=== PATIENT | female | born 1935 | race Caucasian/White ===

== ENCOUNTER 2017-07-08 05:38 | Outpatient (CLI) | payer MEDICARE, OTHER | END 2017-07-08 05:39 | disposition critical access hospital (66) | LOC: EMS 05:38 | PROVIDERS: ATTEND Surgery | DX: S09.90XA Unspecified injury of head, initial encounter (principal); W19.XXXA Unspecified fall, initial encounter; Y92.009 Unspecified place in unspecified non-institutional (private) residence as the place of occurrence of the external cause | CPT/HCPCS: A0425; A0429 ==

== ENCOUNTER 2017-07-08 05:52 | Emergency (ER) | payer MEDICARE, OTHER ==
--- NOTE | 2017-07-08 06:03 | ED Physician Documentation ---
PD HPI Fall - Stated complaint Stated Complaint: FALL - Chief complaint Chief Complaint: Trauma Hd/Nk - History obtained from History obtained from: Patient, Family ( says that the patient has had more falls recently. She was going into bathroom and he heard her fall, she had not asked him for help as she is supposed to. He went into bathroom and she was awake and trying to get back up. Apparently had struck back of head on sink and there was blood on the floor. Denies other injury. She has had some cough the past few days with wheezing and some dyspnea. 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 denies: Rhinorrhea / runny nose Throat: denies: Sore throat Cardiac: denies: Chest pain / pressure, Palpitations Respiratory: reports: Dyspnea, Cough, Wheezing (she has baseline wheezing and uses MDIs 4 times daily at least, and needs them regularly or gets very wheezy.) GI: denies: Abdominal Pain, Nausea, Vomiting, Diarrhea Skin: reports: Laceration (s) Neurologic: reports: Head injury. 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 HEENT: Cataracts - Present Medications Home Medications: Ambulatory Orders Medication Instructions Recorded Confirmed Chlorthalidone 25 mg PO DAILY 07/10/14 07/10/14 Fluticasone/Salmeterol 500/50 07/10/14 07/10/14 [Advair 500 Mcg/50 Mcg] Ipratropium/Albuterol Sulfate 07/10/14 07/10/14 [Combivent Respimat Inhal [employer]] Levothyroxine [Synthroid] 125 mcg PO QDAC 07/10/14 07/10/14 Temazepam [Restoril] 15 mg PO HS 07/10/14 07/10/14 Dexamethasone [Decadron] 4 mg PO DAILY #5 tablet 07/08/17 Doxycycline Monohydrate 100 mg PO BID #14 tablet 07/08/17 - Allergies Allergies/Adverse Reactions: Allergies Allergy/AdvReac Type Severity Reaction Status Date / Time moxifloxacin Allergy Rash Verified 07/08/17 05:57 codeine AdvReac Nausea Verified 07/08/17 05:57 losartan potassium * AdvReac Nausea Verified 07/08/17 05:57 [From Cozaar] - Social History Does the pt smoke?: No Smoking Status: Former smoker PD ED PE NORMAL - Vitals Vital signs reviewed: Yes - General General: Alert and oriented X 3, Well developed/nourished, Other (interacts well , conversant. Large focal hematoma left occiput without bleeding currently. ) - HEENT HEENT: Pharynx benign, Dentition benign - Neck Neck: Supple, no meningeal sign, No bony TTP, No adenopathy - Cardiac Cardiac: RRR, No murmur - Respiratory Respiratory: Other (no chestwall tenderness). No: Clear bilaterally (diffuse wheezing, with some coarse sounds centrally. Peripheral sounds are good. ) - Abdomen Abdomen: Soft, Non tender - Back Back: No CVA TTP, No spinal TTP - Derm Derm: Normal color, Warm and dry - Extremities Extremities: No tenderness to palpate, Normal ROM s pain, No edema, No calf tenderness / cord - Neuro Neuro: Alert and oriented X 3, No motor deficit, Normal speech Eye Opening: Spontaneous Motor: Obeys Commands Verbal: Oriented GCS Score: 15 - Psych Psych: Normal mood Results - Vitals Vitals: Vital Signs - 24 hr 07/08/17 07/08/17 07/08/17 05:57 06:22 06:30 Temperature 36.0 C L Heart Rate 90 90 87 Respiratory 15 25 H 20 Rate Blood Pressure 186/87 H 178/75 H O2 Saturation 96 96 07/08/17 07/08/17 07/08/17 06:36 06:49 07:36 Temperature Heart Rate 97 83 89 Respiratory 19 19 18 Rate Blood Pressure 182/87 H 182/87 H 150/75 H O2 Saturation 99 98 98 07/08/17 08:48 Temperature Heart Rate 92 Respiratory 16 Rate Blood Pressure 164/98 H O2 Saturation 98 Oxygen O2 Source [Without Activity] Room air O2 Source Room air - Labs Labs: Laboratory Tests 07/08/17 07/08/17 06:48 06:48 WBC 4.9 RBC 4.43 Hgb 12.7 Hct 37.0 MCV 83.5 MCH 28.7 MCHC 34.4 RDW 14.0 Plt Count 174 MPV 8.8 Neut # 3.0 Lymph # 0.9 L [place] # 0.6 Eos # 0.4 Baso # 0.0 Absolute Nucleated RBC 0.00 Nucleated RBC % 0.0 Sodium 128 L Potassium 3.9 Chloride 89 L Carbon Dioxide 25 Anion Gap 14.0 H BUN 15 Creatinine 0.7 Estimated GFR (MDRD) 80 L Glucose 85 Calcium 9.0 Magnesium 1.7 Total Bilirubin 0.5 AST 24 ALT 16 Alkaline Phosphatase 61 Total Protein 7.3 Albumin 3.7 Globulin 3.6 Albumin/Globulin Ratio 1.0 Lipase 21 L - Rads (name of study) head and neck CT Radiology: Prelim report reviewed (no ICH, no fractures) chest xray Radiology: Prelim report reviewed (bronchial cuffing c/w bronchitis. ) Procedures - Laceration (location) left occiput Length in cm: 1.5 Wound type: Stellate, Into subcut fat, Clean Neurovascular status: Other (active brisk bleeding without direct pressure. As such, with the bleeding and actually small size of the laceration, I was unable to evacuate the hematoma as much as I would have liked. Still focal hematoma after suturing.) Anesthesia: Lidocaine 1% with epi Skin layer closure: Nylon, Running, Size #-0 - enter number (4), Sutures - enter # (4 sutures in somewhat of a purse string fashion to close the wound and stop the bleeding.) PD MEDICAL DECISION MAKING - ED course Complexity details: reviewed results (given some bronchial findings on CXR with history of COPD, will give steroids and antibiotics c/w studies suggesting abx use in this setting leads to better improvement and longer resolution in those with COPD due to colonization. ), re-evaluated patient (improved wheeze with neb treatment (she says she would have needed one at home regardless of the fall ). fabrication manager started to wash the scalp wound and it started bleeding briskly. Direct pressure controlled it while I set up for suturing. ), considered differential, d/w patient Departure - Departure Disposition: 01 Home, Self Care Clinical Impression: Fall from slip, trip, or stumble Qualifiers: Encounter type: initial encounter Qualified Code(s): W01.0XXA - Fall on same level from slipping, tripping and stumbling without subsequent striking against object, initial encounter Occipital scalp laceration Qualifiers: Encounter type: initial encounter Qualified Code(s): S01.01XA - Laceration without foreign body of scalp, initial encounter COPD (chronic obstructive pulmonary disease) Qualifiers: COPD type: COPD with acute lower respiratory infection Qualified Code(s): J44.0 - Chronic obstructive pulmonary disease with acute lower respiratory infection Bronchitis, acute Qualifiers: Bronchitis organism: unspecified organism Qualified Code(s): J20.9 - Acute bronchitis, unspecified Condition: Stable Record reviewed to determine appropriate education?: Yes Instructions: ED Upper Resp Infec Abx Tx, ED Laceration Scalp Stitch Or Stap Prescriptions: Dexamethasone [Decadron] 4 mg PO DAILY #5 tablet Doxycycline Monohydrate 100 mg PO BID #14 tablet Comments: It is okay to wash and shower. Antibiotic ointment to laceration twice daily. Suture removal in about 10 days. You can put warm towels to the hematoma periodically to try to soften it and promote absorption. Continue your usual medications. Given your current cough and the chest xray showing some bronchitis , along with history of lung disease, I would treat you with Doxycycline antibiotic and Decadron steroid as directed. Recheck if worsening symptoms with cough/breathing. You will be sore from the fall, and can use Tylenol every 4-6 hours as needed. Discharge Date/Time: 07/08/17 09:06
[2017-07-08] MEDS ORDERED: IPRATROPIUM/ALBUTEROL 3 ML NEB INH STA (06:26)
[2017-07-08] MEDS ORDERED: SODIUM CHLORIDE 0.9% 1,000 ML IV ONE (06:46)
--- NOTE | 2017-07-08 07:20 | XRAY Preliminary Report ---
Exam: XR CHEST 2 VIEW X-RAY IMPRESSION: 1. Large lung volumes and mild cardiomegaly. 2. Mild bronchial wall thickening. This can be seen with bronchitis or reactive airways disease. [facility] SITE ID: [id number]
--- NOTE | 2017-07-08 07:20 | XRAY Report ---
EXAM: CHEST RADIOGRAPHY EXAM DATE: 07/08/2017 07:14 AM. CLINICAL HISTORY: Cough and sputum . COMPARISON: 07/12/2014. TECHNIQUE: 2 views. FINDINGS: Lungs/Pleura: Large lung volumes. No alveolar consolidation or pleural effusion seen. No pneumothorax . Mild bronchial wall thickening. Mediastinum: Mild cardiomegaly. Other: Osteopenia. Degenerative changes in the shoulders. Scoliosis. IMPRESSION: 1. Large lung volumes and mild cardiomegaly. 2. Mild bronchial wall thickening. This can be seen with bronchitis or reactive airways disease. [facility] Referring Provider Line: [phone] SITE ID: [id number]
[2017-07-08 07:29] LABS: BASOPHILS % (AUTO) 0.9 %; EOSINOPHILS # (AUTO) 0.4 10^3/uL (0.0-0.7); EOSINOPHILS % (AUTO) 8.5 %; HGB - HEMOGLOBIN 12.7 g/dL (12.0-16.0); LYMPHOCYTES # (AUTO) 0.9 10^3/uL (1.5-3.5); MEAN CORPUSCULAR HEMOGLOBIN 28.7 pg (27.0-31.0); MEAN CORPUSCULAR HGB CONC 34.4 g/dL (32.0-36.0); MEAN CORPUSCULAR VOLUME 83.5 fL (81.0-99.0); MEAN PLATELET VOLUME 8.8 fL (7.9-10.8); MONOCYTES # (AUTO) 0.6 10^3/uL (0.0-1.0); MONOCYTES % (AUTO) 12.1 %; NEUTROPHILS % (AUTO) 60.5 %; PLT - PLATELET COUNT 174 10^3/uL (130-450); RED BLOOD COUNT 4.43 10^6/uL (4.20-5.40); WHITE BLOOD COUNT 4.9 x10^3/uL (4.8-10.8)
--- NOTE | 2017-07-08 07:34 | CT Report ---
EXAM: CT HEAD EXAM DATE: 07/08/2017 07:23 AM. CLINICAL HISTORY: 81-year-old with fall and head strike with headache and left occipital hematoma COMPARISON: CT head 08/03/2014. TECHNIQUE: Multiaxial CT images were obtained from the foramen magnum to the vertex. Reformats: Coron al. IV contrast: None. In accordance with CT protocol optimization, one or more of the following dose reduction techniques w ere utilized for this exam: automated exposure control, adjustment of mA and/or KV based on patient s ize, or use of iterative reconstructive technique. FINDINGS: Parenchyma: No acute parenchymal hemorrhage, mass, or midline shift. There is xyza-cm-mvhtqbox bilate ral areas of white matter hypoattenuation seen similar to 07/14/2014. No definite new areas of hyperatt enuation seen to suggest acute infarct. Qgzu-ix-xugurgsw cortical and cerebellar volume loss. Extraaxial Spaces: Normal for age. No subdural or epidural collections identified. Cisterns are paten t. Ventricles: Normal in size and position. Sinuses and Orbits: Changes of bilateral lens replacement. Visualized paranasal sinuses, mastoid air cells, middle ear cavities are clear. Bones: No evidence of fracture or calvarial defect. 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 Other: Large left parietal scalp hematoma. Vascular calcifications of the cavernous ICA segments and intradural vertebral arteries. IMPRESSION: 1. No acute infarct, intracranial hemorrhage, mass, hydrocephalus, or midline shift. 2. Mild to moderate white matter changes that appear similar CT 07/14/2014 and may represent sequela of chronic small vessel ischemic disease. 3. Large left parietal scalp hematoma. 4. No calvarial fracture. [facility] Referring Provider Line: [phone] SITE ID: [id number]
[2017-07-08 07:43] LABS: ALBUMIN 3.7 g/dL (3.2-5.5); BILIRUBIN,TOTAL 0.5 mg/dL (0.2-1.0); CREATININE 0.7 mg/dL (0.4-1.0); MAGNESIUM 1.7 mg/dL (1.7-2.8); TOTAL PROTEIN 7.3 g/dL (6.7-8.2)
--- NOTE | 2017-07-08 07:47 | CT Report ---
EXAM: CT CERVICAL SPINE WITHOUT CONTRAST DATE: 07/08/2017 07:23 AM. HISTORY: 81-year-old with fall and head strike presenting with neck pain COMPARISONS: CT head 07/10/2014. TECHNIQUE: Thin-section axial images were acquired of the cervical spine without contrast. Post-proce ssing: Coronal and sagittal reformats. Other: None. In accordance with CT protocol optimization, one or more of the following dose reduction techniques w ere utilized for this exam: automated exposure control, adjustment of mA and/or KV based on patient s ize, or use of iterative reconstructive technique. FINDINGS: Alignment: There is 2 mm of anterior subluxation of C3 on C4. There is reversal of normal cervical lo rdosis. There is rightward curvature of the cervical spine similar to prior study. There is widening of the anterior aspect of the C2-C3 disk space measuring up to 3 mm (series 8, image 36) that appears similar to prior study. Overall alignment appears similar to 07/10/2014 Bones: There is fusion of the occipital condyles and lateral masses of C1. There is fusion of the halina ateral C3-C5 facets. There is fusion of the C3-C4 vertebral body. No acute fracture. No suspicious os seous lesion. Interspace Levels/Facets: C1-C2: Severe endplate degenerative changes. Severe loss of disk height. There is a small ossific fra gment seen posterior to the right C1-C2 articulation that is unchanged from 07/10/2014. Small posterio r pannus as well as ligament thickening resulting in moderate spinal canal stenosis. Probable moderat e bilateral neural foraminal narrowing, greater on the right. Findings appear progressed. C2-C3: Moderate endplate degenerative change with mild to moderate loss of disk height and disk calci fication. Small posterior disk osteophyte complex. Bilateral uncovertebral osteophyte and arthritic f acet disease. Mild spinal canal stenosis. Mild bilateral foraminal narrowing. Findings appear progres sed. C3-C4: Moderate endplate degenerative change with mild to moderate loss of disk height and disk calci fication. Small posterior disk osteophyte complex. Bilateral uncovertebral osteophyte and arthritic f acet disease. Mild spinal canal stenosis. Minimal to mild bilateral neural foraminal narrowing. Findi ngs appear progressed. C4-C5: Fusion of the endplates. Small posterior disk osteophyte complex. Bilateral uncovertebral oste ophyte and arthritic facet disease. Mild to moderate spinal canal stenosis. Moderate to severe left a nd mild right neuroforaminal narrowing. Findings progressed. C5-C6: Severe endplate degenerative change with severe loss of disk height. Small to moderate central disk osteophyte complex. Bilateral uncovertebral osteophyte and arthritic facet disease. Moderate sp inal canal stenosis. Moderate to severe bilateral neuroforaminal narrowing. Findings appear progresse d. C6-C7: Severe endplate degenerative change with severe loss of disk height. Small moderate posterior disk osteophyte complex. Bilateral uncovertebral osteophyte and arthritic facet disease. Moderate spi nal canal stenosis. Dpqzpcla-yp-olyjph right and moderate left neural foraminal narrowing. Findings p rogressed. C7-T1: Severe endplate degenerative change with severe loss of disk height. Small left paracentral ca lcified disk protrusion. Bilateral arthritic facet disease. Mild to moderate spinal canal stenosis wi th effacement of the left lateral recess. Moderate to severe right and minimal to mild left neural fo raminal narrowing. Findings appear progressed. Musculature: Normal. No fatty atrophy. Other: The paravertebral and prevertebral soft tissues are unremarkable. The lung apices are clear. IMPRESSION: 1. Diffuse osteopenia which technically limits evaluation. 2. No acute fracture or traumatic subluxation. 3. Severe multilevel degenerative changes appear progressed from 07/10/2014. C1-C2: Probable moderate thecal sac narrowing. Probable moderate bilateral neural foraminal narrowing , greater on the right. C2-C3: Mild spinal canal stenosis. Mild bilateral foraminal narrowing. C3-C4: Mild spinal canal stenosis. Minimal to mild bilateral neural foraminal narrowing. C4-C5: Mild to moderate spinal canal stenosis. Moderate to severe left and mild right neuroforaminal narrowing. C5-C6: Moderate spinal canal stenosis. Moderate to severe bilateral neuroforaminal narrowing. . C6-C7: Moderate spinal canal stenosis. Voijxhld-ye-dbgkuq right and moderate left neural foraminal na rrowing. C7-T1: Mild to moderate spinal canal stenosis with effacement of the left lateral recess. Moderate to severe right and minimal to mild left neural foraminal narrowing. [facility] Referring Provider Line: [phone] SITE ID: [id number]
[2017-07-08] MEDS ORDERED: ACETAMINOPHEN 325 MG TABLET PO STA (07:54)
[2017-07-08] MEDS ORDERED: DOXYCYCLINE 100 MG TABLET PO STA (07:54)
[2017-07-08] MEDS ORDERED: DEXAMETHASONE 10 MG/ML VIAL IVP STA (07:54)
[2017-07-08 08:49] VITALS: BP 164/98
== END 2017-07-08 09:06 | disposition home or self-care (01) ==
LOC: EDUNIT# → ED 05:52
DX: S01.01XA Laceration without foreign body of scalp, initial encounter (principal); W01.198A Fall on same level from slipping, tripping and stumbling with subsequent striking against other object, initial encounter; Y92.012 Bathroom of single-family (private) house as the place of occurrence of the external cause; J44.0 Chronic obstructive pulmonary disease with (acute) lower respiratory infection; J20.9 Acute bronchitis, unspecified; I10 Essential (primary) hypertension; I48.91 Unspecified atrial fibrillation; E03.9 Hypothyroidism, unspecified; M06.9 Rheumatoid arthritis, unspecified; M19.90 Unspecified osteoarthritis, unspecified site; Z87.891 Personal history of nicotine dependence
CPT/HCPCS: 12001; 36415; 70450; 71046; 72125; 80053; 83690; 83735; 85025; 94640; 96361; 96374; 99283; 99285; A9270; J7620

== ENCOUNTER 2017-12-25 14:32 | Outpatient (CLI) | payer MEDICARE, OTHER | END 2017-12-25 14:33 | disposition critical access hospital (66) | LOC: EMS 14:32 | PROVIDERS: ATTEND Surgery | DX: R06.02 Shortness of breath (principal); R05 Cough | CPT/HCPCS: A0425; A0427 ==

== ENCOUNTER 2017-12-25 14:47 | Inpatient (IN) | payer MEDICARE, OTHER ==
[2017-12-25] MEDS ORDERED: ALBUTEROL NEB 2.5 MG/3 ML INH STA (16:23)
[2017-12-25] MEDS ORDERED: DEXAMETHASONE 10 MG/ML VIAL PO STA (16:23)
--- NOTE | 2017-12-25 16:24 | ED Physician Documentation ---
History of Present Illness - Stated complaint Stated Complaint: SOA - Chief complaint Chief Complaint: Resp - Additonal information Additional information: hx from pt and SO 82 f hx asthma uses nebs q6 hr recently came off prednsione was on vacation in [place] had sore throat and sinus congestion now cough and SOA no leg swelling hypoxic in ED and does not normally use home O2 Review of Systems Constitutional: denies: Fever Nose: reports: Congestion Throat: reports: Sore throat Respiratory: reports: Dyspnea, Cough, Wheezing GI: denies: Abdominal Pain, Nausea, Vomiting, Diarrhea Endocrine: denies: Easy bruising / bleeding Immunocompromised: denies: Immunocompromised PD PAST MEDICAL HISTORY - Past Medical History Past Medical History: Yes Cardiovascular: Hypertension, Atrial flutter Respiratory: Asthma, COPD Endocrine/Autoimmune: HyPOthyroidism GI: Diverticulitis HEENT: Other Musculoskeletal: Osteoarthritis, Rheumatoid arthritis Derm: None - Past Surgical History Past Surgical History: Yes General: Appendectomy Ortho: Spine surgery, 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 HEENT: Cataracts - Present Medications Home Medications: Ambulatory Orders Medication Instructions Recorded Confirmed Chlorthalidone 25 mg PO DAILY 07/10/14 07/10/14 Fluticasone/Salmeterol 500/50 07/10/14 07/10/14 [Advair 500 Mcg/50 Mcg] Ipratropium/Albuterol Sulfate 07/10/14 07/10/14 [Combivent Respimat Inhal [place]] Levothyroxine [Synthroid] 125 mcg PO QDAC 07/10/14 07/10/14 Temazepam [Restoril] 15 mg PO HS 07/10/14 07/10/14 Dexamethasone [Decadron] 4 mg PO DAILY #5 tablet 07/08/17 Doxycycline Monohydrate 100 mg PO BID #14 tablet 07/08/17 - Allergies Allergies/Adverse Reactions: Allergies Allergy/AdvReac Type Severity Reaction Status Date / Time moxifloxacin Allergy Rash Verified 07/08/17 05:57 codeine AdvReac Nausea Verified 07/08/17 05:57 losartan potassium * AdvReac Nausea Verified 07/08/17 05:57 [From [place]] - Social History Does the pt smoke?: No Smoking Status: Never smoker Does the pt drink ETOH?: Yes Does the pt have substance abuse?: No - Immunizations Immunizations are current?: Yes - POLST Patient has POLST: No PD ED PE NORMAL - Vitals Vital signs reviewed: Yes - General General: Alert and oriented X 3 - HEENT HEENT: PERRL - Neck Neck: Supple, no meningeal sign - Cardiac Cardiac: RRR - Respiratory Respiratory: Other (SERAFIN WHEEZE AND RONCHI, HYPOXIC) - Derm Derm: Normal color - Extremities Extremities: No edema, No calf tenderness / cord - Neuro Neuro: Alert and oriented X 3 Results - Vitals Vitals: Vital Signs - 24 hr 12/25/17 12/25/17 12/25/17 14:53 15:48 16:45 Temperature 37.2 C Heart Rate 100 103 H 106 H Respiratory 16 18 20 Rate Blood Pressure 148/79 H 115/75 O2 Saturation 100 100 100 Oxygen O2 Source [Without Activity] Room air O2 Source Room air - Labs Labs: Laboratory Tests 12/25/17 12/25/17 16:33 16:33 WBC 10.6 RBC 4.26 Hgb 11.9 L Hct 36.2 L MCV 84.9 MCH 28.0 MCHC 33.0 RDW 15.8 H Plt Count 247 MPV 8.9 Neut # (Auto) 8.1 H Lymph # (Auto) 1.0 L [place] # (Auto) 1.3 H Eos # (Auto) 0.2 Baso # (Auto) 0.1 Absolute Nucleated RBC 0.01 Nucleated RBC % 0.1 Sodium 135 Potassium 3.5 Chloride 101 Carbon Dioxide 26 Anion Gap 8.0 BUN 18 Creatinine 0.7 Estimated GFR (MDRD) 80 L Glucose 100 Calcium 8.9 - Rads (name of study) CXR Radiology: See rad report (early infiltrate right heart border, hyperinf c/w COPD) PD MEDICAL DECISION MAKING - ED course ED course: despite nebs by EMS and also in ED as well as steroids pt still very labored and wheezy - does not feel better - but no longer hypoxic CXR shows pna given severe asthma sx despite steroids and nebs will admit d/w hospitalist at 1800 - rec inpt - Sepsis Event Vital Signs: Vital Signs - 24 hr 12/25/17 12/25/17 12/25/17 14:53 15:48 16:45 Temperature 37.2 C Heart Rate 100 103 H 106 H Respiratory 16 18 20 Rate Blood Pressure 148/79 H 115/75 O2 Saturation 100 100 100 Oxygen O2 Source [Without Activity] Room air O2 Source Room air Departure - Departure Disposition: 66 [facility] DC/Xfer Clinical Impression: Pneumonia Qualifiers: Pneumonia type: due to unspecified organism Laterality: right Lung location: unspecified part of lung Qualified Code(s): J18.9 - Pneumonia, unspecified organism Asthma Qualifiers: Asthma severity: unspecified severity Asthma persistence: unspecified Asthma complication type: with acute exacerbation Qualified Code(s): J45.901 - Unspecified asthma with (acute) exacerbation Condition: Fair
--- NOTE | 2017-12-25 16:36 | XRAY Report ---
Procedure Date: 12/25/2017 Accession Number: [id number] / [id number] Procedure: XR - Chest 2 View X-Ray CPT Code: 33728 FULL RESULT: EXAM: CHEST RADIOGRAPHY EXAM DATE: 12/25/2017 04:16 PM. CLINICAL HISTORY: Cough. COMPARISON: 07/12/2014. TECHNIQUE: 2 views. FINDINGS: Lungs/Pleura: Questionable ill-defined opacity along the right heart border. No pleural effusion. No pneumothorax. Increased volumes. Mediastinum: Heart and mediastinal contours are unremarkable. Other: None. IMPRESSION: Hyperinflation compatible with underlying COPD. Possible early infiltrate along the right heart border in the right middle lobe. [facility]
[2017-12-25 16:39] LABS: BASOPHILS # (AUTO) 0.1 10^3/uL (0.0-0.1); BASOPHILS % (AUTO) 0.5 %; EOSINOPHILS # (AUTO) 0.2 10^3/uL (0.0-0.7); EOSINOPHILS % (AUTO) 1.7 %; HGB - HEMOGLOBIN 11.9 g/dL (12.0-16.0); LYMPHOCYTES % (AUTO) 9.6 %; MEAN CORPUSCULAR VOLUME 84.9 fL (81.0-99.0); MEAN PLATELET VOLUME 8.9 fL (7.9-10.8); MONOCYTES # (AUTO) 1.3 10^3/uL (0.0-1.0); MONOCYTES % (AUTO) 12.4 %; NEUTROPHILS # (AUTO) 8.1 10^3/uL (1.5-6.6); NEUTROPHILS % (AUTO) 75.8 %; PLT - PLATELET COUNT 247 10^3/uL (130-450); RED BLOOD COUNT 4.26 10^6/uL (4.20-5.40); RED CELL DISTRIBUTION WIDTH 15.8 % (12.0-15.0); WHITE BLOOD COUNT 10.6 x10^3/uL (4.8-10.8)
[2017-12-25 16:48] LABS: CALCIUM 8.9 mg/dL (8.5-10.3); CREATININE 0.7 mg/dL (0.4-1.0)
[2017-12-25] MEDS ORDERED: cefTRIAXone 1 GM in SODIUM CHLORIDE 0.9% MINIBAG 100 ML IV STA (18:05)
[2017-12-25] MEDS ORDERED: LEVALBUTEROL 1.25 MG/3 ML NEB INH STA (18:05)
[2017-12-25] MEDS ORDERED: AZITHROMYCIN INJ 500 MG in SODIUM CHLORIDE 0.9% 250 ML IV STA (18:05)
--- NOTE | 2017-12-25 18:20 | HISTORY & PHYSICAL EXAMINATION ---
Chief Complaint - Chief Complaint Chief Complaint: SOB History of Present Illness - Admitted From Admitted From:: ED - History Obtained From Records Reviewed: yes History obtained from: chart review, patient Exam Limitations: none - History of Present Illness HPI Comment/Other: Emma Nelson is an 82-year old female with a past medical history of atrial fib/flutter, hypertension, asthma, COPD, hypothyroidism, diverticulitis, osteoarthritis, RA and falls. She and her sold a home in [place] in 2012 , and were visiting the buyers of their home this past week. The patient developed a "head cold" while traveling and soon began having increased congestion with a productive cough. She also had inconsistent BLE swelling, anorexia, and increased lethargy. She came to the ED with her today with a primary complaint of shortness of breath that was not resolved with her usual home nebulizers and describes a heavy tightness in her chest that did not radiate to her arms, shoulders, neck or face. Chest imaging shows possible early infiltrate along the right heart border in the right middle lobe. WBCs are normal at 10.6 with mildly low H/H, and no other abnormalities. She reports a week long productive cough, hypoxia upon presentation to ED, and very congested chest upon auscultation. She denies chest pain with activity, nausea, vomiting and dizziness. She will be admitted to inpatient for further treatment of this PNA. History - Past Medical History Cardiovascular: reports: Hypertension, Atrial flutter Respiratory: reports: Asthma, COPD Endocrine/Autoimmune: reports: HyPOthyroidism GI: reports: GERD, Diverticulitis CEMETERY WORKER: reports: None : reports: Nocturia HEENT: reports: Chronic vision loss, Chronic hearing loss, Other Psych: reports: Anxiety Musculoskeletal: reports: Osteoarthritis, Rheumatoid arthritis Derm: reports: None MRSA Hx?: No - Past Surgical History General: reports: Appendectomy Ortho: reports: Spine surgery, Other /CEMETERY WORKER: reports: Hysterectomy HEENT: reports: Cataracts - Family & Social History Family History: Mother: , Father: Family History Comment/Other: The patient's father from CVA, father from suspected heart disease, both parents were advanced age ~85. Living arrangement: At home Living Situation: With spouse/s.o. Social History Notes: The patient lives independently with her . She spent 40+ years in [place] and moved to the [place] in 2012. 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 She denies alcohol, tobacco, or illicit drug use. She admits to a history of tobacco dependence from age [age]. She has a POLST form that states DNR with limited interventions. - Substance History Use: Uses substance without health or social issues: NONE Abuse: Recurrent use of substance despite neg consequences: NONE Dependence: Experiences withdrawal or developed tolerances: NONE - POLST Patient has POLST: Yes POLST Status: DNR (limited interventions) Meds/Allgy - Home Medications Home Medications: Ambulatory Orders Medication Instructions Recorded Confirmed Levothyroxine [Synthroid] 125 mcg PO QDAC 07/10/14 12/25/17 Temazepam [Restoril] 15 mg PO HS PRN 07/10/14 12/25/17 Albuterol Sulfate [Proair 2 puffs INH Q6H PRN 12/25/17 12/25/17 Respiclick] Celecoxib [Celebrex] 200 mg PO DAILY 12/25/17 12/25/17 Cholecalciferol (Vitamin D3) 4,000 unit PO DAILY 12/25/17 12/25/17 [Vitamin D3] Ipratropium/Albuterol Sulfate 3 ml INH QID 12/25/17 12/25/17 [Iprat-Albut 0.5-3(2.5) mg/3 ml] Losartan Potassium [Cozaar] 100 mg PO DAILY 12/25/17 12/25/17 Montelukast [Singulair] 10 mg PO QPM 12/25/17 12/25/17 raNITIdine [Zantac] 150 mg PO DAILY 12/25/17 12/25/17 - Allergies Allergies/Adverse Reactions: Allergies Allergy/AdvReac Type Severity Reaction Status Date / Time moxifloxacin Allergy Severe Rash Verified 12/25/17 18:32 hydrocodone AdvReac Severe Vomiting Verified 12/25/17 18:32 tramadol AdvReac Severe Vomiting Verified 12/25/17 18:32 losartan potassium * AdvReac Mild Nausea Verified 12/25/17 18:32 [From Cozaar] codeine AdvReac Nausea Verified 07/08/17 05:57 Review of Systems - Constitutional Constitutional: reports: Fatigue, Weakness, Poor appetite, Weight loss - Eyes Eyes: reports: Vision loss - Ears, Nose & Throat Ears, Nose & Throat: reports: Hearing loss, Hearing aids, Nasal congestion, Sore throat, Hoarseness - Cardiovascular Cariovascular: reports: Chest pain (chest heaviness) - Respiratory Respiratory: reports: Cough, Sputum production, Wheezing, SOB with exertion - Gastrointestinal Gastrointestinal: reports: Reflux/heartburn, Poor appetite - Genitourinary Genitourinary: reports: Dysuria, Nocturia - Musculoskeletal Musculoskeletal: reports: Muscle weakness, Joint swelling - Integumentary Integumentary: reports: Dryness - Neurological Neurological: reports: General weakness, Abnormal gait (recent falls) - Psychiatric Psychiatric: reports: Anxiety - Hematologic/Lymphatic Hematologic/Lymphatic: reports: Anemia - All Other Systems All Other Systems: reports: Reviewed and negative Exam - Vital Signs Vital Signs: Vital Signs x48h Temp Pulse Resp BP Pulse Ox 12/25/17 16:45 106 H 20 100 12/25/17 15:48 103 H 18 115/75 100 12/25/17 14:53 37.2 C 100 16 148/79 H 100 - Physical Exam General Appearance: positive: Alert, Moderate distress, Lethargic Eyes Bilateral: positive: Normal inspection, PERRL ENT: positive: Pharyngeal erythema, Dry mucous membranes Neck: positive: No JVD, Lymphadenopathy (R), Lymphadenopathy (L), Stiff neck Respiratory: positive: Chest non-tender, Wheezes, Rhonchi, Other (profound congestion) Cardiovascular: positive: No gallop, Irregularly irregular, Systolic murmur, Decreased pulse(s) Peripheral Pulses: positive: 1+ Abdomen: positive: Non-tender, Nml bowel sounds, Other (rounded, soft) Back: positive: Nml inspection Skin: positive: No rash, Warm, Dry Extremities: positive: Non-tender, Full ROM, No pedal edema, Joint swelling Neurologic/Psychiatric: positive: Oriented x3, CN's nml (2-12), Motor nml, Weakness, Depressed mood/affect, Other (NIKOLSKI) Reflexes: Bicep (R): 2+, Bicep (L): 2+ Conclusion/Plan - Problem List (1) Pneumonia Conclusion/Plan: Chest imaging shows possible early infiltrate along the right heart border in the right middle lobe. WBCs are normal at 10.6 with mildly low H/H, and no other abnormalities. She reports a week long productive cough, hypoxia upon presentation to ED, and very congested chest upon auscultation. She attempted her home nebulizers without relief. She was started on Azithromycin and Rocephin in the ED, but for those patients with advanced COPD, they are at a higher risk for pseudomonas infections making it necessary to choose a macrolide or a fluoroquinolone. Plan: Start Zosyn IV antibiotics, await respiratory cultures, IV steroids, Xopenex due to heart arrhythmia history, and respiratory care. Qualifiers: Pneumonia type: due to unspecified organism Laterality: right Lung location: unspecified part of lung Qualified Code(s): J18.9 - Pneumonia, unspecified organism (2) COPD (chronic obstructive pulmonary disease) Conclusion/Plan: Imaging upon presentation to ED show hyperinflation (barrel chest) showing COPD. She is prescribed nebulizers at home. Plan: Respiratory care for this PNA, IV steroids, antibiotics, pulmonary toileting. (3) Anemia Conclusion/Plan: H/H upon admission was decreased, which could be dehydration related, but anemia is in her history. Plan: Continue to monitor daily labs. Qualifiers: Anemia type: unspecified type Qualified Code(s): D64.9 - Anemia, unspecified - Lab Results Lab results reviewed: Yes Fish Bones: 12/26/17 05:45 12/26/17 05:45 - Diagnostic Imaging Results Diagnostic Imaging Results: positive: Prelim report reviewed, Final report reviewed - EKG Results EKG Interpreted Independently: Yes Core Measures - Anticipated LOS I expect patient to be DC'd or transferred within 96 hours.: Yes - DVT/VTE - Prophylaxis VTE/DVT Device ordered at admit?: Yes VTE/DVT Prophylaxis med ordered at admit?: Yes - Stroke - Rehab Assessment Rehab services assessment to be ordered?: Yes - AMI - Statin at Admit Aspirin Prescribed on Admit: Yes
[2017-12-25] MEDS ORDERED: TEMAZEPAM 15 MG CAPSULE PO PRN (18:33)
[2017-12-25] MEDS ORDERED: cefTRIAXone 1 GM VIAL ONE (18:48)
[2017-12-25] MEDS ORDERED: LEVALBUTEROL 1.25 MG/3 ML NEB INH ONE (19:19)
[2017-12-25] MEDS ORDERED: SODIUM CHLORIDE FLUSH 0.9% 10 ML SYRINGE ONE (19:25)
[2017-12-25] MEDS: guaiFENesin 600 MG TABLET PO SCH (21:14)
[2017-12-25] MEDS: MONTELUKAST 10 MG TABLET PO SCH (21:14)
[2017-12-25] MEDS: LEVALBUTEROL 1.25 MG/3 ML NEB INH SCH (21:20)
[2017-12-26] MEDS: SODIUM CHLORIDE FLUSH 0.9% 10 ML SYRINGE IVP SCH ×3 (00:10→16:05)
[2017-12-26] MEDS: PIPERACILLIN/TAZOBACTAM 3.375 GM in SODIUM CHLORIDE 0.9% MINIBAG 100 ML IV SCH ×4 (00:11→19:17)
[2017-12-26] MEDS: methylPREDNISolone SUCCINATE 40 MG/ML VIAL IVP SCH ×4 (00:11→21:54)
[2017-12-26] MEDS: LEVALBUTEROL 1.25 MG/3 ML NEB INH PRN ×3 (00:24→13:18)
[2017-12-26 06:11] LABS: BASOPHILS % (AUTO) 0.1 %; HGB - HEMOGLOBIN 12.2 g/dL (12.0-16.0); LYMPHOCYTES # (AUTO) 0.5 10^3/uL (1.5-3.5); LYMPHOCYTES % (AUTO) 5.8 %; MEAN CORPUSCULAR HEMOGLOBIN 28.6 pg (27.0-31.0); MEAN CORPUSCULAR HGB CONC 33.1 g/dL (32.0-36.0); MEAN CORPUSCULAR VOLUME 86.5 fL (81.0-99.0); MEAN PLATELET VOLUME 9.4 fL (7.9-10.8); MONOCYTES # (AUTO) 0.1 10^3/uL (0.0-1.0); NEUTROPHILS # (AUTO) 7.7 10^3/uL (1.5-6.6); NEUTROPHILS % (AUTO) 93.1 %; PLT - PLATELET COUNT 244 10^3/uL (130-450); RED BLOOD COUNT 4.25 10^6/uL (4.20-5.40); RED CELL DISTRIBUTION WIDTH 15.8 % (12.0-15.0); WHITE BLOOD COUNT 8.3 x10^3/uL (4.8-10.8)
[2017-12-26 06:21] LABS: ALBUMIN/GLOBULIN RATIO 0.8 (1.0-2.2); BILIRUBIN,TOTAL 0.6 mg/dL (0.2-1.0); CALCIUM 8.9 mg/dL (8.5-10.3); CREATININE 0.6 mg/dL (0.4-1.0)
[2017-12-26] MEDS: SODIUM CHLORIDE FLUSH 0.9% 10 ML SYRINGE IVP PRN ×3 (06:27→21:55)
[2017-12-26] MEDS: LEVOTHYROXINE 125 MCG TABLET PO SCH (06:27)
[2017-12-26] MEDS: SACCHAROMYCES BOULARDII 250 MG CAPSULE PO SCH ×2 (08:13→16:06)
[2017-12-26] MEDS: POLYETHYLENE GLYCOL 3350 17 GM PACKET PO SCH (08:13)
[2017-12-26] MEDS: guaiFENesin 600 MG TABLET PO SCH ×2 (08:13→20:18)
[2017-12-26] MEDS: LEVALBUTEROL 1.25 MG/3 ML NEB INH SCH ×3 (09:07→22:01)
[2017-12-26] MEDS: ACETAMINOPHEN 325 MG TABLET PO PRN ×2 (10:04→18:39)
--- NOTE | 2017-12-26 18:12 | PROVIDER PROGRESS NOTE ---
Subjective - Prog Note Date Prog Note Date: 12/26/17 Prog Note Time: 12:00 - Subjective Pt reports feeling: Improved Subjective: Emma and her agree that she is mildly improved, but she is still requiring supplemental oxygen. She denies any new symptoms such as chest pain, increased shortness of breath, nausea, vomiting, or a new cough. Current Medications - Current Medications Current Medications: Active Medications Acetaminophen (Tylenol) 650 mg PO Q4HR PRN PRN Reason: Pain or Fever > 38C (100.4F) Last Admin: 12/26/17 10:04 Dose: 650 mg Guaifenesin (Mucinex) 600 mg PO BID [facility] Last Admin: 12/26/17 08:13 Dose: 600 mg Piperacillin Sod/Tazobactam (Sod 3.375 gm/ Sodium Chloride) 100 mls @ 200 mls/ hr IV Q6H [facility] Last Infusion: 12/26/17 14:20 Dose: Infused Levalbuterol HCl (Xopenex) 1.25 mg INH Q4H PRN PRN Reason: Shortness of Air/Wheezing Last Admin: 12/26/17 13:18 Dose: 1.25 mg Levalbuterol HCl (Xopenex) 1.25 mg INH RTQID [facility] Last Admin: 12/26/17 17:48 Dose: 1.25 mg Levothyroxine Sodium (Synthroid) 125 mcg PO QDAC [facility] Last Admin: 12/26/17 06:27 Dose: 125 mcg Methylprednisolone (Solu-Medrol (40mg Vial)) 40 mg IVP TID [facility] Last Admin: 12/26/17 13:50 Dose: 40 mg Montelukast Sodium (Singulair) 10 mg PO QPM [facility] Last Admin: 12/25/17 21:14 Dose: 10 mg Polyethylene Glycol (Miralax) 17 gm PO DAILY [facility] Last Admin: 12/26/17 08:13 Dose: Not Given Ranitidine HCl (Zantac) 150 mg PO DAILY [facility] Last Admin: 12/26/17 08:13 Dose: 150 mg Saccharomyces Boulardii (Florastor) 500 mg PO BIDWM [facility] Last Admin: 12/26/17 16:06 Dose: 500 mg Sodium Chloride (Normal Saline Flush 0.9%) 10 ml IVP PRN PRN PRN Reason: NEEDED PER PROVIDER ORDERS Last Admin: 12/26/17 06:27 Dose: 10 ml Sodium Chloride (Normal Saline Flush 0.9%) 10 ml IVP 0100,0900,1700 [facility] Last Admin: 12/26/17 16:05 Dose: 10 ml Temazepam (Restoril) 15 mg PO HS PRN PRN Reason: Insomnia Levothyroxine [Synthroid] 125 mcg PO QDAC 07/10/14 Temazepam [Restoril] 15 mg PO HS PRN 07/10/14 Albuterol Sulfate [Proair Respiclick] 2 puffs INH Q6H PRN 12/25/17 Celecoxib [Celebrex] 200 mg PO DAILY 12/25/17 Cholecalciferol (Vitamin D3) [Vitamin D3] 4,000 unit PO DAILY 12/25/17 Ipratropium/Albuterol Sulfate [Iprat-Albut 0.5-3(2.5) mg/3 ml] 3 ml INH QID Losartan Potassium [Cozaar] 100 mg PO DAILY 12/25/17 Montelukast [Singulair] 10 mg PO QPM 12/25/17 raNITIdine [Zantac] 150 mg PO DAILY 12/25/17 Objective - Vital Signs/Intake & Output Reviewed Vital Signs: Yes Vital Signs: Vital Signs x48h Temp Pulse Pulse Resp BP Pulse Ox 12/26/17 17:48 99 20 12/26/17 15:58 36.5 C 89 16 130/61 99 12/26/17 13:18 105 H 20 12/26/17 12:36 36.4 C L 106 H 20 140/60 H 99 Intake & Output: Intake & Output 12/23/17 12/24/17 12/25/17 12/26/17 23:59 23:59 23:59 23:59 Intake Total 350 1200 Balance 350 1200 - Objective General Appearance: positive: No acute distress, Alert, Lethargic Eyes Bilateral: positive: Normal inspection Eyes: OU Conjunctivae pale ENT: positive: ENT inspection nml, Pharynx nml, Pharyngeal erythema, Dry mucous membranes Neck: positive: Nml inspection, Thyroid nml, No JVD, Lymphadenopathy (R), Lymphadenopathy (L), Stiff neck Respiratory: positive: Chest non-tender, Wheezes, Rhonchi Cardiovascular: positive: Regular rate & rhythm, No gallop, Systolic murmur, Decreased pulse(s) Peripheral Pulses: 1+ Radial (R), 1+ Radial (L) Abdomen: positive: Non-tender, Nml bowel sounds Back: positive: Nml inspection Skin: positive: No rash, Warm, Dry, Other (pale) Extremities: positive: Non-tender, Full ROM, No pedal edema, Joint swelling Neurologic/Psychiatric: positive: Oriented x3, CN's nml (2-12), Motor nml, Weakness, Sensory loss, Depressed mood/affect, Other (poor STM) Reflexes: Bicep (R): 3+, Bicep (L): 3+ - Lab Results Fish Bones: 12/28/17 06:00 12/28/17 06:00 Other Labs: Lab Results x24hrs 12/26/17 12/26/17 12/26/17 Range/Units 05:45 05:45 05:45 WBC 8.3 (4.8-10.8) x10^3/uL RBC 4.25 (4.20-5.40) 10^6/uL Hgb 12.2 (12.0-16.0) g/dL Hct 36.8 L (37.0-47.0) % MCV 86.5 (81.0-99.0) fL MCH 28.6 (27.0-31.0) pg MCHC 33.1 (32.0-36.0) g/dL RDW 15.8 H (12.0-15.0) % Plt Count 244 (130-450) 10^3/uL MPV 9.4 (7.9-10.8) fL Neut # (Auto) 7.7 H (1.5-6.6) 10^3/uL Lymph # (Auto) 0.5 L (1.5-3.5) 10^3/uL [place]ell # (Auto) 0.1 (0.0-1.0) 10^3/uL Eos # (Auto) 0.0 (0.0-0.7) 10^3/uL Baso # (Auto) 0.0 (0.0-0.1) 10^3/uL Absolute Nucleated RBC 0.00 x10^3/uL Nucleated RBC % 0.1 /100WBC Sodium 133 L (135-145) mmol/L Potassium 3.4 L (3.5-5.0) mmol/L Chloride 99 L (101-111) mmol/L Carbon Dioxide 24 (21-32) mmol/L Anion Gap 10.0 (6-13) BUN 16 (6-20) mg/dL Creatinine 0.6 (0.4-1.0) mg/dL Estimated GFR (MDRD) 96 (>89) Glucose 153 H (70-100) mg/dL Calcium 8.9 (8.5-10.3) mg/dL Total Bilirubin 0.6 (0.2-1.0) mg/dL AST 16 (10-42) IU/L ALT 14 (10-60) IU/L Alkaline Phosphatase 61 (42-121) IU/L Total Protein 7.0 (6.7-8.2) g/dL Albumin 3.0 L (3.2-5.5) g/dL Globulin 4.0 (2.1-4.2) g/dL Albumin/Globulin Ratio 0.8 L (1.0-2.2) TSH 0.55 (0.34-5.60) uIU/mL - Diagnostic Imaging Diagnostic Imaging Results: positive: Prelim report reviewed, Final report reviewed ABX Reporting Has patient been on IV antibiotics over the past 48 hours?: Yes Assessment/Plan - Problem List (1) Pneumonia Impression: Chest imaging shows possible early infiltrate along the right heart border in the right middle lobe. WBCs are normal at 10.6 with mildly low H/H, and no other abnormalities. She reports a week long productive cough, hypoxia upon presentation to ED, and very congested chest upon auscultation. She attempted her home nebulizers without relief. She was started on Azithromycin and Rocephin in the ED, but for those patients with advanced COPD, they are at a higher risk for pseudomonas infections making it necessary to choose a macrolide or a fluoroquinolone. Due to poor response, the patient was started on vancomycin to cover for anaerobe. Plan: Continue Zosyn and vanco IV antibiotics, await respiratory cultures, IV steroids, Xopenex due to heart arrhythmia history, and respiratory care. Qualifiers: Pneumonia type: due to unspecified organism Laterality: right Lung location: unspecified part of lung Qualified Code(s): J18.9 - Pneumonia, unspecified organism (2) COPD (chronic obstructive pulmonary disease) Impression: Imaging upon presentation to ED show hyperinflation (barrel chest) showing COPD. She is prescribed nebulizers at home and no home oxygen. I suspect that she may require home oxygen after this pneumonia. She states that she has had asthma for her whole life. She should go home on a LABA. Plan: Respiratory care for this PNA, IV steroids, antibiotics, pulmonary toileting. (3) Anemia Impression: H/H upon admission was decreased, which could be dehydration related, but anemia is in her history. Today the patient is 11.9/36.2. Plan: Continue to monitor daily labs and watch for signs of bleeding. Qualifiers: Anemia type: unspecified type Qualified Code(s): D64.9 - Anemia, unspecified
[2017-12-26] MEDS: MONTELUKAST 10 MG TABLET PO SCH (20:18)
[2017-12-26 20:36] LABS: BILIRUBIN,URINE NEGATIVE (NEGATIVE); GLUCOSE, URINE (UA) NEGATIVE (NEGATIVE); KETONES,URINE (UA) NEGATIVE (NEGATIVE); LEUKOCYTE ESTERASE, URINE NEGATIVE (NEGATIVE); NITRITE,URINE NEGATIVE (NEGATIVE); OCCULT BLOOD,URINE NEGATIVE (NEGATIVE); PROTEIN,URINE NEGATIVE (NEGATIVE); UROBILINOGEN,URINE 0.2 (NORMAL) E.U./dL (NORMAL)
[2017-12-26 20:38] LABS: CLARITY,URINE CLEAR (CLEAR)
[2017-12-27] MEDS: PIPERACILLIN/TAZOBACTAM 3.375 GM in SODIUM CHLORIDE 0.9% MINIBAG 100 ML IV SCH ×2 (00:44→06:44)
[2017-12-27] MEDS: ACETAMINOPHEN 325 MG TABLET PO PRN ×3 (00:45→18:10)
[2017-12-27] MEDS: SODIUM CHLORIDE FLUSH 0.9% 10 ML SYRINGE IVP SCH ×5 (00:45→23:49)
[2017-12-27] MEDS ORDERED: SODIUM CHLORIDE 0.9% MINIBAG 0 ML IV ONE (00:50)
[2017-12-27] MEDS: LEVALBUTEROL 1.25 MG/3 ML NEB INH PRN (01:09)
[2017-12-27 06:38] LABS: BASOPHILS # (AUTO) 0.1 10^3/uL (0.0-0.1); BASOPHILS % (AUTO) 0.4 %; HGB - HEMOGLOBIN 11.3 g/dL (12.0-16.0); LYMPHOCYTES # (AUTO) 0.7 10^3/uL (1.5-3.5); MEAN CORPUSCULAR HEMOGLOBIN 28.4 pg (27.0-31.0); MEAN CORPUSCULAR HGB CONC 32.9 g/dL (32.0-36.0); MEAN CORPUSCULAR VOLUME 86.3 fL (81.0-99.0); MEAN PLATELET VOLUME 9.2 fL (7.9-10.8); MONOCYTES # (AUTO) 0.6 10^3/uL (0.0-1.0); MONOCYTES % (AUTO) 3.4 %; NEUTROPHILS # (AUTO) 15.4 10^3/uL (1.5-6.6); NEUTROPHILS % (AUTO) 92.2 %; PLT - PLATELET COUNT 271 10^3/uL (130-450); RED BLOOD COUNT 3.99 10^6/uL (4.20-5.40); RED CELL DISTRIBUTION WIDTH 16.1 % (12.0-15.0); WHITE BLOOD COUNT 16.7 x10^3/uL (4.8-10.8)
[2017-12-27 06:39] LABS: ALBUMIN/GLOBULIN RATIO 0.9 (1.0-2.2); BILIRUBIN,TOTAL 0.5 mg/dL (0.2-1.0); CREATININE 0.7 mg/dL (0.4-1.0); TOTAL PROTEIN 6.4 g/dL (6.7-8.2)
[2017-12-27] MEDS: methylPREDNISolone SUCCINATE 40 MG/ML VIAL IVP SCH ×3 (06:44→21:16)
[2017-12-27] MEDS: LEVOTHYROXINE 125 MCG TABLET PO SCH (06:46)
[2017-12-27] MEDS: SODIUM CHLORIDE FLUSH 0.9% 10 ML SYRINGE IVP PRN ×2 (06:46→21:16)
[2017-12-27] MEDS: LEVALBUTEROL 1.25 MG/3 ML NEB INH SCH ×4 (07:36→18:14)
[2017-12-27] MEDS: SPIRONOLACTONE 25 MG TABLET PO SCH (08:46)
[2017-12-27] MEDS: SACCHAROMYCES BOULARDII 250 MG CAPSULE PO SCH ×2 (08:48→16:13)
[2017-12-27] MEDS: guaiFENesin 600 MG TABLET PO SCH ×2 (08:50→20:07)
[2017-12-27] MEDS: POLYETHYLENE GLYCOL 3350 17 GM PACKET PO SCH (08:53)
[2017-12-27] MEDS: FLUTICASONE NASAL SPRAY NAS SCH (11:57)
[2017-12-27] MEDS: OXYMETAZOLINE NASAL SPRAY NAS SCH ×2 (11:58→20:09)
[2017-12-27] MEDS ORDERED: VANCOMYCIN INJ 0.75 GM in SODIUM CHLORIDE 0.9% 250 ML IV SCH ×4 (12:00)
[2017-12-27] MEDS ORDERED: METOPROLOL SUCCINATE 25 MG TABLET PO SCH (12:00)
[2017-12-27] MEDS ORDERED: VANCOMYCIN PER PHARMACY 100 GM in SODIUM CHLORIDE 0.9% 250 ML IV SCH (12:00)
[2017-12-27] MEDS ORDERED: PIPERACILLIN/TAZOBACTAM 3.375 GM in SODIUM CHLORIDE 0.9% MINIBAG 100 ML IV SCH (14:00)
--- NOTE | 2017-12-27 15:44 | XRAY Report ---
Procedure Date: 12/27/2017 Accession Number: [id number] / [id number] Procedure: XR - Chest 1 View X-Ray CPT Code: 69760 FULL RESULT: EXAM: Chest 1 View X-Ray DATE: 12/27/2017 1:25 PM CLINICAL HISTORY: congestion, incresased WBC COMPARISON: 12/25/2016. TECHNIQUE: Single view of the chest. FINDINGS: Lungs/Pleura: The lungs are hyperinflated. There is no focal consolidation. There is no pleural effusion or pneumothorax. Mediastinum: Within exam limitations, cardiomediastinal contour is normal. Other: None. IMPRESSION: Emphysema. No consolidation. RADIA
[2017-12-27] MEDS: CEFEPIME 2 GM in SODIUM CHLORIDE 0.9% MINIBAG 100 ML IV SCH (16:13)
[2017-12-27] MEDS: BUDESONIDE 0.5 MG/2 ML NEB INH SCH (18:14)
[2017-12-27] MEDS: MONTELUKAST 10 MG TABLET PO SCH (20:07)
[2017-12-27] MEDS: METOPROLOL SUCCINATE 25 MG TABLET PO SCH (20:08)
[2017-12-28] MEDS: CEFEPIME 2 GM in SODIUM CHLORIDE 0.9% MINIBAG 100 ML IV SCH ×2 (03:20→15:51)
[2017-12-28] MEDS: SODIUM CHLORIDE FLUSH 0.9% 10 ML SYRINGE IVP PRN ×3 (03:21→05:59)
[2017-12-28] MEDS: BUDESONIDE 0.5 MG/2 ML NEB INH SCH ×2 (05:38→08:17)
[2017-12-28] MEDS: LEVALBUTEROL 1.25 MG/3 ML NEB INH SCH ×3 (05:38→15:14)
[2017-12-28] MEDS: LEVOTHYROXINE 125 MCG TABLET PO SCH (05:59)
[2017-12-28] MEDS: methylPREDNISolone SUCCINATE 40 MG/ML VIAL IVP SCH ×2 (05:59→14:28)
[2017-12-28 06:34] LABS: BASOPHILS # (AUTO) 0.1 10^3/uL (0.0-0.1); BASOPHILS % (AUTO) 0.4 %; LYMPHOCYTES # (AUTO) 0.6 10^3/uL (1.5-3.5); LYMPHOCYTES % (AUTO) 3.8 %; MEAN CORPUSCULAR HEMOGLOBIN 28.4 pg (27.0-31.0); MEAN CORPUSCULAR HGB CONC 32.5 g/dL (32.0-36.0); MEAN CORPUSCULAR VOLUME 87.4 fL (81.0-99.0); MEAN PLATELET VOLUME 9.3 fL (7.9-10.8); MONOCYTES # (AUTO) 0.6 10^3/uL (0.0-1.0); MONOCYTES % (AUTO) 4.1 %; NEUTROPHILS # (AUTO) 14.1 10^3/uL (1.5-6.6); NEUTROPHILS % (AUTO) 91.7 %; PLT - PLATELET COUNT 286 10^3/uL (130-450); RED BLOOD COUNT 3.86 10^6/uL (4.20-5.40); WHITE BLOOD COUNT 15.4 x10^3/uL (4.8-10.8)
[2017-12-28 06:37] LABS: ALBUMIN/GLOBULIN RATIO 0.9 (1.0-2.2); BILIRUBIN,TOTAL 0.7 mg/dL (0.2-1.0); CALCIUM 8.9 mg/dL (8.5-10.3); CREATININE 0.6 mg/dL (0.4-1.0); TOTAL PROTEIN 6.2 g/dL (6.7-8.2)
[2017-12-28] MEDS: SACCHAROMYCES BOULARDII 250 MG CAPSULE PO SCH ×3 (08:18→15:54)
[2017-12-28] MEDS: METOPROLOL SUCCINATE 25 MG TABLET PO SCH (08:18)
[2017-12-28] MEDS: guaiFENesin 600 MG TABLET PO SCH (08:18)
[2017-12-28] MEDS: SODIUM CHLORIDE FLUSH 0.9% 10 ML SYRINGE IVP SCH (08:20)
[2017-12-28] MEDS: FLUTICASONE NASAL SPRAY NAS SCH (08:21)
[2017-12-28] MEDS: OXYMETAZOLINE NASAL SPRAY NAS SCH (08:21)
[2017-12-28] MEDS: POLYETHYLENE GLYCOL 3350 17 GM PACKET PO SCH (08:21)
[2017-12-28] MEDS: SPIRONOLACTONE 25 MG TABLET PO SCH (08:24)
[2017-12-28] MEDS: ACETAMINOPHEN 325 MG TABLET PO PRN (09:02)
--- NOTE | 2017-12-28 11:53 | PROVIDER PROGRESS NOTE ---
Subjective - Prog Note Date Prog Note Date: 12/27/17 Prog Note Time: 08:00 - Subjective Pt reports feeling: No change Subjective: Emma has no complaints and denies chest pain, increased cough or sputum production, nausea, vomiting or dizziness. Current Medications - Current Medications Current Medications: Active Medications Acetaminophen (Tylenol) 650 mg PO Q4HR PRN PRN Reason: Pain or Fever > 38C (100.4F) Last Admin: 12/28/17 09:02 Dose: 650 mg Budesonide (Pulmicort) 0.5 mg INH RTBID [facility] Last Admin: 12/28/17 08:17 Dose: Not Given Fluticasone Propionate (Flonase) 2 sprays ALESHA DAILY [facility] Last Admin: 12/28/17 08:21 Dose: Not Given Guaifenesin (Mucinex) 600 mg PO BID [facility] Last Admin: 12/28/17 08:18 Dose: 600 mg Cefepime HCl 2 gm/ Sodium (Chloride) 100 mls @ 200 mls/hr IV Q12H [facility] Last Infusion: 12/28/17 04:04 Dose: Infused Vancomycin HCl 1 gm/ Sodium (Chloride) 250 mls @ 167 mls/hr IV Q24H [facility] Levalbuterol HCl (Xopenex) 1.25 mg INH Q4H PRN PRN Reason: Shortness of Air/Wheezing Last Admin: 12/27/17 01:09 Dose: 1.25 mg Levalbuterol HCl (Xopenex) 1.25 mg INH RTQID [facility] Last Admin: 12/28/17 10:32 Dose: 1.25 mg Levothyroxine Sodium (Synthroid) 125 mcg PO QDAC [facility] Last Admin: 12/28/17 05:59 Dose: 125 mcg Methylprednisolone (Solu-Medrol (40mg Vial)) 40 mg IVP TID [facility] Last Admin: 12/28/17 05:59 Dose: 40 mg Metoprolol Succinate (Toprol Xl) 12.5 mg PO BID [facility] Last Admin: 12/28/17 08:18 Dose: 12.5 mg Montelukast Sodium (Singulair) 10 mg PO QPM [facility] Last Admin: 12/27/17 20:07 Dose: 10 mg Oxymetazoline HCl (Afrin) 2 sprays ALESHA BID [facility] Stop: 12/30/17 11:59 Last Admin: 12/28/17 08:21 Dose: Not Given Polyethylene Glycol (Miralax) 17 gm PO DAILY [facility] Last Admin: 12/28/17 08:21 Dose: Not Given Ranitidine HCl (Zantac) 150 mg PO DAILY [facility] Last Admin: 12/28/17 08:18 Dose: 150 mg Saccharomyces Boulardii (Florastor) 250 mg PO BIDWM [facility] Sodium Chloride (Normal Saline Flush 0.9%) 10 ml IVP PRN PRN PRN Reason: NEEDED PER PROVIDER ORDERS Last Admin: 12/28/17 05:59 Dose: 10 ml Sodium Chloride (Normal Saline Flush 0.9%) 10 ml IVP 0100,0900,1700 [facility] Last Admin: 12/28/17 08:20 Dose: 10 ml Spironolactone (Aldactone) 12.5 mg PO DAILY [facility] Last Admin: 12/28/17 08:24 Dose: 12.5 mg Temazepam (Restoril) 15 mg PO HS PRN PRN Reason: Insomnia Levothyroxine [Synthroid] 125 mcg PO QDAC 07/10/14 Temazepam [Restoril] 15 mg PO HS PRN 07/10/14 Albuterol Sulfate [Proair Respiclick] 2 puffs INH Q6H PRN 12/25/17 Celecoxib [Celebrex] 200 mg PO DAILY 12/25/17 Cholecalciferol (Vitamin D3) [Vitamin D3] 4,000 unit PO DAILY 12/25/17 Ipratropium/Albuterol Sulfate [Iprat-Albut 0.5-3(2.5) mg/3 ml] 3 ml INH QID Losartan Potassium [Cozaar] 100 mg PO DAILY 12/25/17 Montelukast [Singulair] 10 mg PO QPM 12/25/17 raNITIdine [Zantac] 150 mg PO DAILY 12/25/17 Objective - Vital Signs/Intake & Output Reviewed Vital Signs: Yes Vital Signs: Vital Signs x48h Temp Pulse Pulse Resp BP Pulse Ox 12/28/17 10:34 90 20 12/28/17 08:00 36.6 C 90 20 157/56 H 99 12/28/17 05:40 82 20 Intake & Output: Intake & Output 12/25/17 12/26/17 12/27/17 12/28/17 23:59 23:59 23:59 23:59 Intake Total 350 1700 2350 100 Balance 350 1700 2350 100 - Objective General Appearance: positive: No acute distress, Alert Eyes Bilateral: positive: Normal inspection, PERRL Eyes: OU Conjunctivae pale ENT: positive: ENT inspection nml, Pharynx nml, Dry mucous membranes Neck: positive: Nml inspection, Thyroid nml, No JVD Respiratory: positive: Chest non-tender, No respiratory distress, Rhonchi Cardiovascular: positive: Regular rate & rhythm, Systolic murmur, Decreased pulse(s) Peripheral Pulses: 2+ Radial (R), 2+ Radial (L) Abdomen: positive: Non-tender, Nml bowel sounds, Other (rounded, soft) Back: positive: Nml inspection Skin: positive: No rash, Warm, Dry Extremities: positive: Non-tender, Full ROM, No pedal edema, Joint swelling Neurologic/Psychiatric: positive: Oriented x3, CN's nml (2-12), Motor nml, Sensation nml, Weakness, Depressed mood/affect Reflexes: Bicep (R): 3+, Bicep (L): 3+ - Lab Results Fish Bones: 12/28/17 06:00 12/28/17 06:00 Other Labs: Lab Results x24hrs 12/28/17 12/28/17 Range/Units 06:00 06:00 WBC 15.4 H (4.8-10.8) x10^3/uL RBC 3.86 L (4.20-5.40) 10^6/uL Hgb 11.0 L (12.0-16.0) g/dL Hct 33.8 L (37.0-47.0) % MCV 87.4 (81.0-99.0) fL MCH 28.4 (27.0-31.0) pg MCHC 32.5 (32.0-36.0) g/dL RDW 16.0 H (12.0-15.0) % Plt Count 286 (130-450) 10^3/uL MPV 9.3 (7.9-10.8) fL Neut # (Auto) 14.1 H (1.5-6.6) 10^3/uL Lymph # (Auto) 0.6 L (1.5-3.5) 10^3/uL Rogers # (Auto) 0.6 (0.0-1.0) 10^3/uL Eos # (Auto) 0.0 (0.0-0.7) 10^3/uL Baso # (Auto) 0.1 (0.0-0.1) 10^3/uL Absolute Nucleated RBC 0.01 x10^3/uL Nucleated RBC % 0.0 /100WBC Sodium 135 (135-145) mmol/L Potassium 3.3 L (3.5-5.0) mmol/L Chloride 102 (101-111) mmol/L Carbon Dioxide 27 (21-32) mmol/L Anion Gap 6.0 (6-13) BUN 18 (6-20) mg/dL Creatinine 0.6 (0.4-1.0) mg/dL Estimated GFR (MDRD) 96 (>89) Glucose 124 H (70-100) mg/dL Calcium 8.9 (8.5-10.3) mg/dL Total Bilirubin 0.7 (0.2-1.0) mg/dL AST 15 (10-42) IU/L ALT 13 (10-60) IU/L Alkaline Phosphatase 43 (42-121) IU/L Total Protein 6.2 L (6.7-8.2) g/dL Albumin 3.0 L (3.2-5.5) g/dL Globulin 3.2 (2.1-4.2) g/dL Albumin/Globulin Ratio 0.9 L (1.0-2.2) - Diagnostic Imaging Diagnostic Imaging Results: positive: Final report reviewed ABX Reporting Has patient been on IV antibiotics over the past 48 hours?: Yes Assessment/Plan - Problem List (1) Pneumonia Impression: Chest imaging shows possible early infiltrate along the right heart border in the right middle lobe. WBCs are normal at 10.6 with mildly low H/H, and no other abnormalities. She reports a week long productive cough, hypoxia upon presentation to ED, and very congested chest upon auscultation. She attempted her home nebulizers without relief. She was started on Azithromycin and Rocephin in the ED, but for those patients with advanced COPD, they are at a higher risk for pseudomonas infections making it necessary to choose a macrolide or a fluoroquinolone. Due to poor response, the patient was started on vancomycin to cover for anaerobe. Plan: Continue Zosyn and vanco IV antibiotics, await respiratory cultures, IV steroids, Xopenex due to heart arrhythmia history, and respiratory care. Qualifiers: Pneumonia type: due to unspecified organism Laterality: right Lung location: unspecified part of lung Qualified Code(s): J18.9 - Pneumonia, unspecified organism (2) COPD (chronic obstructive pulmonary disease) Impression: Imaging upon presentation to ED show hyperinflation (barrel chest) showing COPD. She is prescribed nebulizers at home and no home oxygen. I suspect that she may require home oxygen after this pneumonia. She states that she has had asthma for her whole life. She should go home on a LABA, which has been started here using Budesinide nebulizer solution. Plan: Respiratory care for this PNA, IV steroids, antibiotics, pulmonary toileting. (3) Anemia Impression: H/H upon admission was decreased, which could be dehydration related, but anemia is in her history. Today H/H continue to trend just slightly downward at 11.3/34.4. Plan: Continue to monitor daily labs and watch for signs of bleeding Qualifiers: Anemia type: unspecified type Qualified Code(s): D64.9 - Anemia, unspecified
[2017-12-28] MEDS ORDERED: VANCOMYCIN INJ 1 GM in SODIUM CHLORIDE 0.9% 250 ML IV SCH (12:00)
--- NOTE | 2017-12-28 13:04 | Discharge Plan ---
Discharge Plan Disposition: Home, Self Care Condition: Good Prescriptions: Amox/Clav 875/125 [Augmentin] 1 each PO Q12H #14 tablet Fluticasone [Flonase] 2 sprays ALESHA DAILY #5 bottle Fluticasone/Salmeterol [Advair Hfa 115-21 Mcg Inhaler] 8 gm IH BID #5 hfa.aer.ad guaiFENesin [Mucinex] 600 mg PO BID #20 tablet Metoprolol Succinate [Toprol Xl] 25 mg PO DAILY #30 tablet Prednisone 10 mg PO DAILY #12 tab.ds.pk predniSONE [Prednisone] 20 mg PO DAILY #10 tablet Diet: Regular Activity Restrictions: Activity as Tolerated Shower Restrictions: No Driving Restrictions: No Weight Bearing: Full Weight Additional Instructions or Follow Up instructions: You were admitted for an upper respiratory infection that became worse and turned into pneumonia. You were treated with IV antibiotics that were changed to oral antibiotics. Continue your oral antibiotics for another 7 days, and take the steroid taper. I have also sent Advair to the pharmacy to be taken twice daily, and rinse your mouth after use. This is for oysterman use. I suggest that you stay on the nasal spray Flonase daily. This will keep your nasal passages clear. You did not qualify for home oxygen. An echocardiogram was completed because the last one was back in 2016, and it shows a stable ascending aortic aneurysm, mild pulmonary hypertension and a normal left sided heart, although with thick hernández. Your heart rate should never be greater than 90, so a beta alisha was started. Also Spironolactone was started, which should continue. Please STOP taking your losartan since being on these other 2 medications. Please see your PCP within one week. No Smoking: If you smoke, Please STOP! Call for help. Follow-up with: Loy Hines MD [Primary Care Provider] -
[2017-12-28 17:04] VITALS: BP 161/72
--- NOTE | 2017-12-28 18:59 | DISCHARGE SUMMARY ---
Discharge Summary Admit Date: 12/25/17 Discharge Date: 12/28/17 Discharging Provider: MARY Courtney Primary Care Provider: Kevan Hines Code Status: Attempt Resuscitation Condition at Discharge: Good Discharge Disposition: 01 Home, Self Care - DIAGNOSES Admission Diagnoses: Pneumonia (J18.9) COPD (chronic obstructive pulmonary disease) (J44.9) Anemia (D64.9) Discharge Diagnoses with Status of Each Condition: Pneumonia (J18.9) New on this admit, stable with care to continue. COPD (chronic obstructive pulmonary disease) (J44.9) chronic, LABA and steroid daily nasal spray at home. Anemia (D64.9) chronic, stable. Mild pulmonary hypertension (I27.20) new on this admit, low dose Spironolactone started. Mild ascending aorta dilatation (I77.810) stable. Dementia (F03.90) chronic, mild and stable. GERD (gastroesophageal reflux disease) (K21.9) chronic, stable. Hypothyroidism (E03.9) chronic, stable. Essential hypertension (I10) chronic, medication changes. - HPI History of Present Illness: Emma Nelson is an 82-year old female with a past medical history of atrial fib/flutter, hypertension, asthma, COPD, hypothyroidism, diverticulitis, osteoarthritis, RA and falls. She and her sold a home in [place] in 2012 , and were visiting the buyers of their home this past week. The patient developed a "head cold" while traveling and soon began having increased congestion with a productive cough. She also had inconsistent BLE swelling, anorexia, and increased lethargy. She came to the ED with her today with a primary complaint of shortness of breath that was not resolved with her usual home nebulizers and describes a heavy tightness in her chest that did not radiate to her arms, shoulders, neck or face. Chest imaging shows possible early infiltrate along the right heart border in the right middle lobe. WBCs are normal at 10.6 with mildly low H/H, and no other abnormalities. She reports a week long productive cough, hypoxia upon presentation to ED, and very congested chest upon auscultation. She denies chest pain with activity, nausea, vomiting and dizziness. She will be admitted to inpatient for further treatment of this PNA. - HOSPITAL COURSE Hospital Course: (1) Pneumonia Chest imaging shows possible early infiltrate along the right heart border in the right middle lobe. WBCs are normal at 10.6 with mildly low H/H, and no other abnormalities. She reports a week long productive cough, hypoxia upon presentation to ED, and very congested chest upon auscultation. She attempted her home nebulizers without relief. She was started on Azithromycin and Rocephin in the ED, but for those patients with advanced COPD, they are at a higher risk for pseudomonas infections making it necessary to choose a macrolide or a fluoroquinolone. Due to poor response, the patient was started on vancomycin to cover for anaerobe. The patient was continued on Zosyn and vanco IV antibiotics that were changed to Levofloxacin to be continued for a few more days at home. The respiratory culture did not show any pathogens. The patient was given IV steroids, then a steroid taper to be continued at em. The patient was given Xopenex due to heart arrhythmia history, and respiratory care while in the hospital. New LABA inhaler (Advair) was sent to the pharmacy to be taken daily. (2) COPD (chronic obstructive pulmonary disease) Imaging upon presentation to ED show hyperinflation (barrel chest) showing COPD. She is prescribed nebulizers at home and no home oxygen. I suspect that she may require home oxygen after this pneumonia. She states that she has had asthma for her whole life. A LABA (Advair, and flonase nasal spray) was sent to her pharmacy to be used at home. The patient was started on Budesinide nebulizer solution while in the hospital and underwent respiratory care for this PNA, IV steroids, IV antibiotics, & pulmonary toileting. (3) Anemia H/H upon admission was decreased, which could be dehydration related, but anemia is in her history. Upon admission, H/H continue to trend just slightly downward at 11.0/33.8. The patient was continuously monitored with daily labs and watched for signs of bleeding. This is considered to be stable upon discharge. (4) Mild pulmonary hypertension An echocardiogram was done on this admission and shows an mildly elevated RVSP of 30 mmHg, although the right ventricle was dilated. With the patient's history of long standing lung disease and her physical exam findings of an increased abdominal girth, Spironolcactone was started. (5) Mild ascending aorta dilatation The patient had a known history of this, although she nor her can remember ever being told in the past. Final results of her echo show a stable finding and this is considered to be mildly dilated ascending aorta, 3.7 cm. This is considered stable upon discharge, and can explain the large amount of Losartan that was previously prescribed. (6) Dementia The patient demonstrates early dementia that was very pronounced upon admission. She did not undergo any formal studies or any head imaging. Her agreed with "early" dementia as he told us about some increased forgetfulness that he has noticed on a daily basis. This was not considered to be severe enough to influence her safety at home. (7) GERD (gastroesophageal reflux disease) The patient has a history of reflux and finds relief with Zantac 150 mg daily. This is considered stable upon discharge. (8) Hypothyroidism The patient is prescribed Synthroid at home. A TSH was normal at 0.55. This is considered stable. (9) Essential hypertension The patient was on Losartan 100mg daily upon admission, but this was changed to Spironolactone 12.5 mg daily and Metoprolol Succinate 25 mg daily. She was instructed to avoid any potassium supplements, and STOP the Losartan. She had been tachycardic throughout her hospital stay, and this initiated these changes. She was thought to be stable on discharge. The last recorded blood pressure was charted as 146/65. Disposition: The patient was in stable condition at the time of discharge. New prescriptions were sent to the pharmacy. They were switching providers, but state that they would see a PCP within one week. - ALLERGIES Allergies/Adverse Reactions: Allergies Allergy/AdvReac Type Severity Reaction Status Date / Time moxifloxacin Allergy Severe Rash Verified 12/25/17 18:32 hydrocodone AdvReac Severe Vomiting Verified 12/25/17 18:32 tramadol AdvReac Severe Vomiting Verified 12/25/17 18:32 losartan potassium * AdvReac Mild Nausea Verified 12/25/17 18:32 [From Cozaar] codeine AdvReac Nausea Verified 07/08/17 05:57 - MEDICATIONS Home Medications: Ambulatory Orders Medication Instructions Recorded Confirmed Levothyroxine [Synthroid] 125 mcg PO QDAC 07/10/14 12/25/17 Temazepam [Restoril] 15 mg PO HS PRN 07/10/14 12/25/17 Albuterol Sulfate [Proair 2 puffs INH Q6H PRN 12/25/17 12/25/17 Respiclick] Celecoxib [Celebrex] 200 mg PO DAILY 12/25/17 12/25/17 Cholecalciferol (Vitamin D3) 4,000 unit PO DAILY 12/25/17 12/25/17 [Vitamin D3] Ipratropium/Albuterol Sulfate 3 ml INH QID 12/25/17 12/25/17 [Iprat-Albut 0.5-3(2.5) mg/3 ml] Montelukast [Singulair] 10 mg PO QPM 12/25/17 12/25/17 raNITIdine [Zantac] 150 mg PO DAILY 12/25/17 12/25/17 Acetaminophen [Tylenol] 650 mg PO Q4HR PRN tablet 12/28/17 Amox/Clav 875/125 [Augmentin] 1 each PO Q12H #14 tablet 12/28/17 Fluticasone [Flonase] 2 sprays ALESHA DAILY #5 bottle 12/28/17 Fluticasone/Salmeterol [Advair Hfa 8 gm IH BID #5 hfa.aer.ad 12/28/17 115-21 Mcg Inhaler] Metoprolol Succinate [Toprol Xl] 25 mg PO DAILY #30 tablet 12/28/17 Prednisone 10 mg PO DAILY #12 tab.ds.pk 12/28/17 Spironolactone [Aldactone] 12.5 mg PO DAILY #15 tablet 12/28/17 guaiFENesin [Mucinex] 600 mg PO BID #20 tablet 12/28/17 predniSONE [Prednisone] 20 mg PO DAILY #10 tablet 12/28/17 - PHYSICAL EXAM AT DISCHARGE General Appearance: positive: No acute distress, Alert Eyes Bilateral: positive: Normal inspection, PERRL ENT: positive: ENT inspection nml, Pharynx nml, No signs of dehydration Neck: positive: Nml inspection, Thyroid nml, No JVD Respiratory: positive: Chest non-tender, No respiratory distress, Wheezes, Other (bilateral low lobe crackles, less than previous.) Cardiovascular: positive: Regular rate & rhythm, No gallop, Systolic murmur, Decreased pulse(s) Peripheral Pulses: positive: 2+ Abdomen: positive: Non-tender, Nml bowel sounds, Other (rounded, soft) Back: positive: Nml inspection Skin: positive: No rash, Warm, Dry Extremities: positive: Non-tender, Full ROM, No pedal edema Neurologic/Psychiatric: positive: Oriented x3, CN's nml (2-12), Motor nml, Sensation nml, Mood/affect nml Reflexes: Bicep (R): 3+, Bicep (L): 3+ - LABS Result Diagrams: 12/28/17 06:00 12/28/17 06:00 - FOLLOW UP Follow Up: Disposition: 01 Home, Self Care Condition: Good Prescriptions: Amox/Clav 875/125 [Augmentin] 1 each PO Q12H #14 tablet Fluticasone [Flonase] 2 sprays ALESHA DAILY #5 bottle Fluticasone/Salmeterol [Advair Hfa 115-21 Mcg Inhaler] 8 gm IH BID #5 hfa.aer.ad guaiFENesin [Mucinex] 600 mg PO BID #20 tablet Metoprolol Succinate [Toprol Xl] 25 mg PO DAILY #30 tablet Prednisone 10 mg PO DAILY #12 tab.ds.pk predniSONE [Prednisone] 20 mg PO DAILY #10 tablet Diet: Regular Activity Restrictions: Activity as Tolerated Shower Restrictions: No Driving Restrictions: No Weight Bearing: Full Weight Additional Instructions or Follow Up instructions: You were admitted for an upper respiratory infection that became worse and turned into pneumonia. You were treated with IV antibiotics that were changed to oral antibiotics. Continue your oral antibiotics for another 7 days, and take the steroid taper. I have also sent Advair to the pharmacy to be taken twice daily, and rinse your mouth after use. This is for nursing home use. I suggest that you stay on the nasal spray Flonase daily. This will keep your nasal passages clear. You did not qualify for home oxygen. An echocardiogram was completed because the last one was back in 2016, and it shows a stable ascending aortic aneurysm, mild pulmonary hypertension and a normal left sided heart, although with thick hernández. Your heart rate should never be greater than 90, so a beta alisha was started. Also Spironolactone was started, which should continue. Please STOP taking your losartan since being on these other 2 medications. Please see your PCP within one week. - TIME SPENT Time Spent in Discharge (Minutes): 60
== END 2017-12-28 17:22 | disposition home or self-care (01) | DRG 194 ==
LOC: EDUNIT# → ED 14:47 → MS2 18:16
PROVIDERS: ADMIT Nurse Practitioner; ATTEND Nurse Practitioner
DX: J18.9 Pneumonia, unspecified organism (principal); J45.901 Unspecified asthma with (acute) exacerbation; J44.0 Chronic obstructive pulmonary disease with (acute) lower respiratory infection; I48.92 Unspecified atrial flutter; D64.9 Anemia, unspecified; E86.0 Dehydration; I77.810 Thoracic aortic ectasia; F03.90 Unspecified dementia, unspecified severity, without behavioral disturbance, psychotic disturbance, mood disturbance, and anxiety; K21.9 Gastro-esophageal reflux disease without esophagitis; E03.9 Hypothyroidism, unspecified; I10 Essential (primary) hypertension; I48.91 Unspecified atrial fibrillation; R09.02 Hypoxemia; I27.23 Pulmonary hypertension due to lung diseases and hypoxia; F41.9 Anxiety disorder, unspecified; H91.90 Unspecified hearing loss, unspecified ear; Z66 Do not resuscitate; Z79.899 Other long term (current) drug therapy; Z87.891 Personal history of nicotine dependence; Z91.81 History of falling
CPT/HCPCS: 36415; 71045; 71046; 80048; 80053; 81001; 81003; 84443; 85025; 87070; 87086; 87205; 93306; 94640; 99283; 99284

== ENCOUNTER 2018-06-07 10:02 | Emergency (ER) | payer MEDICARE, OTHER ==
--- NOTE | 2018-06-07 10:58 | XRAY Report ---
Reason: pain Procedure Date: 06/07/2018 Accession Number: [id number] / [id number] Procedure: XR - Shoulder 3 View LT CPT Code: FULL RESULT: EXAM: LEFT SHOULDER RADIOGRAPHY EXAM DATE: 06/07/2018 10:38 AM. CLINICAL HISTORY: Pain, no known trauma. COMPARISON: None. TECHNIQUE: 4 views. FINDINGS: Bones: No acute fracture is demonstrated. Joints: There is severe joint space narrowing at the glenohumeral joint with moderate spurring, mild subchondral sclerosis, and mild subchondral cyst formation. There is moderate-severe joint space narrowing of the acromioclavicular joint. No dislocation or subluxation. Soft tissues: There appears to be faint calcification superior to the humeral head, which may represent sequela of calcific tendinitis. The visualized portions of the left lung are clear. IMPRESSION: 1. No acute fracture or malalignment. 2. 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 3. Periarticular calcifications, which may represent calcific tendinitis of the rotator cuff. RADIA
[2018-06-07 11:37] LABS: BASOPHILS % (AUTO) 0.7 %; EOSINOPHILS % (AUTO) 0.3 %; HGB - HEMOGLOBIN 12.5 g/dL (12.0-16.0); LYMPHOCYTES # (AUTO) 0.4 10^3/uL (1.5-3.5); LYMPHOCYTES % (AUTO) 5.7 %; MEAN CORPUSCULAR HEMOGLOBIN 28.2 pg (27.0-31.0); MEAN CORPUSCULAR HGB CONC 34.1 g/dL (32.0-36.0); MEAN CORPUSCULAR VOLUME 82.8 fL (81.0-99.0); MEAN PLATELET VOLUME 8.4 fL (7.9-10.8); MONOCYTES # (AUTO) 0.7 10^3/uL (0.0-1.0); MONOCYTES % (AUTO) 9.7 %; NEUTROPHILS # (AUTO) 5.6 10^3/uL (1.5-6.6); NEUTROPHILS % (AUTO) 83.6 %; PLT - PLATELET COUNT 247 10^3/uL (130-450); RED BLOOD COUNT 4.45 10^6/uL (4.20-5.40); RED CELL DISTRIBUTION WIDTH 16.4 % (12.0-15.0); WHITE BLOOD COUNT 6.7 x10^3/uL (4.8-10.8)
[2018-06-07 11:51] LABS: ALBUMIN 3.9 g/dL (3.2-5.5); ALBUMIN/GLOBULIN RATIO 1.1 (1.0-2.2); BILIRUBIN,TOTAL 0.9 mg/dL (0.2-1.0); CALCIUM 8.9 mg/dL (8.5-10.3); CREATININE 0.6 mg/dL (0.4-1.0); TOTAL PROTEIN 7.4 g/dL (6.7-8.2)
[2018-06-07] MEDS ORDERED: KETOROLAC 60 MG/2 ML VIAL IM STA (12:13)
[2018-06-07 12:27] VITALS: BP 159/79
--- NOTE | 2018-06-07 13:17 | ED Physician Documentation ---
PD HPI UPPER EXT INJURY - Stated complaint Stated Complaint: LEFT SHOULDER PX - Chief complaint Chief Complaint: Ext Problem - History obtained from History obtained from: Patient, Family - History of Present Illness Location: Left, Shoulder Where injury occurred: Home Timing - onset: Today Timing - details: Abrupt onset Pain level max: 8 Pain level now: 8 Improved by: Rest Worsened by: Moving Associated symptoms: Swelling. No: Weakness, Numbness, Tingling, Discolored Similar symptoms before: Has not had sx before Recently seen: Not recently seen - Additonal information Additional information: 82-year-old female with history of COPD here with waking up with left shoulder pain today. Patient denies any associated chest pain, shortness of breath or numbness. Patient states denies any trauma or twisting injuries. She is unsure if she slept on it wrong last night. Patient denies any recent illness. Review of Systems Ten Systems: 10 systems reviewed and negative Constitutional: denies: Fever, Chills, Myalgias Cardiac: denies: Chest pain / pressure Respiratory: denies: Dyspnea GI: denies: Nausea, Vomiting Skin: reports: Rash (Chronic rash on shoulders) Musculoskeletal: reports: Extremity pain, Extremity swelling. denies: Neck pain, Back pain, Joint pain, Joint swelling Neurologic: denies: Generalized weakness, Focal weakness, Numbness PD PAST MEDICAL HISTORY - Past Medical History Cardiovascular: Hypertension, Atrial flutter Respiratory: Asthma, COPD Neuro: Headaches, Fainting Endocrine/Autoimmune: HyPOthyroidism GI: GERD, Diverticulitis TELEPHONE [employer]OX [employer]OR: None : Nocturia HEENT: Chronic vision loss, Chronic hearing loss, Other Psych: Anxiety Musculoskeletal: Osteoarthritis, Rheumatoid arthritis Derm: None - Past Surgical History Past Surgical History: Yes General: Appendectomy Ortho: Spine surgery, Other /TELEPH[employer]OX [employer]OR: Hysterectomy HEENT: Cataracts - Present Medications Home Medications: Ambulatory Orders Medication Instructions Recorded Confirmed RX: Levothyroxine [Synthroid] 125 mcg PO QDAC 07/10/14 12/25/17 RX: Temazepam [Restoril] 15 mg PO HS PRN 07/10/14 12/25/17 RX: Albuterol Sulfate [Proair 2 puffs INH Q6H PRN 12/25/17 12/25/17 Respiclick] RX: Celecoxib [Celebrex] 200 mg PO DAILY 12/25/17 12/25/17 RX: Cholecalciferol (Vitamin D3) 4,000 unit PO DAILY 12/25/17 12/25/17 [Vitamin D3] RX: Ipratropium/Albuterol Sulfate 3 ml INH QID 12/25/17 12/25/17 [Iprat-Albut 0.5-3(2.5) mg/3 ml] RX: Montelukast [Singulair] 10 mg PO QPM 12/25/17 12/25/17 RX: raNITIdine [Zantac] 150 mg PO DAILY 12/25/17 12/25/17 Amox/Clav 875/125 [Augmentin] 1 each PO Q12H #14 tablet 12/28/17 Fluticasone/Salmeterol [Advair Hfa 8 gm IH BID #5 hfa.aer.ad 12/28/17 115-21 Mcg Inhaler] RX: Acetaminophen [Tylenol] 650 mg PO Q4HR PRN tablet 12/28/17 RX: Fluticasone [Flonase] 2 sprays ALESHA DAILY #5 bottle 12/28/17 RX: Metoprolol Succinate [Toprol 25 mg PO DAILY #30 tablet 12/28/17 Xl] RX: Prednisone 10 mg PO DAILY #12 tab.ds.pk 12/28/17 RX: Spironolactone [Aldactone] 12.5 mg PO DAILY #15 tablet 12/28/17 RX: guaiFENesin [Mucinex] 600 mg PO BID #20 tablet 12/28/17 predniSONE [Prednisone] 20 mg PO DAILY #10 tablet 12/28/17 - Allergies Allergies/Adverse Reactions: Allergies Allergy/AdvReac Type Severity Reaction Status Date / Time moxifloxacin Allergy Severe Rash Verified 06/07/18 10:11 hydrocodone AdvReac Severe Vomiting Verified 06/07/18 10:11 tramadol AdvReac Severe Vomiting Verified 06/07/18 10:11 losartan potassium * AdvReac Mild Nausea Verified 06/07/18 10:11 [From Cozaar] codeine AdvReac Nausea Verified 06/07/18 10:11 - Social History Does the pt smoke?: No Smoking Status: Never smoker Does the pt drink ETOH?: Yes Does the pt have substance abuse?: No - Immunizations Immunizations are current?: Yes - POLST Patient has POLST: Yes POLST Status: DNR (limited interventions) PD ED PE NORMAL - Vitals Vital signs reviewed: Yes - General General: Alert and oriented X 3, No acute distress, Well developed/nourished - HEENT HEENT: Moist mucous membranes, Pharynx benign - Neck Neck: Supple, no meningeal sign, No bony TTP, No adenopathy - Cardiac Cardiac: RRR, No murmur - Respiratory Respiratory: No respiratory distress, Clear bilaterally - Abdomen Abdomen: Normal bowel sounds, Soft, Non tender, Non distended - Derm Derm: Normal color, Warm and dry, Other (Multiple nonvesicular small round rash in the scapula and shoulder. No drainage. Nontender.) - Extremities Extremities: No deformity, Other (Left shoulder with tenderness to palpation and range of motion. There is mild swelling on the anterior aspect of the shoulder. Sensation intact. Color there is no erythema. Pulses +2 temperature normal. Capillary refill less than 2 seconds.) - Neuro Neuro: Alert and oriented X 3, No sensory deficit - Psych Psych: Normal mood, Normal affect Results - Vitals Vitals: Vital Signs - 24 hr 06/07/18 06/07/18 10:09 12:26 Temperature 36.3 C L 36.3 C L Heart Rate 97 82 Respiratory 18 22 Rate Blood Pressure 157/77 H 159/79 H O2 Saturation 98 100 Oxygen O2 Source [Without Activity] Room air O2 Source Room air - Labs Labs: Laboratory Tests 06/07/18 06/07/18 06/07/18 11:30 11:30 11:30 WBC 6.7 RBC 4.45 Hgb 12.5 Hct 36.8 L MCV 82.8 MCH 28.2 MCHC 34.1 RDW 16.4 H Plt Count 247 MPV 8.4 Neut # (Auto) 5.6 Lymph # (Auto) 0.4 L Cassia # (Auto) 0.7 Eos # (Auto) 0.0 Baso # (Auto) 0.0 Absolute Nucleated RBC 0.01 Nucleated RBC % 0.1 ESR 15 Sodium 130 L Potassium 3.6 Chloride 92 L Carbon Dioxide 27 Anion Gap 11.0 BUN 15 Creatinine 0.6 Estimated GFR (MDRD) 96 Glucose 114 H Calcium 8.9 Total Bilirubin 0.9 AST 20 ALT 11 Alkaline Phosphatase 71 C-React Prot High Sens Total Protein 7.4 Albumin 3.9 Globulin 3.5 Albumin/Globulin Ratio 1.1 Lipase 28 06/07/18 11:30 WBC RBC Hgb Hct MCV MCH MCHC RDW Plt Count MPV Neut # (Auto) Lymph # (Auto) Cassia # (Auto) Eos # (Auto) Baso # (Auto) Absolute Nucleated RBC Nucleated RBC % ESR Sodium Potassium Chloride Carbon Dioxide Anion Gap BUN Creatinine Estimated GFR (MDRD) Glucose Calcium Total Bilirubin AST ALT Alkaline Phosphatase C-React Prot High Sens 37.8 Total Protein Albumin Globulin Albumin/Globulin Ratio Lipase PD MEDICAL DECISION MAKING - ED course Complexity details: reviewed results, re-evaluated patient, considered differential (Fracture, dislocation, AC separation, DJD, bursitis, septic arthritis), d/w patient, d/w family ED course: 1120 patient and family informed of x-ray results. Agreed to labs. 1300 patient states feeling better after getting a Toradol shot. Patient and daughter inform of test results. Patient is already on Celebrex. So patient will take Tylenol every 4 hours for pain. Departure - Departure Disposition: 01 Home, Self Care Clinical Impression: Bursitis Qualifiers: Bursitis location: shoulder Laterality: left Qualified Code(s): M75.52 - Bursitis of left shoulder DJD (degenerative joint disease) Qualifiers: Osteoarthritis location: shoulder Osteoarthritis type: unspecified Laterality: left Qualified Code(s): M19.012 - Primary osteoarthritis, left shoulder Condition: Stable Instructions: ED Bursitis, ED Degenerative Joint Disease Comments: Take [id number] Tylenol every 4 hours for pain. Follow-up with your primary doctor this week and get the referral to an orthopedic surgeon. If worse return to the emergency room. Discharge Date/Time: 06/07/18 13:27
== END 2018-06-07 13:27 | disposition home or self-care (01) ==
LOC: ED 10:02
DX: M75.52 Bursitis of left shoulder (principal); M19.012 Primary osteoarthritis, left shoulder; I10 Essential (primary) hypertension; E03.9 Hypothyroidism, unspecified
CPT/HCPCS: 36415; 80053; 83690; 85025; 85651; 86141; 96372; 99283

== ENCOUNTER 2018-06-17 12:42 | Emergency (ER) | payer MEDICARE, OTHER ==
[2018-06-17 12:55] VITALS: BP 158/82
--- NOTE | 2018-06-17 13:12 | ED Physician Documentation ---
PD HPI SKIN - Stated complaint Stated Complaint: ITCHY ALL OVER BODY - Chief complaint Chief Complaint: Wound - History obtained from History obtained from: Patient, Family - History of Present Illness Timing - onset: Other (On and off for 5 years she has had an itchy rash that comes and goes, natalya in winter, tried vaseline without relief. Has appt with derm in 1.5 weeks but needs interim relief.) Review of Systems Constitutional: denies: Fever, Chills Cardiac: denies: Chest pain / pressure, Palpitations Respiratory: denies: Dyspnea, Cough PD PAST MEDICAL HISTORY - Past Medical History Cardiovascular: Hypertension, Atrial flutter Respiratory: Asthma, COPD Neuro: Headaches, Fainting Endocrine/Autoimmune: HyPOthyroidism GI: GERD, Diverticulitis COTTON WEIGHER: None : Nocturia HEENT: Chronic vision loss, Chronic hearing loss, Other Psych: Anxiety Musculoskeletal: Osteoarthritis, Rheumatoid arthritis Derm: None - Past Surgical History Past Surgical History: Yes General: Appendectomy Ortho: Spine surgery, Other /COTTON WEIGHER: Hysterectomy HEENT: Cataracts - Present Medications Home Medications: Ambulatory Orders Medication Instructions Recorded Confirmed Levothyroxine [Synthroid] 125 mcg PO QDAC 07/10/14 12/25/17 Temazepam [Restoril] 15 mg PO HS PRN 07/10/14 12/25/17 Albuterol Sulfate [Proair 2 puffs INH Q6H PRN 12/25/17 12/25/17 Respiclick] Celecoxib [Celebrex] 200 mg PO DAILY 12/25/17 12/25/17 Cholecalciferol (Vitamin D3) 4,000 unit PO DAILY 12/25/17 12/25/17 [Vitamin D3] Ipratropium/Albuterol Sulfate 3 ml INH QID 12/25/17 12/25/17 [Iprat-Albut 0.5-3(2.5) mg/3 ml] Montelukast [Singulair] 10 mg PO QPM 12/25/17 12/25/17 raNITIdine [Zantac] 150 mg PO DAILY 12/25/17 12/25/17 Acetaminophen [Tylenol] 650 mg PO Q4HR PRN tablet 12/28/17 Amox/Clav 875/125 [Augmentin] 1 each PO Q12H #14 tablet 12/28/17 Fluticasone [Flonase] 2 sprays ALESHA DAILY #5 bottle 12/28/17 Fluticasone/Salmeterol [Advair Hfa 8 gm IH BID #5 hfa.aer.ad 12/28/17 115-21 Mcg Inhaler] Metoprolol Succinate [Toprol Xl] 25 mg PO DAILY #30 tablet 12/28/17 Prednisone 10 mg PO DAILY #12 tab.ds.pk 12/28/17 Spironolactone [Aldactone] 12.5 mg PO DAILY #15 tablet 12/28/17 guaiFENesin [Mucinex] 600 mg PO BID #20 tablet 12/28/17 predniSONE [Prednisone] 20 mg PO DAILY #10 tablet 12/28/17 hydrOXYzine pamoate [Hydroxyzine 1 - 2 tab PO Q6H PRN #20 capsule 06/17/18 Pamoate] predniSONE [Deltasone] 20 mg PO DAILY 5 Days #5 tablet 06/17/18 - Allergies Allergies/Adverse Reactions: Allergies Allergy/AdvReac Type Severity Reaction Status Date / Time moxifloxacin Allergy Severe Rash Verified 06/17/18 12:55 hydrocodone AdvReac Severe Vomiting Verified 06/17/18 12:55 tramadol AdvReac Severe Vomiting Verified 06/17/18 12:55 losartan potassium * AdvReac Mild Nausea Verified 06/17/18 12:55 [From Cozaar] codeine AdvReac Nausea Verified 06/17/18 12:55 - Social History Does the pt smoke?: No Smoking Status: Never smoker Does the pt drink ETOH?: Yes Does the pt have substance abuse?: No - Immunizations Immunizations are current?: Yes - POLST Patient has POLST: Yes POLST Status: DNR (limited interventions) PD ED PE NORMAL - Vitals Vital signs reviewed: Yes - General General: Alert and oriented X 3, No acute distress - HEENT HEENT: Pharynx benign - Derm Derm: Other (scaly picked at diffuse rash natalya forearms, back, legs, bilateral) - Neuro Neuro: Alert and oriented X 3, Normal speech Results - Vitals Vitals: Vital Signs - 24 hr 06/17/18 12:52 Temperature 36.7 C Heart Rate 81 Respiratory 18 Rate Blood Pressure 158/82 H O2 Saturation 94 Oxygen O2 Source [Without Activity] Room air O2 Source Room air Departure - Departure Disposition: 01 Home, Self Care Clinical Impression: Rash and nonspecific skin eruption Condition: Good Record reviewed to determine appropriate education?: Yes Instructions: ED Dermatitis Atopic Eczema Prescriptions: hydrOXYzine pamoate [Hydroxyzine Pamoate] 1 - 2 tab PO Q6H PRN #20 capsule PRN Reason: Itching predniSONE [Deltasone] 20 mg PO DAILY 5 Days #5 tablet Comments: Keep the appointment with a tribunal member for next week. Return for new or worsening symptoms. The steroids may significantly improve or change in the appearance of the rash, therefore I recommend taking some pictures of the rash to take with you to the dermatology appointment next week. Also take the prescriptions I gave you with you to that appointment. Your blood pressure was elevated today on check into the emergency department. This does not mean that you have hypertension, it is a common phenomenon to come to the emergency department and have elevated blood pressure. I recommend that you see your primary care physician within the week to have it rechecked when you are feeling better.
== END 2018-06-17 13:29 | disposition home or self-care (01) ==
LOC: ED 12:42
DX: R21 Rash and other nonspecific skin eruption (principal); I10 Essential (primary) hypertension; E03.9 Hypothyroidism, unspecified
CPT/HCPCS: 99283

== ENCOUNTER 2018-09-18 09:29 | Outpatient (CLI) | payer MEDICARE, OTHER ==
--- NOTE | 2018-09-18 11:42 | XRAY Report ---
Reason: SHORTNESS OF BREATH Procedure Date: 09/18/2018 Accession Number: [id number] / [id number] Procedure: WCP - Chest 2 View X-Ray CPT Code: 97171 FULL RESULT: EXAM: CHEST RADIOGRAPHY EXAM DATE: 09/18/2018 09:43 AM. CLINICAL HISTORY: SHORTNESS OF BREATH. COMPARISON: CHEST 1 VIEW 12/27/2017 1:13 PM. TECHNIQUE: 2 views. FINDINGS: Lungs/Pleura: No focal opacities evident. No pleural effusion. No pneumothorax. High volumes. Mediastinum: Stable cardiomediastinal silhouette, mild to moderate cardiomegaly. Other: None. IMPRESSION: High lung volumes suggestive of obstructive lung disease and cardiomegaly, overall similar to prior. RADIA
== END 2018-09-18 09:30 | disposition home or self-care (01) ==
LOC: DI.WCP 09:29
PROVIDERS: ATTEND Family Medicine
DX: R06.02 Shortness of breath (principal); I51.7 Cardiomegaly
CPT/HCPCS: 71046

== ENCOUNTER 2018-09-22 20:17 | Outpatient (CLI) | payer MEDICARE, OTHER | END 2018-09-22 20:18 | disposition critical access hospital (66) | LOC: EMS 20:17 | PROVIDERS: ATTEND Surgery | DX: R06.00 Dyspnea, unspecified (principal) | CPT/HCPCS: A0425; A0427 ==

== ENCOUNTER 2018-09-22 20:31 | Emergency (ER) | payer MEDICARE, OTHER ==
[2018-09-22] MEDS ORDERED: ALBUTEROL NEB 2.5 MG/3 ML INH STA (21:18)
--- NOTE | 2018-09-22 21:20 | ED Physician Documentation ---
PD HPI URI - Stated complaint Stated Complaint: SOA/CP - Chief complaint Chief Complaint: Resp - History obtained from History obtained from: Patient, Family, EMS - History of Present Illness Timing - onset: Today (82-year-old woman with history of asthma and COPD has been sick for about for 5 days with shortness of breath. She really does not describe any cough, chest pain or calf swelling. She was seen by her physician and diagnosed either with pneumonia or COPD exacerbation. She says pneumonia, but review of her chest x-ray was clear. She was put on prednisone and Augmentin. She was lingering into night without much worse with shortness of breath but felt better after a DuoNeb in route despite taking DuoNeb at home. She denies fevers or chills. She has no heart problems.) Review of Systems Ten Systems: 10 systems reviewed and negative Constitutional: reports: Fatigue. denies: Fever, Chills Nose: denies: Rhinorrhea / runny nose, Congestion Throat: denies: Sore throat Cardiac: denies: Chest pain / pressure, Palpitations, Pedal edema, Calf pain Respiratory: reports: Dyspnea. denies: Cough, Hemoptysis, Wheezing GI: denies: Abdominal Pain PD PAST MEDICAL HISTORY - Past Medical History Past Medical History: Yes Cardiovascular: Hypertension, Atrial flutter Respiratory: Asthma, COPD Neuro: Headaches, Fainting Endocrine/Autoimmune: HyPOthyroidism GI: GERD, Diverticulitis CATTLE BROKER: None : Nocturia HEENT: Chronic vision loss, Chronic hearing loss, Other Psych: Anxiety Musculoskeletal: Osteoarthritis, Rheumatoid arthritis Derm: None - Past Surgical History Past Surgical History: Yes General: Appendectomy Ortho: Spine surgery, Other /CATTLE BROKER: Hysterectomy HEENT: Cataracts - Present Medications Home Medications: Ambulatory Orders Medication Instructions Recorded Confirmed Levothyroxine [Synthroid] 125 mcg PO QDAC 07/10/14 12/25/17 Temazepam [Restoril] 15 mg PO HS PRN 07/10/14 12/25/17 Albuterol Sulfate [Proair 2 puffs INH Q6H PRN 12/25/17 12/25/17 Respiclick] Celecoxib [Celebrex] 200 mg PO DAILY 12/25/17 12/25/17 Cholecalciferol (Vitamin D3) 4,000 unit PO DAILY 12/25/17 12/25/17 [Vitamin D3] Ipratropium/Albuterol Sulfate 3 ml INH QID 12/25/17 12/25/17 [Iprat-Albut 0.5-3(2.5) mg/3 ml] Montelukast [Singulair] 10 mg PO QPM 12/25/17 12/25/17 raNITIdine [Zantac] 150 mg PO DAILY 12/25/17 12/25/17 Acetaminophen [Tylenol] 650 mg PO Q4HR PRN tablet 12/28/17 Amox/Clav 875/125 [Augmentin] 1 each PO Q12H #14 tablet 12/28/17 Fluticasone [Flonase] 2 sprays ALESHA DAILY #5 bottle 12/28/17 Fluticasone/Salmeterol [Advair Hfa 8 gm IH BID #5 hfa.aer.ad 12/28/17 115-21 Mcg Inhaler] Metoprolol Succinate [Toprol Xl] 25 mg PO DAILY #30 tablet 12/28/17 Prednisone 10 mg PO DAILY #12 tab.ds.pk 12/28/17 Spironolactone [Aldactone] 12.5 mg PO DAILY #15 tablet 12/28/17 guaiFENesin [Mucinex] 600 mg PO BID #20 tablet 12/28/17 predniSONE [Prednisone] 20 mg PO DAILY #10 tablet 12/28/17 hydrOXYzine pamoate [Hydroxyzine 1 - 2 tab PO Q6H PRN #20 capsule 06/17/18 Pamoate] predniSONE [Deltasone] 20 mg PO DAILY 5 Days #5 tablet 06/17/18 LORazepam [Ativan] 0.5 tab PO Q6H PRN #10 tablet 09/22/18 - Allergies Allergies/Adverse Reactions: Allergies Allergy/AdvReac Type Severity Reaction Status Date / Time moxifloxacin Allergy Severe Rash Verified 06/17/18 12:55 hydrocodone AdvReac Severe Vomiting Verified 06/17/18 12:55 tramadol AdvReac Severe Vomiting Verified 06/17/18 12:55 losartan potassium * AdvReac Mild Nausea Verified 06/17/18 12:55 [From Cozaar] codeine AdvReac Nausea Verified 06/17/18 12:55 - Social History Does the pt smoke?: No Smoking Status: Former smoker Does the pt drink ETOH?: Yes Does the pt have substance abuse?: No - Immunizations Immunizations are current?: Yes - POLST Patient has POLST: Yes POLST Status: DNR (limited interventions) PD ED PE NORMAL - Vitals Vital signs reviewed: Yes - General General: Alert and oriented X 3, No acute distress - HEENT HEENT: PERRL, EOMI, Ears normal, Pharynx benign - Neck Neck: Supple, no meningeal sign, No bony TTP - Cardiac Cardiac: RRR, No murmur - Respiratory Respiratory: Other (Diminished throughout with mild expiratory wheezes, speaking in full sentences.) - Abdomen Abdomen: Normal bowel sounds, Soft, Non tender - Back Back: No CVA TTP, No spinal TTP - Derm Derm: Normal color, Warm and dry - Extremities Extremities: No edema, No calf tenderness / cord - Neuro Neuro: Alert and oriented X 3, Normal speech Results - Vitals Vitals: Vital Signs - 24 hr 09/22/18 09/22/18 09/22/18 20:45 21:32 22:02 Temperature 36.3 C L Heart Rate 83 90 91 Respiratory 26 H 18 22 Rate Blood Pressure 148/71 H O2 Saturation 97 Oxygen O2 Source [Without Activity] Room air O2 Source Nasal cannula Oxygen Flow Rate 2 - Labs Labs: Laboratory Tests 09/22/18 09/22/18 09/22/18 21:35 21:35 21:35 WBC 8.0 RBC 4.42 Hgb 12.2 Hct 37.0 MCV 83.6 MCH 27.5 MCHC 32.9 RDW 14.7 Plt Count 204 MPV 9.2 Neut # (Auto) 7.1 H Lymph # (Auto) 0.5 L Orange # (Auto) 0.3 Eos # (Auto) 0.0 Baso # (Auto) 0.0 Absolute Nucleated RBC 0.00 Nucleated RBC % 0.1 Manual Slide Review Indicated Platelet Estimate NORMAL (130-450,000) Platelet Morphology 1+ GIANT PLATELETS RBC Morph Micro Appear NORMAL APPEARANCE D-Dimer Sodium 123 L Potassium 3.8 Chloride 91 L Carbon Dioxide 22 Anion Gap 10.0 BUN 22 H Creatinine 0.6 Estimated GFR (MDRD) 96 Glucose 161 H Calcium 8.8 Total Bilirubin 0.3 AST 15 ALT 11 Alkaline Phosphatase 59 Troponin I < 0.04 Total Protein 7.4 Albumin 3.8 Globulin 3.6 Albumin/Globulin Ratio 1.1 Lipase 35 09/22/18 21:35 WBC RBC Hgb Hct MCV MCH MCHC RDW Plt Count MPV Neut # (Auto) Lymph # (Auto) Orange # (Auto) Eos # (Auto) Baso # (Auto) Absolute Nucleated RBC Nucleated RBC % Manual Slide Review Platelet Estimate Platelet Morphology RBC Morph Micro Appear D-Dimer 280.1 H Sodium Potassium Chloride Carbon Dioxide Anion Gap BUN Creatinine Estimated GFR (MDRD) Glucose Calcium Total Bilirubin AST ALT Alkaline Phosphatase Troponin I Total Protein Albumin Globulin Albumin/Globulin Ratio Lipase PD MEDICAL DECISION MAKING - ED course ED course: This is a shahnaz 82-year-old woman that presents by ambulance with shortness of breath. She has a history of COPD and asthma her lungs are little tight but she is really not labored and her sats are okay. She is already on steroids and antibiotics. The pattern of her breathing here would suggest a supratentorial component. She rapidly waxed and waned between short of breath and complaining about it to not short of breath and yelling at me in full sentences. Her workup here was reassuring with negative d-dimer, troponin, chest x-ray. She received several breathing treatments without change but after a very tiny dose of Ativan felt a lot better. Departure - Departure Disposition: 01 Home, Self Care Clinical Impression: Moderate COPD (chronic obstructive pulmonary disease), Anxiety about health Condition: Stable Record reviewed to determine appropriate education?: Yes Instructions: ED Stress React, ED COPD Flare Prescriptions: LORazepam [Ativan] 0.5 tab PO Q6H PRN #10 tablet PRN Reason: Anxiety Comments: You can take half a tablet of the lorazepam every 4-6 hours as needed for breathing troubles. Return if worse. Follow-up with your doctor, next available appointment. Continue the other medications that you are already taking including the steroids and antibiotics.
[2018-09-22 21:43] LABS: BASOPHILS % (AUTO) 0.6 %; EOSINOPHILS % (AUTO) 0.1 %; HGB - HEMOGLOBIN 12.2 g/dL (12.0-16.0); LYMPHOCYTES # (AUTO) 0.5 10^3/uL (1.5-3.5); LYMPHOCYTES % (AUTO) 6.8 %; MEAN CORPUSCULAR HEMOGLOBIN 27.5 pg (27.0-31.0); MEAN CORPUSCULAR HGB CONC 32.9 g/dL (32.0-36.0); MEAN CORPUSCULAR VOLUME 83.6 fL (81.0-99.0); MEAN PLATELET VOLUME 9.2 fL (7.9-10.8); MONOCYTES # (AUTO) 0.3 10^3/uL (0.0-1.0); MONOCYTES % (AUTO) 3.6 %; NEUTROPHILS # (AUTO) 7.1 10^3/uL (1.5-6.6); NEUTROPHILS % (AUTO) 88.9 %; PLT - PLATELET COUNT 204 10^3/uL (130-450); RED BLOOD COUNT 4.42 10^6/uL (4.20-5.40); RED CELL DISTRIBUTION WIDTH 14.7 % (12.0-15.0)
[2018-09-22] MEDS ORDERED: LEVALBUTEROL 1.25 MG/3 ML NEB INH STA (21:57)
[2018-09-22 22:02] LABS: ALBUMIN 3.8 g/dL (3.2-5.5); ALBUMIN/GLOBULIN RATIO 1.1 (1.0-2.2); BILIRUBIN,TOTAL 0.3 mg/dL (0.2-1.0); CALCIUM 8.8 mg/dL (8.5-10.3); CREATININE 0.6 mg/dL (0.4-1.0); TOTAL PROTEIN 7.4 g/dL (6.7-8.2)
--- NOTE | 2018-09-22 22:09 | XRAY Report ---
Reason: DYSPNEA Procedure Date: 09/22/2018 Accession Number: [id number] / [id number] Procedure: XR - Chest 1 View X-Ray CPT Code: 64023 FULL RESULT: EXAM: CHEST RADIOGRAPHY EXAM DATE: 09/22/2018 09:30 PM. CLINICAL HISTORY: Dyspnea COMPARISON: CHEST 2 VIEW 09/18/2018 9:29 AM. TECHNIQUE: 1 view. FINDINGS: Lungs/Pleura: No acute cardiopulmonary abnormality. Mediastinum: Heart size is normal. The aorta is mildly tortuous, as before. Other: Right convex curvature of the midthoracic spine. Osteoarthritis at the bilateral glenohumeral joints. IMPRESSION: No acute cardiopulmonary abnormality. RADIA
[2018-09-22 22:12] LABS: PLATELET ESTIMATE, MANUAL NORMAL (130-450,000) (NORMAL); PLATELET MORPHOLOGY 1+ GIANT PLATELETS (NORMAL); RBC MORPHOLOGY (MULTIPLE) NORMAL APPEARANCE (NORMAL)
[2018-09-22] MEDS ORDERED: LORazepam 2 MG/ML VIAL IVP STA (22:13)
[2018-09-22 23:26] VITALS: BP 147/75
== END 2018-09-22 23:29 | disposition home or self-care (01) ==
LOC: EDUNIT# → ED 20:31
DX: J44.9 Chronic obstructive pulmonary disease, unspecified (principal); Z87.891 Personal history of nicotine dependence; F41.9 Anxiety disorder, unspecified; I10 Essential (primary) hypertension
CPT/HCPCS: 36415; 71045; 80053; 83690; 84484; 85025; 85379; 93005; 94640; 96374; 99283; J2060

== ENCOUNTER 2018-09-30 11:32 | Outpatient (CLI) | payer MEDICARE, OTHER ==
[2018-09-30 11:56] LABS: CALCIUM 8.5 mg/dL (8.5-10.3); CREATININE 0.6 mg/dL (0.4-1.0)
== END 2018-09-30 11:33 | disposition home or self-care (01) ==
LOC: LAB 11:32
PROVIDERS: ATTEND Family Medicine
DX: E87.1 Hypo-osmolality and hyponatremia (principal)
CPT/HCPCS: 36415; 80048; 83930

== ENCOUNTER 2018-10-04 12:52 | Outpatient (CLI) | payer MEDICARE, OTHER ==
--- NOTE | 2018-10-04 14:56 | CT Report ---
Reason: CHR,CHRONIC,COPD Procedure Date: 10/04/2018 Accession Number: [id number] / [id number] Procedure: CT - CHEST WO CPT Code: FULL RESULT: EXAM: CT CHEST EXAM DATE: 10/04/2018 01:48 PM. CLINICAL HISTORY: Chronic, COPD. COMPARISONS: CT ANGIO CHEST 08/06/2012 7:59 AM. TECHNIQUE: Routine helical CT imaging was performed through the chest. IV contrast: None. Reconstructions: Coronal and sagittal. In accordance with CT protocol optimization, one or more of the following dose reduction techniques were utilized for this exam: automated exposure control, adjustment of mA and/or KV based on patient size, or use of iterative reconstructive technique. FINDINGS: Lungs/Pleura: Redemonstration of a small amount of pleural-based scarring in the anterior right middle lobe. Groundglass nodule measuring up to 6 mm in the right lower lobe image 50 series 4. No bronchial thickening, consolidation, or edema. Pulmonary vasculature is normal. No pericardial or pleural effusion. No pneumothorax. Mediastinum: Moderate to severe three-vessel coronary calcifications, ascending aorta measures up to 4.1 cm, ectatic with moderate calcifications. No pericardial effusion. Mediastinal lymph nodes do not meet size criteria. Pulmonary artery measures up to 3.3 cm, enlarged. There is no hilar or axillary lymphadenopathy. Bones: 5 mm retrolisthesis of L1 on L2. No aggressive osseous lesion detected. Visualized Abdomen: Marked atherosclerotic disease. Other: None. IMPRESSION: Enlarged pulmonary arteries which can be seen with pulmonary hypertension. Ectatic ascending aorta, up to 4.1 cm. RADIA
[2018-10-04] MEDS ORDERED: ALBUTEROL NEB 2.5 MG/3 ML INH ONE ×2 (15:00→15:16)
== END 2018-10-04 12:53 | disposition home or self-care (01) ==
LOC: DI 12:52
PROVIDERS: ATTEND Family Medicine
DX: J44.9 Chronic obstructive pulmonary disease, unspecified (principal); I50.9 Heart failure, unspecified; I51.7 Cardiomegaly
CPT/HCPCS: 71250; 93306; 94060; 94729

== ENCOUNTER 2018-11-22 20:04 | Emergency (ER) | payer MEDICARE, OTHER ==
--- NOTE | 2018-11-22 22:42 | ED Physician Documentation ---
PD HPI HEADACHE - Stated complaint Stated Complaint: HEADACHE - Chief complaint Chief Complaint: Heent - History obtained from History obtained from: Patient, Family - History of Present Illness Timing - onset: How many weeks ago (1.5) Timing - duration: Weeks Timing - details: Gradual onset, Constant, Waxing and waning Pain level now: 8 Worst headache ever?: No: Worst headache ever? Location: Back, Right Quality: Throbbing, Aching Associated symptoms: Fever, Stiff neck, Nausea, Vomiting, Weakness, Numbness, Syncope, Seizure, Eye pain, Vision changes Improved by: Rest Worsened by: Moving Recently seen: Clinic - Additional information Additional information: c/o gradual onset right posterior/occipital headache that radiates down right side of neck to right upper back and along right trapezial ridge. She says she had similar headaches 4 years ago and received injections that eliminated the headaches entirely until this past 10 days. She saw her doctor this past Sunday (five days ago), was prescribed methylpredinsolone taper (has been taking as prescribed) and scheduled to have in-hospital injections this coming (6 days). She presents to ED at this time due to no longer able to tolerate the headache/neck/shoulder pain. She takes tylenol and celebrex, but neither has provided adequate relief Review of Systems Constitutional: denies: Fever, Chills, Sweats Eyes: denies: Loss of vision, Decreased vision, Photophobia Cardiac: reports: Reviewed and negative Respiratory: reports: Reviewed and negative GI: reports: Reviewed and negative Skin: denies: Rash Musculoskeletal: reports: Neck pain, Reviewed and negative. denies: Extremity pain Neurologic: reports: Headache. denies: Focal weakness, Numbness, Confused, Altered mental status, Head injury, LOC PD PAST MEDICAL HISTORY - Past Medical History Past Medical History: Yes Cardiovascular: Hypertension, Atrial flutter Respiratory: Asthma, COPD Neuro: Headaches, Fainting Endocrine/Autoimmune: HyPOthyroidism GI: Diverticulitis MANAGER ROOM: None : Nocturia HEENT: Chronic vision loss, Chronic hearing loss, Other Psych: Anxiety Musculoskeletal: Osteoarthritis, Rheumatoid arthritis Derm: None - Past Surgical History Past Surgical History: Yes General: Appendectomy Ortho: Spine surgery, Other /MANAGER ROOM: Hysterectomy HEENT: Cataracts - Present Medications Home Medications: Ambulatory Orders Medication Instructions Recorded Confirmed Levothyroxine [Synthroid] 125 mcg PO QDAC 07/10/14 12/25/17 Temazepam [Restoril] 15 mg PO HS PRN 07/10/14 12/25/17 Albuterol Sulfate [Proair 2 puffs INH Q6H PRN 12/25/17 12/25/17 Respiclick] Celecoxib [Celebrex] 200 mg PO DAILY 12/25/17 12/25/17 Cholecalciferol (Vitamin D3) 4,000 unit PO DAILY 12/25/17 12/25/17 [Vitamin D3] Ipratropium/Albuterol Sulfate 3 ml INH QID 12/25/17 12/25/17 [Iprat-Albut 0.5-3(2.5) mg/3 ml] Montelukast [Singulair] 10 mg PO QPM 12/25/17 12/25/17 raNITIdine [Zantac] 150 mg PO DAILY 12/25/17 12/25/17 Acetaminophen [Tylenol] 650 mg PO Q4HR PRN tablet 12/28/17 Amox/Clav 875/125 [Augmentin] 1 each PO Q12H #14 tablet 12/28/17 Fluticasone [Flonase] 2 sprays ALESHA DAILY #5 bottle 12/28/17 Fluticasone/Salmeterol [Advair Hfa 8 gm IH BID #5 hfa.aer.ad 12/28/17 115-21 Mcg Inhaler] Metoprolol Succinate [Toprol Xl] 25 mg PO DAILY #30 tablet 12/28/17 Prednisone 10 mg PO DAILY #12 tab.ds.pk 12/28/17 Spironolactone [Aldactone] 12.5 mg PO DAILY #15 tablet 12/28/17 guaiFENesin [Mucinex] 600 mg PO BID #20 tablet 12/28/17 predniSONE [Prednisone] 20 mg PO DAILY #10 tablet 12/28/17 hydrOXYzine pamoate [Hydroxyzine 1 - 2 tab PO Q6H PRN #20 capsule 06/17/18 Pamoate] predniSONE [Deltasone] 20 mg PO DAILY 5 Days #5 tablet 06/17/18 LORazepam [Ativan] 0.5 tab PO Q6H PRN #10 tablet 09/22/18 Hydrocodone/Acetaminophen 1 - 2 each PO Q6H PRN #14 tablet 11/22/18 [Hydrocodon-Acetaminophen 5-325] Ondansetron Odt [Zofran] 4 mg TL Q6H PRN #14 tablet 11/22/18 diazePAM [Valium] 5 mg PO BID #15 tablet 11/22/18 - Allergies Allergies/Adverse Reactions: Allergies Allergy/AdvReac Type Severity Reaction Status Date / Time moxifloxacin Allergy Severe Rash Verified 06/17/18 12:55 hydrocodone AdvReac Severe Vomiting Verified 06/17/18 12:55 tramadol AdvReac Severe Vomiting Verified 06/17/18 12:55 losartan potassium * AdvReac Mild Nausea Verified 06/17/18 12:55 [From Cozaar] codeine AdvReac Nausea Verified 06/17/18 12:55 - Social History Does the pt smoke?: No Smoking Status: Never smoker Does the pt drink ETOH?: Yes Does the pt have substance abuse?: No - Immunizations Immunizations are current?: Yes - POLST Patient has POLST: Yes POLST Status: DNR (limited interventions) PD ED PE NORMAL - Vitals Vital signs reviewed: Yes - General General: Alert and oriented X 3, No acute distress (mosty NAD but appears to have periods of painful distress during H+P, particularly with turning head to right), Well developed/nourished - HEENT HEENT: Atraumatic, PERRL, EOMI, Moist mucous membranes - Neck Neck: No bony TTP - Cardiac Cardiac: RRR, No murmur - Respiratory Respiratory: No respiratory distress, Clear bilaterally - Derm Derm: Normal color, Warm and dry, No rash - Neuro Neuro: Alert and oriented X 3, field operations supervisor 2-12 intact, No motor deficit, No sensory deficit, Normal speech Eye Opening: Spontaneous Motor: Obeys Commands Verbal: Oriented GCS Score: 15 Results - Vitals Vitals: Vital Signs - 24 hr 11/22/18 11/22/18 11/22/18 20:09 20:56 22:34 Temperature 36.5 C 36.6 C Heart Rate 77 77 74 Respiratory 22 20 12 Rate Blood Pressure 154/64 H 178/95 H 127/75 O2 Saturation 100 98 99 11/22/18 23:14 Temperature Heart Rate 71 Respiratory 16 Rate Blood Pressure 152/85 H O2 Saturation 96 Oxygen O2 Source [Without Activity] Room air O2 Source Room air PD MEDICAL DECISION MAKING - ED course Complexity details: considered differential, d/w patient, d/w family ED course: Initially, patient wanted to stay in ED after meds given to gauge effect, but shortly after RN gave them to the patient, patient decided she was comfortable with d/c home. Departure - Departure Disposition: , Self Care Clinical Impression: Headache Qualifiers: Headache type: unspecified Headache chronicity pattern: acute headache Intractability: not intractable Qualified Code(s): R51 - Headache Condition: Good Instructions: ED Cephalgia Unspecified Follow-Up: Kirk Blakely DO [Primary Care Provider] - Prescriptions: diazePAM [Valium] 5 mg PO BID #15 tablet Hydrocodone/Acetaminophen [Hydrocodon-Acetaminophen 5-325] 1 - 2 each PO Q6H PRN #14 tablet PRN Reason: pain Ondansetron Odt [Zofran] 4 mg TL Q6H PRN #14 tablet PRN Reason: Nausea / Vomiting Discharge Date/Time: 11/22/18 23:30
[2018-11-22] MEDS ORDERED: diazePAM 5 MG TABLET PO STA (23:01)
[2018-11-22] MEDS ORDERED: ONDANSETRON ODT 4 MG TABLET TL STA (23:01)
[2018-11-22] MEDS ORDERED: HYDROcod/ACETAM 5/325 MG TABLET PO STA (23:01)
[2018-11-22 23:15] VITALS: BP 152/85
[2018-11-22] MEDS ORDERED: ONDANSETRON ODT 4 MG Prepack 2 TL STA (23:21)
[2018-11-22] MEDS ORDERED: HYDROcod/ACET 5/325 Prepack 4 PO STA (23:21)
== END 2018-11-22 23:30 | disposition home or self-care (01) ==
LOC: ED 20:04
DX: R51 Headache (principal); M54.2 Cervicalgia; I10 Essential (primary) hypertension
CPT/HCPCS: 99283; A9270; Q0162

== ENCOUNTER 2019-02-06 08:19 | Outpatient (CLI) | payer MEDICARE, OTHER | END 2019-02-06 08:20 | disposition critical access hospital (66) | LOC: EMS 08:19 | PROVIDERS: ATTEND Surgery | DX: R06.02 Shortness of breath (principal) ==

== ENCOUNTER 2019-02-06 08:35 | Emergency (ER) | payer MEDICARE, OTHER ==
[2019-02-06] MEDS ORDERED: LORazepam 0.5 MG TABLET PO STA (09:14)
[2019-02-06] MEDS ORDERED: IPRATROPIUM/ALBUTEROL 3 ML NEB INH STA (09:14)
[2019-02-06] MEDS ORDERED: DEXAMETHASONE 10 MG/ML VIAL PO STA (09:15)
[2019-02-06] MEDS ORDERED: CHERRY SYRUP 10 ML UDC PO ONE (09:15)
--- NOTE | 2019-02-06 09:19 | ED Physician Documentation ---
PD HPI DYSPNEA - Stated complaint Stated Complaint: SOA - Chief complaint Chief Complaint: Resp - History obtained from History obtained from: Patient, EMS - History of Present Illness Timing - details: Waxing and waning Similar symptoms before: Diagnosis (COPD/asthma) - Additional information Additional information: The patient is an 83-year-old female with a history of COPD/asthma who presents via ambulance complaining that "I cannot breathe." Her breathing is bad on most nights, but worse than usual last night. She denies any associated cough, fever, or chest pain. She reports that her nebulizer treatment is not helping. Review of her medical record reveals a similar presentation in September 2018. Work-up was essentially negative at that time, and repeated DuoNeb treatments did not help, but a 0.5 mg dose of Ativan relieved her symptoms. Review of Systems Constitutional: denies: Fever Nose: denies: Congestion Throat: denies: Sore throat Cardiac: denies: Chest pain / pressure Respiratory: reports: Dyspnea. 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 HEENT: Chronic vision loss, Chronic hearing loss, Other Psych: Anxiety Musculoskeletal: Osteoarthritis, Rheumatoid arthritis Derm: None - Past Surgical History Past Surgical History: Yes General: Appendectomy Ortho: Spine surgery, Other /FINANCE VICE PRESIDENT: Hysterectomy HEENT: Cataracts - Present Medications Home Medications: Ambulatory Orders Medication Instructions Recorded Confirmed Levothyroxine [Synthroid] 125 mcg PO QDAC 07/10/14 12/25/17 Temazepam [Restoril] 15 mg PO HS PRN 07/10/14 12/25/17 Albuterol Sulfate [Proair 2 puffs INH Q6H PRN 12/25/17 12/25/17 Respiclick] Celecoxib [Celebrex] 200 mg PO DAILY 12/25/17 12/25/17 Cholecalciferol (Vitamin D3) 4,000 unit PO DAILY 12/25/17 12/25/17 [Vitamin D3] Ipratropium/Albuterol Sulfate 3 ml INH QID 12/25/17 12/25/17 [Iprat-Albut 0.5-3(2.5) mg/3 ml] Montelukast [Singulair] 10 mg PO QPM 12/25/17 12/25/17 raNITIdine [Zantac] 150 mg PO DAILY 12/25/17 12/25/17 Acetaminophen [Tylenol] 650 mg PO Q4HR PRN tablet 12/28/17 Fluticasone [Flonase] 2 sprays ALESHA DAILY #5 bottle 12/28/17 Fluticasone/Salmeterol [Advair Hfa 8 gm IH BID #5 hfa.aer.ad 12/28/17 115-21 Mcg Inhaler] Metoprolol Succinate [Toprol Xl] 25 mg PO DAILY #30 tablet 12/28/17 Spironolactone [Aldactone] 12.5 mg PO DAILY #15 tablet 12/28/17 guaiFENesin [Mucinex] 600 mg PO BID #20 tablet 12/28/17 hydrOXYzine pamoate [Hydroxyzine 1 - 2 tab PO Q6H PRN #20 capsule 06/17/18 Pamoate] LORazepam [Ativan] 0.5 tab PO Q6H PRN #10 tablet 09/22/18 Hydrocodone/Acetaminophen 1 - 2 each PO Q6H PRN #14 tablet 11/22/18 [Hydrocodon-Acetaminophen 5-325] diazePAM [Valium] 5 mg PO BID #15 tablet 11/22/18 predniSONE [Prednisone] 40 mg PO DAILY #10 tablet 02/06/19 - Allergies Allergies/Adverse Reactions: Allergies Allergy/AdvReac Type Severity Reaction Status Date / Time moxifloxacin Allergy Severe Rash Verified 06/17/18 12:55 hydrocodone AdvReac Severe Vomiting Verified 06/17/18 12:55 tramadol AdvReac Severe Vomiting Verified 06/17/18 12:55 losartan potassium * AdvReac Mild Nausea Verified 06/17/18 12:55 [From Cozaar] codeine AdvReac Nausea Verified 02/06/19 08:44 - Social History Does the pt smoke?: No Smoking Status: Never smoker Does the pt drink ETOH?: Yes Does the pt have substance abuse?: No - Immunizations Immunizations are current?: Yes - POLST Patient has POLST: Yes POLST Status: DNR (limited interventions) PD ED PE NORMAL - Vitals Vital signs reviewed: Yes (Hypertensive) - General General: Alert and oriented X 3, Well developed/nourished, Other (Alert elderly patient who appears anxious and short of breath.) - HEENT HEENT: Atraumatic, EOMI, Pharynx benign - Neck Neck: No adenopathy, No JVD - Cardiac Cardiac: RRR - Respiratory Respiratory: Other (Diminished breath sounds bilaterally, with no wheezing or rales detected.) - Abdomen Abdomen: Soft, Non tender - Back Back: No CVA TTP - Derm Derm: No rash - Extremities Extremities: No edema, No calf tenderness / cord - Neuro Neuro: Alert and oriented X 3, No motor deficit, Normal speech Results - Vitals Vitals: Oxygen O2 Source [] Room air O2 Source Room air - EKG (time done) 09:22 Rate: Rate (enter#) (91) Rhythm: NSR [place]: LAD (borderline) Intervals: Prolonged [place] Ischemia: Non specific changes (Abnormal R-wave progression, early transition.) Compare to prior EKG: Unchanged from prior EKG Computer interpretation: Agree with computer - Labs Labs: Laboratory Tests 02/06/19 02/06/19 02/06/19 09:20 09:20 09:20 WBC 6.2 RBC 3.85 L Hgb 11.0 L Hct 32.1 L MCV 83.4 MCH 28.6 MCHC 34.3 RDW 14.5 Plt Count 185 MPV 11.7 H Neut # (Auto) 4.1 Lymph # (Auto) 1.2 L [place] # (Auto) 0.8 Eos # (Auto) 0.0 Baso # (Auto) 0.0 Absolute Nucleated RBC 0.00 Nucleated RBC % 0.0 D-Dimer Sodium 127 L Potassium 4.1 Chloride 91 L Carbon Dioxide 26 Anion Gap 10.0 BUN 22 H Creatinine 0.6 Estimated GFR (MDRD) 95 Glucose 95 Calcium 9.0 Total Bilirubin 0.7 AST 16 ALT 10 Alkaline Phosphatase 54 Troponin I High Sens 8.3 Total Protein 6.7 Albumin 3.5 Globulin 3.2 Albumin/Globulin Ratio 1.1 Lipase 23 02/06/19 09:20 WBC RBC Hgb Hct MCV MCH MCHC RDW Plt Count MPV Neut # (Auto) Lymph # (Auto) [place] # (Auto) Eos # (Auto) Baso # (Auto) Absolute Nucleated RBC Nucleated RBC % D-Dimer 346.9 H Sodium Potassium Chloride Carbon Dioxide Anion Gap BUN Creatinine Estimated GFR (MDRD) Glucose Calcium Total Bilirubin AST ALT Alkaline Phosphatase Troponin I High Sens Total Protein Albumin Globulin Albumin/Globulin Ratio Lipase - Rads (name of study) CXR Radiology: Prelim report reviewed, EMP read contemporaneously, See rad report (No acute disease.) PD MEDICAL DECISION MAKING - ED course Complexity details: reviewed old records, reviewed results, re-evaluated patient, considered differential, d/w patient, d/w family ED course: The patient's presentation is most consistent with acute exacerbation of COPD. Chest x-ray reveals no evidence of pneumonia, and her clinical presentation does not suggest pneumonia. Her d-dimer is slightly elevated, but I doubt pulmonary embolus. There is no clinical evidence to suggest congestive heart failure. Treatment in the emergency department included administration of DuoNeb nebulizer, dexamethasone 10 mg orally, and Ativan 0.5 mg orally. Her symptoms improved with the above treatment, and repeat examination reveals no wheezing on auscultation. She is being discharged with a prescription for prednisone. I discussed with her and her son the diagnosis, symptomatic treatment and outpatient follow-up, as well as potentially worrisome signs or symptoms that should prompt reevaluation in the emergency department. Departure - Departure Disposition: 01 Home, Self Care Clinical Impression: COPD with acute exacerbation, Hyponatremia Condition: Stable Instructions: ED COPD Flare Follow-Up: Kirk Blakely DO [Primary Care Provider] - Prescriptions: predniSONE [Prednisone] 40 mg PO DAILY #10 tablet Comments: Continue using your DuoNeb nebulizer. Take prednisone daily for 5 days as prescribed. Follow-up with your primary physician within 1 to 2 weeks. Call to schedule an appointment. Return to the emergency department if you develop increasing difficulty breathing, or otherwise worsening symptoms. Discharge Date/Time: 02/06/19 11:39
[2019-02-06 09:45] LABS: BASOPHILS % (AUTO) 0.2 %; EOSINOPHILS % (AUTO) 0.3 %; LYMPHOCYTES # (AUTO) 1.2 10^3/uL (1.5-3.5); LYMPHOCYTES % (AUTO) 19.5 %; MEAN CORPUSCULAR HEMOGLOBIN 28.6 pg (27.0-31.0); MEAN CORPUSCULAR HGB CONC 34.3 g/dL (32.0-36.0); MEAN CORPUSCULAR VOLUME 83.4 fL (81.0-99.0); MEAN PLATELET VOLUME 11.7 fL (7.9-10.8); MONOCYTES # (AUTO) 0.8 10^3/uL (0.0-1.0); MONOCYTES % (AUTO) 13.4 %; NEUTROPHILS # (AUTO) 4.1 10^3/uL (1.5-6.6); NEUTROPHILS % (AUTO) 66.4 %; PLT - PLATELET COUNT 185 10^3/uL (130-450); RED BLOOD COUNT 3.85 10^6/uL (4.20-5.40); RED CELL DISTRIBUTION WIDTH 14.5 % (12.0-15.0); WHITE BLOOD COUNT 6.2 x10^3/uL (4.8-10.8)
[2019-02-06 09:47] LABS: ALBUMIN 3.5 g/dL (3.2-5.5); ALBUMIN/GLOBULIN RATIO 1.1 (1.0-2.2); BILIRUBIN,TOTAL 0.7 mg/dL (0.2-1.0); CREATININE 0.6 mg/dL (0.4-1.0); TOTAL PROTEIN 6.7 g/dL (6.7-8.2)
--- NOTE | 2019-02-06 10:24 | XRAY Report ---
Reason: dyspnea Procedure Date: 02/06/2019 Accession Number: [id number] / [id number] Procedure: XR - Chest 2 View X-Ray CPT Code: 06026 FULL RESULT: EXAM: CHEST RADIOGRAPHY EXAM DATE: 02/06/2019 10:12 AM. CLINICAL HISTORY: Dyspnea. COMPARISON: CHEST 1 VIEW 09/22/2018 9:17 PM CHEST W/O 10/04/2018 1:46 PM. TECHNIQUE: 3 views. FINDINGS: Lungs/Pleura: No focal opacities evident. No pleural effusion. No pneumothorax. Normal volumes. Mediastinum: Heart and mediastinal contours are unremarkable. Other: Slight kyphosis at the thoracolumbar junction. Degenerative changes in the shoulders. No acute bony abnormality. IMPRESSION: No acute disease. RADIA
[2019-02-06 11:01] VITALS: BP 154/88
== END 2019-02-06 11:39 | disposition home or self-care (01) ==
LOC: EDUNIT# → ED 08:35
DX: J44.1 Chronic obstructive pulmonary disease with (acute) exacerbation (principal); E87.1 Hypo-osmolality and hyponatremia; I10 Essential (primary) hypertension
CPT/HCPCS: 36415; 71046; 80053; 83690; 84484; 85025; 85379; 93005; 94640; 99284; A9270

== ENCOUNTER 2019-02-15 09:36 | Outpatient (CLI) | payer MEDICARE, OTHER | END 2019-02-15 09:37 | disposition critical access hospital (66) | LOC: EMS 09:36 | PROVIDERS: ATTEND Surgery | DX: R06.02 Shortness of breath (principal) | CPT/HCPCS: A0425; A0427 ==

== ENCOUNTER 2019-02-15 09:51 | Emergency (ER) | payer MEDICARE, OTHER ==
[2019-02-15] MEDS ORDERED: DEXAMETHASONE 10 MG/ML VIAL IVP STA (10:08)
[2019-02-15] MEDS ORDERED: LORazepam 0.5 MG TABLET PO STA (10:15)
--- NOTE | 2019-02-15 10:16 | ED Physician Documentation ---
History of Present Illness - Stated complaint Stated Complaint: SOA - Chief complaint Chief Complaint: Resp - History obtained from History obtained from: Patient, Family, EMS - History of Present Illness Timing: Today Pain level max: 0 Pain level now: 0 - Additonal information Additional information: 83-year-old female presents to the emergency department stating that she is having a hard time breathing today. This been an ongoing issue for her. She states she tried her nebulizer without relief. Was given a DuoNeb on route with EMS and now feels better. No fevers. No chills. Has been anxious lately. Better with breathing treatments, nothing makes it worse. 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 HEENT: Chronic vision loss, Chronic hearing loss, Other Psych: Anxiety Musculoskeletal: Osteoarthritis, Rheumatoid arthritis Derm: None - Past Surgical History Past Surgical History: Yes General: Appendectomy Ortho: Spine surgery, 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: Hysterectomy HEENT: Cataracts - Present Medications Home Medications: Ambulatory Orders Medication Instructions Recorded Confirmed Levothyroxine [Synthroid] 125 mcg PO QDAC 07/10/14 12/25/17 Temazepam [Restoril] 15 mg PO HS PRN 07/10/14 12/25/17 Albuterol Sulfate [Proair 2 puffs INH Q6H PRN 12/25/17 12/25/17 Respiclick] Celecoxib [Celebrex] 200 mg PO DAILY 12/25/17 12/25/17 Cholecalciferol (Vitamin D3) 4,000 unit PO DAILY 12/25/17 12/25/17 [Vitamin D3] Ipratropium/Albuterol Sulfate 3 ml INH QID 12/25/17 12/25/17 [Iprat-Albut 0.5-3(2.5) mg/3 ml] Montelukast [Singulair] 10 mg PO QPM 12/25/17 12/25/17 raNITIdine [Zantac] 150 mg PO DAILY 12/25/17 12/25/17 Acetaminophen [Tylenol] 650 mg PO Q4HR PRN tablet 12/28/17 Fluticasone [Flonase] 2 sprays ALESHA DAILY #5 bottle 12/28/17 Fluticasone/Salmeterol [Advair Hfa 8 gm IH BID #5 hfa.aer.ad 12/28/17 115-21 Mcg Inhaler] Metoprolol Succinate [Toprol Xl] 25 mg PO DAILY #30 tablet 12/28/17 Spironolactone [Aldactone] 12.5 mg PO DAILY #15 tablet 12/28/17 guaiFENesin [Mucinex] 600 mg PO BID #20 tablet 12/28/17 hydrOXYzine pamoate [Hydroxyzine 1 - 2 tab PO Q6H PRN #20 capsule 06/17/18 Pamoate] LORazepam [Ativan] 0.5 tab PO Q6H PRN #10 tablet 09/22/18 Hydrocodone/Acetaminophen 1 - 2 each PO Q6H PRN #14 tablet 11/22/18 [Hydrocodon-Acetaminophen 5-325] diazePAM [Valium] 5 mg PO BID #15 tablet 11/22/18 predniSONE [Prednisone] 40 mg PO DAILY #10 tablet 02/06/19 Albuterol 2.5 mg INH Q4H PRN #30 neb 02/15/19 LORazepam [Ativan] 0.5 mg PO Q6H #10 tablet 02/15/19 - Allergies Allergies/Adverse Reactions: Allergies Allergy/AdvReac Type Severity Reaction Status Date / Time moxifloxacin Allergy Severe Rash Verified 06/17/18 12:55 hydrocodone AdvReac Severe Vomiting Verified 06/17/18 12:55 tramadol AdvReac Severe Vomiting Verified 06/17/18 12:55 losartan potassium * AdvReac Mild Nausea Verified 06/17/18 12:55 [From Cozaar] codeine AdvReac Nausea Verified 02/06/19 08:44 - Social History Does the pt smoke?: No Smoking Status: Never smoker Does the pt drink ETOH?: Yes Does the pt have substance abuse?: No - Immunizations Immunizations are current?: Yes - POLST Patient has POLST: Yes POLST Status: DNR (limited interventions) PD ED PE NORMAL - Vitals Vital signs reviewed: Yes - General General: Alert and oriented X 3, No acute distress, Well developed/nourished - HEENT HEENT: PERRL, Ears normal, Moist mucous membranes, Pharynx benign - Neck Neck: Supple, no meningeal sign - Cardiac Cardiac: RRR, Strong equal pulses - Respiratory Respiratory: No respiratory distress, Other (mild wheezing and crackles B) - Abdomen Abdomen: Soft, Non tender, Non distended - Derm Derm: Warm and dry - Extremities Extremities: No edema - Neuro Neuro: Alert and oriented X 3 - Psych Psych: Normal mood, Normal affect Results - Vitals Vitals: Vital Signs - 24 hr 02/15/19 02/15/19 02/15/19 09:53 11:58 12:07 Temperature 36.4 C L Heart Rate 92 84 92 Respiratory 20 20 19 Rate Blood Pressure 157/71 H 146/72 H O2 Saturation 96 98 02/15/19 13:07 Temperature 37.1 C Heart Rate 92 Respiratory 18 Rate Blood Pressure 137/64 H O2 Saturation 100 Oxygen O2 Source [Without Activity] Room air O2 Source Room air - EKG (time done) 1050 Rate: Rate (enter#) (89) Rhythm: NSR [place]: Normal Intervals: 1st degree AVB QRS: Normal Ischemia: Normal ST segments - Labs Labs: Laboratory Tests 02/15/19 02/15/19 10:53 10:53 WBC 6.1 RBC 4.41 Hgb 12.3 Hct 37.3 MCV 84.6 MCH 27.9 MCHC 33.0 RDW 15.1 H Plt Count 220 MPV 10.3 Neut # (Auto) 4.2 Lymph # (Auto) 0.9 L [place] # (Auto) 0.8 Eos # (Auto) 0.2 Baso # (Auto) 0.0 Absolute Nucleated RBC 0.00 Nucleated RBC % 0.0 Sodium 131 L Potassium 4.4 Chloride 93 L Carbon Dioxide 29 Anion Gap 9.0 BUN 18 Creatinine 0.7 Estimated GFR (MDRD) 80 L Glucose 100 Calcium 8.7 Total Bilirubin 0.5 AST 13 ALT 12 Alkaline Phosphatase 53 Total Protein 6.4 L Albumin 3.5 Globulin 2.9 Albumin/Globulin Ratio 1.2 Lipase 28 - Rads (name of study) cxr Radiology: Prelim report reviewed, EMP read contemporaneously, See rad report (No acute disease) PD MEDICAL DECISION MAKING - ED course Complexity details: reviewed old records, reviewed results, re-evaluated patient, considered differential, d/w patient, d/w family ED course: Patient improved in the emergency department. No hypoxia. No respiratory distress. Does appear to be an anxiety component and I will prescribe her Ativan as well. She also would like albuterol for her nebulizer machine. Will prescribe this for her. We will follow-up with her doctor for further care. She is already on steroids. Patient and family counseled regarding signs and symptoms for which I believe and urgent re-evaluation would be necessary. Patient with good understanding of and agreement to plan and is comfortable going home at this time Patient ambulated up and down the emergency department hallways with no respiratory distress and no hypoxia. Departure - Departure Disposition: 01 Home, Self Care Clinical Impression: COPD (chronic obstructive pulmonary disease) Qualifiers: COPD type: unspecified COPD Qualified Code(s): J44.9 - Chronic obstructive pulmonary disease, unspecified Condition: Good Instructions: ED COPD Flare Follow-Up: Kirk Blakely DO [Primary Care Provider] - Within 1 week Prescriptions: Albuterol 2.5 mg INH Q4H PRN #30 neb PRN Reason: Wheezing LORazepam [Ativan] 0.5 mg PO Q6H #10 tablet Comments: Return if you worsen. Use the medications as prescribed. Follow up with your doctor for further care. Discharge Date/Time: 02/15/19 13:07
[2019-02-15 11:09] LABS: BASOPHILS % (AUTO) 0.3 %; EOSINOPHILS # (AUTO) 0.2 10^3/uL (0.0-0.7); EOSINOPHILS % (AUTO) 3.3 %; HGB - HEMOGLOBIN 12.3 g/dL (12.0-16.0); LYMPHOCYTES # (AUTO) 0.9 10^3/uL (1.5-3.5); LYMPHOCYTES % (AUTO) 14.4 %; MEAN CORPUSCULAR HEMOGLOBIN 27.9 pg (27.0-31.0); MEAN CORPUSCULAR VOLUME 84.6 fL (81.0-99.0); MEAN PLATELET VOLUME 10.3 fL (7.9-10.8); MONOCYTES # (AUTO) 0.8 10^3/uL (0.0-1.0); MONOCYTES % (AUTO) 12.4 %; NEUTROPHILS # (AUTO) 4.2 10^3/uL (1.5-6.6); NEUTROPHILS % (AUTO) 69.3 %; PLT - PLATELET COUNT 220 10^3/uL (130-450); RED BLOOD COUNT 4.41 10^6/uL (4.20-5.40); RED CELL DISTRIBUTION WIDTH 15.1 % (12.0-15.0); WHITE BLOOD COUNT 6.1 x10^3/uL (4.8-10.8)
[2019-02-15 11:14] LABS: ALBUMIN 3.5 g/dL (3.2-5.5); ALBUMIN/GLOBULIN RATIO 1.2 (1.0-2.2); BILIRUBIN,TOTAL 0.5 mg/dL (0.2-1.0); CALCIUM 8.7 mg/dL (8.5-10.3); CREATININE 0.7 mg/dL (0.4-1.0); TOTAL PROTEIN 6.4 g/dL (6.7-8.2)
[2019-02-15] MEDS ORDERED: SODIUM CHLORIDE 0.9% 500 ML IV ONE (11:16)
--- NOTE | 2019-02-15 11:27 | XRAY Report ---
Reason: cough Procedure Date: 02/15/2019 Accession Number: [id number] / [id number] Procedure: XR - Chest 2 View X-Ray CPT Code: 35596 FULL RESULT: EXAM: CHEST RADIOGRAPHY EXAM DATE: 02/15/2019 10:33 AM. CLINICAL HISTORY: Cough. COMPARISON: Chest radiograph from 02/06/2019, 09/18/2018. TECHNIQUE: 2 views. FINDINGS: Lungs/Pleura: There are mild hazy bibasilar opacities on frontal view without correlate on lateral view, suggestive of atelectasis. No pleural effusion or pneumothorax demonstrated. Mediastinum: There is mild enlargement of the cardiac silhouette. Mediastinal contour and pulmonary vasculature are within normal limits. Other: Degenerative joint disease demonstrated in the left shoulder. There is mild apex right curvature of the thoracic spine with multilevel degenerative change. IMPRESSION: Mild bibasilar atelectasis. Otherwise no acute cardiopulmonary abnormality. RADIA
[2019-02-15] MEDS ORDERED: ALBUTEROL NEB 2.5 MG/3 ML INH STA (11:33)
[2019-02-15 13:09] VITALS: BP 137/64
== END 2019-02-15 13:07 | disposition home or self-care (01) ==
LOC: EDUNIT# → ED 09:51
DX: J44.9 Chronic obstructive pulmonary disease, unspecified (principal); F41.9 Anxiety disorder, unspecified; I44.0 Atrioventricular block, first degree; I10 Essential (primary) hypertension; Z66 Do not resuscitate
CPT/HCPCS: 36415; 71046; 80053; 83690; 85025; 93005; 94640; 96361; 96374; 99284; A9270

== ENCOUNTER 2019-03-21 09:55 | Outpatient (CLI) | payer MEDICARE, OTHER | END 2019-03-21 09:56 | disposition critical access hospital (66) | LOC: EMS 09:55 | PROVIDERS: ATTEND Surgery | DX: R06.00 Dyspnea, unspecified (principal) | CPT/HCPCS: A0425; A0427 ==

== ENCOUNTER 2019-03-21 10:44 | Emergency (ER) | payer MEDICARE, OTHER ==
[2019-03-21 11:21] LABS: VBG BASE EXCESS -3.5 mmol/L (-2 - +2); VBG PCO2 39.1 mmHg (41-51); VBG PH 7.359 (7.31-7.41); VBG PO2 30.2 mmHg (25-47); VBG TOTAL CO2 22.7 mmol/L (24-29)
[2019-03-21] MEDS ORDERED: IPRATROPIUM/ALBUTEROL 3 ML NEB INH STA (11:22)
[2019-03-21 11:24] LABS: BASOPHILS % (AUTO) 0.4 %; EOSINOPHILS # (AUTO) 0.1 10^3/uL (0.0-0.7); EOSINOPHILS % (AUTO) 2.6 %; HGB - HEMOGLOBIN 11.9 g/dL (12.0-16.0); LYMPHOCYTES % (AUTO) 19.3 %; MEAN CORPUSCULAR HEMOGLOBIN 28.2 pg (27.0-31.0); MEAN CORPUSCULAR HGB CONC 33.3 g/dL (32.0-36.0); MEAN CORPUSCULAR VOLUME 84.6 fL (81.0-99.0); MEAN PLATELET VOLUME 10.7 fL (7.9-10.8); MONOCYTES # (AUTO) 0.6 10^3/uL (0.0-1.0); NEUTROPHILS # (AUTO) 3.6 10^3/uL (1.5-6.6); NEUTROPHILS % (AUTO) 66.3 %; PLT - PLATELET COUNT 186 10^3/uL (130-450); RED BLOOD COUNT 4.22 10^6/uL (4.20-5.40); RED CELL DISTRIBUTION WIDTH 14.6 % (12.0-15.0); WHITE BLOOD COUNT 5.4 x10^3/uL (4.8-10.8)
[2019-03-21 11:29] LABS: CALCIUM 9.1 mg/dL (8.5-10.3); CREATININE 0.7 mg/dL (0.4-1.0)
--- NOTE | 2019-03-21 11:36 | ED Physician Documentation ---
PD HPI DYSPNEA - Stated complaint Stated Complaint: DIFF. BREATHING - Chief complaint Chief Complaint: Resp - History obtained from History obtained from: Patient, Family, EMS - History of Present Illness Timing - onset: How many days ago (2) Timing - onset during: Rest Timing - duration: Days (2) Timing - details: Gradual onset Inciting event(s): Other (unknown, pt has a history of copd, states she feels anxious when she can't breathe) Improved by: Inhaler/neb Worsened by: Other (nothing) Associated symptoms: Wheezing, Anxiety. No: Fever, Cough, Hemoptysis, Chest pain / discomfort, Palpitations, Diaphoresis, Bilateral edema, Unilateral edema Similar symptoms before: Diagnosis (has had this multiple times and been diagnosed with copd and anxiety on previous visits, no hx of CHF) Recently seen: Emergency Dept (for similar symptoms and treated with nebulizers and ativan which improved her symptoms) - Treatment prior to arrival Treatment prior to arrival: EMS gave solumedrol and duoneb en route Review of Systems Ten Systems: 10 systems reviewed and negative Constitutional: denies: Fever, Chills Nose: denies: Reviewed and negative Throat: reports: Reviewed and negative Cardiac: denies: Chest pain / pressure, Palpitations Respiratory: reports: Dyspnea, Wheezing. 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 : Nocturia HEENT: Chronic vision loss, Chronic hearing loss, Other Psych: Anxiety Musculoskeletal: Osteoarthritis, Rheumatoid arthritis Derm: None - Past Surgical History Past Surgical History: Yes General: Appendectomy Ortho: Spine surgery, Other /DENTAL LABORATORY TECHNICIAN: Hysterectomy HEENT: Cataracts - Present Medications Home Medications: Ambulatory Orders Medication Instructions Recorded Confirmed Levothyroxine [Synthroid] 125 mcg PO QDAC 07/10/14 12/25/17 Temazepam [Restoril] 15 mg PO HS PRN 07/10/14 12/25/17 Albuterol Sulfate [Proair 2 puffs INH Q6H PRN 12/25/17 12/25/17 Respiclick] Celecoxib [Celebrex] 200 mg PO DAILY 12/25/17 12/25/17 Cholecalciferol (Vitamin D3) 4,000 unit PO DAILY 12/25/17 12/25/17 [Vitamin D3] Ipratropium/Albuterol Sulfate 3 ml INH QID 12/25/17 12/25/17 [Iprat-Albut 0.5-3(2.5) mg/3 ml] Montelukast [Singulair] 10 mg PO QPM 12/25/17 12/25/17 raNITIdine [Zantac] 150 mg PO DAILY 12/25/17 12/25/17 Acetaminophen [Tylenol] 650 mg PO Q4HR PRN tablet 12/28/17 Fluticasone [Flonase] 2 sprays ALESHA DAILY #5 bottle 12/28/17 Fluticasone/Salmeterol [Advair Hfa 8 gm IH BID #5 hfa.aer.ad 12/28/17 115-21 Mcg Inhaler] Metoprolol Succinate [Toprol Xl] 25 mg PO DAILY #30 tablet 12/28/17 Spironolactone [Aldactone] 12.5 mg PO DAILY #15 tablet 12/28/17 guaiFENesin [Mucinex] 600 mg PO BID #20 tablet 12/28/17 hydrOXYzine pamoate [Hydroxyzine 1 - 2 tab PO Q6H PRN #20 capsule 06/17/18 Pamoate] LORazepam [Ativan] 0.5 tab PO Q6H PRN #10 tablet 09/22/18 Hydrocodone/Acetaminophen 1 - 2 each PO Q6H PRN #14 tablet 11/22/18 [Hydrocodon-Acetaminophen 5-325] diazePAM [Valium] 5 mg PO BID #15 tablet 11/22/18 predniSONE [Prednisone] 40 mg PO DAILY #10 tablet 02/06/19 Albuterol 2.5 mg INH Q4H PRN #30 neb 02/15/19 LORazepam [Ativan] 0.5 mg PO Q6H #10 tablet 02/15/19 Doxycycline Hyclate 100 mg PO BID #20 capsule 03/21/19 LORazepam [Ativan] 1 mg PO TID PRN #15 tablet 03/21/19 - Allergies Allergies/Adverse Reactions: Allergies Allergy/AdvReac Type Severity Reaction Status Date / Time moxifloxacin Allergy Severe Rash Verified 03/21/19 10:48 celecoxib [From Celebrex] Allergy Unknown Verified 03/21/19 10:48 oxycodone Allergy Unknown Verified 03/21/19 10:48 hydrocodone AdvReac Severe Vomiting Verified 03/21/19 10:48 tramadol AdvReac Severe Vomiting Verified 03/21/19 10:48 losartan potassium * AdvReac Mild Nausea Verified 03/21/19 10:48 [From Cozaar] codeine AdvReac Nausea Verified 03/21/19 10:48 - Social History Does the pt smoke?: No Smoking Status: Former smoker Does the pt drink ETOH?: Yes Does the pt have substance abuse?: No - Immunizations Immunizations are current?: Yes - POLST Patient has POLST: Yes POLST Status: DNR (limited interventions) PD ED PE NORMAL - Vitals Vital signs reviewed: Yes - General General: Alert and oriented X 3, Other (frail, anxious appearing ) - HEENT HEENT: Atraumatic, Pharynx benign - Neck Neck: Supple, no meningeal sign, No JVD - Cardiac Cardiac: No murmur, No gallop, No rub, Strong equal pulses, Other (tachycardic, regular rate ) - Respiratory Respiratory: Other (tachypneic but clear breath sounds bilaterally ) - Abdomen Abdomen: Soft, Non tender, Non distended - Female Female : Deferred - Rectal Rectal: Deferred - Derm Derm: Normal color, Warm and dry, No rash - Extremities Extremities: No deformity, No tenderness to palpate, Normal ROM s pain, No edema, No calf tenderness / cord - Neuro Neuro: Alert and oriented X 3 Eye Opening: Spontaneous Motor: Obeys Commands Verbal: Oriented GCS Score: 15 - Psych Psych: Other (anxious appearing, normal affect ) Results - Vitals Vitals: Oxygen O2 Source [] Room air O2 Source Room air - EKG (time done) 10:55 Rate: Rate (enter#), Tachy Rhythm: Sinus tachycardia Intervals: Prolonged [place] QRS: Normal Ischemia: Normal ST segments Other comments: Other comments (no stemi, borderline LAD ) Computer interpretation: Agree with computer - Labs Labs: Laboratory Tests 03/21/19 03/21/19 03/21/19 11:06 11:06 11:06 WBC 5.4 RBC 4.22 Hgb 11.9 L Hct 35.7 L MCV 84.6 MCH 28.2 MCHC 33.3 RDW 14.6 Plt Count 186 MPV 10.7 Neut # (Auto) 3.6 Lymph # (Auto) 1.0 L [place] # (Auto) 0.6 Eos # (Auto) 0.1 Baso # (Auto) 0.0 Absolute Nucleated RBC 0.00 Nucleated RBC % 0.0 VBG pH 7.359 VBG pCO2 39.1 L VBG pO2 30.2 VBG HCO3 21.5 L VBG Total CO2 22.7 L VBG O2 Saturation 62.9 VBG Base Excess -3.5 L Sodium 128 L Potassium 3.8 Chloride 90 L Carbon Dioxide 25 Anion Gap 13.0 BUN 16 Creatinine 0.7 Estimated GFR (MDRD) 80 L Glucose 92 Calcium 9.1 Troponin I High Sens B-Natriuretic Peptide 03/21/19 03/21/19 11:06 11:06 WBC RBC Hgb Hct MCV MCH MCHC RDW Plt Count MPV Neut # (Auto) Lymph # (Auto) [place] # (Auto) Eos # (Auto) Baso # (Auto) Absolute Nucleated RBC Nucleated RBC % VBG pH VBG pCO2 VBG pO2 VBG HCO3 VBG Total CO2 VBG O2 Saturation VBG Base Excess Sodium Potassium Chloride Carbon Dioxide Anion Gap BUN Creatinine Estimated GFR (MDRD) Glucose Calcium Troponin I High Sens 9.3 B-Natriuretic Peptide 114 H mild hyponatremia, given NS fluids - Rads (name of study) cxr Radiology: Final report received, See rad report CTA Chest Radiology: Final report received, See rad report PD MEDICAL DECISION MAKING - ED course Complexity details: reviewed results, re-evaluated patient, considered differential, d/w patient, d/w family ED course: ddx - copd exacerbation, chf, PE, anxiety, pneumonia 83 y/o F with hx and exam as documented. Her lungs are actually clear on arrival but given she has a hx of copd, attempted a duoneb but her symptoms persisted. Her vitals are stable, her oxygen is actually 98% on RA but she is tachycardic and tachypneic. SHe is anxious appearing and her states the last time she was in the ED ativan helped her symptoms. She was given a dose of ativan which somewhat improved her symptoms but she was still tachycardic. This may be due to her repeated nebulizer treatments. However given this is a repeat visit and she is not asymptomatic obtained a CTA to eval for PE which was negative. She has some hyponatremia and was given that I suspect is due to dehydration and hypovolemia. She was given NS for this. She is otherwise asymptomatic and is stable for outpt f/u. Discussed plan of care with patient and her . Departure - Departure Disposition: 01 Home, Self Care Clinical Impression: Anxiety, Hyponatremia Pneumonia Qualifiers: Pneumonia type: due to unspecified organism Laterality: right Lung location: lower lobe of lung Qualified Code(s): J18.1 - Lobar pneumonia, unspecified organism Condition: Stable Record reviewed to determine appropriate education?: Yes Instructions: Pneumonia Dc Follow-Up: Kirk Blakely DO [Primary Care Provider] - Within 1 week (recheck your symptoms) Prescriptions: Doxycycline Hyclate 100 mg PO BID #20 capsule LORazepam [Ativan] 1 mg PO TID PRN #15 tablet PRN Reason: Anxiety Comments: Your labs, ekgs, chest xray, CT scan of your chest were mostly normal. You have an old lung nodule on your CT scan that is stable and unchanged, you should continue to monitor this with your doctor. You also have a likely small right lower lobe pneumonia. You should complete the course of doxycycline antibiotic as prescribed. You can take ativan (lorazepam) as needed for anxiety up to 3 times a day. Return to the ED if worsening symptoms develop. Follow up with your doctor to reevaluate your symptoms and further discuss management of your anxiety. Discharge Date/Time: 03/21/19 14:43
[2019-03-21] MEDS ORDERED: SODIUM CHLORIDE 0.9% 1,000 ML IV ONE (11:41)
--- NOTE | 2019-03-21 11:53 | XRAY Report ---
Reason: sob Procedure Date: 03/21/2019 Accession Number: [id number] / [id number] Procedure: XR - Chest 2 View X-Ray CPT Code: 07974 FULL RESULT: EXAM: CHEST RADIOGRAPHY EXAM DATE: 03/21/2019 11:20 AM. CLINICAL HISTORY: Sob. COMPARISON: CHEST 2 VIEW 02/15/2019 10:26 AM. TECHNIQUE: 2 views. FINDINGS: Lungs/Pleura: No focal opacities evident. No pleural effusion. No pneumothorax. Normal volumes. Mediastinum: Heart and mediastinal contours are unremarkable. Other: DJD spine. Dextroscoliosis. DJD shoulders IMPRESSION: No active cardiopulmonary disease RADIA
[2019-03-21] MEDS ORDERED: LORazepam 2 MG/ML VIAL IVP STA (11:55)
[2019-03-21] MEDS ORDERED: IOVERSOL 320 100 ML VIAL IVP ONE ×2 (13:13→13:45)
--- NOTE | 2019-03-21 14:14 | CT Report ---
Reason: chest pain Procedure Date: 03/21/2019 Accession Number: [id number] / [id number] Procedure: CT - ANGIO CHEST W/WO CPT Code: FULL RESULT: EXAM: CT ANGIOGRAM CHEST EXAM DATE: 03/21/2019 01:42 PM. CLINICAL HISTORY: Chest pain with chronic shortness of breath. COMPARISON: CHEST W/O 10/04/2018 1:46 PM. TECHNIQUE: Routine helical imaging was performed through the chest in the pulmonary arterial phase. IV Contrast: 80 cc Optiray 320. Reconstructions: Coronal 3-D MIP reconstructions.Sagittal and coronal. In accordance with CT protocol optimization, one or more of the following dose reduction techniques were utilized for this exam: automated exposure control, adjustment of mA and/or KV based on patient size, or use of iterative reconstructive technique. FINDINGS: Diagnostic quality: Suboptimal secondary to bolus timing and motion artifact. Pulmonary embolism: No large central pulmonary embolism identified. Right heart strain: None Pulmonary arteries: Dilated main pulmonary artery, similar to prior. Heart: Normal in size with coronary artery disease. No pericardial effusion. Again mass-effect on the right ventricle secondary to pectus excavatum chest wall deformity. 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 The descending thoracic aorta is normal in caliber. Mild atherosclerosis. Central airways: Unremarkable Lung parenchyma: New small focus of consolidation within the peripheral aspect of the right lower lobe. Unchanged 4 mm pulmonary nodule again scarring in the left lingula. Within the right upper lobe. Pleural effusion: None Pneumothorax: None Adenopathy: None Imaged abdomen: Uncomplicated colonic diverticulosis and moderate atherosclerosis of the abdominal aorta and its branches. Sidewalls: Unremarkable Bones: No suspicious osseous lesions. Again pectus excavatum deformity of the anterior chest wall. Advance all the level degenerative changes of the thoracic spine with rotatory S-shaped scoliosis. IMPRESSION: 1. Suboptimal evaluation secondary to motion artifact and bolus timing. 2. No large central pulmonary embolism identified. 3. Again enlargement of the main pulmonary artery which is nonspecific but can be seen in pulmonary hypertension. 4. New small focus of consolidation within the peripheral aspect of the right lower lobe. Correlate clinically for aspiration versus infection. 5. 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 RADIA
[2019-03-21 14:42] VITALS: BP 155/80
== END 2019-03-21 14:43 | disposition home or self-care (01) ==
LOC: EDUNIT# → ED 10:44
DX: J18.9 Pneumonia, unspecified organism (principal); J44.9 Chronic obstructive pulmonary disease, unspecified; R91.1 Solitary pulmonary nodule; E87.1 Hypo-osmolality and hyponatremia; E86.0 Dehydration; F41.9 Anxiety disorder, unspecified; R00.0 Tachycardia, unspecified; I10 Essential (primary) hypertension; Z87.891 Personal history of nicotine dependence; Z66 Do not resuscitate
CPT/HCPCS: 36415; 71046; 71275; 80048; 82803; 83880; 84484; 85025; 93005; 94640; 96361; 96374; 99284; J2060; Q9967

== ENCOUNTER 2019-04-13 15:01 | Emergency (ER) | payer MEDICARE, OTHER ==
[2019-04-13] MEDS ORDERED: SODIUM CHLORIDE 0.9% 500 ML IV ONE (15:32)
--- NOTE | 2019-04-13 15:32 | ED Physician Documentation ---
PD HPI DYSPNEA - Stated complaint Stated Complaint: SOA - Chief complaint Chief Complaint: Resp - History obtained from History obtained from: Patient, Family - History of Present Illness Timing - onset: How many days ago (3) Timing - onset during: Light activity Timing - duration: Days (3) Timing - details: Gradual onset, Still present Inciting event(s): Emotional event, Other (in to [place] with for surgery this week.) Improved by: Inhaler/neb Worsened by: Exertion Associated symptoms: Wheezing. No: Fever, Cough Similar symptoms before: Diagnosis (COPD, pneumonia, CHF) Recently seen: Emergency Dept - Additional information Additional information: 83-year-old female with history of CHF COPD and pneumonia was seen last month for an exacerbation of COPD with a pneumonia and she improved with that and over the past week she has been into [place] with her for L and exploratory surgery and she is returned 2 days ago and despite this she has increasing shortness of breath over the past 3 days. She has been taking her medications she does have a little bit of swelling in her ankles but otherwise does not feel ill. She denies cough. Review of Systems Constitutional: reports: Fatigue Eyes: denies: Decreased vision Nose: denies: Rhinorrhea / runny nose, Congestion Throat: denies: Sore throat Cardiac: reports: Pedal edema. denies: Chest pain / pressure, Palpitations, Calf pain Respiratory: reports: Dyspnea. 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 HEENT: Chronic vision loss, Chronic hearing loss, Other Psych: Anxiety Musculoskeletal: Osteoarthritis, Rheumatoid arthritis Derm: None - Past Surgical History Past Surgical History: Yes General: Appendectomy Ortho: Spine surgery, Other /PALEOBOTANIST: Hysterectomy HEENT: Cataracts - Present Medications Home Medications: Ambulatory Orders Medication Instructions Recorded Confirmed Levothyroxine [Synthroid] 125 mcg PO QDAC 07/10/14 12/25/17 Temazepam [Restoril] 15 mg PO HS PRN 07/10/14 12/25/17 Albuterol Sulfate [Proair 2 puffs INH Q6H PRN 12/25/17 12/25/17 Respiclick] Celecoxib [Celebrex] 200 mg PO DAILY 12/25/17 12/25/17 Cholecalciferol (Vitamin D3) 4,000 unit PO DAILY 12/25/17 12/25/17 [Vitamin D3] Ipratropium/Albuterol Sulfate 3 ml INH QID 12/25/17 12/25/17 [Iprat-Albut 0.5-3(2.5) mg/3 ml] Montelukast [Singulair] 10 mg PO QPM 12/25/17 12/25/17 raNITIdine [Zantac] 150 mg PO DAILY 12/25/17 12/25/17 Acetaminophen [Tylenol] 650 mg PO Q4HR PRN tablet 12/28/17 Fluticasone [Flonase] 2 sprays ALESHA DAILY #5 bottle 12/28/17 Fluticasone/Salmeterol [Advair Hfa 8 gm IH BID #5 hfa.aer.ad 12/28/17 115-21 Mcg Inhaler] Metoprolol Succinate [Toprol Xl] 25 mg PO DAILY #30 tablet 12/28/17 Spironolactone [Aldactone] 12.5 mg PO DAILY #15 tablet 12/28/17 guaiFENesin [Mucinex] 600 mg PO BID #20 tablet 12/28/17 hydrOXYzine pamoate [Hydroxyzine 1 - 2 tab PO Q6H PRN #20 capsule 06/17/18 Pamoate] LORazepam [Ativan] 0.5 tab PO Q6H PRN #10 tablet 09/22/18 Hydrocodone/Acetaminophen 1 - 2 each PO Q6H PRN #14 tablet 11/22/18 [Hydrocodon-Acetaminophen 5-325] diazePAM [Valium] 5 mg PO BID #15 tablet 11/22/18 predniSONE [Prednisone] 40 mg PO DAILY #10 tablet 02/06/19 Albuterol 2.5 mg INH Q4H PRN #30 neb 02/15/19 LORazepam [Ativan] 0.5 mg PO Q6H #10 tablet 02/15/19 Doxycycline Hyclate 100 mg PO BID #20 capsule 03/21/19 LORazepam [Ativan] 1 mg PO TID PRN #15 tablet 03/21/19 Azithromycin [Zithromax] 250 mg PO DAILY #6 tablet 04/13/19 predniSONE [Prednisone] 40 mg PO DAILY #10 tablet 04/13/19 - Allergies Allergies/Adverse Reactions: Allergies Allergy/AdvReac Type Severity Reaction Status Date / Time moxifloxacin Allergy Severe Rash Verified 04/13/19 15:07 celecoxib [From Celebrex] Allergy Unknown Verified 04/13/19 15:07 oxycodone Allergy Unknown Verified 04/13/19 15:07 hydrocodone AdvReac Severe Vomiting Verified 04/13/19 15:07 tramadol AdvReac Severe Vomiting Verified 04/13/19 15:07 losartan potassium * AdvReac Mild Nausea Verified 04/13/19 15:07 [From Cozaar] codeine AdvReac Nausea Verified 04/13/19 15:07 - Social History Does the pt smoke?: No Smoking Status: Former smoker Does the pt drink ETOH?: Yes Does the pt have substance abuse?: No - Immunizations Immunizations are current?: Yes - POLST Patient has POLST: Yes POLST Status: DNR (limited interventions) PD ED PE NORMAL - Vitals Vital signs reviewed: Yes (tachy and hypertensive with tachypneia) - General General: Alert and oriented X 3, Well developed/nourished, Other (tachypenic at rest ) - HEENT HEENT: Atraumatic, PERRL, EOMI, Ears normal, Other (dry mucous membranes ) - Neck Neck: Supple, no meningeal sign, No bony TTP, Other (There is JVD present) - Cardiac Cardiac: RRR, No murmur - Respiratory Respiratory: Other (left base rhonci and scattered wheezes with diminished breath sounds. ) - Abdomen Abdomen: Soft, Non tender - Back Back: No CVA TTP, No spinal TTP - Derm Derm: Normal color, Warm and dry, No rash - Extremities Extremities: No deformity, Other (There is at best trace edema to the ankles only. 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, No motor deficit, No sensory deficit, Normal speech Eye Opening: Spontaneous Motor: Obeys Commands Verbal: Oriented GCS Score: 15 - Psych Psych: Normal mood, Normal affect Results - Vitals Vitals: Vital Signs - 24 hr 04/13/19 04/13/19 15:05 16:00 Temperature 36.6 C Heart Rate 103 H 64 Respiratory 24 20 Rate Blood Pressure 187/87 H O2 Saturation 98 Oxygen O2 Source [] Room air O2 Source Room air - EKG (time done) 1455 Rate: Rate (enter#) (111) Rhythm: Sinus tachycardia, Other (PVC's) [place]: LAD Intervals: Prolonged [place] Compare to prior EKG: Changed from prior EKG (SPT 03-21-2019 PVC's have occured) Computer interpretation: Agree with computer - Labs Labs: Laboratory Tests 04/13/19 04/13/19 04/13/19 15:35 15:35 15:35 WBC 4.3 L RBC 4.09 L Hgb 11.7 L Hct 33.8 L MCV 82.6 MCH 28.6 MCHC 34.6 RDW 15.1 H Plt Count 160 MPV 11.3 H Neut # (Auto) 2.4 Lymph # (Auto) 1.1 L [place] # (Auto) 0.7 Eos # (Auto) 0.1 Baso # (Auto) 0.0 Absolute Nucleated RBC 0.00 Nucleated RBC % 0.0 Sodium 124 L Potassium 3.8 Chloride 92 L Carbon Dioxide 24 Anion Gap 8.0 BUN 15 Creatinine 0.8 Estimated GFR (MDRD) 69 L Glucose 133 H Calcium 8.7 Total Bilirubin 0.4 AST 22 ALT 11 Alkaline Phosphatase 50 Troponin I High Sens 10.8 B-Natriuretic Peptide Total Protein 6.3 L Albumin 3.6 Globulin 2.7 Albumin/Globulin Ratio 1.3 Lipase 33 04/13/19 15:35 WBC RBC Hgb Hct MCV MCH MCHC RDW Plt Count MPV Neut # (Auto) Lymph # (Auto) [place] # (Auto) Eos # (Auto) Baso # (Auto) Absolute Nucleated RBC Nucleated RBC % Sodium Potassium Chloride Carbon Dioxide Anion Gap BUN Creatinine Estimated GFR (MDRD) Glucose Calcium Total Bilirubin AST ALT Alkaline Phosphatase Troponin I High Sens B-Natriuretic Peptide 255 H Total Protein Albumin Globulin Albumin/Globulin Ratio Lipase - Rads (name of study) chest Radiology: Prelim report reviewed (Impression: Stable cardiomegaly. No acute findings are seen.), EMP read indepedently, See rad report Procedures - IVC sono (time) 1520 Bedside IVC sono: IVC measures (cm) (1.22), IVC collapsed c insp (cm) (complete), Dehydration (est 1 liter deficit) PD MEDICAL DECISION MAKING - ED course Complexity details: reviewed old records, reviewed results, re-evaluated patient, considered differential, d/w patient, d/w family ED course: 83-year-old female presents to the emerge department with a shortness of breath. She has a history of COPD she also has history of CHF. The veins in her arms appear distended but on interrogation the inferior vena cava with bedside ultrasound this is a collapsing vein which is not consistent with acute failure. Chest x-rays obtained as well as BNP and troponin patient is administered a DuoNeb treatment as well as 500 mL's of saline and 10 mg of dexamethasone. Patient is given intravenous fluid she responds to all of the treatments given and she is given half a milligram of Ativan as well. She is much better with her breathing at the conclusion of treatment. We are able to investigate further with family her recent treatments and she has been on a course of prednisone for 10 days about 5 days ago. She finished this. She was not on a course of antibiotic at that time. Today we will place her back on a course of prednisone for about 5 days and this time we will add in antibiotic. Departure - Departure Disposition: 01 Home, Self Care Clinical Impression: COPD with acute exacerbation Condition: Stable Instructions: ED COPD Flare Follow-Up: Kirk Balkely DO [Primary Care Provider] - Prescriptions: Azithromycin [Zithromax] 250 mg PO DAILY #6 tablet predniSONE [Prednisone] 40 mg PO DAILY #10 tablet
[2019-04-13] MEDS ORDERED: DEXAMETHASONE 10 MG/ML VIAL IVP STA (15:33)
[2019-04-13] MEDS ORDERED: IPRATROPIUM/ALBUTEROL 3 ML NEB INH STA (15:33)
[2019-04-13 15:50] LABS: BASOPHILS % (AUTO) 0.2 %; EOSINOPHILS # (AUTO) 0.1 10^3/uL (0.0-0.7); EOSINOPHILS % (AUTO) 2.4 %; HGB - HEMOGLOBIN 11.7 g/dL (12.0-16.0); LYMPHOCYTES # (AUTO) 1.1 10^3/uL (1.5-3.5); LYMPHOCYTES % (AUTO) 25.2 %; MEAN CORPUSCULAR HEMOGLOBIN 28.6 pg (27.0-31.0); MEAN CORPUSCULAR HGB CONC 34.6 g/dL (32.0-36.0); MEAN CORPUSCULAR VOLUME 82.6 fL (81.0-99.0); MEAN PLATELET VOLUME 11.3 fL (7.9-10.8); MONOCYTES # (AUTO) 0.7 10^3/uL (0.0-1.0); MONOCYTES % (AUTO) 15.8 %; NEUTROPHILS # (AUTO) 2.4 10^3/uL (1.5-6.6); NEUTROPHILS % (AUTO) 56.2 %; PLT - PLATELET COUNT 160 10^3/uL (130-450); RED BLOOD COUNT 4.09 10^6/uL (4.20-5.40); RED CELL DISTRIBUTION WIDTH 15.1 % (12.0-15.0); WHITE BLOOD COUNT 4.3 x10^3/uL (4.8-10.8)
[2019-04-13 16:04] LABS: ALBUMIN 3.6 g/dL (3.2-5.5); ALBUMIN/GLOBULIN RATIO 1.3 (1.0-2.2); BILIRUBIN,TOTAL 0.4 mg/dL (0.2-1.0); CALCIUM 8.7 mg/dL (8.5-10.3); CREATININE 0.8 mg/dL (0.4-1.0); TOTAL PROTEIN 6.3 g/dL (6.7-8.2)
[2019-04-13] MEDS ORDERED: MAGNESIUM SULFATE 2 GRAM 2 GM/50 ML BAG IV ONE (16:05)
[2019-04-13] MEDS ORDERED: LORazepam 2 MG/ML VIAL IVP STA (16:08)
--- NOTE | 2019-04-13 16:38 | XRAY Report ---
Reason: chest pain Procedure Date: 04/13/2019 Accession Number: [id number] / [id number] Procedure: XR - Chest 1 View X-Ray CPT Code: 09532 Final Report FULL RESULT: EXAM: CHEST RADIOGRAPHY EXAM DATE: 04/13/2019 04:17 PM. CLINICAL HISTORY: Chest pain. COMPARISON: CHEST 2 VIEW 03/21/2019 11:05 AM. TECHNIQUE: 1 view. FINDINGS: Lungs/Pleura: No focal opacities evident. No pleural effusion. No pneumothorax. Mediastinum: Stable cardiomegaly. IMPRESSION: Stable cardiomegaly. No acute findings are seen. RADIA
[2019-04-13 17:29] VITALS: BP 155/74
== END 2019-04-13 17:30 | disposition home or self-care (01) ==
LOC: ED 15:01
DX: J44.1 Chronic obstructive pulmonary disease with (acute) exacerbation (principal); I10 Essential (primary) hypertension; Z87.891 Personal history of nicotine dependence; Z66 Do not resuscitate
CPT/HCPCS: 36415; 71045; 80053; 83690; 83880; 84484; 85025; 93005; 94640; 99284; J2060

== ENCOUNTER 2019-04-30 11:59 | Inpatient (IN) | payer MEDICARE, OTHER ==
--- NOTE | 2019-04-30 12:13 | ED Physician Documentation ---
PD HPI DYSPNEA - Stated complaint Stated Complaint: SOA - History obtained from History obtained from: Patient - History of Present Illness Timing - onset: How many days ago (several) Timing - onset during: Light activity Timing - duration: Days Timing - details: Gradual onset, Still present Inciting event(s): URI (some mild cough and congestion.). No: Out of meds Improved by: Inhaler/neb (using home neb with only mild improvement.) Worsened by: Exertion Associated symptoms: Cough, Wheezing. No: Fever, Hemoptysis, Chest pain / discomfort, Palpitations, Bilateral edema Similar symptoms before: Diagnosis (COPD exac and has been to ER at times in the past and improves with nebs.) Recently seen: Clinic (yesterday and starrted on Medrol dose pack.) Review of Systems Constitutional: reports: Myalgias, Fatigue. denies: Fever, Chills Nose: denies: Rhinorrhea / runny nose, Congestion Throat: denies: Sore throat Cardiac: denies: Chest pain / pressure, Palpitations Respiratory: reports: Dyspnea, Cough, Wheezing GI: denies: Abdominal Pain, Nausea, Vomiting, Diarrhea Skin: denies: Rash, Lesions Musculoskeletal: denies: Neck pain, Back pain Neurologic: reports: Generalized weakness. 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 REAMER: None : Nocturia HEENT: Chronic vision loss, Chronic hearing loss, Other Psych: Anxiety Musculoskeletal: Osteoarthritis, Rheumatoid arthritis Derm: None - Past Surgical History Past Surgical History: Yes General: Appendectomy Ortho: Spine surgery, Other /BARREL REAMER: Hysterectomy HEENT: Cataracts - Present Medications Home Medications: Ambulatory Orders Medication Instructions Recorded Confirmed Levothyroxine [Synthroid] 125 mcg PO QDAC 07/10/14 12/25/17 Temazepam [Restoril] 15 mg PO HS PRN 07/10/14 12/25/17 Albuterol Sulfate [Proair 2 puffs INH Q6H PRN 12/25/17 12/25/17 Respiclick] Celecoxib [Celebrex] 200 mg PO DAILY 12/25/17 12/25/17 Cholecalciferol (Vitamin D3) 4,000 unit PO DAILY 12/25/17 12/25/17 [Vitamin D3] Ipratropium/Albuterol Sulfate 3 ml INH QID 12/25/17 12/25/17 [Iprat-Albut 0.5-3(2.5) mg/3 ml] Montelukast [Singulair] 10 mg PO QPM 12/25/17 12/25/17 raNITIdine [Zantac] 150 mg PO DAILY 12/25/17 12/25/17 Acetaminophen [Tylenol] 650 mg PO Q4HR PRN tablet 12/28/17 Fluticasone [Flonase] 2 sprays ALESHA DAILY #5 bottle 12/28/17 Fluticasone/Salmeterol [Advair Hfa 8 gm IH BID #5 hfa.aer.ad 12/28/17 115-21 Mcg Inhaler] Metoprolol Succinate [Toprol Xl] 25 mg PO DAILY #30 tablet 12/28/17 Spironolactone [Aldactone] 12.5 mg PO DAILY #15 tablet 12/28/17 guaiFENesin [Mucinex] 600 mg PO BID #20 tablet 12/28/17 hydrOXYzine pamoate [Hydroxyzine 1 - 2 tab PO Q6H PRN #20 capsule 06/17/18 Pamoate] LORazepam [Ativan] 0.5 tab PO Q6H PRN #10 tablet 09/22/18 Hydrocodone/Acetaminophen 1 - 2 each PO Q6H PRN #14 tablet 11/22/18 [Hydrocodon-Acetaminophen 5-325] diazePAM [Valium] 5 mg PO BID #15 tablet 11/22/18 predniSONE [Prednisone] 40 mg PO DAILY #10 tablet 02/06/19 Albuterol 2.5 mg INH Q4H PRN #30 neb 02/15/19 LORazepam [Ativan] 0.5 mg PO Q6H #10 tablet 02/15/19 Doxycycline Hyclate 100 mg PO BID #20 capsule 03/21/19 LORazepam [Ativan] 1 mg PO TID PRN #15 tablet 03/21/19 Azithromycin [Zithromax] 250 mg PO DAILY #6 tablet 04/13/19 predniSONE [Prednisone] 40 mg PO DAILY #10 tablet 04/13/19 - Allergies Allergies/Adverse Reactions: Allergies Allergy/AdvReac Type Severity Reaction Status Date / Time moxifloxacin Allergy Severe Rash Verified 04/30/19 12:17 celecoxib [From Celebrex] Allergy Unknown Verified 04/30/19 12:17 oxycodone Allergy Unknown Verified 04/30/19 12:17 hydrocodone AdvReac Severe Vomiting Verified 04/30/19 12:17 tramadol AdvReac Severe Vomiting Verified 04/30/19 12:17 losartan potassium * AdvReac Mild Nausea Verified 04/30/19 12:17 [From Cozaar] codeine AdvReac Nausea Verified 04/30/19 12:17 - Social History Does the pt smoke?: No Smoking Status: Former smoker Does the pt drink ETOH?: Yes Does the pt have substance abuse?: No - Immunizations Immunizations are current?: Yes - POLST Patient has POLST: Yes POLST Status: DNR (limited interventions) PD ED PE NORMAL - Vitals Vital signs reviewed: Yes - General General: Alert and oriented X 3, Other (There is some partial sentence dyspnea. There is some audible wheezing. There is also symmetric expiratory wheezing noted on lung sounds. No coarse sounds are heard. There is no pedal edema nor calf tenderness.). No: Well developed/nourished (She is thin and frail appearing with little body fat. She does appear well groomed.) - HEENT HEENT: Atraumatic, Pharynx benign - Neck Neck: Supple, no meningeal sign, No adenopathy - Cardiac Cardiac: RRR, No murmur - Respiratory Respiratory: No respiratory distress. No: Clear bilaterally - Abdomen Abdomen: Soft, Non tender - Female Female : Deferred - Rectal Rectal: Deferred - Back Back: No CVA TTP - Derm Derm: Normal color, Warm and dry - Extremities Extremities: No deformity, No tenderness to palpate, Normal ROM s pain, No edema, No calf tenderness / cord - Neuro Neuro: Alert and oriented X 3, No motor deficit, Normal speech Results - Vitals Vitals: Vital Signs - 24 hr 04/30/19 04/30/19 04/30/19 12:05 12:49 13:00 Temperature 36.7 C Heart Rate 100 91 92 Respiratory 22 18 20 Rate Blood Pressure 175/95 H 173/90 H O2 Saturation 95 96 04/30/19 13:37 Temperature Heart Rate 91 Respiratory 18 Rate Blood Pressure 173/96 H O2 Saturation 95 Oxygen O2 Source [Without Activity] Room air O2 Source Room air - Labs Labs: Laboratory Tests 04/30/19 04/30/19 04/30/19 12:32 12:32 12:32 WBC 6.0 RBC 3.98 L Hgb 11.3 L Hct 33.0 L MCV 82.9 MCH 28.4 MCHC 34.2 RDW 15.9 H Plt Count 205 MPV 10.3 Neut # (Auto) 4.7 Lymph # (Auto) 0.7 L [place] # (Auto) 0.6 Eos # (Auto) 0.0 Baso # (Auto) 0.0 Absolute Nucleated RBC 0.00 Nucleated RBC % 0.0 Sodium 119 L* Potassium 4.3 Chloride 86 L Carbon Dioxide 23 Anion Gap 10.0 BUN 16 Creatinine 0.6 Estimated GFR (MDRD) 95 Glucose 98 Calcium 8.6 Magnesium 1.7 Total Bilirubin 0.8 AST 22 ALT 14 Alkaline Phosphatase 50 Troponin I High Sens B-Natriuretic Peptide 196 H Total Protein 6.4 L Albumin 3.8 Globulin 2.6 Albumin/Globulin Ratio 1.5 Lipase 32 04/30/19 12:32 WBC RBC Hgb Hct MCV MCH MCHC RDW Plt Count MPV Neut # (Auto) Lymph # (Auto) [place] # (Auto) Eos # (Auto) Baso # (Auto) Absolute Nucleated RBC Nucleated RBC % Sodium Potassium Chloride Carbon Dioxide Anion Gap BUN Creatinine Estimated GFR (MDRD) Glucose Calcium Magnesium Total Bilirubin AST ALT Alkaline Phosphatase Troponin I High Sens 9.3 B-Natriuretic Peptide Total Protein Albumin Globulin Albumin/Globulin Ratio Lipase - Rads (name of study) chest xray Radiology: Prelim report reviewed (some hyperinflation, no infiltrates), See rad report PD MEDICAL DECISION MAKING - ED course Complexity details: reviewed results, re-evaluated patient, considered differential (Her symptoms do sound like exacerbation of COPD. She has had some cough so possibly a viral illness. No signs of infiltrate on x-ray. She does have complained also of general weakness and her sodium is low on blood testing. Commonly she is in the upper 120s to 130 range. Today is 119. She is not on a diuretic. I presume is partly nutritional. No obvious medications to cause it. She has some improvement in her dyspnea with some nebulizer treatments. We will give some steroids as well. I think between the persistent dyspnea with wheezing along with the hyponatremia, she will need a more prolonged course to have an consistent improvement and I will talk with the hospitalist.), d/w patient Departure - Departure Disposition: 66 [facility] DC/Xfer Clinical Impression: Acute exacerbation of COPD with asthma, Generalized weakness, Hyponatremia Dyspnea Qualifiers: Dyspnea type: shortness of breath Qualified Code(s): R06.02 - Shortness of breath Condition: Stable Record reviewed to determine appropriate education?: Yes
[2019-04-30] MEDS ORDERED: IPRATROPIUM/ALBUTEROL 3 ML NEB INH STA (12:39)
[2019-04-30] MEDS ORDERED: DEXAMETHASONE 10 MG/ML VIAL IVP STA ×2 (12:40→14:25)
[2019-04-30] MEDS ORDERED: MAGNESIUM SULFATE 2 GRAM 2 GM/50 ML BAG IV ONE (12:41)
[2019-04-30 12:46] LABS: BASOPHILS % (AUTO) 0.2 %; HGB - HEMOGLOBIN 11.3 g/dL (12.0-16.0); LYMPHOCYTES # (AUTO) 0.7 10^3/uL (1.5-3.5); LYMPHOCYTES % (AUTO) 11.4 %; MEAN CORPUSCULAR HEMOGLOBIN 28.4 pg (27.0-31.0); MEAN CORPUSCULAR HGB CONC 34.2 g/dL (32.0-36.0); MEAN CORPUSCULAR VOLUME 82.9 fL (81.0-99.0); MEAN PLATELET VOLUME 10.3 fL (7.9-10.8); MONOCYTES # (AUTO) 0.6 10^3/uL (0.0-1.0); MONOCYTES % (AUTO) 9.5 %; NEUTROPHILS # (AUTO) 4.7 10^3/uL (1.5-6.6); NEUTROPHILS % (AUTO) 78.4 %; PLT - PLATELET COUNT 205 10^3/uL (130-450); RED BLOOD COUNT 3.98 10^6/uL (4.20-5.40); RED CELL DISTRIBUTION WIDTH 15.9 % (12.0-15.0)
[2019-04-30 13:08] LABS: ALBUMIN 3.8 g/dL (3.2-5.5); ALBUMIN/GLOBULIN RATIO 1.5 (1.0-2.2); BILIRUBIN,TOTAL 0.8 mg/dL (0.2-1.0); CALCIUM 8.6 mg/dL (8.5-10.3); CREATININE 0.6 mg/dL (0.4-1.0); MAGNESIUM 1.7 mg/dL (1.7-2.8); TOTAL PROTEIN 6.4 g/dL (6.7-8.2)
[2019-04-30] MEDS ORDERED: SODIUM CHLORIDE 0.9% 1,000 ML IV ONE ×2 (13:19→14:24)
--- NOTE | 2019-04-30 13:24 | XRAY Report ---
Reason: SOB/ CHEST TIGHTNESS Procedure Date: 04/30/2019 Accession Number: [id number] / [id number] Procedure: XR - Chest 1 View X-Ray CPT Code: 83330 Final Report FULL RESULT: EXAM: CHEST RADIOGRAPHY EXAM DATE: 04/30/2019 12:55 PM HISTORY: SOB/ CHEST TIGHTNESS COMPARISON: CHEST 1 VIEW 04/13/2019 4:00 PM TECHNIQUE: Single View FINDINGS: Lungs/Pleura: The lungs are clear. No consolidation, edema or pleural effusion. Cardiomediastinal silhouette: Upper limits normal heart size accounting for technique. Other: Mild broad convex right scoliosis. Degenerative arthritis seen at the shoulders. IMPRESSION: No acute disease. RADIA
[2019-04-30] MEDS ORDERED: ALBUTEROL NEB 2.5 MG/3 ML INH STA (14:24)
[2019-04-30] MEDS ORDERED: PROCHLORPERAZINE 10 MG/2 ML VIAL IVP PRN (16:33)
[2019-04-30] MEDS ORDERED: diazePAM 5 MG TABLET PO PRN (16:37)
[2019-04-30] MEDS ORDERED: HYDROcod/ACETAM 5/325 MG TABLET PO PRN (16:39)
[2019-04-30] MEDS ORDERED: LORazepam 0.5 MG TABLET PO PRN (16:39)
[2019-04-30] MEDS ORDERED: ALBUTEROL NEB 2.5 MG/3 ML INH PRN (16:41)
[2019-04-30] MEDS ORDERED: SODIUM CHLORIDE 0.9% 1,000 ML IV SCH (17:00)
[2019-04-30] MEDS ORDERED: ALBUTEROL NEB 2.5 MG/3 ML INH SCH (17:00)
[2019-04-30] MEDS: SODIUM CHLORIDE FLUSH 0.9% 10 ML SYRINGE IVP SCH (18:49)
[2019-04-30] MEDS ORDERED: IPRATROPIUM 0.2 MG/ML NEB INH SCH (19:00)
[2019-04-30 19:19] LABS: CALCIUM 8.1 mg/dL (8.5-10.3); CREATININE 0.7 mg/dL (0.4-1.0)
--- NOTE | 2019-04-30 19:31 | HISTORY & PHYSICAL EXAMINATION ---
DATE OF SERVICE: 04/30/2019 Physician: Lupe Braga MD HISTORY OF PRESENT ILLNESS: This is an 83-year-old white female who has a history of COPD/asthma and has needed Prednisone a lot lately, which gives her anxiety and she cannot sleep at night. She has a history of mild dementia, GERD, hypothyroidism and hypertension. Patient and both give parts of the history and states that she has been short of breath for about 3 or 4 months coming to the emergency room many times for treatment, is released and feels better for about 3 or 4 days and then again feels SOB. Patient, especially notes that she is worse sleeping supine, has to sleep with 4 pillows because of air hunger. Patient saw her PCP just 1 week ago and her Prednisone was changed to a Medrol Dosepak and her inhaler was also changed. This has not resulted in any improvement. Patient has a cough, but no sputum production, denied palpitations, chest pain, leg edema. When she is at her best she uses a walker at home, is able to ambulate, takes part in house care. Patient has lately been more anxious, according to the , because of the 's new diagnosis of bladder cancer. Patient came to the emergency room because of worsening shortness of breath today and did not improve with several nebulizer doses and also was found to have a sodium of 119 and is being admitted for management of COPD and hyponatremia. ALLERGIES 1. MOXIFLOXACIN. 2. CELECOXIB. 3. OXYCODONE 4. HYDROCODONE. 5. TRAMADOL. 6. LOSARTAN CAUSES NAUSEA 7. CODEINE CAUSES NAUSEA. MEDICATIONS 1. Mucinex 600 mg b.i.d. 2. Valium 5 mg b.i.d. 3. Singulair 10 mg every night. 4. Toprol-XL 25 mg daily. 5. Synthroid 125 mcg daily. 6. Ativan p.r.n. 7. Tylenol with codeine p.r.n. 8. Flonase spray daily. 9. Zantac 150 mg daily. 10. Medrol Dosepak. 11. Restoril 15 mg at bedtime p.r.n. insomnia. 12. Spironolactone 12.5 mg daily. 13. DuoNeb inhaler. 14. Advair inhaler. 15. Vitamin D3. 16. Tylenol p.r.n. 17. ProAir inhaler p.r.n. FAMILY HISTORY: No inherited diseases. SOCIAL HISTORY: Patient is a nonsmoker, who never smoked, drinks 1 glass of alcohol every night and has no illicit drug use history. REVIEW OF SYSTEMS: A comprehensive review of systems was performed and the pertinent positives are listed, the rest are negative. PHYSICAL EXAMINATION GENERAL: Elderly white female. She has a fair memory, is able to give her history on her own. She is speaking in 2 and 3 word sentences and then is gasping for air and appears in [id number] respiratory distress. VITAL SIGNS: Blood pressure 160/80 and 173/103, heart rate 105 in sinus tachycardia, afebrile, room air saturation 98%. HEENT: Shows air hunger and dry oral mucosa. NECK: Positive JVD at a 30-degree upright angle. CHEST: Diffusely poor air movement and scattered wheezes. No rales or rhonchi. HEART: Tachycardic with no murmurs, no gallop. ABDOMEN: Soft with positive bowel sounds. EXTREMITIES: No clubbing, cyanosis, or edema. NEUROLOGIC: Grossly intact. LABORATORY DATA: Sodium 119, potassium 4.3, BUN 16, creatinine 0.6, magnesium 1.7, normal liver tests. Troponin high sensitivity, normal at 9.3. BNP 196. White count 6, hemoglobin 11.3 with normal MCV, platelet count 205. Chest x-ray showed no acute pulmonary disease and heart size upper limits of normal. EKG: Sinus tachycardia at a rate of 99, first-degree AV block, right atrial enlargement, diffusely peaked T waves are noted. There is no old EKG available for comparison. IMPRESSION 1. Hyponatremia. 2. Chronic obstructive pulmonary disease exacerbation. 3. Dementia, mild. 4. Gastroesophageal reflux disease history. 5. Hypothyroidism. 6. Hypertension history. PLAN: Admit patient, start telemetry. Obtain an Echo to evaluate her LV contractility, especially given her orthopnea. Continue treatment for COPD exacerbation using nebulizers, IV steroids, Mucinex, Singulair. Start slow rate of IV saline hydration and free water restriction. Follow her daily weight, I's and O's. Follow her electrolytes every 12 hours to every day. Check TSH regarding tachycardia. DEEP VENOUS THROMBOSIS PROPHYLAXIS: SCDs. CODE STATUS: DNR. ATTESTATION: Patient is expected to be discharged or transferred to another facility within 96 hours: Yes. cc: Kirk Blakely DO TD: 04/30/2019 19:11 MTDJan
[2019-04-30] MEDS: IPRATROPIUM/ALBUTEROL 3 ML NEB INH SCH (19:32)
[2019-04-30] MEDS: ACETAMINOPHEN 325 MG TABLET PO PRN (20:51)
[2019-04-30] MEDS: FAMOTIDINE 20 MG TABLET PO SCH (20:59)
[2019-04-30] MEDS: guaiFENesin 600 MG TABLET PO SCH (21:00)
[2019-04-30] MEDS: MONTELUKAST 10 MG TABLET PO SCH (21:02)
[2019-04-30] MEDS: methylPREDNISolone SUCCINATE 40 MG/ML VIAL IVP SCH (21:21)
[2019-05-01] MEDS: SODIUM CHLORIDE FLUSH 0.9% 10 ML SYRINGE IVP SCH ×3 (01:14→16:40)
[2019-05-01] MEDS: ACETAMINOPHEN 325 MG TABLET PO PRN ×4 (01:41→16:39)
[2019-05-01 04:51] LABS: HGB - HEMOGLOBIN 10.7 g/dL (12.0-16.0); LYMPHOCYTES # (AUTO) 0.3 10^3/uL (1.5-3.5); LYMPHOCYTES % (AUTO) 11.2 %; MEAN CORPUSCULAR HEMOGLOBIN 27.7 pg (27.0-31.0); MEAN CORPUSCULAR HGB CONC 33.2 g/dL (32.0-36.0); MEAN CORPUSCULAR VOLUME 83.4 fL (81.0-99.0); MEAN PLATELET VOLUME 10.6 fL (7.9-10.8); MONOCYTES # (AUTO) 0.1 10^3/uL (0.0-1.0); MONOCYTES % (AUTO) 3.3 %; NEUTROPHILS # (AUTO) 2.4 10^3/uL (1.5-6.6); NEUTROPHILS % (AUTO) 85.1 %; PLT - PLATELET COUNT 183 10^3/uL (130-450); RED BLOOD COUNT 3.86 10^6/uL (4.20-5.40); RED CELL DISTRIBUTION WIDTH 16.1 % (12.0-15.0); WHITE BLOOD COUNT 2.8 x10^3/uL (4.8-10.8)
[2019-05-01 05:05] LABS: CALCIUM 8.2 mg/dL (8.5-10.3); CREATININE 0.5 mg/dL (0.4-1.0)
[2019-05-01 05:30] LABS: DIFFERENTIAL COMMENT MANUAL=AUTO DIFF; PLATELET ESTIMATE, MANUAL NORMAL (130-450,000) (NORMAL); RBC MORPHOLOGY (MULTIPLE) NORMAL APPEARANCE (NORMAL)
[2019-05-01] MEDS: SODIUM CHLORIDE FLUSH 0.9% 10 ML SYRINGE IVP PRN ×2 (06:09→21:17)
[2019-05-01] MEDS: LEVOTHYROXINE 125 MCG TABLET PO SCH (06:09)
[2019-05-01] MEDS: methylPREDNISolone SUCCINATE 40 MG/ML VIAL IVP SCH ×3 (06:09→21:16)
[2019-05-01] MEDS: IPRATROPIUM/ALBUTEROL 3 ML NEB INH SCH ×4 (08:11→19:50)
[2019-05-01] MEDS ORDERED: SODIUM CHLORIDE 0.9% 1,000 ML IV SCH (08:38)
--- NOTE | 2019-05-01 08:43 | PROVIDER PROGRESS NOTE ---
Assessment/Plan - Problem List (1) Hyponatremia Assessment/Plan: Improved from 119 to 126 today, with iv saline at 83cc/hr overnight. Her po intake was poor, no appetite, therefore free water intake was low. Will decrease saline to TKO, liberalize her free water intake and recheck serum sodium in 12 hours, to assess for continued improvement. (2) Acute exacerbation of COPD with asthma Assessment/Plan: She reports she feels better Continue nebs, steroids, Singular, Mucinex Will check for home O2 need before DCh Poss DCh home tomorrow (3) Neutropenia Assessment/Plan: Concern that this drop in WBC indicates an overwhelming infection. Will recheck a CXR for PNA, obtain blood cx. (4) Hypothyroidism Assessment/Plan: She is on her home med (5) Dementia Assessment/Plan: She is mildly confused and forgetful, possibly worse when the is not in the room She cooperates and follows cues with no problems (6) GERD (gastroesophageal reflux disease) Assessment/Plan: She is on her home meds (7) Essential hypertension Assessment/Plan: Stable on home meds - Current Meds Current Meds: Current Medications Generic Name Dose Route Start Last Admin Trade Name Freq PRN Reason Stop Dose Admin Acetaminophen 650 mg 04/30/19 16:33 05/01/19 06:09 Tylenol PO 650 mg Q4HR PRN Administration Pain or Fever > 38C (100.4F) Albuterol 2.5 mg 04/30/19 16:41 05/01/19 02:35 INH 2.5 mg RTQ4H PRN Administration Wheezing Albuterol/Ipratropium 3 ml 04/30/19 19:00 05/01/19 08:11 Duoneb INH 3 ml RTQID SAMIRA Administration Famotidine 10 mg 04/30/19 21:00 04/30/19 20:59 Pepcid PO 10 mg BID SAMIRA Administration Guaifenesin 600 mg 04/30/19 21:00 04/30/19 21:00 Mucinex PO 600 mg BID SAMIRA Administration Levothyroxine Sodium 125 mcg 05/01/19 07:00 05/01/19 06:09 Synthroid PO 125 mcg QDAC SAMIRA Administration Methylprednisolone 40 mg 04/30/19 22:00 05/01/19 06:09 Solu-Medrol (40mg Vial) IVP 40 mg TID SAMIRA Administration Montelukast Sodium 10 mg 04/30/19 21:00 04/30/19 21:02 Singulair PO 10 mg QPM SAMIRA Administration Sodium Chloride 10 ml 04/30/19 16:33 05/01/19 06:09 Normal Saline Flush 0.9% IVP 10 ml PRN PRN Administration NEEDED PER PROVIDER ORDERS Sodium Chloride 10 ml 04/30/19 17:00 05/01/19 01:14 Normal Saline Flush 0.9% IVP Not Given 0100,0900,1700 SAMIRA - Lab Result Fish Bone Diagrams: 05/02/19 05:10 05/02/19 05:10 - Additional Planning My Orders: My Active Orders 04/30/19 16:33 Activity Orders [RC] Q2HR IO [RC] IOSHIFT Initiate Bowel Care Protocol [RC] .protocol Initiate Bronchodialator Gina [RC] .PROTOCOL Initiate Personal Care Protoco [RC] .protocol Initiate Secretion Clearance P [RC] .PROTOCOL Oxygen Therapy [RC] Routine Telemetry- [RC] Q4HR Vital Signs [RC] Q4H Acetaminophen [Tylenol] 650 mg PO Q4HR PRN Prochlorperazine Inj [Compazine Inj] 10 mg IVP Q6HR PRN Sodium Chloride Flush 0.9% [Normal Saline Flush 0.9%] 10 ml IVP PRN PRN Code Status [OTHERS] Routine Condition of Patient [OTHERS] Routine DVT Prophylaxis [OTHERS] Routine 04/30/19 16:34 Daily Weight [RC] 0600 04/30/19 16:35 SCDs [RC] QSHIFT 04/30/19 16:36 Initiate Line Care Protocol [RC] QSHIFT Evaluate and Treat OT [OT] Routine Evaluate and Treat PT [PT] Routine 04/30/19 16:37 diazePAM [Valium] 5 mg PO BID PRN 04/30/19 16:39 HYDROcod/ACETAM 5/325 [[place] 5/325] 1 tab PO Q6H PRN 04/30/19 16:41 Albuterol 2.5 mg INH RTQ4H PRN 04/30/19 16:42 Nebulizer/MDI Tx. [RC] .QID/Q4PRN 04/30/19 17:00 Sodium Chloride Flush 0.9% [Normal Saline Flush 0.9%] 10 ml IVP 0100,0900,1700 04/30/19 19:00 Ipratropium/Albuterol [Duoneb] 3 ml INH RTQID 04/30/19 21:00 Famotidine [Pepcid] 10 mg PO BID Montelukast [Singulair] 10 mg PO QPM guaiFENesin [Mucinex] 600 mg PO BID 04/30/19 22:00 methylPREDNISolone SUCCINATE [SOLU-Medrol (40MG VIAL)] 40 mg IVP TID 04/30/19 Dinner Regular Diet [DIET] 05/01/19 04:00 TSH [THYROID STIMULATING HORMONE] [IAI] Routine 05/01/19 07:00 Levothyroxine [Synthroid] 125 mcg PO QDAC 05/01/19 08:00 Echo Transthoracic Complete [ECHO] Routine 05/01/19 08:38 Sodium Chloride 0.9% [Normal Saline 0.9%] 1,000 ml IV TKO 05/01/19 08:39 Chest 1 View X-Ray [XR] Stat 05/01/19 09:00 Fluticasone [Flonase] 2 sprays ALESHA DAILY Metoprolol Succinate [Toprol Xl] 25 mg PO DAILY 05/01/19 16:00 SODIUM [CHEM] Timed 05/02/19 05:00 BMP - BASIC METABOLIC PANEL [CHEM] DAILYLAB CBC - COMP BLD CT W/AUTO DIFF [HEME] DAILYLAB Subjective - Subjective Patient Reports: Feeling Better, Resting Comfortably, No Complaints Objective Vital Signs: Vital Signs - 24 hr 04/30/19 04/30/19 04/30/19 12:05 12:49 13:00 Temperature 36.7 C Heart Rate 100 91 92 Heart Rate [ Brachial] Respiratory 22 18 20 Rate Blood Pressure 175/95 H 173/90 H Blood Pressure [Right Brachial artery] O2 Saturation 95 96 04/30/19 04/30/19 04/30/19 13:37 14:41 15:00 Temperature 37.3 C Heart Rate 91 100 97 Heart Rate [ Brachial] Respiratory 18 18 20 Rate Blood Pressure 173/96 H 169/83 H Blood Pressure [Right Brachial artery] O2 Saturation 95 98 04/30/19 04/30/19 04/30/19 15:42 16:00 16:23 Temperature 36.6 C Heart Rate 103 H 105 H Heart Rate [ 106 H Brachial] Respiratory 18 18 24 Rate Blood Pressure 173/103 H 175/88 H Blood Pressure 174/83 H [Right Brachial artery] O2 Saturation 97 97 98 04/30/19 04/30/19 04/30/19 19:34 19:41 23:43 Temperature 37.0 C 36.6 C Heart Rate 99 Heart Rate [ 102 H 99 Brachial] Respiratory 20 20 20 Rate Blood Pressure Blood Pressure 132/67 H 154/71 H [Right Brachial artery] O2 Saturation 97 93 05/01/19 05/01/19 05/01/19 02:38 04:10 08:13 Temperature 36.5 C Heart Rate 78 84 Heart Rate [ 91 Brachial] Respiratory 20 16 18 Rate Blood Pressure Blood Pressure 153/74 H [Right Brachial artery] O2 Saturation 100 05/01/19 08:23 Temperature 36.7 C Heart Rate Heart Rate [ 20 L Brachial] Respiratory Rate Blood Pressure Blood Pressure 154/73 H [Right Brachial artery] O2 Saturation 97 Oxygen O2 Source [Without Activity] Room air O2 Source Nasal cannula I&O (Last 24 Hrs): Intake and Output Totals x24h 04/29/19 04/30/19 05/01/19 23:59 23:59 23:59 Intake Total 2150 450 Output Total 2610 1300 Balance -460 -850 General: Alert HEENT: Mucous membr. moist/pink Neck: Supple, No JVD Neuro: Alert Cardiovascular: Regular rate Respiratory: No respiratory distress, Other (No rales or rhonchi) Abdomen: Soft Extremities: No edema - Results Results: Laboratory Results WBC 2.8 x10^3/uL (4.8-10.8) L 05/01/19 04:30 RBC 3.86 10^6/uL (4.20-5.40) L 05/01/19 04:30 Hgb 10.7 g/dL (12.0-16.0) L 05/01/19 04:30 Hct 32.2 % (37.0-47.0) L 05/01/19 04:30 MCV 83.4 fL (81.0-99.0) 05/01/19 04:30 MCH 27.7 pg (27.0-31.0) 05/01/19 04:30 MCHC 33.2 g/dL (32.0-36.0) 05/01/19 04:30 RDW 16.1 % (12.0-15.0) H 05/01/19 04:30 Plt Count 183 10^3/uL (130-450) 05/01/19 04:30 MPV 10.6 fL (7.9-10.8) 05/01/19 04:30 Neut # (Auto) 2.4 10^3/uL (1.5-6.6) 05/01/19 04:30 Lymph # (Auto) 0.3 10^3/uL (1.5-3.5) L 05/01/19 04:30 [place] # (Auto) 0.1 10^3/uL (0.0-1.0) 05/01/19 04:30 Eos # (Auto) 0.0 10^3/uL (0.0-0.7) 05/01/19 04:30 Baso # (Auto) 0.0 10^3/uL (0.0-0.1) 05/01/19 04:30 Absolute Nucleated RBC 0.00 x10^3/uL 05/01/19 04:30 Band Neuts % (Manual) Not Reportable 05/01/19 04:30 Abnorm Lymph % (Manual) Not Reportable 05/01/19 04:30 Nucleated RBC % 0.0 /100WBC 05/01/19 04:30 Neutrophils # (Manual) Not Reportable 05/01/19 04:30 Lymphocytes # (Manual) Not Reportable 05/01/19 04:30 Monocytes # (Manual) Not Reportable 05/01/19 04:30 Eosinophils # (Manual) Not Reportable 05/01/19 04:30 Basophils # (Manual) Not Reportable 05/01/19 04:30 Differential Comment MANUAL=AUTO DIFF 05/01/19 04:30 Platelet Estimate NORMAL (130-450,000) (NORMAL) 05/01/19 04:30 RBC Morph Micro Appear NORMAL APPEARANCE (NORMAL) 05/01/19 04:30 Sodium 126 mmol/L (135-145) L 05/01/19 04:20 Potassium 3.9 mmol/L (3.5-5.0) 05/01/19 04:20 Chloride 95 mmol/L (101-111) L 05/01/19 04:20 Carbon Dioxide 24 mmol/L (21-32) 05/01/19 04:20 Anion Gap 7.0 (6-13) 05/01/19 04:20 BUN 13 mg/dL (6-20) 05/01/19 04:20 Creatinine 0.5 mg/dL (0.4-1.0) 05/01/19 04:20 Estimated GFR (MDRD) 118 (>89) 05/01/19 04:20 Glucose 140 mg/dL (70-100) H 05/01/19 04:20 Calcium 8.2 mg/dL (8.5-10.3) L 05/01/19 04:20 Magnesium 1.7 mg/dL (1.7-2.8) 04/30/19 12:32 Total Bilirubin 0.8 mg/dL (0.2-1.0) 04/30/19 12:32 AST 22 IU/L (10-42) 04/30/19 12:32 ALT 14 IU/L (10-60) 04/30/19 12:32 Alkaline Phosphatase 50 IU/L (42-121) 04/30/19 12:32 Troponin I High Sens 9.3 ng/L (2.3-14.8) 04/30/19 12:32 B-Natriuretic Peptide 196 pg/mL (5-100) H 04/30/19 12:32 Total Protein 6.4 g/dL (6.7-8.2) L 04/30/19 12:32 Albumin 3.8 g/dL (3.2-5.5) 04/30/19 12:32 Globulin 2.6 g/dL (2.1-4.2) 04/30/19 12:32 Albumin/Globulin Ratio 1.5 (1.0-2.2) 04/30/19 12:32 Lipase 32 U/L (22-51) 04/30/19 12:32
[2019-05-01] MEDS: FLUTICASONE NASAL SPRAY NAS SCH (09:04)
[2019-05-01] MEDS: FAMOTIDINE 20 MG TABLET PO SCH ×2 (09:04→20:12)
[2019-05-01] MEDS: METOPROLOL SUCCINATE 25 MG TABLET PO SCH (09:04)
[2019-05-01] MEDS: guaiFENesin 600 MG TABLET PO SCH ×2 (09:04→20:12)
--- NOTE | 2019-05-01 09:20 | XRAY Report ---
Reason: SOB, neutropenia, eval for pneumonia Procedure Date: 05/01/2019 Accession Number: [id number] / [id number] Procedure: XR - Chest 1 View X-Ray CPT Code: 45294 Final Report FULL RESULT: EXAM: CHEST RADIOGRAPHY EXAM DATE: 05/01/2019 08:51 AM. CLINICAL HISTORY: SOB, neutropenia, eval for pneumonia. COMPARISON: CHEST 1 VIEW 04/30/2019 12:30 PM. TECHNIQUE: 1 view. FINDINGS: Lungs/Pleura: No focal opacities evident. No pleural effusion. No pneumothorax. Mediastinum: Within exam limitations, the cardiomediastinal contour is normal. Other: Dextroscoliosis of the thoracic spine. IMPRESSION: No focal consolidation. RADIA
[2019-05-01] MEDS: CHOLECALCIFEROL 1,000 UNIT TABLET PO SCH (16:39)
[2019-05-01] MEDS: FORMOTEROL FUMARATE NEB 20 MCG/2 ML INH SCH (19:50)
[2019-05-01] MEDS: BUDESONIDE 0.5 MG/2 ML NEB INH SCH (19:50)
[2019-05-01] MEDS: MONTELUKAST 10 MG TABLET PO SCH (20:12)
[2019-05-02] MEDS: SODIUM CHLORIDE FLUSH 0.9% 10 ML SYRINGE IVP SCH ×2 (01:12→07:42)
[2019-05-02 05:40] LABS: BASOPHILS % (AUTO) 0.2 %; LYMPHOCYTES # (AUTO) 0.4 10^3/uL (1.5-3.5); LYMPHOCYTES % (AUTO) 5.4 %; MEAN CORPUSCULAR HEMOGLOBIN 28.6 pg (27.0-31.0); MEAN CORPUSCULAR HGB CONC 33.4 g/dL (32.0-36.0); MEAN CORPUSCULAR VOLUME 85.5 fL (81.0-99.0); MEAN PLATELET VOLUME 10.5 fL (7.9-10.8); MONOCYTES # (AUTO) 0.3 10^3/uL (0.0-1.0); NEUTROPHILS # (AUTO) 5.8 10^3/uL (1.5-6.6); NEUTROPHILS % (AUTO) 89.8 %; PLT - PLATELET COUNT 175 10^3/uL (130-450); RED BLOOD COUNT 3.85 10^6/uL (4.20-5.40); RED CELL DISTRIBUTION WIDTH 16.2 % (12.0-15.0); WHITE BLOOD COUNT 6.5 x10^3/uL (4.8-10.8)
[2019-05-02 05:47] LABS: CALCIUM 8.5 mg/dL (8.5-10.3); CREATININE 0.6 mg/dL (0.4-1.0)
[2019-05-02] MEDS: methylPREDNISolone SUCCINATE 40 MG/ML VIAL IVP SCH ×2 (06:26→14:18)
[2019-05-02] MEDS: LEVOTHYROXINE 125 MCG TABLET PO SCH (06:26)
[2019-05-02] MEDS: IPRATROPIUM/ALBUTEROL 3 ML NEB INH SCH ×2 (07:54→12:05)
[2019-05-02] MEDS: BUDESONIDE 0.5 MG/2 ML NEB INH SCH (07:55)
[2019-05-02] MEDS: FORMOTEROL FUMARATE NEB 20 MCG/2 ML INH SCH (07:55)
[2019-05-02] MEDS: guaiFENesin 600 MG TABLET PO SCH (08:36)
[2019-05-02] MEDS: METOPROLOL SUCCINATE 25 MG TABLET PO SCH (08:36)
[2019-05-02] MEDS: CHOLECALCIFEROL 1,000 UNIT TABLET PO SCH (08:36)
[2019-05-02] MEDS: FLUTICASONE NASAL SPRAY NAS SCH (08:37)
[2019-05-02] MEDS: FAMOTIDINE 20 MG TABLET PO SCH (08:40)
--- OUTSIDE RECORDS SUMMARY | 2019-05-02 10:14 | EXTERNAL MEDICAL SUMMARY RPT ---
:1935 Author Name Ashley, EMR Application Suppo rt Manager [employer] Address [address] [place] [id number] PROBLEMS Condition Status Date Provider Notes Lobar pneumonia, LLL active Anurag Henriquez RN Hyponatremia active Kirk Blakely DO Pneumonia completed - Kirk VanntDO Laceration without foreign completed - Kevan Hines MD body of scalp, initial encounter Frequent falls active Kevan Hines MD Hemorrhoids, external completed - Kevan Hines MD Depression/anxiety active Magdalena Pathak CHF, chronic active Kevan Hines MD GERD active Kevan Hines MD Degenerative disc disease, completed - Kevan Hines MD lumbar spine Low back pain completed - Kevan Hines MD Hip pain, left completed - Kevan Hines MD RASH completed - Rey Page MD Hammer toe, acquired completed - Kevan Hines MD Hearing loss active Rey Page MD Hyponatremia completed - Kevan Hines MD Subdural hematoma active Rey Page MD Weight loss active Rey Page MD Nausea and vomiting completed - Kevan Hines MD Degenerative disc disease, active Rey knight MD lumbar spine Osteopenia active Judcasimiro Caraballoidt, DO High risk meds meterman use active Judcasimiro Caraballo idt, DO Hip pain, left completed - Kevan Hines MD DEGENERATIVE DISC DISEASE, active Rey knight MD CERVICAL SPINE COPD, W/ ACUTE EXACERBATION active Rey garcia MD COPD active Rey Page MD OSTEOARTHRITIS, HANDS, active Rey Page MD BILATERAL HYPOTHYROIDISM active Rey Page MD DEGENERATIVE JOINT DISEASE, active Rey garcia MD KNEES, BILATERAL RLQ PAIN completed - Rey Page MD MUSCLE CRAMPS completed - Chris Garcia MD DERMATITIS, ATOPIC active Chris Garcia MD DIVERTICULAR DISEASE completed - Rey Page MD KNEE PAIN completed - Mariah Palma PA-C DIARRHEA completed - Rey Page MD ALLERGIC RHINITIS CAUSE active Chris Garcia MD UNSPECIFIED DYSPNEA ON EXERTION completed - Chris Garcia MD OSTEOARTHRITIS, CERVICAL completed - Kevan morejon MD SPINE SKIN RASH completed - Rey Page MD INSOMNIA active Chris Garcia MD HERPES SIMPLEX INFECTION, active Chris kohli MD RECURRENT ABDOMINAL PAIN, LEFT LOWER completed - Chris yarbrough MD QUADRANT THORACIC STRAIN completed - Chris Garcia MD RAYNAUD'S SYNDROME active Chris Garcia MD BRONCHITIS, OBSTR CHRONIC completed - Rey mohamud MD W/ACUTE BRONCHITIS NAUSEA AND VOMITING completed - Chris Garcia MD BACK PAIN, CHRONIC active Chris Garcia MD DRY EYE SYNDROME completed - Rey Page MD RECTAL BLEEDING completed - Chris Garcia MD ESSENTIAL HYPERTENSION, active Salud Ramirez, GIFTY BENIGN Lipcoat Sprayer COLECTOMY, PARTIAL, WITH completed - Chris Garcia MD ANASTOMOSIS, HX OF ENCOUNTERS Date Type Provider Location Encounter Diagnosis - Ambulatory Kirk Blakely [facility] Primary [facility] K Encounter DO Kirk [facility] [place] [facility] [place], DO Candelaria Rascon LPN VITAL SIGNS Date Observation Value Provider blood pressure, diastolic 74 mm[Hg] Candelaria Rascon LPN " blood pressure, systolic 132 mm[Hg] Candelaria Rascon LPN " pulse rate E&M 74 /min Daljit Damian PN " temperature E&M 98 [degF] Daljit Damian PN " respiratory rate E&M 16 /min Candelaria fenton LPN " temperature site oral Candelaria Rascon LPN " weight E&M 109 lbs. Daljit Damian PN " height E&M 64.5 [in_i] Daljit Damian PN ALLERGIES Allergy Name Onset Date Reaction Criticality Status MOXIFLOXACIN High Criticality active CODEINE per [facility] High Criticality active TRAMADOL HCL 1998 Vomitting High Criticality active HYDROCODONE-ACETAMINOPHEN 1997 Vomitting High Criticalit y active COZAAR nausea Unable to assess criticality active AVELOX rash High Criticality active CELEBREX 2003 Increase BP Unable to assess criticality active OXYCODONE-ACETAMINOPHEN 1998 Unable to assess criticality active REASON FOR REFERRAL No Information Available RESULTS Date Observation Value Provider Reference Interpretation Loc ation Range / calcium, serum 8.5 mg/dL [facility] 8.5-10.3 Normal 22 " blood glucose 137 mg/dL [facility] 70-100 High " Glomerular 95 mL/min [facility] >89 Filtration rate " creatinine, serum 0.6 mg/dL [facility] 0.4-1.0 Normal " urea nitrogen, blood 15 mg/dL [facility] 6-20 Normal " anion gap, serum 7.0 [facility] 6-13 Normal " carbon dioxide, 28 mmol/L [facility] 21-32 Normal serum, total " chloride, serum 97 mmol/L [facility] 101-111 Low " potassium, serum 3.7 mmol/L [facility] 3.5-5.0 Normal " sodium, serum 132 mmol/L [facility] 135-145 Low " basophil count, 0.0 10 [facility] 0.0-0.1 Normal blood 3/UL " eosinophil count, 0.0 10 [facility] 0.0-0.7 Normal blood 3/UL " monocyte count, 0.3 10 [facility] 0.0-1.0 Normal blood 3/UL " lymphocyte count, 0.4 10 [facility] 1.5-3.5 Low blood 3/UL " neutrophil count, 5.8 10 [facility] 1.5-6.6 Normal blood 3/UL " mean platelet volume 10.5 fL [facility] 7.9-10.8 Normal " platelet count 175 10 [facility] 130-450 Normal 3/UL " red blood cell 16.2 % [facility] 12.0-15.0 High distribution width " mean corpuscular 33.4 g/dL [facility] 32.0-36.0 Normal hemoglobin concentration, rbc " mean corpuscular 28.6 pg [facility] 27.0-31.0 Normal hemoglobin, RBC " mean corpuscular 85.5 fL [facility] 81.0-99.0 Normal volume, RBC " hematocrit, blood 32.9 % [facility] 37.0-47.0 Low " hemoglobin, blood 11.0 g/dL [facility] 12.0-16.0 Low " erythrocyte (RBC) 3.85 10 [facility] 4.20-5.40 Low count 6/UL " leukocyte count, 6.5 X10 [facility] 4.8-10.8 Normal blood 3/UL / sodium, serum 126 mmol/L [facility] 135-145 Low 21 / TSH [id number] [facility] Units Normal 21 mIU/mL converted. See lab report for original value. / platelet count, NORMAL [facility] NORMAL 21 estimate (130-450,0 00) " basophil count, 0.0 10 [facility] 0.0-0.1 Normal blood 3/UL " eosinophil count, 0.0 10 [facility] 0.0-0.7 Normal blood 3/UL " monocyte count, 0.1 10 [facility] 0.0-1.0 Normal blood 3/UL " lymphocyte count, 0.3 10 [facility] 1.5-3.5 Low blood 3/UL " neutrophil count, 2.4 10 [facility] 1.5-6.6 Normal blood 3/UL " mean platelet volume 10.6 fL [facility] 7.9-10.8 Normal " platelet count 183 10 [facility] 130-450 Normal 3/UL " red blood cell 16.1 % [facility] 12.0-15.0 High distribution width " mean corpuscular 33.2 g/dL [facility] 32.0-36.0 Normal hemoglobin concentration, rbc " mean corpuscular 27.7 pg [facility] 27.0-31.0 Normal hemoglobin, RBC " mean corpuscular 83.4 fL [facility] 81.0-99.0 Normal volume, RBC " hematocrit, blood 32.2 % [facility] 37.0-47.0 Low " hemoglobin, blood 10.7 g/dL [facility] 12.0-16.0 Low " erythrocyte (RBC) 3.86 10 [facility] 4.20-5.40 Low count 6/UL " leukocyte count, 2.8 X10 [facility] 4.8-10.8 Low blood 3/UL / calcium, serum 8.2 mg/dL [facility] 8.5-10.3 Low 21 " blood glucose 140 mg/dL [facility] 70-100 High " Glomerular 118 mL/min [facility] >89 Filtration rate " creatinine, serum 0.5 mg/dL [facility] 0.4-1.0 Normal " urea nitrogen, blood 13 mg/dL [facility] 6-20 Normal " anion gap, serum 7.0 [facility] 6-13 Normal " carbon dioxide, 24 mmol/L [facility] 21-32 Normal serum, total " chloride, serum 95 mmol/L [facility] 101-111 Low " potassium, blood 3.9 meq/L [facility] 3.5-5.0 Normal " sodium, serum 126 mmol/L [facility] 135-145 Low / calcium, serum 8.1 mg/dL [facility] 8.5-10.3 Low 20 " blood glucose 150 mg/dL [facility] 70-100 High " Glomerular 80 mL/min [facility] >89 Low Filtration rate " creatinine, serum 0.7 mg/dL [facility] 0.4-1.0 Normal " urea nitrogen, blood 14 mg/dL [facility] 6-20 Normal " anion gap, serum 9.0 [facility] 6-13 Normal " carbon dioxide, 22 mmol/L [facility] 21-32 Normal serum, total " chloride, serum 91 mmol/L [facility] 101-111 Low " potassium, blood 4.1 meq/L [facility] 3.5-5.0 Normal " sodium, serum 122 mmol/L [facility] 135-145 Low / B-type natriuretic 196 pg/mL [facility] 5-100 High 20 peptide (brain natriuretic peptide) " magnesium, serum 1.7 mg/dL [facility] 1.7-2.8 Normal " albumin/globulin 1.5 [facility] 1.0-2.2 Normal ratio, serum " globulin, serum 2.6 [facility] 2.1-4.2 Normal " albumin, serum 3.8 g/dL [facility] 3.2-5.5 Normal " protein, total, 6.4 g/dL [facility] 6.7-8.2 Low serum " alkaline 50 1/L [facility] 42-121 Normal phosphatase, serum " alanine 14 1/L [facility] 10-60 Normal aminotransferase (SGPT), serum " aspartate 22 1/L [facility] 10-42 Normal aminotransferase (SGOT), serum " bilirubin, serum, 0.8 mg/dL [facility] 0.2-1.0 Normal total " calcium, serum 8.6 mg/dL [facility] 8.5-10.3 Normal " blood glucose 98 mg/dL [facility] 70-100 Normal " Glomerular 95 mL/min [facility] >89 Filtration rate " creatinine, serum 0.6 mg/dL [facility] 0.4-1.0 Normal " urea nitrogen, blood 16 mg/dL [facility] 6-20 Normal " anion gap, serum 10.0 [facility] 6-13 Normal " carbon dioxide, 23 mmol/L [facility] 21-32 Normal serum, total " chloride, serum 86 mmol/L [facility] 101-111 Low " potassium, blood 4.3 meq/L [facility] 3.5-5.0 Normal " sodium, serum 119 mmol/L [facility] 135-145 Panic low " basophil count, 0.0 10 [facility] 0.0-0.1 Normal blood 3/UL " eosinophil count, 0.0 10 [facility] 0.0-0.7 Normal blood 3/UL " monocyte count, 0.6 10 [facility] 0.0-1.0 Normal blood 3/UL " lymphocyte count, 0.7 10 [facility] 1.5-3.5 Low blood 3/UL " neutrophil count, 4.7 10 [facility] 1.5-6.6 Normal blood 3/UL " mean platelet volume 10.3 fL [facility] 7.9-10.8 Normal " platelet count 205 10 [facility] 130-450 Normal 3/UL " red blood cell 15.9 % [facility] 12.0-15.0 High distribution width " mean corpuscular 34.2 g/dL [facility] 32.0-36.0 Normal hemoglobin concentration, rbc " mean corpuscular 28.4 pg [facility] 27.0-31.0 Normal hemoglobin, RBC " mean corpuscular 82.9 fL [facility] 81.0-99.0 Normal volume, RBC " hematocrit, blood 33.0 % [facility] 37.0-47.0 Low " hemoglobin, blood 11.3 g/dL [facility] 12.0-16.0 Low " erythrocyte (RBC) 3.98 10 [facility] 4.20-5.40 Low count 6/UL " leukocyte count, 6.0 X10 [facility] 4.8-10.8 Normal blood 3/UL HISTORY OF IMMUNIZATIONS No Information Available HISTORY OF MEDICATION USE Medication Instructions Dates Provider Comments MEDROL 4 MG ORAL Take by mouth as Kirk Blakely DO TABLET THERAPY PACK directed by walking dragline oiler instruction ESCITALOPRAM OXALATE 5 Take one tablet daily Kirk zazueta DO MG ORAL TABLET TRIAMCINOLONE Apply sparinglyto Kirk Blakely, DO ACETONIDE 0.1 % affected areas twice EXTERNAL OINTMENT daily as needed for itching ALBUTEROL SULFATE (2.5 Use one vial via Anurag Henriquez RN er rx MG/3ML) 0.083% nebulizer every four INHALATION NEBULIZATIO hours as needed for wheeze, cough or shortness of breath MONTELUKAST 10MG TAKE 1 TABLET BY Anuja Jones, TABLETS MOUTH DAILY JESUS-Bryson TRAZODONE HCL 50 MG Take one tablet by Quoc William Bernard, WEB SERVICES MANAGER ORAL TABLET mouth at bedtime as needed for insomnia LOSARTAN POTASSIUM 100 Take one tablet by Quoc Rodriguez th, WEB SERVICES MANAGER MG ORAL TABLET mouth once daily for high blood pressure LORAZEPAM 0.5 MG ORAL Take one tablet by Kirk hampton, DO TABLET mouth three times a day as needed for anxiety CELECOXIB 200 MG CAPS TAKE 1 CAPSULE BY Dinh Mill er, MOUTH DAILY RN LOSARTAN POTASSIUM 100 TAKE 1 TABLET BY Dinh Mill er, MG TABS MOUTH DAILY RN ADVAIR DISKUS 250-50 Use one inhalation Kirk Vann t, DO rx by er MCG/DOSE INHALATION twice daily, rinse AEROSOL POWDER SINDHU mouth after use ANUSOL-HC 2.5 % RECTAL Apply to affected Kevan Trevino CREAM area three times MD Flora daily as needed CLOBETASOL PROPIONATE Apply three times Kevan J 0.05 % EXTERNAL CREAM daily for three MD Flora weeks, stop for three weeks, them repeat as needed ZOVIRAX 5 % EXTERNAL Apply 6 times daily Kevan Trevino OINTMENT for 7 days as needed MD Flora for out breaks DISABLED PARKING Pt needs permanent PATRICIO Serrano disabled placard for MA-C driving due to COPD and Degenerative Disc Disease IPRATROPI/ALB 0.5/3MG INHALE CONTENTS OF 1 Candelaria fenton LPN INH SL 30X3ML AMPULE VIA NEBULIZER FOUR TIMES DAILY LEVOTHYROXINE 0.125MG TAKE 1 TABLET BY Anuja Landin ms, (125MCG) TAB MOUTH EVERY DAY MA-C FLUTICASONE PROPIONATE [place] one spray in Maia Gaffney MA 50 MCG/ACT NASAL each nostril twice SUSPENSION daily for nasal allery PROAIR HFA 108 (90 Inhale two (2) puffs Elsie Stark son, Base) MCG/ACT every four to six MA INHALATION AEROSOL hours as needed for SOLUTION asthma symptoms SOCIAL HISTORY Date Observation Value Provider drug use, illicit no Candelaria Rascon LPN " alcohol use, average drinks per day <1 Candelaria Rascon LPN " alcohol use, type wine Candelaria Rascon LPN " alcohol use yes Daljit Damian PN " passive cigarette smoke exposure no Candelaria Rascon LPN " chewing tobacco use Never Candelaria mojica LPN " cigarette use yes Daljit Damian PN " smoking status Former smoker Dajlit Damian PN FUNCTIONAL STATUS No Information Available MENTAL STATUS No Information Available MEDICAL EQUIPMENT No Information Available FAMILY HISTORY Family Member Condition Mother a mother Mother a Hx of Stroke/CVA Father a father INSURANCE PROVIDERS Payer name Policy type / Coverage type Covered part y ID AARP Commercial [id number] MEDICARE PART A [id number] ADVANCE DIRECTIVES Name Date [facility] CONSENT TO CONFIRMATION OF APPT DATE/TIME 12/10 [facility] CONSENT TO RX CARPENTER MAINTENANCE 01/05/15 [facility] CONSENT TO RELEASE ALL HEALTHCARE INFO 5 TREATMENT PLAN Date Name [id number] - OV, Detailed HISTORY OF PROCEDURES No Information Available GOALS No Information Available HEALTH CONCERNS No Information Available REASON FOR VISIT No Information Available
--- NOTE | 2019-05-02 11:58 | DISCHARGE SUMMARY ---
Discharge Summary Admit Date: 04/30/19 Discharge Date: 05/02/19 Discharging Provider: Dr Lupe Braga Primary Care Provider: Dr Kirk Blakely Code Status: Do Not Attempt Resuscitation Condition at Discharge: Stable Discharge Disposition: 01 Home, Self Care - DIAGNOSES Admission Diagnoses: 1) Hyponatremia 2) COPD with exacerbation 3) Dementia 4) GERD history 5) Hypothyroidism 6) Hx of HTN Discharge Diagnoses with Status of Each Condition: See below - HPI History of Present Illness: This is an 83 y/o WF, with a Hx of asthma/COPD, she was never a smoker, with Hx of HTN, GERD, hypothyroidism and dementia, she lives with her . Over the past 3-4 months she has had many visits to the ER for SOB and wheezing. She would get nebs and steroids, feel better for a ferw days then worsen. Steroids make her get anxious and get insomnia. Her PCP just changed her inhaler a started a Medrol dose edwige, several days ago. She presented to the ER with c/o SOB, 4-pillow orthopnea and wheezing that did not improve with treatment in the ER, and she was admitted. In addition, labs showed a serum sodium of 119. - HOSPITAL COURSE Hospital Course: (1) Hyponatremia She was started on iv saline. The sodium improved from 119 to 126 by the next day. Her po intake was poor, with "no appetite", therefore free water intake was low. The iv saline was tapered down an her serum sodium chino slowly and was 132 at discharge. (2) Acute exacerbation of COPD with asthma She was treated with nebs, iv steroids, started on Singular and Mucinex and needed supplemental oxygen. Her previous PFT report was noted to show severe obstructive and restrictive lung disease: Pulmonary function testing was performed in September of 2018, showing an FEV1 30% of predicted. This patient has COPD and also has dextroscoliosis, which has possibly diminished her lung function due to restrictive thoracic disease. Patient has had multiple emergency room visits and hospitalization due to chronic respiratory failure. BIPAP considered and deemed ineffective. A non-invasive ventilator is felt to be required to reduce hospitalization and improve patient health. I am ordering a non-invasive ventilator to treat chronic respiratory failure due to COPD and restrictive thoracic disease. She was discharged with new Singulair, Mucinex, and advised to resume her inhalers and the Medrol dose edwige to taper down steroids. (3) Neutropenia The admission WBC was 6, which dropped on the second day to 2.8. The concern was that this drop in WBC indicated an overwhelming infection. We rechecked a CXR and there was no infiltrate, and blood cultures were done (and were neg at the time of discharge). The WBC recovered to 6.8 the next day, therefore it was possibly a lab error. (4) Hypothyroidism She is on her home med for this (5) Dementia She is mildly confused and forgetful, possibly worse when the is not in the room. She cooperates and follows cues with no problems (6) GERD (gastroesophageal reflux disease) She is on her home meds (7) Essential hypertension BP was stable on home meds - ALLERGIES Allergies/Adverse Reactions: Allergies Allergy/AdvReac Type Severity Reaction Status Date / Time moxifloxacin Allergy Severe Rash Verified 04/30/19 12:17 celecoxib [From Celebrex] Allergy Unknown Verified 04/30/19 12:17 oxycodone Allergy Unknown Verified 04/30/19 12:17 hydrocodone AdvReac Severe Vomiting Verified 04/30/19 12:17 tramadol AdvReac Severe Vomiting Verified 04/30/19 12:17 losartan potassium * AdvReac Mild Nausea Verified 04/30/19 12:17 [From Cozaar] codeine AdvReac Nausea Verified 04/30/19 12:17 - MEDICATIONS Home Medications: Ambulatory Orders Medication Instructions Recorded Confirmed Levothyroxine [Synthroid] 125 mcg PO QDAC 07/10/14 12/25/17 Temazepam [Restoril] 15 mg PO HS PRN 07/10/14 12/25/17 Albuterol Sulfate [Proair 2 puffs INH Q6H PRN 12/25/17 12/25/17 Respiclick] Celecoxib [Celebrex] 200 mg PO DAILY 12/25/17 12/25/17 Cholecalciferol (Vitamin D3) 4,000 unit PO DAILY 12/25/17 12/25/17 [Vitamin D3] Ipratropium/Albuterol Sulfate 3 ml INH QID 12/25/17 12/25/17 [Iprat-Albut 0.5-3(2.5) mg/3 ml] Montelukast [Singulair] 10 mg PO QPM 12/25/17 05/01/19 raNITIdine [Zantac] 150 mg PO DAILY 12/25/17 12/25/17 Acetaminophen [Tylenol] 650 mg PO Q4HR PRN tablet 12/28/17 Fluticasone [Flonase] 2 sprays ALESHA DAILY #5 bottle 12/28/17 Fluticasone/Salmeterol [Advair Hfa 8 gm IH BID #5 hfa.aer.ad 12/28/17 115-21 Mcg Inhaler] Metoprolol Succinate [Toprol Xl] 25 mg PO DAILY #30 tablet 12/28/17 Spironolactone [Aldactone] 12.5 mg PO DAILY #15 tablet 12/28/17 guaiFENesin [Mucinex] 600 mg PO BID #20 tablet 12/28/17 hydrOXYzine pamoate [Hydroxyzine 1 - 2 tab PO Q6H PRN #20 capsule 06/17/18 Pamoate] Hydrocodone/Acetaminophen 1 - 2 each PO Q6H PRN #14 tablet 11/22/18 [Hydrocodone-Acetamin 5-325 mg] diazePAM [Valium] 5 mg PO BID #15 tablet 11/22/18 Doxycycline Hyclate 100 mg PO BID #20 capsule 03/21/19 LORazepam [Ativan] 1 mg PO TID PRN #15 tablet 03/21/19 05/01/19 Albuterol 2 puffs INH Q4H PRN 05/01/19 05/01/19 Losartan Potassium 100 mg PO DAILY 05/01/19 05/01/19 Methylprednisolone [Medrol Dose 1 each PO .PACKAGEINSTRUCTIONS 05/01/19 05/01/19 Pack] - PHYSICAL EXAM AT DISCHARGE General Appearance: positive: No acute distress, Alert Eyes Bilateral: positive: Normal inspection, PERRL ENT: positive: ENT inspection nml Neck: positive: Nml inspection, No JVD Respiratory: positive: No respiratory distress, Other (Poor air movement but no wheezing, rales or rhonchi) Cardiovascular: positive: Regular rate & rhythm, No murmur Abdomen: positive: Non-tender, No distention Skin: positive: Color nml Extremities: positive: No pedal edema Neurologic/Psychiatric: positive: Oriented x3, Other (Poor memory) - LABS Result Diagrams: 05/02/19 05:10 05/02/19 05:10 - DIAGNOSTIC IMAGING Diagnostic Imaging Results: Final report reviewed - FOLLOW UP Follow Up: See PCP in the next 5-7 days. - TIME SPENT Time Spent in Discharge (Minutes): 60
--- NOTE | 2019-05-02 12:03 | Discharge Plan ---
Discharge Plan Problem Reviewed?: Yes Disposition: Home, Self Care Condition: Stable Diet: Low Sodium Activity Restrictions: Activity as Tolerated Shower Restrictions: No Driving Restrictions: Yes Assistance Devices: Walker Weight Bearing: Full Weight Health Concerns: Admitted with low sodium and an exacerbation of COPD/asthma. Plan of Treatment: Your Pulmonary Function Tests, that were done here in September 2018, showed that you have severe lung disease. You do not need home oxygen, but you do need aggressive management with inhalers and other lung medications (Singular and Mucinex). A new Trilogy mask (portable ventilator), has been ordered to start at home. It is advised that you get a Commissioner Of Officials (lung specialist) for further management. Please resume your trending-down dose pack of medications. Resume all your inhalers. See your Primary Care provider in 7-10 days for hospital follow-up. Care Goals: Improvement and stabilization of lung symptoms is the goal. Your doctor can consider ordering outpatient rehab and pulmonary rehab for you. Assessment: The patient and understand and are in agreement. No Smoking: If you smoke, Please STOP! Call for help. Follow-up with: Kirk Blakely DO [Primary Care Provider] -
[2019-05-02] MEDS: ACETAMINOPHEN 325 MG TABLET PO PRN (15:40)
[2019-05-02 16:00] VITALS: BP 156/64
== END 2019-05-02 15:43 | disposition home or self-care (01) | DRG 191 ==
LOC: ED 11:59 → MS2 14:25
PROVIDERS: ADMIT Internal Medicine; ATTEND Internal Medicine
DX: J44.1 Chronic obstructive pulmonary disease with (acute) exacerbation (principal); E87.1 Hypo-osmolality and hyponatremia; J96.10 Chronic respiratory failure, unspecified whether with hypoxia or hypercapnia; Z68.1 Body mass index [BMI] 19.9 or less, adult; D70.9 Neutropenia, unspecified; Z87.891 Personal history of nicotine dependence; F03.90 Unspecified dementia, unspecified severity, without behavioral disturbance, psychotic disturbance, mood disturbance, and anxiety; E03.9 Hypothyroidism, unspecified; I10 Essential (primary) hypertension; K21.9 Gastro-esophageal reflux disease without esophagitis; R63.0 Anorexia; M41.9 Scoliosis, unspecified; Z66 Do not resuscitate; Z79.899 Other long term (current) drug therapy; Z79.51 Long term (current) use of inhaled steroids; Z63.79 Other stressful life events affecting family and household
CPT/HCPCS: 36415; 71045; 80048; 80053; 83690; 83735; 83880; 84295; 84443; 84484; 85025; 87040; 93005; 93306; 94640; 94761; 96365; 96375; 97161; 97165; 99283; 99285; A9270; J7626

== ENCOUNTER 2019-05-12 08:00 | Outpatient (CLI) | payer MEDICARE, OTHER ==
[2019-05-12 19:21] LABS: CALCIUM 8.6 mg/dL (8.5-10.3); CREATININE 0.7 mg/dL (0.4-1.0)
== END 2019-05-12 23:59 | disposition home or self-care (01) ==
LOC: LAB.WCP 08:00
PROVIDERS: ATTEND Family Medicine
DX: E87.1 Hypo-osmolality and hyponatremia (principal)
CPT/HCPCS: 36415; 80048; 81599; 83930; 83935; 84300

== ENCOUNTER 2019-07-28 09:00 | Outpatient (CLI) | payer MEDICARE, OTHER ==
--- NOTE | 2019-07-28 11:11 | CONSULTATION NOTE ---
Palliative Care Consultation - Referral Referring Provider: Dr. Kirk Blakely Time of Visit: [id number] Referral setting: Home Referral Reason: Dementia/CPOD - Information Sources Records reviewed: Previous records reviewed History/Review of Systems obtained from: Patient, Family (daughter/Michelle VELÁSQUEZ and AALIYAH, Ed) Exam limitations: Clinical condition (short term memory impairment) - History of Present Illness Brief History of Present Illness: An 83-year-old female who is seen for initial palliative care consultation today with her daughter/D Michelle SHAH and son-in-law at, present. Patient has a history for COPD without the requirement of oxygen, multiple falls, and dementia. The patient's spouse was her primary caregiver until he became ill and subsequently passed on hospice services on July 17, 2019. The patient has 24-hour caregiving support within her home. The daughter notes that the patient's COPD had more advanced changes in the last 5 years. The family had thought that the patient would pass before her spouse. In the last 2 years she has increased frequent falls and approximately 2 years ago had a sudden collapse that resulted in head trauma. She was hospitalized, and was noted to be hyponatremic and hypokalemic with generalized weakness. Since the start of the falls approximately 2 years ago she has had a decline in her memory as well as increased frailty. She was last hospitalized in April 2019 for a COPD exacerbation. When she become short of breath she has increased anxiety. She had resulted to calling 911 because she realized she would have faster care and services through the emergency department versus scheduling an appointment to see her PCP. Since her 's , there has been a period where she has had 6 falls in 24-hour period. She has overall generalized weakness. She uses a Rollator but will subsequently still fall. Her daughter reports when the patient falls she falls loosely to the ground typically without injury. The patient has had some resistance to care in regards to her "crankiness." In the last few years the patient has "let herself go." Since the of her there have been periods where she has not wanted to get out of bed. She was started on escitalopram 5 mg daily and this has been increased to 5 mg twice daily with noted better mood and adjustment. The family has also noting some evidence of sundowning around 3:57 PM in the evenings where the patient will start sorting through things and wandering. This is improved with the initiation of escitalopram. The patient overall would like to be able to breathe better. She is scheduled to use meet with a sheet metal duct worker supervisor (Dr. Potts) in [place] this afternoon for initial consultation. She does have the trilogy but "did not like it" and subsequently has not used it.She was provided the trilogy after her last hospitalization in April 2019. Medical/Surgical History - Past Medical History Cardiovascular: reports: Hypertension Respiratory: reports: Asthma, COPD Neuro: Dementia, Headaches Neuro: reports: Dementia, Headache/migraine, Head injury Endocrine/Autoimmune: reports: HyPOthyroidism GI: reports: GERD, Diverticulitis COTTON ACREAGE MEASURER: reports: None : reports: Nocturia HEENT: reports: Chronic vision loss, Chronic hearing loss, Other Psych: reports: Depression, Anxiety Musculoskeletal: reports: Osteoarthritis, Other (Osteopenia, Frequent Falls, Raynaud's Syndrome) Derm: reports: None MRSA Hx?: No Other Past Medical History: Herpes Simplex Infection - Past Surgical History General: reports: Appendectomy Ortho: reports: Spine surgery, Other /COTTON ACREAGE MEASURER: reports: Hysterectomy HEENT: reports: Cataracts - Substance History Use: Uses substance without health or social issues: Tobacco (Previous history of tobacco use in thr 1949s) Social History - Living Situation Living arrangement: At home Living Situation: With caregiver(s) (Has 24hour caregivers with [facility]) Support System: The patient presently resides in her home of approximately 22 years. She had been for 64 years to her Lauri, who recently on [facility] hospice when 07/17/2019. Her was her primary caregiver until his declining health in the last few months. Presently, she is receiving 24- hour caregiving support from [facility]. Her son (Ishan) and daughter (Michelle) as well as their spouses are alternating spending time within her home. She and her spent a significant amount of time in [place]. Her served in the service and was stationed in [place]. 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 Her daughter/D ALYSSA Martinez, reports that her mother has never been idle and is always moving. The family's plan is for the patient to remain in her present home with 24-hour caregiving support for the next 6 months to 1 year and then move her to a memory care unit in [place], where the daughter/Jan SHAH resides. The patient herself reports she does not recall all her medication allergies but is able to report that she is allergic to Avelox that resulted in a rash and hives. Her daughter/DPPARESH is unaware of the other drug allergies listed. Family History - Family History Family History: Mother: , Father: Family History Comment/Other: Daughter/DPPARESH reports a family history of mental health (bipolar and depression). Mother had memory impairment. Medications/Allergies - Medications Home Medications: Ambulatory Orders Medication Instructions Recorded Confirmed Levothyroxine [Synthroid] 125 mcg PO QDAC 07/10/14 12/25/17 Albuterol Sulfate [Proair 2 puffs INH Q6H PRN 12/25/17 12/25/17 Respiclick] Celecoxib [Celebrex] 200 mg PO DAILY 12/25/17 12/25/17 Cholecalciferol (Vitamin D3) 2,000 unit PO DAILY 12/25/17 12/25/17 [Vitamin D3] Ipratropium/Albuterol Sulfate 3 ml INH QID 12/25/17 12/25/17 [Iprat-Albut 0.5-3(2.5) mg/3 ml] Montelukast [Singulair] 10 mg PO QPM 12/25/17 05/01/19 Acetaminophen [Tylenol] 650 mg PO Q4HR PRN tablet 12/28/17 Hydrocodone/Acetaminophen 1 - 2 each PO Q6H PRN #14 tablet 11/22/18 [Hydrocodone-Acetamin 5-325 mg] Albuterol 2 puffs INH Q4H PRN 05/01/19 05/01/19 Losartan Potassium 100 mg PO DAILY 05/01/19 05/01/19 Diclofenac Sodium [Diclo Gel] PRN 07/28/19 Escitalopram Oxalate 5 mg PO BID 07/28/19 07/28/19 Fluticasone Propion/Salmeterol 1 each IH BID 07/28/19 07/28/19 [Wixela 250-50 Inhub] Fluticasone [Flonase] 2 sprays ALESHA DAILY PRN 07/28/19 Triamcinolone 0.1% Oint [Kenalog 1 applic TP BID PRN 07/28/19 07/28/19 0.1% Oint] - Allergies Allergies/Adverse Reactions: Allergies Allergy/AdvReac Type Severity Reaction Status Date / Time moxifloxacin Allergy Severe Rash Verified 04/30/19 12:17 celecoxib [From Celebrex] Allergy Unknown Verified 04/30/19 12:17 oxycodone Allergy Unknown Verified 04/30/19 12:17 hydrocodone AdvReac Severe Vomiting Verified 04/30/19 12:17 tramadol AdvReac Severe Vomiting Verified 04/30/19 12:17 losartan potassium * AdvReac Mild Nausea Verified 04/30/19 12:17 [From Cozaar] codeine AdvReac Nausea Verified 04/30/19 12:17 Review of Systems - Constitutional Constitutional: reports: Weakness, Weight loss (lost over the last several years; no recent visible weight loss) - Ears, Nose & Throat Ears, Nose & Throat: reports: Hearing loss, Hearing aids - Cardiovascular Cardiovascular: denies: Chest pain, Edema - Respiratory Respiratory: denies: Cough, Wheezing - Gastrointestinal Gastrointestinal: denies: Abdominal pain, Constipation, Diarrhea - Genitourinary Genitourinary: denies: Dysuria, Incontinence - Musculoskeletal Musculoskeletal: reports: Muscle weakness, Joint pain (neck and knee pain. Has had injection to the cervical spine by Dr. Celeste with pain management), Assistive devices (rollator) - Integumentary Integumentary: reports: Pruritis (generalized but has improved with skin moisturization by family members) - Neurological Neurological: reports: General weakness, Numbness, Memory problems - Psychiatric Psychiatric: reports: Depression - Endocrine Endocrine: reports: Hypothyroidism - All Other Systems All Other Systems: reports: Reviewed and negative Physical Exam - Vital Signs Temperature: 36.7 C Pulse Rate: 75 Respiratory Rate: 18 O2 Saturation: 98 (on RA at rest) Blood Pressure: 125/65 (right wrist cuff) - Physical Exam General Appearance: positive: No acute distress, Alert, Other (in PJs seen sitting OOB in chair; +thin) Eyes Bilateral: positive: Normal inspection ENT: positive: Other (+NISQUALLY with hearing aids in place; left upper tooth missing) Neck: positive: Thyroid nml, No JVD, Trachea midline Cardiovascular: positive: Regular rate & rhythm, No murmur. negative: Decreased pulse(s) Respiratory: positive: Breath sounds nml, Other (noted dyspnea with speaking sentances and pursed lip breathing). negative: Wheezes Abdomen: positive: Non-tender, Soft, Nml bowel sounds. negative: Guarding Skin: positive: Dryness Extremities: positive: Other (tenderness at base of cervical spine 2/2 posture and kyphosis without numbness or tingling of UE reported; noted generalized weakness) Neurologic/Psychiatric: positive: Oriented x3, Mood/affect nml, Other (short term memory deficit noted) Palliative Care - POLST Patient has POLST: Yes POLST Status: DNR, Selective Treatment Pain: Pain unchanged (base of neck and bilateral knees) Anorexia: Mild (1-3) (she will deny being hungry if asked but if food is placed in front of her she will consume most of it but does not "like to get full.") Depression: Mild (1-3) (improved) Feelings of wellbeing/Perceived Quality of Life: Fair Sleep: Sleeps well Constipation: No Performance Status: Patient has had a cognitive and functional decline over the last several years. She requires 24-hour caregiving support for safety. She has a history of frequent falls with generalized weakness. She is ambulatory with a Rollator. She requires prompting for ADLs. She maintains urinary continence. PPS 60% - Palliative Care Discussion: The patient was previously cared for by her who has subsequently passed on hospice services. The spouse of the patient as well as the family believed that the patient herself would before her . The recent of the patient's spouse has resulted in a change of family plans including the daughter/D POA will no longer be coming up to build at home next to her parents. The patient is also requiring 24-hour caregiving services due to her cognitive impairment and functional decline for safety. The daughter/D POA wishes to focus on the patient's wellbeing and quality of life. The patient herself wishes that she would have improvement of her breathing that has been a problem "her whole life." Impression and Recommendations - Palliative Care Impression: This is an 83-year-old woman with dementia, COPD, and asthma. She has a history of generalized weakness with frequent falls. She has had a steady functional as well as cognitive decline due to her dementia. She is requiring 24-hour caregiving support due to safety. Palliative care to continue provide symptom management as well as anticipatory guidance. Recommendations/Counseling Done: 1. COPD with asthma. Not requiring oxygen supplementation. Pulmonary PFT preformed in September 2018 demonstrated severe obstructive and restricted lung disease. last COPD exacerbation in April 2019. Patient has not been able used the trilogy machine and suggested to the family that they try small daily increments to build tolerance beginning with 3 minutes daily and build upwards from there. Discussed disease progression with COPD. Continue medication regimen as ordered and f/u with sheet metal duct worker supervisor for additional management and recommendations. 2. Depression. Appropriate grief and loss of her of 64 years. Supportive listening provided to patient and family. Continue escitalopram as prescribed. 3. Dementia. Chronic. Progressive. Fall precautions. Continue 24 hour caregiving support with transition to memory care unit in the future closer to her daughter/DPOA. Family wishes to avoid 4. Generalized weakness. Patient has had generalized weakness due to poor activity tolerance secondary to COPD with a history of frequent falls. She would benefit from strengthening from home physical therapy services and energy conservation management due to her COPD. 5. Frequent falls. Noted open slippers today and recommended closed toed sli ppers with a back to prevent falls. Patient has a history of frequent falls and would benefit from a home safety evaluation by occupational therapy to reduce fall risk and safety assessment. 6. Cervical neck pain. Musckloskletal in nature and has responded to PRN tylenl and PRN diclenac topical gel. Recommended use of lift chair for posturing and support but patient is hesitant regarding acceptance and removal of her favoirte chair. Scheduled for f/u with Dr. Celeste for possible injection for pain management. 7. Pruritus. Improved with skin moisturization. 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 Continue daily application of skin moisturization with lotion. 8. Advanced care planning. POLST in home review and verified to continue with DNAR status with selective treatment. Daughter/DPOA wishes to focus On patient's wellbeing and quality of life. FACE to FACE: It would be a taxing and considerable effort for the patient to leave her home due to generalized weakness and frequent falls. She requires home physical therapy for evaluation and treatment of strengthening of her lower and upper extremities as well as teaching of passive range of motion exercises to maintain musculature. She also requires occupational therapy assessment for a home evaluation for fall reduction as well as energy conservation training. Time Spent: Total time spent 106 minutes with greater than 50% of this spent in counseling and coordination of care with patient and daughter/DPOA and AALIYAH, review of pain and symptom management and anticipatory guidance, palliative and hospice philosophy. Disclaimer: The chart note was formulated using voice recognition technology and unfortunately sound alike errors may occur.
== END 2019-07-28 09:01 | disposition home or self-care (01) ==
LOC: PC 09:00
PROVIDERS: ATTEND Nurse Practitioner Family
DX: Z51.5 Encounter for palliative care (principal); J44.9 Chronic obstructive pulmonary disease, unspecified; F32.9 Major depressive disorder, single episode, unspecified; F03.90 Unspecified dementia, unspecified severity, without behavioral disturbance, psychotic disturbance, mood disturbance, and anxiety; R53.1 Weakness; R29.6 Repeated falls; Z79.899 Other long term (current) drug therapy; Z66 Do not resuscitate
CPT/HCPCS: 99345

== ENCOUNTER 2019-08-01 06:04 | Outpatient (CLI) | payer MEDICARE, OTHER | END 2019-08-01 06:05 | disposition critical access hospital (66) | LOC: EMS 06:04 | PROVIDERS: ATTEND Surgery | DX: R06.02 Shortness of breath (principal); F41.9 Anxiety disorder, unspecified | CPT/HCPCS: A0425; A0429 ==

== ENCOUNTER 2019-08-01 06:21 | Emergency (ER) | payer MEDICARE, OTHER ==
[2019-08-01 06:40] LABS: BASOPHILS % (AUTO) 0.4 %; EOSINOPHILS # (AUTO) 0.1 10^3/uL (0.0-0.7); EOSINOPHILS % (AUTO) 2.8 %; HGB - HEMOGLOBIN 11.1 g/dL (12.0-16.0); LYMPHOCYTES # (AUTO) 1.4 10^3/uL (1.5-3.5); LYMPHOCYTES % (AUTO) 27.1 %; MEAN CORPUSCULAR HEMOGLOBIN 28.8 pg (27.0-31.0); MEAN CORPUSCULAR VOLUME 84.7 fL (81.0-99.0); MONOCYTES # (AUTO) 0.8 10^3/uL (0.0-1.0); MONOCYTES % (AUTO) 15.1 %; NEUTROPHILS # (AUTO) 2.8 10^3/uL (1.5-6.6); NEUTROPHILS % (AUTO) 54.2 %; PLT - PLATELET COUNT 172 10^3/uL (130-450); RED BLOOD COUNT 3.85 10^6/uL (4.20-5.40); WHITE BLOOD COUNT 5.1 x10^3/uL (4.8-10.8)
--- NOTE | 2019-08-01 06:40 | ED Physician Documentation ---
History of Present Illness - Stated complaint Stated Complaint: SOA - Chief complaint Chief Complaint: Resp - Additonal information Additional information: This is an 83-year-old female with history of hypertension, asthma/COPD, hypothyroidism, anxiety, who presents with shortness of breath. She woke up at her home around half an hour prior to arrival and she felt short of breath, EMS was called and they gave her a DuoNeb although they did not hear obvious audible wheezing. She was satting 98% on room air with a her other vital signs were reportedly unremarkable. She states that she has a history of asthma, she is on montelukast and has an inhaler for this, she did not have much improvement with her inhaler at home. She unfortunately recently lost her , has been under increased stress from this. She denies chest pain, denies leg swelling. She has never had a pulmonary embolism or a DVT to her knowledge. No history of trauma to the chest.She is now feeling a bit better, though she does still feel that her breathing is a bit "tight". Review of Systems Constitutional: denies: Fever Nose: denies: Rhinorrhea / runny nose Cardiac: denies: Chest pain / pressure Respiratory: reports: Dyspnea GI: denies: Abdominal Pain Neurologic: denies: LOC Psychiatric: reports: Anxiety PD PAST MEDICAL HISTORY - Past Medical History Cardiovascular: Hypertension Respiratory: Asthma, COPD Neuro: Dementia, Headaches Endocrine/Autoimmune: HyPOthyroidism GI: GERD, Diverticulitis DIRECTOR MISSION: None : Nocturia HEENT: Chronic vision loss, Chronic hearing loss, Other Psych: Depression, Anxiety Musculoskeletal: Osteoarthritis, Other (Osteopenia, Frequent Falls, Raynaud's Syndrome) Derm: None - Past Surgical History Past Surgical History: Yes General: Appendectomy Ortho: Spine surgery, Other /DIRECTOR MISSION: Hysterectomy HEENT: Cataracts - Present Medications Home Medications: Ambulatory Orders Medication Instructions Recorded Confirmed Levothyroxine [Synthroid] 125 mcg PO QDAC 07/10/14 08/01/19 Celecoxib [Celebrex] 200 mg PO DAILY 12/25/17 08/01/19 Cholecalciferol (Vitamin D3) 2,000 unit PO DAILY 12/25/17 08/01/19 [Vitamin D3] Ipratropium/Albuterol Sulfate 3 ml INH QID 12/25/17 08/01/19 [Iprat-Albut 0.5-3(2.5) mg/3 ml] Montelukast [Singulair] 10 mg PO QPM 12/25/17 08/01/19 Acetaminophen [Tylenol] 650 mg PO Q4HR PRN tablet 12/28/17 08/01/19 Albuterol 2 puffs INH Q4H PRN 05/01/19 08/01/19 Losartan Potassium 100 mg PO DAILY 05/01/19 08/01/19 Escitalopram Oxalate 5 mg PO BID 07/28/19 08/01/19 Fluticasone [Flonase] 2 sprays ALESHA DAILY PRN 07/28/19 08/01/19 Triamcinolone 0.1% Oint [Kenalog 1 applic TP BID PRN 07/28/19 07/28/19 0.1% Oint] - Allergies Allergies/Adverse Reactions: Allergies Allergy/AdvReac Type Severity Reaction Status Date / Time moxifloxacin Allergy Severe Rash Verified 08/01/19 06:38 celecoxib [From Celebrex] Allergy Unknown Verified 08/01/19 06:38 oxycodone Allergy Unknown Verified 08/01/19 06:38 hydrocodone AdvReac Severe Vomiting Verified 08/01/19 06:38 tramadol AdvReac Severe Vomiting Verified 08/01/19 06:38 losartan potassium * AdvReac Mild Nausea Verified 08/01/19 06:38 [From Cozaar] codeine AdvReac Nausea Verified 08/01/19 06:38 - Social History Does the pt smoke?: No Smoking Status: Former smoker Does the pt drink ETOH?: Yes Does the pt have substance abuse?: No - Immunizations Immunizations are current?: Yes - POLST Patient has POLST: Yes POLST Status: DNR (limited interventions) PD ED PE NORMAL - Vitals Vital signs reviewed: Yes - General General: Alert and oriented X 3 - HEENT HEENT: Atraumatic, PERRL - Neck Neck: Supple, no meningeal sign - Cardiac Cardiac: RRR - Respiratory Respiratory: Other (Patient is breathing calmly other than intermittently she will take a deep sudden breath in. Her lungs are clear to auscultation bilaterally with no wheezing or crackles. She is on room air and on the monitor she is a 98% O2 saturation.) - Abdomen Abdomen: Soft, Non tender, Non distended - Derm Derm: Warm and dry - Extremities Extremities: No deformity, No tenderness to palpate, No edema, No calf tenderness / cord - Neuro Neuro: No motor deficit, No sensory deficit, Normal speech - Psych Psych: Normal mood, Normal affect Results - Vitals Vitals: Vital Signs - 24 hr 08/01/19 08/01/19 08/01/19 06:35 07:00 07:55 Temperature 36.9 C Heart Rate 79 79 78 Respiratory 22 18 18 Rate Blood Pressure 185/85 H 166/72 H 165/76 H O2 Saturation 99 97 97 Oxygen O2 Source [] Room air O2 Source Room air - EKG (time done) 6:29 Other comments: Other comments (Rate 82, rhythm sinus,Rate 82, rhythm sinus, there is some baseline wander/motion artifact that obscures some evaluation in the inferior leads, but there is no convincing ST segment elevation or depression. She has large voltages in the lateral precordial leads suggestive of potential left ventricular hypertrophy. She appears to have a first-degree AV block. QTc 451.) - Labs Labs: Laboratory Tests 08/01/19 08/01/19 08/01/19 06:33 06:33 06:49 WBC 5.1 RBC 3.85 L Hgb 11.1 L Hct 32.6 L MCV 84.7 MCH 28.8 MCHC 34.0 RDW 14.0 Plt Count 172 MPV 12.0 H Neut # (Auto) 2.8 Lymph # (Auto) 1.4 L Motley # (Auto) 0.8 Eos # (Auto) 0.1 Baso # (Auto) 0.0 Absolute Nucleated RBC 0.00 Nucleated RBC % 0.0 Sodium 125 L Potassium 4.1 Chloride 93 L Carbon Dioxide 25 Anion Gap 7.0 BUN 21 H Creatinine 0.7 Estimated GFR (MDRD) 80 L Glucose 95 Calcium 8.8 Total Bilirubin 0.9 AST 16 ALT 10 Alkaline Phosphatase 54 Troponin I High Sens B-Natriuretic Peptide 214 H Total Protein 6.4 L Albumin 3.8 Globulin 2.6 Albumin/Globulin Ratio 1.5 Lipase 31 08/01/19 06:49 WBC RBC Hgb Hct MCV MCH MCHC RDW Plt Count MPV Neut # (Auto) Lymph # (Auto) Motley # (Auto) Eos # (Auto) Baso # (Auto) Absolute Nucleated RBC Nucleated RBC % Sodium Potassium Chloride Carbon Dioxide Anion Gap BUN Creatinine Estimated GFR (MDRD) Glucose Calcium Total Bilirubin AST ALT Alkaline Phosphatase Troponin I High Sens 8.9 B-Natriuretic Peptide Total Protein Albumin Globulin Albumin/Globulin Ratio Lipase - Rads (name of study) CXR Radiology: Other (No focal consolidation, unchanged bibasilar opacities. No effusion or pneumothorax.) PD MEDICAL DECISION MAKING - ED course ED course: Patient arrives she is saturating 98% on room air, heart rate is unremarkable, she is well-appearing. Her lungs are clear, and work of breathing is calm. According to EMS she actually is quite well-appearing when they arrived, they were concerned for potential anxiety reaction, however patient does have history of asthma and so she was using her inhaler at home, and this may have led to her improvement in symptoms. EKG does not show any convincing signs of acute ischemia or dysrhythmia, her chest x-ray shows no change from prior, no focal consolidation or pneumothorax. Her labs show a stable anemia, a hyponatremia of 125 which is similar to her past values seem to exceed on averages in the 120s. She does not have any weakness or confusion or other symptoms suggestive of hyponatremia given the chronicity of this I do not think it warrants aggressive intervention today. She is aware of this issue and will follow with her PCP on it. Her troponin is negative and given she has no chest pain ACS is highly unlikely. Her BNP is slightly elevated however it is at patient's baseline and there are not signs off pulmonary edema, LE edema, and her symptoms improved with treatment for asthma, arguing against heart failure. On repeat evaluation patient is well-appearing, she continues to have clear breath sounds no increased work of breathing. She was given Tylenol for her headache which is mild and was gradual in onset, and does not have any concerning features for head bleed or more serious pathology, she was also given dexamethasone for likely asthma exacerbation. I reviewed primary care follow-up and return precau tions with her and she was discharged home in good condition in the care of her caregiver Departure - Departure Disposition: Home, Self Care Clinical Impression: Asthma exacerbation Qualifiers: Asthma severity: unspecified severity Asthma persistence: unspecified Qualified Code(s): J45.901 - Unspecified asthma with (acute) exacerbation Condition: Good Instructions: Asthma Dc Follow-Up: Kirk Blakely DO [Primary Care Provider] - Comments: You likely had an asthma exacerbation today, we have given you a steroid that s hould last for several days, hopefully this will help prevent the recurrence of your symptoms. You may continue take your medications and inhalers as prescribed. If you having worsening symptoms such as difficulty breathing, chest pain, or severe headache, return to the emergency department. Please follow-up with your primary care provider. Discharge Date/Time: 08/01/19 08:17
--- NOTE | 2019-08-01 06:50 | XRAY Report ---
Reason: Shortness of breath Procedure Date: 08/01/2019 Accession Number: [id number] / [id number] Procedure: XR - Chest 1 View X-Ray CPT Code: 72251 Final Report FULL RESULT: EXAM: CHEST RADIOGRAPHY EXAM DATE: 08/01/2019 06:40 AM. CLINICAL HISTORY: Shortness of breath. COMPARISON: CHEST 1 VIEW 05/01/2019 8:35 AM. TECHNIQUE: 1 view. FINDINGS: The mediastinal and cardiac silhouettes are normal. Atherosclerotic plaque calcifications are seen in the aorta. Bibasilar interstitial opacities are unchanged. There is no focal consolidation, pleural effusion, or pneumothorax. IMPRESSION: No focal consolidation. RADIA
[2019-08-01 07:09] LABS: ALBUMIN 3.8 g/dL (3.2-5.5); ALBUMIN/GLOBULIN RATIO 1.5 (1.0-2.2); BILIRUBIN,TOTAL 0.9 mg/dL (0.2-1.0); CALCIUM 8.8 mg/dL (8.5-10.3); CREATININE 0.7 mg/dL (0.4-1.0); TOTAL PROTEIN 6.4 g/dL (6.7-8.2)
[2019-08-01] MEDS ORDERED: ACETAMINOPHEN 325 MG TABLET PO STA (07:19)
[2019-08-01] MEDS ORDERED: CHERRY SYRUP 10 ML UDC PO ONE (07:21)
[2019-08-01] MEDS ORDERED: DEXAMETHASONE 10 MG/ML VIAL PO STA (07:21)
[2019-08-01 07:56] VITALS: BP 165/76
== END 2019-08-01 08:17 | disposition home or self-care (01) ==
LOC: EDUNIT# → ED 06:21
DX: J44.1 Chronic obstructive pulmonary disease with (acute) exacerbation (principal); E87.1 Hypo-osmolality and hyponatremia; R51 Headache; I10 Essential (primary) hypertension; F41.9 Anxiety disorder, unspecified; E03.9 Hypothyroidism, unspecified; R35.1 Nocturia; D64.9 Anemia, unspecified; Z79.1 Long term (current) use of non-steroidal anti-inflammatories (NSAID); Z79.51 Long term (current) use of inhaled steroids; Z87.891 Personal history of nicotine dependence
CPT/HCPCS: 36415; 71045; 80053; 83690; 83880; 84484; 85025; 93005; 99284; A9270

== ENCOUNTER 2019-08-02 07:00 | Outpatient (CLI) | payer MEDICARE, OTHER ==
[2019-08-02 11:14] LABS: BILIRUBIN,URINE NEGATIVE (NEGATIVE); GLUCOSE, URINE (UA) NEGATIVE (NEGATIVE); KETONES,URINE (UA) NEGATIVE (NEGATIVE); LEUKOCYTE ESTERASE, URINE NEGATIVE (NEGATIVE); NITRITE,URINE NEGATIVE (NEGATIVE); OCCULT BLOOD,URINE NEGATIVE (NEGATIVE); PROTEIN,URINE NEGATIVE (NEGATIVE); UROBILINOGEN,URINE 0.2 (NORMAL) E.U./dL (NORMAL)
[2019-08-02 11:18] LABS: BACTERIA,URINE None Seen /HPF (None Seen); CLARITY,URINE CLEAR (CLEAR); RBC,URINE None Seen /HPF (0-5); SQUAMOUS EPITHELIAL CELL,UR NONE SEEN (<= Few)
== END 2019-08-02 23:59 | disposition home or self-care (01) ==
LOC: LAB.R 07:00
PROVIDERS: ATTEND Physician Assistant Medical
DX: N39.0 Urinary tract infection, site not specified (principal)
CPT/HCPCS: 81001; 87086

== ENCOUNTER 2019-08-02 09:51 | Outpatient (CLI) | payer MEDICARE, OTHER ==
--- NOTE | 2019-08-03 00:40 | CT Report ---
Reason: DYSPNEA, COPD Procedure Date: 08/02/2019 Accession Number: [id number] / [id number] Procedure: CT - CHEST WO CPT Code: Final Report FULL RESULT: EXAM: CT CHEST EXAM DATE: 08/02/2019 10:06 AM. CLINICAL HISTORY: DYSPNEA, COPD. COMPARISONS: CHEST ANGIO 03/21/2019 1:31 PM. TECHNIQUE: Routine helical CT imaging was performed through the chest. IV contrast: None. Reconstructions: Coronal and sagittal. In accordance with CT protocol optimization, one or more of the following dose reduction techniques were utilized for this exam: automated exposure control, adjustment of mA and/or KV based on patient size, or use of iterative reconstructive technique. FINDINGS: The visible portions of the thyroid gland are within normal limits. Atherosclerotic plaque calcifications are seen in the aorta, coronary arteries, and innominate artery. There is aneurysmal dilatation of the ascending aorta measuring 4.4 cm in diameter. For reference, the main pulmonary artery measures 3.6 cm in diameter. The descending thoracic aorta is normal in size measuring 2.5 cm. There is a mild pectus excavatum deformity resulting in mass-effect on the right heart. The heart size is normal. There is no pericardial effusion. No mediastinal or axillary lymphadenopathy is seen. The trachea is patent. A 5 mm right upper lobe pulmonary nodule is unchanged in size (series 4, image 57). A 3 mm subpleural right upper lobe nodule is also unchanged in size (series 4, image 106). A 5 mm subpleural right lower lobe nodule is seen, which may have been present on the prior exam but was obscured by motion artifact (series 4, image 174). Mild lower lobe predominant bronchiectasis is seen on the right. There are no groundglass opacities. No focal consolidation, pleural effusion, or pneumothorax is seen. The visible portions of the unenhanced liver, gallbladder, spleen, pancreas, and kidneys are within normal limits. Extensive splenic artery calcifications are seen. There is a mid thoracic dextroscoliosis with compensatory thoracolumbar levoscoliosis. Retrolisthesis is seen at T12-L1. There are no suspicious lytic or blastic lesions. IMPRESSION: 1. Several unchanged right pulmonary nodules. 2. Mild right lower lobe predominant bronchiectasis. 3. Ascending aortic aneurysm. RADIA
== END 2019-08-02 09:52 | disposition home or self-care (01) ==
LOC: DI 09:51
PROVIDERS: ATTEND Internal Medicine Critical Care Medicine
DX: R91.8 Other nonspecific abnormal finding of lung field (principal); J47.9 Bronchiectasis, uncomplicated; I71.2 Thoracic aortic aneurysm, without rupture; N39.0 Urinary tract infection, site not specified
CPT/HCPCS: 71250; 81001; 87086

== ENCOUNTER 2019-08-06 12:58 | Outpatient (CLI) | payer MEDICARE, OTHER ==
[~2019-08-06 12:58] MED LIST: ALBUTEROL NEB 2.5 MG/3 ML INH ONE
== END 2019-08-06 12:59 | disposition home or self-care (01) ==
LOC: RT 12:58
PROVIDERS: ATTEND Internal Medicine Critical Care Medicine
DX: J44.9 Chronic obstructive pulmonary disease, unspecified (principal); R06.00 Dyspnea, unspecified; R06.89 Other abnormalities of breathing
CPT/HCPCS: 94060; 94729

== ENCOUNTER 2019-08-25 09:45 | Outpatient (CLI) | payer MEDICARE, OTHER ==
--- NOTE | 2019-08-25 14:21 | CONSULTATION NOTE ---
Palliative Care Follow Up - Referral Referring Provider: Dr. Kirk Blakely Time of Visit: [id number] Referral setting: Home Referral Reason: COPD/Dementia - Information Sources Records reviewed: Previous records reviewed History/Review of Systems obtained from: Patient, Family (daughter/DPOA, Michelle), Caregiver ([facility] Caregiver, Sherie) Exam limitations: Clinical condition (short term memory impairment) - History of Present Illness Update Brief HPI Update: This is an 83-year-old female who is seen in follow-up today for her COPD, multiple falls, and dementia. The patient was last hospitalized in April 2019 for COPD exacerbation. She was discharged with trilogy. She had previously not been using the trilogy and since this provider's last visit on 07/28/2019 she has been increasing her amount of time on the machine. However, despite the daughter's attempt to adjust the machine with the settings using it wears the patient out. Typically the patient is not in sync with the machine and she herself reports that she feels like she is fighting it. The longest amount of time that she has been able to wear the trilogy is for 20 minutes. The patient presently has 24-hour caregiving services into her home. Her recently passed in July 2019 and he was the patient's primary caregiver. The patient's caregiver, Sherie today reports that the patient has been doing well overall overall. She has been walking around more she does not need any assistance when using the restroom. Her caregiver reports that she noticed that she is stepping back some but still being present allowed the patient herself to be more relaxed. The patient and Sherie went out last Sunday for shopping [employer] and the patient did well. Her engery level is picking up. Overall the patient is feeling more independent. No recent falls. Sherie states that the patient's memory is "hit or miss" depending on the day but she will track well and stays engaged in conversations. The patient herself reports that her appetite is "good" and she is sleeping well during the night. She does report that her clothes are loose fitting. The patient was seen by Dr. Joanne Fitzpatrick on 07/28/2021 is a brake lining maker in [place]. The patient herself wishes that she could breathe better. She continues to use Wixela twice daily, Singulair nightly and her duo nebs routinely throughout the day. She is ordered for home health PT/OT and this is pending. Patient has a past medical history of hypertension, asthma, COPD, dementia, hypothyroidism, GERD, diverticulitis, depression, anxiety, osteopenia, frequent falls. Social History - Living Situation Living arrangement: At home Living Situation: Other (24 hour caregivers with [facility]) Support System: The patient presently resides in her home of approximately 22 years. Her Lauri recently on [facility] hospice on 07/17/2019. Her was her primary caregiver until his declining health the last few months. She is presently receiving 24-hour caregiving support from [facility]. Her children are rotating in visiting. They are also managing her medications with the [facility] providing cueing for reminding. The patient's daughter/D POA is Michelle ([phone] (. Presently the family's plan continues to have the patient remain in her home with 24-hour caregiving support for the next 6 months to 1 year and then move her to a memory care unit in [place] to be closer to where her daughter resides. Presently her daughter is looking into facilities in the [place] area. The patient has a weekly crate builder. The patient grew up in [place] and then resided in [place] and then [place]. Medications/Allergies - Medications Home Medications: Ambulatory Orders Medication Instructions Recorded Confirmed Levothyroxine [Synthroid] 125 mcg PO QDAC 07/10/14 08/01/19 Celecoxib [Celebrex] 200 mg PO DAILY 12/25/17 08/01/19 Cholecalciferol (Vitamin D3) 2,000 unit PO DAILY 12/25/17 08/01/19 [Vitamin D3] Ipratropium/Albuterol Sulfate 3 ml INH QID 12/25/17 08/01/19 [Iprat-Albut 0.5-3(2.5) mg/3 ml] Montelukast [Singulair] 10 mg PO QPM 12/25/17 08/01/19 Acetaminophen [Tylenol] 650 mg PO Q4HR PRN tablet 12/28/17 08/01/19 Albuterol 2 puffs INH Q4H PRN 05/01/19 08/01/19 Losartan Potassium 100 mg PO DAILY 05/01/19 08/01/19 Escitalopram Oxalate 5 mg PO TID 07/28/19 08/01/19 Fluticasone [Flonase] 2 sprays ALESHA DAILY PRN 07/28/19 08/01/19 Triamcinolone 0.1% Oint [Kenalog 1 applic TP BID PRN 07/28/19 07/28/19 0.1% Oint] Fluticasone Propion/Salmeterol 1 puffs INH BID 08/25/19 08/25/19 [Wixela 250-50 Inhub] - Allergies Allergies/Adverse Reactions: Allergies Allergy/AdvReac Type Severity Reaction Status Date / Time moxifloxacin Allergy Severe Rash Verified 08/01/19 06:38 celecoxib [From Celebrex] Allergy Unknown Verified 08/01/19 06:38 oxycodone Allergy Unknown Verified 08/01/19 06:38 hydrocodone AdvReac Severe Vomiting Verified 08/01/19 06:38 tramadol AdvReac Severe Vomiting Verified 08/01/19 06:38 losartan potassium * AdvReac Mild Nausea Verified 08/01/19 06:38 [From Cozaar] codeine AdvReac Nausea Verified 08/01/19 06:38 avalox Allergy Unknown Uncoded 08/04/19 14:26 Review of Systems - Constitutional Constitutional: reports: Weight loss (history of weight loss overal several years). denies: Fatigue, Fever, Chills, Poor appetite - Ears, Nose & Throat Ears, Nose & Throat: reports: Hearing loss, Hearing aids - Cardiovascular Cardiovascular: denies: Palpitations, Chest pain - Respiratory Respiratory: reports: Wheezing. denies: Cough, SOB with exertion - Gastrointestinal Gastrointestinal: denies: Abdominal pain, Constipation, Diarrhea - Genitourinary Genitourinary: denies: Dysuria, Incontinence - Musculoskeletal Musculoskeletal: reports: Muscle weakness (beginning to improve), Assistive devices (rollator) - Integumentary Integumentary: reports: Pruritis (localized and improved with skin moisturization) - Neurological Neurological: reports: General weakness, Memory problems - Psychiatric Psychiatric: reports: Depression - Endocrine Endocrine: reports: Hypothyroidism - All Other Systems All Other Systems: reports: Reviewed and negative Physical Exam - Vital Signs Temperature: 36.7 C Pulse Rate: 74 Respiratory Rate: 20 O2 Saturation: 97 (on RA at rest ) Blood Pressure: 132/75 (left wrist cuff) - Physical Exam General Appearance: positive: No acute distress, Alert, Other (thin, dressing in PJs OOB in living room chair completing nebulization) Eyes Bilateral: positive: Normal inspection ENT: positive: Other (+FORT MCDOWELL) Neck: positive: No JVD, Trachea midline Cardiovascular: positive: Regular rate & rhythm, No murmur Respiratory: positive: No respiratory distress, Other (trace expiratory wheezing noted BLL). negative: Rales, Rhonchi Abdomen: positive: Non-tender, Soft, Nml bowel sounds Skin: positive: Pruritis (greatly improved with application of moisturizers) Extremities: positive: No pedal edema Neurologic/Psychiatric: positive: Oriented x3, Mood/affect nml, Other (Memory recall 2/3; STM deficit) Palliative Care - POLST Patient has POLST: Yes POLST Status: DNR, Selective Treatment Pain: No pain (History of pain to base of neck and bilateral knees) Dyspnea: Mild (1-3) Sleep: Sleeps well Constipation: No Performance Status: Patient has had a cognitive and functional decline of the last several years. She presents review resides in her home with 24-hour caregiving support. She has a history of frequent falls with generalized weakness. She is ambulatory with a Rollator. She has had improving strength. She requires prompting for ADLs as well as for medication administration. She maintains urinary continence. PPS 60 to 70%. - Palliative Care Discussion: The patient was previously cared for by her who subsequently passed on hospice services in July 2019. The patient presently resides at home with 24-hour caregiving support. She has had some difficulty in adjusting to the loss of her . Her mood has improved with Lexapro. Her present caregiver, Sherie, notes that the patient has had an improvement of mood as well as due to increased independence. Overall the patient wishes that she could "breathe better." But she is aware that this has been a longstanding problem more specifically over the last 5 years. She has tried using the trilogy with her longest time spent 20 minutes. She is presently followed by Dr. Fitzpatrick from diagnostic sales specialist. Her daughter/D POA reports that the family's plan is still to have the patient reside in her home on [facility] in the next 6 months to 1 year and then she will subsequently be transitioned to a memory care unit in [place], [place]. The patient herself appears to be in good spirits. Impression and Recommendations - Palliative Care Impression: This is an 83-year-old woman with longstanding history of COPD and asthma without oxygen supplementation with dementia. She has had a steady functional as well as cognitive decline due to her dementia. She is presently requiring 24-hour caregiving support due to safety. There has been some noticed improvement over the last few weeks per her family and caregivers report. Palliative care to continue provide symptom management as well as anticipatory guidance. Recommendations/Counseling Done: 1. COPD with asthma. Not requiring oxygen supplementation. Pulmonary function test performed in September 2018 demonstrated severe obstructive and restrictive lung disease. Last COPD exacerbation in April 2019 that resulted in hospitalization. Patient has been trialing increasing use of trilogy. Presently she feels like she is out of sync and fighting the machine. Contacted [facility] and was provided the name of Ricardo at [phone] who can come out to the home to adjust the settings. Daughter/Jan Martinez to contact Ricardo to coordinate and visit. Continue medication regimen as ordered and follow-up with brake lining maker, Dr. Potts, as scheduled for additional management recommendations. 2. Depression. Patient has had adjustment regarding the loss of her of 64 years. Would continue to expect patient to proceed through natural course of grieving. Presently mood is stable. Continue Lexapro as prescribed. 3. Dementia. Chronic. Progressive. Fall precautions. Continue 24-hour support with transition to memory care unit in the future to reside closer to her daughter/Jan SHAH in [place]. 4. Generalized weakness. Patient has had generalized weakness due to poor activity tolerance secondary to COPD with history of frequent falls. She has had some improvement in her overall strength. However, she would continue to benefit from strengthening at home with home physical therapy services and energy conservation management due to her COPD. She is ordered for home PT/OT services and establishment of the services are pending. Eula/Jan SHAH aware. 5.Generalized pruritus. Greatly improved with skin moisturization. Continue as needed triamcinolone application as needed for atopic dermatitis. 6. Advanced care planning. POLST and home as DNR status with selective treatment. Previous goals of care discussion with eula/Jan Martinez who wishes to focus on patient's wellbeing and quality of life. Time Spent: Total time spent 30 minutes with greater than 50% of this spent in counseling and coordination of care with caregiver Sherie and patient; examination of patient; review of symptom management and anticipatory guidance. Review of POC with patient's daughter/DPOA Michelle via phone and she is aware that palliative care is available if there is a sudden change in condition or there is a need for further support and assistance in advanced care planning. Disclaimer: The chart note was formulated using voice recognition technology and unfortunately sound alike errors may occur.
== END 2019-08-25 09:46 | disposition home or self-care (01) ==
LOC: PC 09:45
PROVIDERS: ATTEND Nurse Practitioner Family
DX: Z51.5 Encounter for palliative care (principal); J44.9 Chronic obstructive pulmonary disease, unspecified; F03.90 Unspecified dementia, unspecified severity, without behavioral disturbance, psychotic disturbance, mood disturbance, and anxiety; R53.1 Weakness; F32.9 Major depressive disorder, single episode, unspecified; L29.9 Pruritus, unspecified; Z79.899 Other long term (current) drug therapy; Z66 Do not resuscitate
CPT/HCPCS: 99348

== ENCOUNTER 2019-11-14 05:33 | Outpatient (CLI) | payer MEDICARE, OTHER | END 2019-11-14 05:34 | disposition critical access hospital (66) | LOC: EMS 05:33 | PROVIDERS: ATTEND Surgery | DX: R06.00 Dyspnea, unspecified (principal) | CPT/HCPCS: A0425; A0429 ==

== ENCOUNTER 2019-11-14 05:46 | Inpatient (IN) | payer MEDICARE, OTHER ==
--- NOTE | 2019-11-14 06:21 | ED Physician Documentation ---
<DavidamyVahid - Last Filed: 11/14/19 06:27> History of Present Illness - Stated complaint Stated Complaint: SOA - Chief complaint Chief Complaint: Resp - History obtained from History obtained from: Patient (Patient is an 83-year-old female with a history of COPD and asthma presents to the emergency department complaining of COPD exacerbation denies fevers or hemoptysis.) Review of Systems Constitutional: reports: Reviewed and negative Eyes: reports: Reviewed and negative Ears: reports: Reviewed and negative Nose: reports: Reviewed and negative Throat: reports: Reviewed and negative Cardiac: reports: Reviewed and negative Respiratory: reports: Dyspnea, Wheezing GI: reports: Reviewed and negative : reports: Reviewed and negative Skin: reports: Reviewed and negative Musculoskeletal: reports: Reviewed and negative Neurologic: reports: Reviewed and negative Psychiatric: reports: Reviewed and negative Endocrine: reports: Reviewed and negative Immunocompromised: reports: Reviewed and negative PD PAST MEDICAL HISTORY - Past Medical History Past Medical History: Yes Cardiovascular: Hypertension Respiratory: Asthma, COPD Neuro: Dementia, Headaches Endocrine/Autoimmune: HyPOthyroidism GI: GERD, Diverticulitis ROVING DEPARTMENT END FINDER: None : Nocturia HEENT: Chronic vision loss, Chronic hearing loss, Other Psych: Depression, Anxiety Musculoskeletal: Osteoarthritis, Other Derm: None - Past Surgical History Past Surgical History: Yes General: Appendectomy Ortho: Spine surgery, Other /ROVING DEPARTMENT END FINDER: Hysterectomy HEENT: Cataracts - Present Medications Home Medications: Ambulatory Orders Medication Instructions Recorded Confirmed Levothyroxine [Synthroid] 125 mcg PO QDAC 07/10/14 08/01/19 Celecoxib [Celebrex] 200 mg PO DAILY 12/25/17 08/01/19 Cholecalciferol (Vitamin D3) 2,000 unit PO DAILY 12/25/17 08/01/19 [Vitamin D3] Ipratropium/Albuterol Sulfate 3 ml INH QID 12/25/17 08/01/19 [Iprat-Albut 0.5-3(2.5) mg/3 ml] Montelukast [Singulair] 10 mg PO QPM 12/25/17 08/01/19 Acetaminophen [Tylenol] 650 mg PO Q4HR PRN tablet 12/28/17 08/01/19 Albuterol 2 puffs INH Q4H PRN 05/01/19 08/01/19 Losartan Potassium 100 mg PO DAILY 05/01/19 08/01/19 Escitalopram Oxalate 5 mg PO TID 07/28/19 08/01/19 Fluticasone [Flonase] 2 sprays ALESHA DAILY PRN 07/28/19 08/01/19 Triamcinolone 0.1% Oint [Kenalog 1 applic TP BID PRN 07/28/19 07/28/19 0.1% Oint] Fluticasone Propion/Salmeterol 1 puffs INH BID 08/25/19 08/25/19 [Wixela 250-50 Inhub] - Allergies Allergies/Adverse Reactions: Allergies Allergy/AdvReac Type Severity Reaction Status Date / Time moxifloxacin Allergy Severe Rash Verified 11/14/19 05:54 celecoxib [From Celebrex] Allergy Unknown Verified 11/14/19 05:54 oxycodone Allergy Unknown Verified 11/14/19 05:54 hydrocodone AdvReac Severe Vomiting Verified 11/14/19 05:54 tramadol AdvReac Severe Vomiting Verified 11/14/19 05:54 losartan potassium * AdvReac Mild Nausea Verified 11/14/19 05:54 [From Cozaar] codeine AdvReac Nausea Verified 11/14/19 05:54 avalox Allergy Unknown Uncoded 08/04/19 14:26 - Social History Does the pt smoke?: No Smoking Status: Never smoker Does the pt drink ETOH?: Yes Does the pt have substance abuse?: No - Immunizations Immunizations are current?: Yes - POLST Patient has POLST: Yes POLST Status: DNR (limited interventions) PD ED PE NORMAL - Vitals Vital signs reviewed: Yes - General General: Alert and oriented X 3, No acute distress, Well developed/nourished - HEENT HEENT: PERRL - Neck Neck: Supple, no meningeal sign - Cardiac Cardiac: RRR, No murmur, Strong equal pulses - Respiratory Respiratory: Other (Trachea is midline there is mild use of accessory muscle use. Wheezing diffusely in bilateral lung rodriguez.) - Abdomen Abdomen: Normal bowel sounds, Soft, Non tender, Non distended - Derm Derm: Warm and dry - Extremities Extremities: No deformity - Neuro Neuro: Alert and oriented X 3 - Psych Psych: Normal mood, Normal affect Results - EKG (time done) 05:55 Rate: Other (no stemi) PD MEDICAL DECISION MAKING - ED course Complexity details: considered differential (COPD exacerbation), other (Patient will be signed out at shift change to Dr. Bhavya Zambrano.) Departure - Departure Disposition: 66 [facility] DC/Xfer Clinical Impression: COPD exacerbation, Bronchitis, Syncope and collapse Condition: Serious <Bhavya Zambrano - Last Filed: 11/14/19 09:19> History of Present Illness - Additonal information Additional information: 83-year-old female history of COPD is brought to the emergency department by EMS after caregiver Observe the patient to have a syncopal episode with 3 to 4- minute LOC. According to caregiver, the patient is become increasingly fatigued over the last week and is refusing to take her nighttime breathing treatments. She normally is able to get around the house with her walker and does not use carpenter pplemental oxygen. The patient has not been running fevers that they know of. She has been staying in bed more and more and tonight, tried to get up to go to the bathroom, but was unable to hold herself up. EMS states that the patient did not hit her head, because the caregiver was right by her and caught her as she slumped down. The patient has been alert for EMS and patient herself states that "I always have trouble breathing". She has not had a worsened cough lately. Results - Vitals Vitals: Vital Signs - 24 hr 11/14/19 11/14/19 11/14/19 05:51 06:00 06:33 Temperature 36.4 C L Heart Rate 61 62 108 H Respiratory 19 18 14 Rate Blood Pressure 165/59 H O2 Saturation 100 100 11/14/19 06:59 Temperature Heart Rate 86 Respiratory 18 Rate Blood Pressure 152/62 H O2 Saturation 100 Oxygen O2 Source [] Room air O2 Source Nasal cannula Oxygen Flow Rate 2 - Labs Labs: Laboratory Tests 11/14/19 11/14/19 11/14/19 06:30 06:30 06:30 WBC 4.5 L RBC 4.12 L Hgb 11.2 L Hct 33.3 L MCV 80.8 L MCH 27.2 MCHC 33.6 RDW 13.7 Plt Count 186 MPV 12.0 H Neut # (Auto) 2.3 Lymph # (Auto) 1.3 L [place] # (Auto) 0.7 Eos # (Auto) 0.2 Baso # (Auto) 0.0 Absolute Nucleated RBC 0.00 Nucleated RBC % 0.0 PT 12.2 INR 1.1 APTT 27.4 Sodium 127 L Potassium 4.4 Chloride 94 L Carbon Dioxide 25 Anion Gap 8.0 BUN 29 H Creatinine 0.7 Estimated GFR (MDRD) 80 L Glucose 89 Calcium 8.6 Total Bilirubin 0.8 AST 18 ALT 13 Alkaline Phosphatase 55 Total Creatine Kinase 91 Troponin I High Sens B-Natriuretic Peptide Total Protein 6.5 L Albumin 3.6 Globulin 2.9 Albumin/Globulin Ratio 1.2 Lipase 42 Urine Color Urine Clarity Urine pH Ur Specific [place] Urine Protein Urine Glucose (UA) Urine Ketones Urine Occult Blood Urine Nitrite Urine Bilirubin Urine Urobilinogen Ur Leukocyte Esterase Ur Microscopic Review Urine Culture Comments 11/14/19 11/14/19 11/14/19 06:30 06:30 07:40 WBC RBC Hgb Hct MCV MCH MCHC RDW Plt Count MPV Neut # (Auto) Lymph # (Auto) [place] # (Auto) Eos # (Auto) Baso # (Auto) Absolute Nucleated RBC Nucleated RBC % PT INR APTT Sodium Potassium Chloride Carbon Dioxide Anion Gap BUN Creatinine Estimated GFR (MDRD) Glucose Calcium Total Bilirubin AST ALT Alkaline Phosphatase Total Creatine Kinase Troponin I High Sens 9.3 B-Natriuretic Peptide 216 H Total Protein Albumin Globulin Albumin/Globulin Ratio Lipase Urine Color YELLOW Urine Clarity CLEAR Urine pH 6.5 Ur Specific [place] 1.015 Urine Protein NEGATIVE Urine Glucose (UA) NEGATIVE Urine Ketones NEGATIVE Urine Occult Blood NEGATIVE Urine Nitrite NEGATIVE Urine Bilirubin NEGATIVE Urine Urobilinogen 0.2 (NORMAL) Ur Leukocyte Esterase NEGATIVE Ur Microscopic Review NOT INDICATED Urine Culture Comments NOT INDICATED - Rads (name of study) chest xray Radiology: Final report received, EMP read indepedently, See rad report (bronchitis) PD MEDICAL DECISION MAKING - ED course Complexity details: reviewed old records, reviewed results, re-evaluated patient, d/w patient, d/w family, d/w consumer services consultant ED course: Juan Manuel note: This patient was signed out to me by Dr. Gasca pending results of work-up. Her labs were unremarkable. Chest x-ray was read by radiologist as showing bronchitis. Pt's oxygen saturation was 97-99% on RA. Urinalysis was negative. The patient was treated with Zithromax in the emergency department for her bronchitis, and had also received steroids and an albuterol MDI treatment. She had had a prolonged syncopal episode and given this and the caregivers discomfort with the patient's increasing fatigue at home, I felt she should be admitted to the hospital. As such, I spoke with Dr. Braga, who agreed to admit patient to her service.I have also spoken with the patient's daughter, Berenice Pritchard ([phone]), who states that she will notify the palliative care team that the patient needs more support at home.
[2019-11-14] MEDS ORDERED: ALBUTEROL 1 PUFF INH STA (06:24)
[2019-11-14] MEDS ORDERED: methylPREDNISolone SUCCINATE 125 MG/2 ML VIAL IVP STA (06:24)
[2019-11-14 07:04] LABS: BASOPHILS % (AUTO) 0.4 %; EOSINOPHILS # (AUTO) 0.2 10^3/uL (0.0-0.7); EOSINOPHILS % (AUTO) 3.8 %; HGB - HEMOGLOBIN 11.2 g/dL (12.0-16.0); LYMPHOCYTES # (AUTO) 1.3 10^3/uL (1.5-3.5); LYMPHOCYTES % (AUTO) 28.5 %; MEAN CORPUSCULAR HEMOGLOBIN 27.2 pg (27.0-31.0); MEAN CORPUSCULAR HGB CONC 33.6 g/dL (32.0-36.0); MEAN CORPUSCULAR VOLUME 80.8 fL (81.0-99.0); MONOCYTES # (AUTO) 0.7 10^3/uL (0.0-1.0); MONOCYTES % (AUTO) 15.5 %; NEUTROPHILS # (AUTO) 2.3 10^3/uL (1.5-6.6); NEUTROPHILS % (AUTO) 51.4 %; PLT - PLATELET COUNT 186 10^3/uL (130-450); RED BLOOD COUNT 4.12 10^6/uL (4.20-5.40); RED CELL DISTRIBUTION WIDTH 13.7 % (12.0-15.0); WHITE BLOOD COUNT 4.5 x10^3/uL (4.8-10.8)
[2019-11-14 07:09] LABS: INR 1.1 (0.8-1.2); PT - PROTHROMBIN TIME 12.2 secs (9.9-12.6)
[2019-11-14 07:16] LABS: PARTIAL THROMBOPLASTIN TIME 27.4 secs (24.9-33.3)
[2019-11-14 07:17] LABS: ALBUMIN 3.6 g/dL (3.2-5.5); ALBUMIN/GLOBULIN RATIO 1.2 (1.0-2.2); BILIRUBIN,TOTAL 0.8 mg/dL (0.2-1.0); CALCIUM 8.6 mg/dL (8.5-10.3); CREATININE 0.7 mg/dL (0.4-1.0); TOTAL PROTEIN 6.5 g/dL (6.7-8.2)
[2019-11-14 07:54] LABS: BILIRUBIN,URINE NEGATIVE (NEGATIVE); GLUCOSE, URINE (UA) NEGATIVE (NEGATIVE); KETONES,URINE (UA) NEGATIVE (NEGATIVE); LEUKOCYTE ESTERASE, URINE NEGATIVE (NEGATIVE); NITRITE,URINE NEGATIVE (NEGATIVE); OCCULT BLOOD,URINE NEGATIVE (NEGATIVE); PH,URINE 6.5 PH (5.0-7.5); PROTEIN,URINE NEGATIVE (NEGATIVE); UROBILINOGEN,URINE 0.2 (NORMAL) E.U./dL (NORMAL)
[2019-11-14 08:17] LABS: CLARITY,URINE CLEAR (CLEAR)
[2019-11-14] MEDS ORDERED: AZITHROMYCIN 250 MG TABLET PO STA (08:20)
--- NOTE | 2019-11-14 08:29 | XRAY Report ---
Reason: sob Procedure Date: 11/14/2019 Accession Number: [id number] / [id number] Procedure: XR - Chest 1 View X-Ray CPT Code: 38859 Final Report FULL RESULT: PROCEDURE: Chest 1 View X-Ray INDICATIONS: sob TECHNIQUE: One view of the chest was acquired. COMPARISON: Chest radiograph dated 08/01/2019 FINDINGS: Surgical changes and devices: None. Lungs and pleura: No pleural effusions or pneumothorax. Scattered subsegmental scarring/atelectasis. No acute consolidation. Central peribronchial cuffing suggestive of nonspecific bronchitis and/or reactive airways disease. Mediastinum: Mediastinal contours appear normal. Heart size is normal. Bones and chest wall: No suspicious bony lesions. Overlying soft tissues appear unremarkable. Severe bilateral shoulder joint degeneration, and scoliosis. IMPRESSION: Scattered subsegmental scarring/atelectasis. No acute consolidation. Reviewed by: Philip Cummings MD on 11/14/2019 8:28 AM PDT Approved by: Philip Cummings MD on 11/14/2019 8:28 AM PDT Station ID: [id number]
[2019-11-14] MEDS ORDERED: ONDANSETRON 4 MG/2 ML VIAL IVP PRN (09:25)
[2019-11-14] MEDS ORDERED: SODIUM CHLORIDE FLUSH 0.9% 10 ML SYRINGE IVP PRN (09:25)
--- NOTE | 2019-11-14 10:21 | PHARMACY PROGRESS NOTE ---
- Best Possible Medication History Admit Date and Time: 11/14/19924 Processed by: Pharmacy Medication History completed: Yes Patient Interview: Completed Secondary Source(s): Caregiver, Pharmacy records, Insurance records As the person ultimately responsible for medication therapy, providers are able to order a medication from an existing home medication list in [facility] via the "Reconcile Routine" prior to Confirmation of that medication by client support manager. Such practice is discouraged except when the physician, in their clinical judgment, deems that a medical need exists for a medication without regard to previous use.
[2019-11-14] MEDS ORDERED: TRIAMCINOLONE 0.5% CREAM 15 GM TUBE TOP PRN (13:17)
[2019-11-14] MEDS ORDERED: ALBUTEROL NEB 2.5 MG/3 ML INH PRN (13:28)
[2019-11-14] MEDS: ACETAMINOPHEN 325 MG TABLET PO PRN ×2 (13:42→20:08)
[2019-11-14] MEDS: IPRATROPIUM/ALBUTEROL 3 ML NEB INH SCH ×3 (13:43→19:45)
[2019-11-14] MEDS ORDERED: LEVALBUTEROL 1.25 MG/3 ML NEB INH PRN (13:57)
[2019-11-14] MEDS ORDERED: SODIUM CHLORIDE 0.9% 1,000 ML IV SCH (14:00)
--- NOTE | 2019-11-14 14:48 | HISTORY & PHYSICAL EXAMINATION ---
DATE OF SERVICE: 11/14/2019 Physician: Lupe Braga MD HISTORY OF PRESENT ILLNESS: This is an 83-year-old, white female with a history of dementia, COPD and asthma, anxiety disorder, atopic dermatitis causing pruritus. She lost her , who was her primary caregiver, approximately 4 months ago when he . The family has set up for her 24-hour care with [facility]. The patient initially needed a lot of care, but has improved in her ADLs, according to the son who spoke to SW. The patient has been having increased shortness of breath, however, and fatigue and, overnight, this last night, she had syncope. She was being taken to the bathroom by one of her in- home caregivers and the patient slumped to the floor, and the caregiver described that she was unconscious for 3-4 minutes. The ambulance run sheet, however, is not available to evaluate the vital signs at the scene. In the ER, she was found to be short of breath, and was given nebulizer, and labs were drawn. More history was obtained that the patient has a Trilogy mask, which was ordered approximately 6 months ago, but she has not been using it for more than 20 minutes at a time because it is uncomfortable for her. The daughter tried to get adjustments by the [employer] company, but they would not come out to the house because of COVID. The patient has not been having any fevers, chills, productive cough, leg edema, complaints of chest pain. There is a cough that is chronic and occasionally productive. In the emergency room, a chest x-ray was read as having bronchitis. She received Zithromax in the emergency room 500 mg p.o., as well as one dose of steroids. The patient is being placed in observation status to evaluate the syncopal episode, which has never happened before. 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 ALLERGIES 1. MOXIFLOXACIN. 2. OXYCODONE 3. HYDROCODONE. 4. TRAMADOL. 5. CODEINE. MEDICATIONS 1. Albuterol inhaler p.r.n. 2. Fluticasone with salmeterol inhaler b.i.d. 3. Ipratropium with albuterol inhaler q.i.d. 4. Celecoxib 200 mg b.i.d. 5. Losartan 100 mg daily. 6. Triamcinolone topically p.r.n. 7. Escitalopram 5 mg daily. 8. Synthroid 125 mcg daily. 9. Montelukast 10 mg every night. 10. Trazodone 50 mg every night p.r.n. insomnia. FAMILY HISTORY: No inherited diseases in the history. SOCIAL HISTORY: The patient lives in her own home, has 24-hour caregivers who are [facility]. There is a son and daughter, who are interested and helpful with her care. The patient is a of approximately 4 months ago and the was her main caregiver, but he was recently diagnosed with cancer. She with hospice care. The patient is able to do ADLs at home, despite her dementia, but mostly needs domestic help. REVIEW OF SYSTEMS: A comprehensive review of systems was performed and the pertinent positives are listed above, the rest are negative. The patient has been seen by Isabelle bearden of Palliative Care. PHYSICAL EXAMINATION GENERAL: Elderly, white female. She is in no distress, currently getting nebulizer treatment. VITAL SIGNS: Blood pressure 170/60, heart rate 80-110 in sinus rhythm with frequent PVCs and occasional ventricular bigeminy on telemetry. Afebrile. Room air saturation 98%. HEENT: Reveals temporal wasting, moist oral mucosa. NECK: Positive JVD in a vertical position. CHEST: She has dextroscoliosis and fair air entry, prolonged expiratory phase, scattered wheezes. HEART: Tachycardic. Distant heart sounds. ABDOMEN: Soft, positive bowel sounds. EXTREMITIES: No clubbing, cyanosis or edema. NEUROLOGIC: Grossly intact. Memory is very poor, however. She could not remember a discussion she had in the emergency room after just several minutes. LABORATORY DATA: Sodium 127, potassium 4.4, BUN 29, creatinine 0.7, glucose 89. Normal liver tests. Troponin 9.3 and 8.9. BNP 216. White blood count 4.5, hemoglobin 11, with a low MCV of 80, platelet count normal at 186. INR normal at 1.1. Urinalysis unremarkable. IMAGING: Chest x-ray showed scattered scarring or atelectasis, but no consolidation. Bilateral joint degeneration and scoliosis were reported, and central peribronchial cuffing suggestive of bronchitis. EKG: Normal sinus rhythm, first-degree AV block and otherwise within normal limits. DIAGNOSES/IMPRESSION 1. Syncope. 2. Bronchitis. 3. Severe chronic obstructive pulmonary disease with exacerbation. 4. Dementia. 5. Hyponatremia. 6. Prerenal azotemia. 7. Microcytic anemia. 8. Hypothyroidism. 9. Anxiety. 10. Atopic dermatitis, with chronic pruritus. 11. First-degree heart block. PLAN: Place the patient in Observation status on telemetry. Obtain orthostatic vital signs, which is a very likely cause of her syncopal event, since she has prerenal azotemia. Give gentle hydration with saline; will just give 1 L, follow her serum sodium level. Check iron stores regarding the microcytic anemia. Obtain a TSH and confirm a proper Synthroid dose. Continue her other medications for anxiety and skin atopy. Continue nebs while here, then resume inhalers at discharge. Order the Trilogy mask to be used here, and the company to come here and watch its use and make adjustments or teaching proper use; RT will be asked to assist with this. Complete a course of oral Zithromax. CODE STATUS: DNR. DEEP VENOUS THROMBOSIS PROPHYLAXIS: Pharmacotherapy, using Lovenox. ATTESTATION: The patient is expected to be discharged or transferred to another facility within 96 hours: Yes. cc: Kirk Blakely DO TD: 11/14/2019 14:19 MTDD
[2019-11-14] MEDS: haloperidoL 1 MG TABLET PO PRN (16:01)
[2019-11-14] MEDS: SODIUM CHLORIDE FLUSH 0.9% 10 ML SYRINGE IVP SCH (16:02)
[2019-11-14] MEDS: FORMOTEROL FUMARATE NEB 20 MCG/2 ML INH SCH (19:45)
[2019-11-14] MEDS: BUDESONIDE 0.5 MG/2 ML NEB INH SCH (19:45)
[2019-11-14] MEDS: TRIAMCINOLONE 0.1% CREAM 15 GM TUBE TOP SCH (20:08)
[2019-11-14] MEDS: MONTELUKAST 10 MG TABLET PO SCH (20:08)
[2019-11-14] MEDS: traZODone 50 MG TABLET PO PRN (20:45)
[2019-11-15] MEDS: SODIUM CHLORIDE FLUSH 0.9% 10 ML SYRINGE IVP SCH ×3 (05:23→17:50)
[2019-11-15 05:31] LABS: BASOPHILS % (AUTO) 0.2 %; HGB - HEMOGLOBIN 10.4 g/dL (12.0-16.0); LYMPHOCYTES # (AUTO) 1.3 10^3/uL (1.5-3.5); LYMPHOCYTES % (AUTO) 29.2 %; MEAN CORPUSCULAR HEMOGLOBIN 27.2 pg (27.0-31.0); MEAN CORPUSCULAR HGB CONC 34.6 g/dL (32.0-36.0); MEAN CORPUSCULAR VOLUME 78.8 fL (81.0-99.0); MEAN PLATELET VOLUME 11.9 fL (7.9-10.8); MONOCYTES # (AUTO) 0.7 10^3/uL (0.0-1.0); MONOCYTES % (AUTO) 15.8 %; NEUTROPHILS # (AUTO) 2.5 10^3/uL (1.5-6.6); NEUTROPHILS % (AUTO) 54.6 %; PLT - PLATELET COUNT 178 10^3/uL (130-450); RED BLOOD COUNT 3.82 10^6/uL (4.20-5.40); RED CELL DISTRIBUTION WIDTH 13.6 % (12.0-15.0); WHITE BLOOD COUNT 4.5 x10^3/uL (4.8-10.8)
[2019-11-15 05:46] LABS: CALCIUM 8.7 mg/dL (8.5-10.3); CREATININE 0.6 mg/dL (0.4-1.0); MAGNESIUM 1.9 mg/dL (1.7-2.8)
[2019-11-15] MEDS: ACETAMINOPHEN 325 MG TABLET PO PRN ×4 (06:06→20:43)
[2019-11-15] MEDS: PANTOPRAZOLE 40 MG TABLET PO SCH (06:07)
[2019-11-15] MEDS: LEVOTHYROXINE 125 MCG TABLET PO SCH (06:07)
[2019-11-15] MEDS: IPRATROPIUM/ALBUTEROL 3 ML NEB INH SCH ×4 (07:38→19:18)
[2019-11-15] MEDS: BUDESONIDE 0.5 MG/2 ML NEB INH SCH ×2 (07:38→19:18)
[2019-11-15] MEDS: FORMOTEROL FUMARATE NEB 20 MCG/2 ML INH SCH ×2 (07:38→19:18)
--- NOTE | 2019-11-15 08:36 | PROVIDER PROGRESS NOTE ---
Assessment/Plan - Problem List (1) Syncope Assessment/Plan: Patient has ruled out for an IA. The echo shows no aortic stenosis or IHSS to explain syncope. She is very orthostatic and was dehydrated, this is likely the cause of the syncope at home. (2) Orthostatic hypotension Assessment/Plan: Orthostatic vital signs were ordered to be checked every shift. Even yesterday when she was hypertensive supine, her systolic blood pressure dropped 40 mmHg. This morning she is hypotensive even supine in bed, and her standing blood pressure is 72/50, even without getting her usual Lisinopril, since here. Will admit her to full Inpatient status in order to adjust her meds. Stop her BP meds, she did not get any Lisinopril yesterday here. Start Midodrin. 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 Continue to do orthostatic vital sign checks every shift to make the above adjustments in Midodrin. (3) Severe chronic obstructive pulmonary disease Assessment/Plan: The patient needs to have the [employer] look at her trilogy machine while she is here, possibly order different settings, possibly use a mouthpiece per our respiratory therapist, and possibly teaching is needed for the caregivers. Continue her nebs. Albuterol was stopped yesterday because of tachycardia and Xopenex is being used. Continue evening Singulair. (4) Bronchitis Assessment/Plan: Continue with pulmonary toilet and a course of Zithromax orally. (5) Dementia Assessment/Plan: Patient started to be agitated when she was more confused yesterday around dinnertime, likely starting to . Haldol p.o. was ordered to use as needed agitation. She would benefit from having familiarity, would allow her son and [id number] to come in and visit, as they are are arriving today from out of town for the weekend. (6) Anemia Qualifiers: Anemia type: unspecified type Qualified Code(s): D64.9 - Anemia, unspecified Assessment/Plan: Iron panel was done and she has adequate stores, just low saturation. She does not qualify for iron replacement. Likely her anemia is of chronic disease plus hemodilutional. (7) Hypothyroidism Assessment/Plan: The TSH was low normal. We will continue her home dose of Synthroid. (8) Hyponatremia Assessment/Plan: This appears to be chronic. There was no change in sodium of 127 since yesterday, even with 1 L of saline infused. We will check BMP daily to assure sodium does not drop which could also add to confusion. (9) Anxiety Assessment/Plan: It seems that she calls for an inhaler treatment when she is anxious. Yesterday along with that she had confusion and agitation and Haldol was ordered. Continue with her home dose of anxiolytic while here plus Haldol as needed. - Current Meds Current Meds: Current Medications Generic Name Dose Route Start Last Admin Trade Name Freq PRN Reason Stop Dose Admin Acetaminophen 650 mg 11/14/19 13:23 11/15/19 06:06 Tylenol PO 650 mg Q4HR PRN Administration Pain or Fever > 38C (100.4F) Albuterol/Ipratropium 3 ml 11/14/19 13:28 11/15/19 07:38 Duoneb INH 3 ml RTQID SAMIRA Administration Budesonide 0.5 mg 11/14/19 19:00 11/15/19 07:38 Pulmicort INH 0.5 mg RTBID SAMIRA Administration Formoterol Fumarate 20 mcg 11/14/19 19:00 11/15/19 07:38 Perforomist INH 20 mcg RTBID SAMIRA Administration Haloperidol 1 mg 11/14/19 15:13 11/14/19 16:01 Haldol PO 1 mg DAILY PRN Administration Agitation Levothyroxine Sodium 125 mcg 11/15/19 07:00 11/15/19 06:07 Synthroid PO 125 mcg QDAC SAMIRA Administration Montelukast Sodium 10 mg 11/14/19 21:00 11/14/19 20:08 Singulair PO 10 mg QPM SAMIRA Administration Pantoprazole Sodium 40 mg 11/15/19 07:00 11/15/19 06:07 Protonix PO 40 mg QDAC SAMIRA Administration Sodium Chloride 10 ml 11/14/19 17:00 11/15/19 05:23 Normal Saline Flush 0.9% IVP Not Given 0100,0900,1700 SAMIRA Trazodone HCl 50 mg 11/14/19 13:17 11/14/19 20:45 Desyrel PO 50 mg QPM PRN Administration Insomnia Triamcinolone Acetonide 1 applic 11/14/19 21:00 11/14/19 20:08 Kenalog 0.1% Cream TOP 1 applic BID SAMIRA Administration - Lab Result Fish Bone Diagrams: 11/15/19 04:40 11/15/19 04:40 - Additional Planning My Orders: My Active Orders 11/14/19 09:25 Activity Orders [RC] Q2HR Home CPAP/BiPAP/NPPV [RC] .ONCE IO [RC] IOSHIFT Initiate Bowel Care Protocol [RC] .protocol Initiate Bronchodialator Gina [RC] .PROTOCOL Initiate Line Care Protocol [RC] QSHIFT Initiate Personal Care Protoco [RC] .protocol Initiate Secretion Clearance P [RC] .PROTOCOL Oxygen Therapy [RC] Routine Telemetry (24 Hour) [RC] Q4HR Vital Signs [RC] Q4HR Ondansetron Inj [Zofran Inj] 4 mg IVP Q6HR PRN Sodium Chloride Flush 0.9% [Normal Saline Flush 0.9%] 10 ml IVP PRN PRN Code Status [OTHERS] Routine Condition of Patient [OTHERS] Routine DVT Prophylaxis [OTHERS] Routine 11/14/19 09:27 IV Insert [RC] .ONCE 11/14/19 09:29 Social Work Consult [CONS] Routine Evaluate and Treat OT [OT] Routine Evaluate and Treat PT [PT] Routine 11/14/19 12:03 Echo Transthoracic Complete [ECHO] Routine 11/14/19 13:17 traZODone [Desyrel] 50 mg PO QPM PRN 11/14/19 13:23 Acetaminophen [Tylenol] 650 mg PO Q4HR PRN 11/14/19 13:27 Resp Teach Nebulizer/MDI [RC] .ONCE 11/14/19 13:28 Ipratropium/Albuterol [Duoneb] 3 ml INH RTQID 11/14/19 13:32 Orthostatic [Vital Signs - Orthostatic] [RC] QSHIFT 11/14/19 13:46 RT [Nebulizer/MDI Tx.] [RC] .BID/ QID/ Q4 PRN 11/14/19 13:57 Resp Teach Nebulizer/MDI [RC] .ONCE Levalbuterol [Xopenex] 1.25 mg INH RTQ4H PRN 11/14/19 15:13 haloperidoL [Haldol] 1 mg PO DAILY PRN 11/14/19 17:00 Sodium Chloride Flush 0.9% [Normal Saline Flush 0.9%] 10 ml IVP 0100,0900,1700 11/14/19 19:00 Budesonide [Pulmicort] 0.5 mg INH RTBID Formoterol Fumarate [Perforomist] 20 mcg INH RTBID 11/14/19 21:00 Montelukast [Singulair] 10 mg PO QPM Triamcinolone 0.1% Cream [Kenalog 0.1% Cream] 1 applic TOP BID 11/14/19 Lunch Soft Mechanical Diet [DIET] 11/15/19 07:00 Levothyroxine [Synthroid] 125 mcg PO QDAC Pantoprazole [Protonix] 40 mg PO QDAC 11/15/19 08:28 JESSICA An and SCDs [RC] QSHIFT 11/15/19 08:31 Admit \ Transfer \ Status [RC] .ONCE 11/15/19 09:00 Azithromycin [Zithromax] 250 mg PO DAILY Escitalopram [Lexapro] 5 mg PO DAILY Midodrine 2.5 mg PO 0900,1600 Subjective - Subjective Patient Reports: Resting Comfortably, Other (Patient had a headache early this morning for which she was given Tylenol and stated that it did not help but when asked about it later in the day she said it did help. She is sitting up, dangling feet, conversing with me and her son comfortably.) Objective Vital Signs: Vital Signs - 24 hr 11/14/19 11/14/19 11/14/19 09:00 13:43 13:49 Temperature Heart Rate 117 H 53 L Heart Rate [ Activity] Heart Rate [ Brachial] Heart Rate [ 40 L Sitting (After 1 Minute)] Heart Rate [ 51 L Standing (After 1 Minute)] Heart Rate [ 51 L Supine] Respiratory 16 24 Rate Blood Pressure 177/79 H Blood Pressure [Activity] Blood Pressure [Right Brachial artery] Blood Pressure 173/136 H [Sitting (After 1 Minute)] Blood Pressure 153/74 H [Standing ( After 1 Minute) ] Blood Pressure 195/60 H [Supine] O2 Saturation 98 O2 Saturation [ Without Activity] 11/14/19 11/14/19 11/14/19 15:18 15:48 16:00 Temperature 36.6 C Heart Rate 51 L Heart Rate [ 52 L Activity] Heart Rate [ 51 L Brachial] Heart Rate [ Sitting (After 1 Minute)] Heart Rate [ Standing (After 1 Minute)] Heart Rate [ Supine] Respiratory 24 19 Rate Blood Pressure Blood Pressure 144/57 H [Activity] Blood Pressure 144/57 H [Right Brachial artery] Blood Pressure [Sitting (After 1 Minute)] Blood Pressure [Standing ( After 1 Minute) ] Blood Pressure [Supine] O2 Saturation 96 O2 Saturation [ 97 Without Activity] 11/14/19 11/14/19 11/14/19 18:00 19:45 20:39 Temperature 36.5 C Heart Rate 96 Heart Rate [ Activity] Heart Rate [ 90 Brachial] Heart Rate [ 54 L Sitting (After 1 Minute)] Heart Rate [ 113 H Standing (After 1 Minute)] Heart Rate [ 123 H Supine] Respiratory 22 23 Rate Blood Pressure Blood Pressure [Activity] Blood Pressure 137/73 H [Right Brachial artery] Blood Pressure 142/62 H [Sitting (After 1 Minute)] Blood Pressure 139/52 H [Standing ( After 1 Minute) ] Blood Pressure 167/106 H [Supine] O2 Saturation 99 O2 Saturation [ Without Activity] 11/14/19 11/15/19 11/15/19 23:50 01:25 04:15 Temperature 36.6 C 36.5 C Heart Rate Heart Rate [ Activity] Heart Rate [ 86 94 Brachial] Heart Rate [ 89 Sitting (After 1 Minute)] Heart Rate [ 91 Standing (After 1 Minute)] Heart Rate [ 89 Supine] Respiratory 16 16 Rate Blood Pressure Blood Pressure [Activity] Blood Pressure 128/46 L 119/63 [Right Brachial artery] Blood Pressure 98/57 L [Sitting (After 1 Minute)] Blood Pressure 72/50 L [Standing ( After 1 Minute) ] Blood Pressure 118/40 L [Supine] O2 Saturation 97 94 O2 Saturation [ Without Activity] 11/15/19 11/15/19 08:06 08:19 Temperature Heart Rate Heart Rate [ Activity] Heart Rate [ 91 Brachial] Heart Rate [ 75 Sitting (After 1 Minute)] Heart Rate [ 86 Standing (After 1 Minute)] Heart Rate [ 91 Supine] Respiratory 20 Rate Blood Pressure Blood Pressure [Activity] Blood Pressure 118/55 L [Right Brachial artery] Blood Pressure 121/59 L [Sitting (After 1 Minute)] Blood Pressure 118/68 [Standing ( After 1 Minute) ] Blood Pressure 118/55 L [Supine] O2 Saturation 98 O2 Saturation [ Without Activity] Oxygen O2 Source [Without Activity] Room air O2 Source Room air Oxygen Flow Rate 2 I&O (Last 24 Hrs): Intake and Output Totals x24h 11/13/19 11/14/19 11/15/19 23:59 23:59 23:59 Intake Total 1150 Balance 1150 General: Alert HEENT: Atraumatic, Mucous membr. moist/pink, Other (Very deep wrinkles of the face and hands (consistent with sun exposure or smoking history) Neck: Supple, No JVD (In a vertical position) Neuro: Alert, Disoriented, Other (ANIAK) Cardiovascular: Regular rate Respiratory: No respiratory distress Abdomen: Soft Extremities: No edema - Results Results: Laboratory Results WBC 4.5 x10^3/uL (4.8-10.8) L 11/15/19 04:40 RBC 3.82 10^6/uL (4.20-5.40) L 11/15/19 04:40 Hgb 10.4 g/dL (12.0-16.0) L 11/15/19 04:40 Hct 30.1 % (37.0-47.0) L 11/15/19 04:40 MCV 78.8 fL (81.0-99.0) L 11/15/19 04:40 MCH 27.2 pg (27.0-31.0) 11/15/19 04:40 MCHC 34.6 g/dL (32.0-36.0) 11/15/19 04:40 RDW 13.6 % (12.0-15.0) 11/15/19 04:40 Plt Count 178 10^3/uL (130-450) 11/15/19 04:40 MPV 11.9 fL (7.9-10.8) H 11/15/19 04:40 Neut # (Auto) 2.5 10^3/uL (1.5-6.6) 11/15/19 04:40 Lymph # (Auto) 1.3 10^3/uL (1.5-3.5) L 11/15/19 04:40 [place] # (Auto) 0.7 10^3/uL (0.0-1.0) 11/15/19 04:40 Eos # (Auto) 0.0 10^3/uL (0.0-0.7) 11/15/19 04:40 Baso # (Auto) 0.0 10^3/uL (0.0-0.1) 11/15/19 04:40 Absolute Nucleated RBC 0.00 x10^3/uL 11/15/19 04:40 Nucleated RBC % 0.0 /100WBC 11/15/19 04:40 PT 12.2 secs (9.9-12.6) 11/14/19 06:30 INR 1.1 (0.8-1.2) 11/14/19 06:30 APTT 27.4 secs (24.9-33.3) 11/14/19 06:30 Sodium 127 mmol/L (135-145) L 11/15/19 04:40 Potassium 3.7 mmol/L (3.5-5.0) 11/15/19 04:40 Chloride 98 mmol/L (101-111) L 11/15/19 04:40 Carbon Dioxide 22 mmol/L (21-32) 11/15/19 04:40 Anion Gap 7.0 (6-13) 11/15/19 04:40 BUN 21 mg/dL (6-20) H 11/15/19 04:40 Creatinine 0.6 mg/dL (0.4-1.0) 11/15/19 04:40 Estimated GFR (MDRD) 95 (>89) 11/15/19 04:40 Glucose 96 mg/dL (70-100) 11/15/19 04:40 Calcium 8.7 mg/dL (8.5-10.3) 11/15/19 04:40 Magnesium 1.9 mg/dL (1.7-2.8) 11/15/19 04:40 Iron 64 ug/dL (28-170) 11/15/19 04:40 TIBC 349 ug/dL (250-450) 11/15/19 04:40 % Saturation 18 % (20-50) L 11/15/19 04:40 Transferrin 249 mg/dL (192-382) 11/15/19 04:40 Total Bilirubin 0.8 mg/dL (0.2-1.0) 11/14/19 06:30 AST 18 IU/L (10-42) 11/14/19 06:30 ALT 13 IU/L (10-60) 11/14/19 06:30 Alkaline Phosphatase 55 IU/L (42-121) 11/14/19 06:30 Total Creatine Kinase 91 IU/L (22-269) 11/14/19 06:30 Troponin I High Sens 8.9 ng/L (2.3-14.8) 11/14/19 09:30 B-Natriuretic Peptide 564 pg/mL (5-100) H 11/15/19 04:40 Total Protein 6.5 g/dL (6.7-8.2) L 11/14/19 06:30 Albumin 3.6 g/dL (3.2-5.5) 11/14/19 06:30 Globulin 2.9 g/dL (2.1-4.2) 11/14/19 06:30 Albumin/Globulin Ratio 1.2 (1.0-2.2) 11/14/19 06:30 Lipase 42 U/L (22-51) 11/14/19 06:30 TSH 0.48 uIU/mL (0.34-5.60) 11/15/19 04:40 Urine Color YELLOW 11/14/19 07:40 Urine Clarity CLEAR (CLEAR) 11/14/19 07:40 Urine pH 6.5 PH (5.0-7.5) 11/14/19 07:40 Ur Specific [place] 1.015 (1.002-1.030) 11/14/19 07:40 Urine Protein NEGATIVE mg/dL (NEGATIVE) 11/14/19 07:40 Urine Glucose (UA) NEGATIVE mg/dL (NEGATIVE) 11/14/19 07:40 Urine Ketones NEGATIVE mg/dL (NEGATIVE) 11/14/19 07:40 Urine Occult Blood NEGATIVE (NEGATIVE) 11/14/19 07:40 Urine Nitrite NEGATIVE (NEGATIVE) 11/14/19 07:40 Urine Bilirubin NEGATIVE (NEGATIVE) 11/14/19 07:40 Urine Urobilinogen 0.2 (NORMAL) E.U./dL (NORMAL) 11/14/19 07:40 Ur Leukocyte Esterase NEGATIVE (NEGATIVE) 11/14/19 07:40 Ur Microscopic Review NOT INDICATED 11/14/19 07:40 Urine Culture Comments NOT INDICATED 11/14/19 07:40
[2019-11-15] MEDS ORDERED: ENOXAPARIN 40 MG/0.4 ML SYRINGE SUBQ SCH (09:00)
[2019-11-15] MEDS ORDERED: MIDODRINE 2.5 MG TABLET PO SCH (09:00)
[2019-11-15] MEDS: ESCITALOPRAM 10 MG TABLET PO SCH (09:01)
[2019-11-15] MEDS: TRIAMCINOLONE 0.1% CREAM 15 GM TUBE TOP SCH ×2 (09:01→22:14)
[2019-11-15] MEDS: AZITHROMYCIN 250 MG TABLET PO SCH (09:01)
[2019-11-15] MEDS: haloperidoL 1 MG TABLET PO PRN (18:09)
[2019-11-15] MEDS: traZODone 50 MG TABLET PO PRN (22:12)
[2019-11-15] MEDS: MONTELUKAST 10 MG TABLET PO SCH (22:13)
[2019-11-16] MEDS: SODIUM CHLORIDE FLUSH 0.9% 10 ML SYRINGE IVP SCH ×2 (03:40→08:14)
[2019-11-16] MEDS: LEVOTHYROXINE 125 MCG TABLET PO SCH (05:59)
[2019-11-16] MEDS: PANTOPRAZOLE 40 MG TABLET PO SCH (05:59)
[2019-11-16] MEDS: BUDESONIDE 0.5 MG/2 ML NEB INH SCH (07:51)
[2019-11-16] MEDS: IPRATROPIUM/ALBUTEROL 3 ML NEB INH SCH (07:51)
[2019-11-16] MEDS: FORMOTEROL FUMARATE NEB 20 MCG/2 ML INH SCH (07:51)
[2019-11-16 08:00] VITALS: BP 130/55
[2019-11-16] MEDS: ACETAMINOPHEN 325 MG TABLET PO PRN (08:11)
[2019-11-16] MEDS: ESCITALOPRAM 10 MG TABLET PO SCH (08:11)
[2019-11-16] MEDS: AZITHROMYCIN 250 MG TABLET PO SCH (08:11)
[2019-11-16] MEDS: TRIAMCINOLONE 0.1% CREAM 15 GM TUBE TOP SCH (08:11)
--- NOTE | 2019-11-16 08:22 | Discharge Plan ---
Discharge Plan Problem Reviewed?: Yes Disposition: Home, Self Care Condition: Stable Prescriptions: Azithromycin [Zithromax] 250 mg PO DAILY #2 tablet Midodrine 2.5 mg PO 0900,1800 #60 tablet Diet: Regular Activity Restrictions: Activity as Tolerated Shower Restrictions: No Assistance Devices: Walker Instruction Topics: ED Hypotension Orthostatic Health Concerns: You were admitted after falling/fainting at home. Evaluation for the cause found that you have a blood pressure that drops severely when you go from sitting to standing. Because of this, your blood pressure medication (hypertensive medicine), Losartan, should be stopped. You will be on a new medicine called Midodrin, to raise blood pressure slightly. It was prescribed electronically to your pharmacy. A prescription for compression knee-high stockings is also provided, to manage the dropping blood pressure. This can be obtained and any larger retail pharmacy. Your caregivers should put them on when you awaken in the morning and take them off before bedtime at night. You also had mild bronchitis. You have received several doses of Zithromax. You should finish taking 2 more days of Zithromax pills, which were prescribed electronically to your pharmacy. Resume all your other prehospital medications. We also found that you have a low serum sodium level. You said that you drink a lot of water. You should be drinking other types of liquids that have some electrolytes or substance to them: broths, juices, Gatorade, in addition to some water. You should see your PCP for hospital follow-up in 1 to 2 weeks. Plan of Treatment: As above. Care Goals: Improvement in symptoms and stabilization are the goals. Assessment: The patient and son understand and agree with the plan. No Smoking: If you smoke, Please STOP! Call for help. Follow-up with: Kirk Blakely DO [Primary Care Provider] -
--- NOTE | 2019-11-16 08:31 | DISCHARGE SUMMARY ---
Discharge Summary Admit Date: 11/14/19 Discharge Date: 11/16/19 Discharging Provider: Dr Lupe Braga Primary Care Provider: Dr Kirk Blakely Code Status: Do Not Attempt Resuscitation Condition at Discharge: Fair Discharge Disposition: 01 Home, Self Care - HPI History of Present Illness: This is an 83-year-old white female with history of dementia, severe COPD and asthma, dextroscoliosis, chronic bronchitis, hypothyroidism, anxiety disorder, atopic dermatitis. She lost her who was her primary caregiver approximately 4 months ago when he . The family has set up for her to have 24-hour care using [employer]. While walking to the bathroom with a caregiver during the night, she had witnessed syncope. She was on the floor for 3 to 4 minutes. The ambulance arrived and found her to be short of breath, she was given a nebulizer and she was brought to the ER. There was history obtained from family that the patient was not using her Trilogy mask, for more than 20 minutes at a time, which had been ordered approximately 6 months ago. The daughter tried to get adjustments done by the Trilogy company but they would not come to the house because of COVID restrictions. At admission, the patient denied having any fevers, chills, productive cough, leg edema or chest pain. She has a chronic dry cough. Her chest x-ray done in the ER was read as having bronchitis. She received Zithromax in the emergency room and 1 dose of IV steroids. She is being placed in Observation status to evaluate syncope and treat bronchitis in a COPDer. - HOSPITAL COURSE Hospital Course: (1) Syncope Patient ruled out for an SC, telemetry showed no dysrhythmias. An Echo was done that showed no aortic stenosis or IHSS to explain syncope. She was very orthostatic and was felt to be dehydrated, which was likely the cause of the syncope at home. (2) Orthostatic hypotension Orthostatic vital signs were ordered to be checked every shift. She was in itially hypertensive supine, but her systolic blood pressure dropped 40 mmHg with standing. Losartan was stopped. The next morning she was hypotensive even supine in bed, and her standing blood pressure was 72/50. She was admitted to full Inpatient status in order to adjust her meds. She got one L of saline gently hydrated. Midodrin needed to be started, being careful not to cause supine HTN. At discharge, the Losartan was not to be used, and Midodrin 2.5 dosed at breakfast and dinnertime. This was explained carefully to her son and [id number] by phone. (3) Severe chronic obstructive pulmonary disease Our RT requested to have the milabent look at her Trilogy machine while she was here, possibly order different settings, possibly change to a mouthpiece per our respiratory therapist. The son wanted to be present for teaching if needed for the caregivers, therefore it was arranged that [employer] meet with everyone at her home after discharge. She was kept on her nebs. Albuterol was stopped because of tachycardia and Xopenex was used here. Evening Singulai r was continued. All her home inhalers were advised to restart after discharge. (4) Bronchitis Continued with pulmonary toilet and a course of Zithromax orally. (5) Dementia The patient started to be agitated and more confused around dinnertime, likely started to . Haldol p.o. was ordered to use prn agitation. She benefit ed from having her son come in and visit. She returned home with the same 01/01 [employer] caregiving plan. (6) Anemia The Hgb was 11.2 to 10.4. Iron panel was done and she has adequate stores, just low saturation. She did not qualify for iron replacement. Likely her anemia is of chronic disease plus hemodilutional. (7) Hypothyroidism The TSH was low normal. We continued her home dose of Synthroid. (8) Hyponatremia This appears to be chronic. There was no change in sodium of 127, even with 1 L of saline infused. (9) Anxiety It seemed that she called for an inhaler treatment when she is anxious. Along with that, she had confusion and agitation and Haldol was given. She was con tinued on her home dose of anxiolytic while here plus the Haldol was prn. - ALLERGIES Allergies/Adverse Reactions: Allergies Allergy/AdvReac Type Severity Reaction Status Date / Time moxifloxacin Allergy Severe Rash Verified 11/14/19 05:54 losartan [From Cozaar] Allergy Unknown Verified 11/17/19 07:50 oxycodone Allergy Unknown Verified 11/14/19 05:54 codeine AdvReac Severe Nausea Verified 11/14/19 15:46 hydrocodone AdvReac Severe Vomiting Verified 11/14/19 05:54 tramadol AdvReac Severe Vomiting Verified 11/14/19 05:54 - MEDICATIONS Home Medications: Ambulatory Orders Medication Instructions Recorded Confirmed Levothyroxine [Synthroid] 125 mcg PO QDAC 07/10/14 11/14/19 Ipratropium/Albuterol Sulfate 3 ml INH QID 12/25/17 11/14/19 [Iprat-Albut 0.5-3(2.5) mg/3 ml] Escitalopram Oxalate 5 mg PO DAILY 07/28/19 11/14/19 Fluticasone Propion/Salmeterol 1 puffs INH BID 08/25/19 11/14/19 [Wixela 250-50 Inhub] Albuterol Sulfate [Albuterol 2 puffs INH Q4H PRN 11/14/19 11/14/19 Sulfate Hfa] Celecoxib 200 mg PO DAILY 11/14/19 11/14/19 Montelukast Sodium 10 mg PO QPM 11/14/19 11/14/19 Trazodone HCl 50 mg PO QPM PRN 11/14/19 11/14/19 Triamcinolone 0.1% Cream [Kenalog 1 applic TOP PRN PRN 11/14/19 11/14/19 0.1% Cream] Midodrine 2.5 mg PO 0900,1800 #60 tablet 11/16/19 - PHYSICAL EXAM AT DISCHARGE General Appearance: positive: No acute distress, Alert, Other (Cachectic, deep wrinkling and leathery skin.) Eyes Bilateral: positive: Normal inspection ENT: positive: No signs of dehydration Neck: positive: Nml inspection, Other (Supple) Respiratory: positive: No respiratory distress, Other Cardiovascular: positive: Regular rate & rhythm Abdomen: positive: Non-tender, No distention Skin: positive: Pallor Extremities: positive: Non-tender, No pedal edema Neurologic/Psychiatric: positive: Disoriented to place, Disoriented to time, Other (Non-focal ) - LABS Result Diagrams: 11/15/19 04:40 11/15/19 04:40 - FOLLOW UP Follow Up: See PCP in 5-10 days for med adjustments. - TIME SPENT Time Spent in Discharge (Minutes): 45
[2019-11-16] MEDS ORDERED: MIDODRINE 2.5 MG TABLET PO SCH (09:00)
[2019-11-16] MEDS ORDERED: IBUPROFEN 600 MG TABLET PO SCH (10:32)
== END 2019-11-16 11:30 | disposition home or self-care (01) | DRG 312 ==
LOC: EDUNIT# → ED 05:46 → MS2 09:25 → OBSVTOIN 11-15 08:31
PROVIDERS: ADMIT Internal Medicine; ATTEND Internal Medicine
DX: R55 Syncope and collapse (principal); I95.1 Orthostatic hypotension; J44.0 Chronic obstructive pulmonary disease with (acute) lower respiratory infection; E87.1 Hypo-osmolality and hyponatremia; J44.1 Chronic obstructive pulmonary disease with (acute) exacerbation; J20.9 Acute bronchitis, unspecified; R39.2 Extrarenal uremia; D50.9 Iron deficiency anemia, unspecified; E86.0 Dehydration; F03.90 Unspecified dementia, unspecified severity, without behavioral disturbance, psychotic disturbance, mood disturbance, and anxiety; D64.9 Anemia, unspecified; I44.0 Atrioventricular block, first degree; M19.90 Unspecified osteoarthritis, unspecified site; E03.9 Hypothyroidism, unspecified; F41.9 Anxiety disorder, unspecified; M41.80 Other forms of scoliosis, site unspecified; L20.9 Atopic dermatitis, unspecified; H91.90 Unspecified hearing loss, unspecified ear; H54.7 Unspecified visual loss; R35.1 Nocturia; Z79.52 Long term (current) use of systemic steroids; Z79.899 Other long term (current) drug therapy
CPT/HCPCS: 36415; 71045; 80048; 80053; 81003; 82550; 83540; 83690; 83735; 83880; 84443; 84466; 84484; 85025; 85610; 85730; 93005; 93306; 94640; 96361; 96374; 97161; 97530; 99284; 99285; A9270; G0378; J7626; 81001; 87086

== ENCOUNTER 2019-11-18 09:25 | Outpatient (CLI) | payer MEDICARE, OTHER | END 2019-11-18 09:26 | disposition EMS.NT | LOC: EMS 09:25 | PROVIDERS: ATTEND Surgery | DX: R06.02 Shortness of breath (principal) ==

== ENCOUNTER 2019-11-19 10:20 | Outpatient (CLI) | payer MEDICARE, OTHER ==
--- NOTE | 2019-11-19 12:52 | CONSULTATION NOTE ---
Palliative Care Follow Up - Referral Referring Provider: Dr. iKrk Blakely Time of Visit: 9602-5196 Referral setting: Home Referral Reason: f/u hospitalization/CPOD Bronchitis/Symptomatic Orthostatic Hypotension - Information Sources Records reviewed: Previous records reviewed History/Review of Systems obtained from: Patient, Family (son, Ishan present) Exam limitations: Clinical condition (Cognitive impairment) - History of Present Illness Update Brief HPI Update: This is a frail 84-year-old female who was seen in follow-up today within her home after recent hospitalization from November 13 to November 15 due to COPD bronchitis, syncope, and orthostatic hypotension.She is seen with her son, Ishan wheeler. The patient reported to the emergency department on 11/13 when she got up that morning she felt like she could not catch her breath. She then became lightheaded and was assisted to the floor by her caregivers where she was unresponsive. She was admitted to the hospital and found to be dehydrated as well as having bronchitis. Today she finished her last dose of azithromycin. Her breathing is now back to baseline. She was noted to have hyponatremia with a sodium level of 127. She has her coffee daily in the morning as well as water throughout the day and typically not other fluids. Since her discharge from the hospital her caregivers and family have been encouraging other liquids such as Gatorade, broth, tea or juice in addition to some water. She was noted to have orthostatic hypotension when orthostatics were performed while inpatient. Her losartan was discontinued and she was started on Midodrine 2.5 mg twice daily. Yesterday she did report some lightheadedness but no syncopal episodes. The patient has a history of COPD without the requirement of oxygen. This is subsequently worsened in the last 5 years. She is followed by a insulation power unit tender. She has a trilogy at home but has had very little tolerance with this since her last hospitalization in April 2019 when she was discharged with the machine. She does not like anything on her face. During this hospitalization in November 28 respiratory therapy work with the patient and used a mouthpiece instead of a mask and she seemed to tolerate this better. [id number] The company that supplies the trilogy for the patient is set to come out this morning to see about settings adjustment as well as providing humidity. The patient's son has hopes that this machine might have more frequent use and provide relief for the patient due to her COPD symptoms. The patient herself only reports fatigue and otherwise is without complaints. She reports that her appetite is good and that she "eat what ever they fix me." She has 24-hour longterm care within her home. Her recently passed in July 2019 on hospice services and he was her primary caregiver. Prior to this hospitalization in November 2019 the patient had been doing quite well and had stabilized. She had been discharged from home health services with PT and OT with a reduction in her falls.Family report that she had seemed to be getting little bit stronger. Patient is seen today sitting in her side chair with her Rollator at the side. She had just completed a breathing treatment. She continues to have intermittent pursed lip breathing. No evidence of distress. Patient has a past medical history of hypertension, asthma, COPD, dementia, hypothyroidism, GERD, diverticulitis, depression, anxiety, osteopenia, frequent falls. Social History - Living Situation Living arrangement: At home Living Situation: With caregiver(s) (24-hour caregivers with visiting [employer] for longterm care) Support System: The patient presently resides in her home of approximately 22 years. Her on [facility] hospice on 07/17/2019. Her children visit on a rotating schedule and are managing her medications with cueing from caregivers for reminding. The patient's daughter/D POA is Michelle ([phone] (and her son Ishan is secondary D POA ([phone] (. The patient's daughter, Michelle was previously looking at memory care facilities in the [place] area to be closer to where she lives. However, due to the coronavirus pandemic this is presently on hold. Her son Ishan reports that the patient has funds for approximately 1 year to remain in her home with caregiving services and at this time they wish for the patient to remain in her home. Medications/Allergies - Medications Home Medications: Ambulatory Orders Medication Instructions Recorded Confirmed Levothyroxine [Synthroid] 125 mcg PO QDAC 07/10/14 11/14/19 Ipratropium/Albuterol Sulfate 3 ml INH QID 12/25/17 11/14/19 [Iprat-Albut 0.5-3(2.5) mg/3 ml] Escitalopram Oxalate 5 mg PO DAILY 07/28/19 11/14/19 Fluticasone Propion/Salmeterol 1 puffs INH BID 08/25/19 11/14/19 [Wixela 250-50 Inhub] Albuterol Sulfate [Albuterol 2 puffs INH Q4H PRN 11/14/19 11/14/19 Sulfate Hfa] Celecoxib 200 mg PO DAILY 11/14/19 11/14/19 Montelukast Sodium 10 mg PO QPM 11/14/19 11/14/19 Trazodone HCl 50 mg PO QPM PRN 11/14/19 11/14/19 Triamcinolone 0.1% Cream [Kenalog 1 applic TOP PRN PRN 11/14/19 11/14/19 0.1% Cream] Midodrine 2.5 mg PO 0900,1800 #60 tablet 11/16/19 - Allergies Allergies/Adverse Reactions: Allergies Allergy/AdvReac Type Severity Reaction Status Date / Time moxifloxacin Allergy Severe Rash Verified 11/14/19 05:54 losartan [From Cozaar] Allergy Unknown Verified 11/17/19 07:50 oxycodone Allergy Unknown Verified 11/14/19 05:54 codeine AdvReac Severe Nausea Verified 11/14/19 15:46 hydrocodone AdvReac Severe Vomiting Verified 11/14/19 05:54 tramadol AdvReac Severe Vomiting Verified 11/14/19 05:54 Review of Systems - Constitutional Constitutional: reports: Fatigue, Weight loss (noted weight loss over several years). denies: Fever, Chills - Ears, Nose & Throat Ears, Nose & Throat: reports: Hearing loss - Cardiovascular Cardiovascular: reports: Lightheadedness (see hPI for full details). denies: Palpitations, Chest pain - Respiratory Respiratory: reports: Snoring. denies: Cough - Gastrointestinal Gastrointestinal: denies: Abdominal pain, Constipation, Diarrhea, Vomiting - Genitourinary Genitourinary: denies: Dysuria, Incontinence - Musculoskeletal Musculoskeletal: reports: Assistive devices, Other (Neck pain (chronic)) - Integumentary Integumentary: denies: Pruritis - Neurological Neurological: reports: General weakness, Memory problems - Psychiatric Psychiatric: reports: Depression - Endocrine Endocrine: reports: Hypothyroidism - All Other Systems All Other Systems: reports: Reviewed and negative (ROS limited as patient is a poor historian due to dementia. ROS obtained from patient and son/DIDIER Olmstead.) Physical Exam - Vital Signs Temperature: 98.1 C Pulse Rate: 66 Respiratory Rate: 18 O2 Saturation: 95 (on RA at rest) Blood Pressure: 162/71 (left wrist sitting) - Physical Exam General Appearance: positive: No acute distress, Alert, Other (thin, temporal wasting noted bilaterally) Eyes Bilateral: positive: Normal inspection ENT: positive: No signs of dehydration Neck: positive: No JVD, Trachea midline, Other (thin). negative: Lymphadenopathy (R), Lymphadenopathy (L) Cardiovascular: positive: Regular rate & rhythm, No murmur Respiratory: positive: No respiratory distress, Other (No accessory muscle use, pursed lip breathing at times and pausing to take a breath when speaking; lungs clear without wheezing with slightly shallow depth in respirations) Abdomen: positive: Non-tender, Soft, Nml bowel sounds, Other (bladder nondistended) Skin: positive: Bruising (LUE due to IV site, resolving) Extremities: positive: No pedal edema Neurologic/Psychiatric: positive: Oriented x3 (short term memory deficit), Other (Frustrated given her being [place] and interacting with others that are wearing masks for her protection.) Comments/Other: Left wrist cuff standing BP 150/67, denied dizziness. Palliative Care - POLST Patient has POLST: Yes POLST Status: DNR, Selective Treatment Tiredness/Fatigue: Moderate (4-6) Feelings of wellbeing/Perceived Quality of Life: Fair Sleep: Sleeps well Constipation: No Performance Status: She is ambulatory with a Rollator. No recent falls. She has 24-hour longterm care within her home. She requires cueing for meals and medication. She maintains urinary continence. PPS 50% - Palliative Care Discussion: The patient recently experienced an episode of COPD bronchitis that has resolved with administration of antibiotic therapy which was completed today. At present she is at baseline for her breathing. She uses her nebulization quite routinely. She feels as if she "could not live without my breathing treatment." She has 24-hour caregiving support and her family will go and shifts to provide oversight of her medications and care. Due to her noted dehydration and orthostatic hypotension the patient was started on Midrin and has thus far tolerated this new medication. There has been no further syncopal episodes since she has returned home. The [facility] specialist is to come to look at the trilogy machine this morning to see if the pressure setting this could be adjusted. At the present time the family's goal is for the patient to remain in her home and she has funds to do so for at least the next year with private caregiving support. Results - Lab Results Lab results reviewed: Yes Impression and Recommendations - Palliative Care Impression: This is a frail 84-year-old woman with a longstanding history of COPD and asthma without oxygen supplementation with recent treatment of COPD bronchitis in the setting of dehydration and orthostatic hypotension.Family and caregivers have been offering different sources of liquids as opposed to just water to maintain her volume as well as increase her sodium level. She is also wearing compression stockings to assist with prevention of orthostatic symptoms. Palliative care to continue provide symptom management, explore goals of care, and anticipatory guidance. Recommendations/Counseling Done: 1. COPD bronchitis. S/p Azithromycin course.Resolved and presently at baseline. 2. Orthostatic hypotension. In the setting of dehydration. Her losartan was discontinued. She is presently on midodrin 2.5mg BID. On evaluation today her difference systolic blood pressure in sitting to standing was 20mmHg with sitting BP of 162/71. As the patient is going to have encouragement from her caregivers and family for maintaining her hydration level this will likely improve and subsequently her Midrin will be able to be discontinued. At the present time we will continue Midodrin 2.5mg BID and request that blood pressures be obtained daily sitting and standing and be recorded for review at next visit. At next visit, will decide regarding use of midodrin moving forward and if there is a need to taper. Continue to apply compression stockings before getting out of bed and remove before bedtime for additional support. Reviewed with patient the need to change positions slowly to prevent symptoms of orthostasis. We will continue to follow. 3. Hyponatremia. Sodium level was 127 during hospitalization this month. Upon review this appears to be chronic even to 2014. In April 2019 she had a sodium level of 127. Her overall intake of large volumes of water during the day and decreased protein intake may be a contributing cause. Continue to encourage broth, electrolyte drinks like Gatorade in addition to some water. Obtain BMP at next visit to evaluate sodium level. 4. Protein calorie malnutrition. Chronic and multifactorial due to advancement of dementia and her severe COPD. Would encourage a daily smoothie for supplemental protein within the diet. 5. COPD with asthma. Not requiring oxygen supplementation. Pulse ox today at 95% on room air and reviewed with son/Jan SHAH that the patient at present would not qualify for oxygen supplementation. [employer] to come into the home today to a just trilogy settings with the hopes that the patient will no longer be fighting with the machine and allow it to assist her symptoms. Continue medication regimen as ordered by insulation power unit tender, Dr. Fitzpatrick and follow-up as scheduled. 6. Dementia. Chronic. Progressive. Fall precautions. Continue 24-hour support within the home. Given the patient's age and chronic comorbidities a gradual decline is expected. F/u in 2 weeks for follow-up of blood pressure and clinical status. Updated Dr. Blakely (PCP) regarding patient's POC and in agreement. Also, given the patient's difficulty to leave the home Dr. Blakely is in agreement to cancel the patient's up-coming hospital follow-up appointment. Time Spent: Total time spent 40 minutes with greater than 50% of this spent in counseling and coordination of care with patient and son/DIDIER Olmstead; review of orthostatic hypotension and strategies to reduce symptoms; review of medication and examination of patient; review symptom management and anticipatory guidance. disclaimer: The chart note was formulated using voice recognition technology and unfortunately sound alike errors may occur.
== END 2019-11-19 10:21 | disposition home or self-care (01) ==
LOC: PC 10:20
PROVIDERS: ATTEND Nurse Practitioner Family
DX: Z51.5 Encounter for palliative care (principal); J44.9 Chronic obstructive pulmonary disease, unspecified; I95.1 Orthostatic hypotension; E87.1 Hypo-osmolality and hyponatremia; E46 Unspecified protein-calorie malnutrition; R53.83 Other fatigue; R53.1 Weakness; F03.90 Unspecified dementia, unspecified severity, without behavioral disturbance, psychotic disturbance, mood disturbance, and anxiety; Z79.899 Other long term (current) drug therapy; Z91.81 History of falling; Z66 Do not resuscitate
CPT/HCPCS: 99349

== ENCOUNTER 2019-12-01 09:40 | Outpatient (CLI) | payer MEDICARE, OTHER | END 2019-12-01 09:41 | disposition critical access hospital (66) | LOC: EMS 09:40 | PROVIDERS: ATTEND Surgery | DX: M54.2 Cervicalgia (principal); R25.2 Cramp and spasm | CPT/HCPCS: A0425; A0429 ==

== ENCOUNTER 2019-12-01 09:58 | Emergency (ER) | payer MEDICARE, OTHER ==
[2019-12-01] MEDS ORDERED: MORPHINE 2 MG/ML CARPUJECT IM STA (12:34)
--- NOTE | 2019-12-01 12:37 | ED Physician Documentation ---
PD HPI NECK PAIN - Stated complaint Stated Complaint: NECK PAIN - Chief complaint Chief Complaint: Back Pain - History obtained from History obtained from: Patient, Caregiver - Additional information Additional information: This is a shahnaz 84-year-old woman with history of chronic neck pain which is worse today. There was no trauma. She has an upcoming appointment for some sort of surgical procedure to be done and had an appointment for preop COVID test, but came here instead because the pain was out of control. Of note she usually takes NSAIDs for this but cannot because of her preoperative status. There is no change in the pain other than it being more severe. Review of Systems Constitutional: denies: Fever, Chills Throat: denies: Dental pain / toothache, Sore throat Cardiac: denies: Chest pain / pressure, Palpitations PD PAST MEDICAL HISTORY - Past Medical History Cardiovascular: Hypertension Respiratory: Asthma, COPD Neuro: Dementia, Headaches Endocrine/Autoimmune: HyPOthyroidism GI: GERD, Diverticulitis TRANSPLANT IMMUNOLOGIST: None : Nocturia HEENT: Chronic vision loss, Chronic hearing loss, Other Psych: Depression, Anxiety Musculoskeletal: Osteoarthritis, Other Derm: None - Past Surgical History Past Surgical History: Yes General: Appendectomy Ortho: Spine surgery, Other /TRANSPLANT IMMUNOLOGIST: Hysterectomy HEENT: Cataracts - Present Medications Home Medications: Ambulatory Orders Medication Instructions Recorded Confirmed Levothyroxine [Synthroid] 125 mcg PO QDAC 07/10/14 11/14/19 Ipratropium/Albuterol Sulfate 3 ml INH QID 12/25/17 11/14/19 [Iprat-Albut 0.5-3(2.5) mg/3 ml] Escitalopram Oxalate 5 mg PO DAILY 07/28/19 11/14/19 Fluticasone Propion/Salmeterol 1 puffs INH BID 08/25/19 11/14/19 [Wixela 250-50 Inhub] Albuterol Sulfate [Albuterol 2 puffs INH Q4H PRN 11/14/19 11/14/19 Sulfate Hfa] Celecoxib 200 mg PO DAILY 11/14/19 11/14/19 Montelukast Sodium 10 mg PO QPM 11/14/19 11/14/19 Trazodone HCl 50 mg PO QPM PRN 11/14/19 11/14/19 Triamcinolone 0.1% Cream [Kenalog 1 applic TOP PRN PRN 11/14/19 11/14/19 0.1% Cream] Midodrine 2.5 mg PO 0900,1800 #60 tablet 11/16/19 Morphine Ir [Ms Ir] 0.5 tab PO Q6H PRN #14 tablet 12/01/19 - Allergies Allergies/Adverse Reactions: Allergies Allergy/AdvReac Type Severity Reaction Status Date / Time moxifloxacin Allergy Severe Rash Verified 11/14/19 05:54 losartan [From Cozaar] Allergy Unknown Verified 11/17/19 07:50 oxycodone Allergy Unknown Verified 11/14/19 05:54 codeine AdvReac Severe Nausea Verified 11/14/19 15:46 hydrocodone AdvReac Severe Vomiting Verified 11/14/19 05:54 tramadol AdvReac Severe Vomiting Verified 11/14/19 05:54 - Social History Does the pt smoke?: No Smoking Status: Never smoker Does the pt drink ETOH?: Yes Does the pt have substance abuse?: No - Immunizations Immunizations are current?: Yes - POLST Patient has POLST: Yes POLST Status: DNR (limited interventions) PD ED PE NORMAL - Vitals Vital signs reviewed: Yes - General General: Alert and oriented X 3, Other (She is hard of hearing but cooperative and interactive with excellent range of motion of her neck, no tenderness.) - Neuro Neuro: Alert and oriented X 3, No motor deficit, No sensory deficit, Normal s peech Results - Vitals Vitals: Vital Signs - 24 hr 12/01/19 12/01/19 10:03 11:51 Temperature 36.8 C Heart Rate 81 52 L Respiratory 16 18 Rate Blood Pressure 138/55 H 180/89 H O2 Saturation 99 98 Oxygen O2 Source [Without Activity] Room air O2 Source Room air PD MEDICAL DECISION MAKING - ED course ED course: 84-year-old woman with an exacerbation of chronic neck pain. She is given some IM morphine. She does have multiple allergies to pain medications. A coronavirus test was done out of customer service given her preoperative status. Departure - Departure Disposition: 01 Home, Self Care Clinical Impression: Neck pain Condition: Good Record reviewed to determine appropriate education?: Yes Instructions: ED Neck Pain No Trauma Prescriptions: Morphine Ir [Ms Ir] 0.5 tab PO Q6H PRN #14 tablet PRN Reason: Pain Comments: A coronavirus test is pending. We will not automatically send these Results to your surgeon and they must request them from our lab. It takes about 24 hours. Return if worse. Do not drink or drive while taking narcotic pain medication. Note that many narcotic pain relievers also contain Tylenol/acetaminophen. Please ensure that your total dose of acetaminophen from all sources does not exceed 3 g (3000 mg) per day. You may get constipated while on this medication. Take a stool softener such as Colace twice a day while you are on it. Also add an [id number] laxative such as senna or MiraLAX on any day that you do not have a bowel movement. If you received a narcotic pain medication or sedative while in the emergency department, do not drive for the next 24 hours.
[2019-12-01 12:54] VITALS: BP 139/64
== END 2019-12-01 13:03 | disposition home or self-care (01) ==
LOC: EDUNIT# → ED 09:58
DX: M54.2 Cervicalgia (principal); G89.29 Other chronic pain; Z11.59 Encounter for screening for other viral diseases; I10 Essential (primary) hypertension; Z88.5 Allergy status to narcotic agent; Z66 Do not resuscitate
CPT/HCPCS: 96372; 99283; U0004; 81599

== ENCOUNTER 2019-12-02 08:00 | Outpatient (CLI) | payer MEDICARE, OTHER ==
[2019-12-02 14:45] LABS: CALCIUM 8.6 mg/dL (8.5-10.3); CREATININE 0.7 mg/dL (0.4-1.0)
--- NOTE | 2019-12-02 17:04 | CONSULTATION NOTE ---
Palliative Care Follow Up - Referral Referring Provider: Dr. Kirk Blakely Time of Visit: 9540-5247 Referral setting: Home Referral Reason: COPD/Orthostatic hyptension/Neck Pain - Information Sources Records reviewed: Previous records reviewed History/Review of Systems obtained from: Patient, Family, Caregiver (Mary Ann) Exam limitations: Clinical condition (Cognitive impairment) - History of Present Illness Update Brief HPI Update: This is a frail 84-year old female who was seen in follow-up today within her home with her daughter/D Michelle SHAH presents and her caregiver, Mary Ann. The patient is seen in follow-up due to recent ER visit due to acute neck pain as well as follow-up for her orthostatic hypotension and hyponatremia. The patient has a longstanding history of chronic neck pain. She refuses to change her side chair that she sits in in the living room that have offers no adequate neck or back support.Yesterday she was having quite an extreme amount of pain where she was yelling out as well as calling profanities at her caregiver. The patient did not listen to her daughter over the phone and u ltimately herself dialed 911 with a transfer to [facility] where she was assessed.The patient is scheduled for a cervical procedure for pain with Dr. Celeste on . Prior to the start of this procedure she is to avoid all NSAIDs and has subsequently had to discontinue her Celebrex at the present time. Her pain has escalated. She received a morphine injection at the ER department which calmed her down and relieve the pain. She was discharged on morphine 15 mg tablets to take half a tablet (7.5 mg (every 6 hours as needed for pain. Her daughter, Michelle has also been administering acetaminophen 500 mg intermittently to "try to get on top of the pain."Patient was able to sleep overnight and has had overall improvement of her symptoms.She did have a COVID- 19 test performed at as a courtesy at the ER department in preparation for her procedure on that is scheduled at 9 AM. The patient reports that she has dull ache at the top of her spine. She denies any radiation down her arms as well as no numbness or tingling. She denies dropping any items. She reports pain when she moves her neck from side to side worse looking towards the left.In the past when she has had this injection performed the pain relief lasted approximately 1 year. The patient was recently hospitalized in November 2019 and has a longstanding history of hyponatremia.Since discharge from the hospital family and caregivers have been encouraging liquids such as Gatorade, broth, tea and diluted juice in addition to some water.She was noted to have orthostatic hypotension while inpatient and was started on midodrine 2.5 mg twice daily. She denies any light headedness or dizziness upon rising. She is refusing to wear her compression stockings to her lower extremities.Her caregivers were to obtain her blood pressures lying, sitting, standing but there is no record of this on hand for review. The patient is seen today sitting in her chair side chair without adequate support to the back of her neck in that chair. She had received 7.5 mg of morphine prior to this DRIP MOLDER's arrival and appears comfortable and joking. She was agitated when this DRIP MOLDER and her daughter were in the other room discussing recent events as she did not wish to be left out of the discussion despite her ability to hear adequately due to her hard of hearing. Patient has a past medical history of hypertension, asthma, COPD, dementia, hypothyroidism, GERD, diverticulitis, depression anxiety, osteopenia, frequent falls. Social History - Living Situation Living arrangement: At home Living Situation: With caregiver(s) (24-hour caregivers with visiting 81 J for fci care.) Support System: Resides in her home of approximately 22 years. Her on [facility] hospice on 07/17/2019. Her children visit on a rotating schedule and are managing her medications with cueing from caregivers for reminding. The patient's daughter/D POA is Michelle ([phone] (and her son Ishan is secondary D POA. Medications/Allergies - Medications Home Medications: Ambulatory Orders Medication Instructions Recorded Confirmed Levothyroxine [Synthroid] 125 mcg PO QDAC 07/10/14 11/14/19 Ipratropium/Albuterol Sulfate 3 ml INH QID 12/25/17 11/14/19 [Iprat-Albut 0.5-3(2.5) mg/3 ml] Escitalopram Oxalate 5 mg PO DAILY 07/28/19 11/14/19 Fluticasone Propion/Salmeterol 1 puffs INH BID 08/25/19 11/14/19 [Wixela 250-50 Inhub] Albuterol Sulfate [Albuterol 2 puffs INH Q4H PRN 11/14/19 11/14/19 Sulfate Hfa] Celecoxib 200 mg PO DAILY 11/14/19 11/14/19 Montelukast Sodium 10 mg PO QPM 11/14/19 11/14/19 Trazodone HCl 50 mg PO QPM PRN 11/14/19 11/14/19 Triamcinolone 0.1% Cream [Kenalog 1 applic TOP PRN PRN 11/14/19 11/14/19 0.1% Cream] Midodrine 2.5 mg PO 0900,1800 #60 tablet 11/16/19 Acetaminophen 1,000 mg PO TID 12/02/19 12/02/19 Docusate Sodium 100 mg PO DAILY 12/02/19 12/02/19 Morphine Ir [Ms Ir] 0.25 tab PO Q6H PRN 12/02/19 Morphine Ir [Ms Ir] 7.5 mg PO QPM 12/02/19 12/02/19 Ondansetron Odt [Zofran Odt] 4 mg PO Q8H PRN 12/02/19 12/02/19 - Allergies Allergies/Adverse Reactions: Allergies Allergy/AdvReac Type Severity Reaction Status Date / Time moxifloxacin Allergy Severe Rash Verified 11/14/19 05:54 losartan [From Cozaar] Allergy Unknown Verified 11/17/19 07:50 oxycodone Allergy Unknown Verified 11/14/19 05:54 codeine AdvReac Severe Nausea Verified 11/14/19 15:46 hydrocodone AdvReac Severe Vomiting Verified 11/14/19 05:54 tramadol AdvReac Severe Vomiting Verified 11/14/19 05:54 Review of Systems - Constitutional Constitutional: reports: Fatigue, Weight loss (noted over several years). denies: Fever - Ears, Nose & Throat Ears, Nose & Throat: denies: Hearing loss - Cardiovascular Cardiovascular: denies: Palpitations, Chest pain, Lightheadedness - Respiratory Respiratory: reports: Wheezing (releaved with nebulizer) - Gastrointestinal Gastrointestinal: denies: Abdominal pain, Abdominal distention, Constipation, Diarrhea, Vomiting - Genitourinary Genitourinary: denies: Dysuria - Musculoskeletal Musculoskeletal: reports: Assistive devices, Transfer issues, Other (chronic neck pain) - Integumentary Integumentary: denies: Pruritis - Neurological Neurological: reports: General weakness, Memory problems (daughter reports worsening memory) - Psychiatric Psychiatric: reports: Depression - Endocrine Endocrine: reports: Hypothyroidism - All Other Systems All Other Systems: reports: Reviewed and negative Physical Exam - Vital Signs Temperature: 36.4 C Pulse Rate: 72 Respiratory Rate: 17 O2 Saturation: 99 (on RA at rest) Blood Pressure: 137/50 (left wrist cuff sitting) - Physical Exam General Appearance: positive: No acute distress, Alert, Other (thin, temporal wasting noted bilaterally) Eyes Bilateral: positive: Normal inspection ENT: positive: No signs of dehydration Neck: positive: No JVD, Trachea midline Cardiovascular: positive: Regular rate & rhythm, No murmur Respiratory: positive: No respiratory distress, Other (no accessory uscle use with pursed lip breathing at times and pausing to take a breath when speaking, lungs clear without wheezing with slightly shallow depth in respirations) Abdomen: positive: Non-tender, Soft, Nml bowel sounds Skin: positive: No symptoms Extremities: positive: No pedal edema, Other (tenderness to palpation at appx C2-C3 of cervical spine with slight limitation in rotation laterally with pain reported on left rotation of neck) Neurologic/Psychiatric: positive: Oriented x3 (short term memory deficit noted), Other (jokng and in better spirits; YUHAAVIATAM; BUE strength 4/5 with resistance with report of shoulder pain.) Comments/Other: standing left wrist 129/65, pulse 80 Palliative Care - POLST Patient has POLST: Yes POLST Status: DNR, Selective Treatment Pain: Pain improved (cervical spine) Constipation: No Performance Status: Patient ambulates with a Rollator. No recent falls. She is 24-hour fci care within her home. She requires cueing for meals and medication. She maintains urinary continence. - Palliative Care Discussion: The patient has had improvement of her cervical neck pain after administration of morphine in the emergency department and discharged on morphine immediate release tablets. She does however report that she feels "too relaxed" when taking the morphine immediate release tablets. The patient is someone who has always been in control and wants to be in control of her body. Her daughter relays that in the past when she has received a massage she would still hold her arm up despite being overall relaxed. The patient has a fear of pain in relation to dying and had previously requested her teenage daughter at the time to make sure that she did not have any pain and suffering at end-of-life. At the present time the patient's family is optimistic that the cervical procedure to be performed at Dr. Goodwin office [facility] will be effective for management of her pain in the interim we wish to make the patient is comfortable possible balancing benefits versus burdens for treatment. Upon review with the patient's daughter the patient has a longstanding history of hyponatremia and essentially has been asymptomatic. At the present time the daughter just wishes to monitor but does not wish to have any further means of intervention and lab work obtained today. The patient's daughter, Michelle reports that she has noticed an increased cognitive decline with the patient since her last visit. Some of this may be underlying due to pain however cannot rule out that the patient's present conditions and her health status is just the further progression of her multiple comorbidities. Presently hoping for the best in regards to management but preparing for the future that the patient will continue to have a potential decline and may need to transition to hospice in the interim future. Results - Lab Results Lab results reviewed: Yes Fish Bones: 12/02/19 14:22 Lab and Imaging Results: Lab Results x24hrs 12/02/19 Range/Units 14:22 Sodium 124 L (135-145) mmol/L Potassium 4.1 (3.5-5.0) mmol/L Chloride 90 L (101-111) mmol/L Carbon Dioxide 26 (21-32) mmol/L Anion Gap 8.0 (6-13) BUN 17 (6-20) mg/dL Creatinine 0.7 (0.4-1.0) mg/dL Estimated GFR (MDRD) 80 L (>89) Glucose 108 H (70-100) mg/dL Calcium 8.6 (8.5-10.3) mg/dL Impression and Recommendations - Palliative Care Impression: This is a frail 84-year-old female with a longstanding history of COPD and asthma without oxygen supplementation, hyponatremia, and recent orthostatic hypotension. She has presently had worsening cervical neck pain status post ER evaluation which has improved with morphine immediate release as needed for pain management. Palliative care to continue to provide symptom management, explore goals of care, and anticipatory guidance. Recommendations/Counseling Done: 1. Cervical neck pain. Chronic. Patient is scheduled to have a cervical procedure with Dr. Celeste this . Presently remains off NSAID therapy including her Celebrex. At the present time, start acetaminophen 1000 mg 3 times a day for pain and advised this is the maximum dose of acetaminophen daily from all sources. For breakthrough pain to take a quarter of morphine immediate release 15mg every 6 hours as needed And administer 7.5 mg nightly at bedtime for pain. As the patient has a need for control and does not prefer how she feels with the 7.5 mg during the day having the medication quartered would provide relief and limit her association with the medication. As the patient is going to be on scheduled morphine immediate release in the evenings initiate Docosate 100 mg nightly for stool softening with the goal of having a bowel movement every third day. Advised if no bowel movement by the end of the second day to administer senna 8.6 mg gram tablet daily with understanding verbalized. In the future, consider use of liquid morphine for better titration was reviewed with daughter today. We will need to reassess pain regiment after the patient has completed her cervical procedure. As she has had some reports of nausea will administer Zofran 4 mg to take 1 tablet every 8 hours as needed for nausea to have on hand. Note, the patient has several opioid allergies listed that she does not recall the causes nor had she reported to her daughter. Upon review most of the symptoms were intolerance such as nausea and vomiting. The patient is tolerating morphine. 2. Orthostatic hypotension. This was in the setting of dehydration and her losartan was discontinued. Presently on Midrin 2.5 mg twice daily. No evidence of orthostasis symptoms on examination today. There is the potential for the in the future for the midodrine to gradually be tapered off. Strongly encouraged that the caregivers required and obtain blood pressures lying, sitting, standing for review at next evaluation and then would consider discontinuation of evening dose of managing and then assess in the future the need for continuation. The patient is refusing application of compression stockings. We reviewed that she needs to change positions slowly. Continue to monitor. 3. Hyponatremia.Longstanding history that is chronic since at least appro ximately 2014. Patient is asymptomatic today. Sodium level during hospitalization was 127. Sodium level obtained today was 124. Continue to encourage reduction in overall water intake. Continue to encourage broth, electrolyte drinks in addition to small quantities of water. Continue to monitor for symptoms. Daughter does not wish to have any further work-up or interventions at this time upon review. 4. Dementia. Chronic. Progressive. Fall precautions. Daughter feels that there has been worsening cognitive impairments that may be contributed to her pain not being adequately managed. We will continue to monitor but would expect a continued gradual decline given her advanced age and chronic comorbidities. Continue 24-hour support within the home. 5. Advanced care planning. POLST within the home as DN AR with selective treatment. Reviewed with daughter moving forward hoping for the best but preparing for the worst in regards to management. Shifting towards a more comfort approach to care especially if cervical procedure does not offer adequate relief. We will continue to explore goals of care weighing benefits versus burdens moving forward. F/u in 1-2 weeks or sooner if new/worsening symptoms. Time Spent: Total time spent 75 minutes with greater than 50% of this spent in counseling and coordination of care with patient, daughter/DPPARESH Martinez and caregiver Mary Ann;escalation vs de-escalation of care; review of pain and symptom maria gement and anticipatory guidance. Disclaimer: The chart note was formulated using voice recognition technology and unfortunately sound alike errors may occur.
== END 2019-12-02 23:59 | disposition home or self-care (01) ==
LOC: LAB.WCP 08:00
PROVIDERS: ATTEND Nurse Practitioner Family
DX: E87.1 Hypo-osmolality and hyponatremia (principal)
CPT/HCPCS: 80048

== ENCOUNTER 2019-12-02 12:30 | Outpatient (CLI) | payer MEDICARE, OTHER | END 2019-12-02 12:31 | disposition home or self-care (01) | LOC: PC 12:30 | PROVIDERS: ATTEND Nurse Practitioner Family | DX: Z51.5 Encounter for palliative care (principal); G89.29 Other chronic pain; M54.2 Cervicalgia; I95.1 Orthostatic hypotension; E87.1 Hypo-osmolality and hyponatremia; J44.9 Chronic obstructive pulmonary disease, unspecified; F03.90 Unspecified dementia, unspecified severity, without behavioral disturbance, psychotic disturbance, mood disturbance, and anxiety; Z79.1 Long term (current) use of non-steroidal anti-inflammatories (NSAID); Z79.899 Other long term (current) drug therapy; Z66 Do not resuscitate | CPT/HCPCS: 99349; 99354 ==

== ENCOUNTER 2019-12-10 15:20 | Outpatient (CLI) | payer MEDICARE, OTHER ==
--- NOTE | 2019-12-10 15:29 | CONSULTATION NOTE ---
Palliative Care Follow Up - Referral Referring Provider: Dr. Kirk Blakely Time of Visit: Referral setting: Home Referral Reason: Orthostatic hypotension/Cervical Pain/Bowel management - Information Sources Records reviewed: Previous records reviewed History/Review of Systems obtained from: Patient, Family (daughter/DPPARESH Rendonh via phone), Caregiver (Meera present) Exam limitations: Clinical condition (Cognitive impairment) - History of Present Illness Update Brief HPI Update: This is a frail 84-year-old female who is seen in follow-up today within her home For follow-up due to cervical neck pain as well as orthostatic hypotension. The patient has a longstanding history of chronic neck pain. She underwent a cervical procedure for pain with Dr. SERAFIN CAI on . Prior to the start of this implementation she had escalating pain during the time her Celebrex was discontinued. She was seen in the emergency department at [facility] and was discharged on morphine immediate release 50 mg tablets to take half a tablet every 6 hours as needed for pain. On evaluation by this MEDICAL REFERRAL COORDINATOR on 12/01 she was initiated on 7.5 mg of morphine immediate release in the evenings and to administer a quarter tab of 15 mg morphine tablets every 6 hours as needed for pain. The patient has been reluctant to allow administration for breakthrough morphine. She has received approximately 2doses a day for breakthrough pain. She is ordered for scheduled routine acetaminophen 1 g 3 times daily. However, the patient did not receive a dose yesterday evening or this morning as she is run out of acetaminophen and her caregiver is aware. The patient's daughter/D POA reports that typically the cervical procedure for pain takes about 2 weeks to take effect. When the patient last had this procedure performed it lasted for approximately 1 year. She denies any numbness or tingling to her upper extremities. She reports a that her pain is "a little better."Her caregiver, Meera he is with the patient 3 days a week feels that the patient's pain seems to be worse. THe patient will cry and call out due to pain and want to call 911. This has not occurred today. She did not sleep well last night. .However, the patient's daughter attributes some of the underlying behaviors that the patient is displaying is due to the frequency of change in regards to the private duty caregivers. There have been approximately 4 new caregivers in the last few weeks. Last night, the patient had a new caregiver within the home. Each time the patient has a new caregiver it is difficult for her to adjust due to the disruption in her schedule. The patient did initially have some signs and symptoms of constipation. After the addition of MiraLAX to her docusate the patient has had a bowel movement on 12/07 and 12/08. Earlier this week she reported to some abdominal discomfort but this was relieved after defecation. She does report intermittent nausea when the caregivers attempted to administer as needed morphine. The patient typically is not eating any meals when she is taking her as needed morphine. She denies any increase sedation, confusion or pruritus with the morphine sulfate. The patient due to elevated blood pressure readings since the start of her cervical procedure had a reduction in her Middaugh drone dosing from 2.5 twice daily to 2.5 mg daily. Upon review of the patient's blood pressure trends her blood pressures appear to be elevated. Laying 148/62, sitting 165/80, standing 145/65. Sitting 168/90. Lying 168/76, sitting 165/77, sitting 150/75. The patient does not like having her orthostatics obtained on a daily basis becomes quite disgruntled. She is also declining application of her compression stockings. Patient has a past medical history of hypertension, asthma, COPD, dementia, hypothyroidism, GERD, diverticulitis, depression, anxiety, osteopenia, frequent falls, chronic neck pain. Social History - Living Situation Living arrangement: At home Living Situation: With caregiver(s) Support System: Patient presently resides in her home of approximately 22 years. Her on [facility] hospice on 07/17/2019. Her children visit on a rotating schedule and unremitting her medications with cueing from caregivers with reminding. The patient's daughter/D POA is Michelle [id number] one 11/12 [id number] and her son, Ishan is secondary D POA [phone]. Ishan lives more locally in [facility]. The patient's daughter Michelle resides in [place]., Due to the patient's increased need regarding her medication management her daughter reports that she is looking into local facilities for memory care. Medications/Allergies - Medications Home Medications: Ambulatory Orders Medication Instructions Recorded Confirmed Levothyroxine [Synthroid] 125 mcg PO QDAC 07/10/14 11/14/19 Ipratropium/Albuterol Sulfate 3 ml INH QID 12/25/17 11/14/19 [Iprat-Albut 0.5-3(2.5) mg/3 ml] Escitalopram Oxalate 5 mg PO DAILY 07/28/19 11/14/19 Fluticasone Propion/Salmeterol 1 puffs INH BID 08/25/19 11/14/19 [Wixela 250-50 Inhub] Albuterol Sulfate [Albuterol 2 puffs INH Q4H PRN 11/14/19 11/14/19 Sulfate Hfa] Celecoxib 200 mg PO DAILY 11/14/19 11/14/19 Montelukast Sodium 10 mg PO QPM 11/14/19 11/14/19 Trazodone HCl 50 mg PO QPM PRN 11/14/19 11/14/19 Triamcinolone 0.1% Cream [Kenalog 1 applic TOP PRN PRN 11/14/19 11/14/19 0.1% Cream] Acetaminophen 1,000 mg PO TID 12/02/19 12/02/19 Docusate Sodium 100 mg PO DAILY 12/02/19 12/02/19 Morphine Ir [Ms Ir] 0.25 tab PO Q4H PRN 12/02/19 Morphine Ir [Ms Ir] 7.5 mg PO BID 12/02/19 12/02/19 Ondansetron Odt [Zofran Odt] 4 mg PO Q8H PRN 12/02/19 12/02/19 Buspirone HCl 5 mg PO BID PRN 12/10/19 12/10/19 Senna [Senokot] 8.6 mg PO DAILY PRN 12/10/19 12/10/19 polyethylene glycoL 3350 [Miralax] 17 g PO DAILY 12/10/19 12/10/19 - Allergies Allergies/Adverse Reactions: Allergies Allergy/AdvReac Type Severity Reaction Status Date / Time moxifloxacin Allergy Severe Rash Verified 11/14/19 05:54 losartan [From Cozaar] Allergy Unknown Verified 11/17/19 07:50 oxycodone Allergy Unknown Verified 11/14/19 05:54 codeine AdvReac Severe Nausea Verified 11/14/19 15:46 hydrocodone AdvReac Severe Vomiting Verified 11/14/19 05:54 tramadol AdvReac Severe Vomiting Verified 11/14/19 05:54 Review of Systems - Constitutional Constitutional: reports: Fatigue, Weight loss. denies: Fever - Ears, Nose & Throat Ears, Nose & Throat: reports: Hearing loss. denies: Hearing aids - Cardiovascular Cardiovascular: denies: Chest pain - Respiratory Respiratory: reports: SOB with exertion - Gastrointestinal Gastrointestinal: reports: Constipation (see HPI), Nausea (intermittent, see HPI), Other (fair appetite). denies: Abdominal pain, Diarrhea, Rectal bleeding, Vomiting - Genitourinary Genitourinary: denies: Dysuria - Musculoskeletal Musculoskeletal: reports: Assistive devices, Other (neck pain) - Integumentary Integumentary: denies: Pruritis - Neurological Neurological: reports: General weakness, Memory problems - Psychiatric Psychiatric: reports: Depression, Anxiety - Endocrine Endocrine: reports: Hypothyroidism - All Other Systems All Other Systems: reports: Reviewed and negative Physical Exam - Vital Signs Temperature: 36.7 C Pulse Rate: 66 Respiratory Rate: 18 O2 Saturation: 96 (on RA at rest) Blood Pressure: 167/93 (left wrist cuff sitting) - Physical Exam General Appearance: positive: No acute distress, Alert, Other (thin, temporal wasting noted bilaterally) Eyes Bilateral: positive: Normal inspection ENT: positive: Other (No signs of dehyradtion) Neck: positive: Trachea midline, Other (thin) Cardiovascular: positive: Regular rate & rhythm, No murmur Respiratory: positive: No respiratory distress, Wheezes (trace expiratory wheezing noted BLL---has not done nebulizer today), Other (no accessory uscle u se with pursed lip breathing at times and pausing to take a breath when speaking) Abdomen: positive: Non-tender, Soft, Nml bowel sounds, Other (bladder nondistended) Skin: positive: Dryness Extremities: positive: No pedal edema, Other (tenderness to palpation at appx C3 of cervical spine without visible abnormalities) Neurologic/Psychiatric: positive: Oriented x3 Comments/Other: standing 161/80, HR 92 Palliative Care - POLST Patient has POLST: Yes POLST Status: DNR, Selective Treatment Pain: Pain improved Nausea: Mild (1-3) Sleep: Variable sleep pattern Constipation: Yes, Opoid induced, Managed - Palliative Care Discussion: The patient continues to be inconsistent regarding her cervical neck pain despite routine morphine immediate release 7.5 mg nightly. Some of her underlying complaints may be due to anxiety regarding caregivers. She is someone who does not like a disruption in her schedule and likes routine which is culminated by the fact that she has underlying cognitive impairment. Her pain is also becoming increased simply difficult to manage the pain medication as the patient has 24-hour fci stair and both her children do not live locally. Given the caregivers report of the patient's underlying pain discussed with the daughter in regards to increasing routine morphine immediate release 7.5 mg twice daily and reducing the frequency to every 4 hours for as needed morphine. Given the patient is having some underlying anxiety she would also likely benefit from as needed BuSpar for the caregivers and the patient's children to have on hand in their toolbox for management. At this time, the goal is to hopefully have the patient have relief of her cervical neck pain after the 2-week apryl from her cervical procedure. At this time due to the patient's increased cognitive deficit and management of her medications her requiring increased frequency of management by her children her daughter is looking into potential facility placement. At this time, is not clear when this will occur. At the present time to continue private caregiving support within the home unless the patient were to family were to be able to find a private duty caregiver for more consistent care figures within the home to lessen the patient's anxiety. Impression and Recommendations - Palliative Care Impression: This is a frail 84-year-old female with a longstanding history of COPD and chronic neck pain and recent orthostatic hypotension. She is status post cervical procedure for her cervical neck pain that was performed on 12/04/[address] Jacobson. The patient has had a disruption in her schedule and routine due to fluctuation in her caregivers with new focus within the home resulting in increased anxiety. She continues to report pain to her cervical neck. Palliative care to continue to provide symptom management, anticipatory guidance, and assistance with advanced care planning. Recommendations/Counseling Done: 1. Cervical neck pain. Chronic. s/p cervical procedure with Dr. Celeste ton 12/04/2019. Due to the patient's underlying cognitive impairment is difficult to have her adequately articulate her pain and would therefore monitor her pain response to therapy based on her behaviors. Continue acetaminophen 1000 mg 3 times a day for pain with this being the maximum dose of acetaminophen in a day. As the patient has run out of her acetaminophen strongly encouraged to both the patient's daughter/D POA as well as her caregiver, Meera that this needs to be obtained and reinitiated.Increase morphine sulfate immediate release to 7.5 mg twice daily. For breakthrough pain take a quarter of morphine immediate release 15 mg every 4 hours as needed for pain. Discussed with the daughter given the multiple caregivers within the home and the need for the patient's family to be available for set up of administration at this time, liquid morphine would probably not be better for titration. She has as needed Zofran within the home to take for nausea. Strongly encouraged given the patient's history of nausea with opioids that she eat a cracker or have a small bite of something in her stomach when taking her morphine sulfate immediate release. No noted adverse effects with the morphine sulfate reported. Continue to monitor and adjust pain regiment as needed. Rx for 30 tablets of morphine sulfate immediate release 15mg tablets provided to [facility] in [place] for patient's family to order picker/assembler. 2. Constipation due to opioid use and inactivity. Improved. Continue docusate 100 mg nightly. Initiate MiraLAX 17 g by mouth daily dissolved in 4 ounces of liquid. Goal is to have a bowel movement every 2 days. Patient has senna 8.6 mg on hand to use if needed for constipated symptoms. Continue to monitor. 3. Orthostatic hypotension. Resolved. Patient with noted increased elevation in her blood pressure readings performed by caregiving staff as well as by this MEDICAL REFERRAL COORDINATOR today. Underlying pain may be contributing factor to elevation of her blood pressure. During her recent hospitalization due to dehydration her losartan was discontinued. Given the patient's blood pressure readings will discontinue Midrin entirely. Strongly encouraged that the caregivers required and obtain blood pressures lying, sitting, standing for monitoring. The patient is refusing application of compression stockings and will discontinue. Continue to monitor. 4. Anxiety. Patient is demonstrating increased outbursts due to the disruption in her schedule. Continue Lexapro 5 mg daily. Advised that this is not a as needed medication 2 private duty caregiver. Initiate BuSpar 5 mg twice daily as needed for anxiety. If patient is requiring frequent dosing then would consider routine scheduling of BuSpar. Continue to monitor response. 5. Dementia. Chronic. Progressive. Fall precautions. Daughter feels that there has been worsening cognitive impairments that may be contributed to her pain not being adequately managed. We will continue to monitor but would expect a continued gradual decline given her advanced age and chronic comorbidities. Continue 24-hour support within the home. Daughter is looking into potential facility placement in the near future than previously anticipated given the patient's increased medication management needs. 6. Advanced care planning. POLST within the home as DN AR with selective treatment. We will continue to explore goals of care weighing benefits versus burdens moving forward. Goal at the present time is to work on pain management due to the cervical spine for the patient to have optimize comfort and improvement in function. Time Spent: F/u via phone call in 1 week or sooner if new/worsening symptoms. F/u in 2-3 weeks for physical evaluation. Total time spent 60 minutes with greater than 50% of this spent in counseling and coordination of care with patient and caregiver Meera; examination of patient; review of pain and symptom management and anticipatory guidance. Contacted daughter/DPOA Michelle via phone and reviewed POC with agreement and understanding verbalized. patient's son, Ishan is to come tomorrow to assist with medication management. disclaimer: The chart note was formulated using voice recognition technology and unfortunately sound alike errors may occur.
== END 2019-12-10 15:21 | disposition home or self-care (01) ==
LOC: PC 15:20
PROVIDERS: ATTEND Nurse Practitioner Family
DX: Z51.5 Encounter for palliative care (principal); G89.29 Other chronic pain; I95.1 Orthostatic hypotension; R53.1 Weakness; K59.03 Drug induced constipation; T40.2X5D Adverse effect of other opioids, subsequent encounter; F03.90 Unspecified dementia, unspecified severity, without behavioral disturbance, psychotic disturbance, mood disturbance, and anxiety; J44.9 Chronic obstructive pulmonary disease, unspecified; Z79.899 Other long term (current) drug therapy; Z79.891 Long term (current) use of opiate analgesic; Z66 Do not resuscitate
CPT/HCPCS: 99350

== ENCOUNTER 2019-12-15 19:55 | Outpatient (CLI) | payer MEDICARE, OTHER | END 2019-12-15 19:56 | disposition critical access hospital (66) | LOC: EMS 19:55 | PROVIDERS: ATTEND Surgery | DX: R06.02 Shortness of breath (principal) | CPT/HCPCS: A0425; A0429 ==

== ENCOUNTER 2019-12-15 20:07 | Emergency (ER) | payer MEDICARE, OTHER ==
[2019-12-15] MEDS ORDERED: IPRATROPIUM/ALBUTEROL 3 ML NEB INH STA (20:12)
[2019-12-15] MEDS ORDERED: methylPREDNISolone SUCCINATE 125 MG/2 ML VIAL IVP STA (20:13)
--- NOTE | 2019-12-15 20:14 | ED Physician Documentation ---
PD HPI DYSPNEA - Stated complaint Stated Complaint: SOA - History obtained from History obtained from: Patient, EMS - Additional information Additional information: This is an 84-year-old woman with history of COPD, dementia and asthma and c hronic bronchitis as well as anxiety who presents by ambulance for shortness of breath. She said she had mild shortness of breath all day that was worse this evening. She took a few albuterol nebs with modest but incomplete relief. She denies cough, chest pain. She does have mild pedal edema. She was admitted for COPD in November of this year. In route she did have significant ectopy per EMS. B lood sugar was normal. Review of Systems Ten Systems: 10 systems reviewed and negative Constitutional: denies: Fever, Chills Respiratory: reports: Dyspnea. denies: Cough GI: denies: Abdominal Pain, Nausea, Vomiting PD PAST MEDICAL HISTORY - Past Medical History Cardiovascular: Hypertension Respiratory: Asthma, COPD Neuro: Dementia, Headaches Endocrine/Autoimmune: HyPOthyroidism GI: GERD, Diverticulitis BROKERAGE MANAGER: None : Nocturia HEENT: Chronic vision loss, Chronic hearing loss, Other Psych: Depression, Anxiety Musculoskeletal: Osteoarthritis, Other Derm: None - Past Surgical History Past Surgical History: Yes General: Appendectomy Ortho: Spine surgery, Other /BROKERAGE MANAGER: Hysterectomy HEENT: Cataracts - Present Medications Home Medications: Ambulatory Orders Medication Instructions Recorded Confirmed Levothyroxine [Synthroid] 125 mcg PO QDAC 07/10/14 11/14/19 Ipratropium/Albuterol Sulfate 3 ml INH QID 12/25/17 11/14/19 [Iprat-Albut 0.5-3(2.5) mg/3 ml] Escitalopram Oxalate 5 mg PO DAILY 07/28/19 11/14/19 Fluticasone Propion/Salmeterol 1 puffs INH BID 08/25/19 11/14/19 [Wixela 250-50 Inhub] Albuterol Sulfate [Albuterol 2 puffs INH Q4H PRN 11/14/19 11/14/19 Sulfate Hfa] Celecoxib 200 mg PO DAILY 11/14/19 11/14/19 Montelukast Sodium 10 mg PO QPM 11/14/19 11/14/19 Trazodone HCl 50 mg PO QPM PRN 11/14/19 11/14/19 Triamcinolone 0.1% Cream [Kenalog 1 applic TOP PRN PRN 11/14/19 11/14/19 0.1% Cream] Acetaminophen 1,000 mg PO TID 12/02/19 12/02/19 Docusate Sodium 100 mg PO DAILY 12/02/19 12/02/19 Morphine Ir [Ms Ir] 0.25 tab PO Q4H PRN 12/02/19 Morphine Ir [Ms Ir] 7.5 mg PO BID 12/02/19 12/02/19 Ondansetron Odt [Zofran Odt] 4 mg PO Q8H PRN 12/02/19 12/02/19 Buspirone HCl 5 mg PO BID PRN 12/10/19 12/10/19 Senna [Senokot] 8.6 mg PO DAILY PRN 12/10/19 12/10/19 polyethylene glycoL 3350 [Miralax] 17 g PO DAILY 12/10/19 12/10/19 Furosemide [Lasix] 20 mg PO DAILY #5 tablet 12/15/19 Potassium Chloride 10 meq PO DAILY #5 tablet.er 12/15/19 predniSONE [Deltasone] 20 mg PO [id number] #21 tab 12/15/19 - Allergies Allergies/Adverse Reactions: Allergies Allergy/AdvReac Type Severity Reaction Status Date / Time moxifloxacin Allergy Severe Rash Verified 11/14/19 05:54 losartan [From Cozaar] Allergy Unknown Verified 11/17/19 07:50 oxycodone Allergy Unknown Verified 11/14/19 05:54 codeine AdvReac Severe Nausea Verified 11/14/19 15:46 hydrocodone AdvReac Severe Vomiting Verified 11/14/19 05:54 tramadol AdvReac Severe Vomiting Verified 11/14/19 05:54 - Social History Does the pt smoke?: No Smoking Status: Never smoker Does the pt drink ETOH?: Yes Does the pt have substance abuse?: No - Immunizations Immunizations are current?: Yes - POLST Patient has POLST: Yes POLST Status: DNR (limited interventions) PD ED PE NORMAL - Vitals Vital signs reviewed: Yes - General General: Alert and oriented X 3, Other (Appearing elderly woman, slightly hard of hearing but pleasant and in no distress.) - HEENT HEENT: PERRL, EOMI - Neck Neck: Supple, no meningeal sign, No bony TTP - Cardiac Cardiac: No murmur (Diminished throughout without distress, moderate expiratory wheezes. No focal findings.), Other (Frequent ectopy but generally regular) - Respiratory Respiratory: No respiratory distress, Other - Abdomen Abdomen: Soft, Non tender - Back Back: No CVA TTP, No spinal TTP - Derm Derm: Normal color, Warm and dry - Extremities Extremities: No edema, No calf tenderness / cord - Neuro Neuro: Alert and oriented X 3, Normal speech Results - Vitals Vitals: Vital Signs - 24 hr 12/15/19 12/15/19 12/15/19 20:14 20:26 20:44 Temperature 36.7 C Heart Rate 99 99 71 Respiratory 20 24 20 Rate Blood Pressure 191/89 H 191/89 H O2 Saturation 99 98 12/15/19 12/15/19 20:47 21:04 Temperature Heart Rate 102 H 100 Respiratory 20 16 Rate Blood Pressure 191/87 H O2 Saturation 99 98 Oxygen O2 Source [] Room air O2 Source Room air - EKG (time done) *2010 Rate: Rate (enter#) (98) Rhythm: NSR (With frequent PVCs), LAE [place]: Normal Intervals: Prolonged HI QRS: LVH Ischemia: Non specific changes Computer interpretation: Agree with computer - Labs Labs: Laboratory Tests 12/15/19 12/15/19 12/15/19 20:25 20:25 20:25 WBC 4.1 L RBC 4.21 Hgb 10.8 L Hct 33.4 L MCV 79.3 L MCH 25.7 L MCHC 32.3 RDW 15.7 H Plt Count 188 MPV 10.7 Neut # (Auto) 1.9 Lymph # (Auto) 1.3 L [place] # (Auto) 0.7 Eos # (Auto) 0.2 Baso # (Auto) 0.0 Absolute Nucleated RBC 0.00 Nucleated RBC % 0.0 VBG pH VBG pCO2 VBG pO2 VBG HCO3 VBG Total CO2 VBG O2 Saturation VBG Base Excess Sodium 129 L Potassium 4.0 Chloride 93 L Carbon Dioxide 28 Anion Gap 8.0 BUN 24 H Creatinine 0.7 Estimated GFR (MDRD) 80 L Glucose 101 H Calcium 8.8 Total Bilirubin 0.8 AST 15 ALT 12 Alkaline Phosphatase 54 Troponin I High Sens 12.0 B-Natriuretic Peptide Total Protein 6.5 L Albumin 3.8 Globulin 2.7 Albumin/Globulin Ratio 1.4 Lipase 32 12/15/19 12/15/19 20:25 20:25 WBC RBC Hgb Hct MCV MCH MCHC RDW Plt Count MPV Neut # (Auto) Lymph # (Auto) [place] # (Auto) Eos # (Auto) Baso # (Auto) Absolute Nucleated RBC Nucleated RBC % VBG pH 7.407 VBG pCO2 38.8 L VBG pO2 47.2 H VBG HCO3 23.9 VBG Total CO2 25.1 VBG O2 Saturation 84.5 H VBG Base Excess -0.6 Sodium Potassium Chloride Carbon Dioxide Anion Gap BUN Creatinine Estimated GFR (MDRD) Glucose Calcium Total Bilirubin AST ALT Alkaline Phosphatase Troponin I High Sens B-Natriuretic Peptide 668 H Total Protein Albumin Globulin Albumin/Globulin Ratio Lipase PD MEDICAL DECISION MAKING - ED course ED course: This is a shahnaz 84-year-old woman who presents with shortness of breath, clinically most consistent with a COPD exacerbation. After the administration of a DuoNeb and some Solu-Medrol here her lungs were clear and feeling much better. Recent basically negative echocardiogram was reviewed in the setting of very mild elevation of BNP and possible very mild edema on x-ray which we will also diurese her a bit. Departure - Departure Disposition: 01 Home, Self Care Clinical Impression: COPD (chronic obstructive pulmonary disease) Qualifiers: COPD type: COPD with acute exacerbation Qualified Code(s): J44.1 - Chronic obstructive pulmonary disease with (acute) exacerbation Condition: Good Record reviewed to determine appropriate education?: Yes Instructions: COPD Dc Prescriptions: predniSONE [Deltasone] 20 mg PO [id number] #21 tab Furosemide [Lasix] 20 mg PO DAILY #5 tablet Potassium Chloride 10 meq PO DAILY #5 tablet.er Comments: Seems that today her shortness of breath is mostly due to COPD, there may be some fluid in your lungs as well. The combination of steroids and the water pill should help take care of this. Return if worse. Follow-up with your primary care physician, next available appointment.
[2019-12-15 20:33] LABS: BASOPHILS % (AUTO) 0.5 %; NEUTROPHILS # (AUTO) 1.9 10^3/uL (1.5-6.6)
[2019-12-15 20:36] LABS: VBG BASE EXCESS -0.6 mmol/L (-2 - +2); VBG PCO2 38.8 mmHg (41-51); VBG PH 7.407 (7.31-7.41); VBG PO2 47.2 mmHg (25-47); VBG TOTAL CO2 25.1 mmol/L (24-29)
[2019-12-15 20:38] LABS: EOSINOPHILS # (AUTO) 0.2 10^3/uL (0.0-0.7); HGB - HEMOGLOBIN 10.8 g/dL (12.0-16.0); LYMPHOCYTES # (AUTO) 1.3 10^3/uL (1.5-3.5); LYMPHOCYTES % (AUTO) 31.6 %; MEAN CORPUSCULAR HEMOGLOBIN 25.7 pg (27.0-31.0); MEAN CORPUSCULAR HGB CONC 32.3 g/dL (32.0-36.0); MEAN CORPUSCULAR VOLUME 79.3 fL (81.0-99.0); MEAN PLATELET VOLUME 10.7 fL (7.9-10.8); MONOCYTES # (AUTO) 0.7 10^3/uL (0.0-1.0); MONOCYTES % (AUTO) 17.3 %; NEUTROPHILS % (AUTO) 46.4 %; PLT - PLATELET COUNT 188 10^3/uL (130-450); RED BLOOD COUNT 4.21 10^6/uL (4.20-5.40); RED CELL DISTRIBUTION WIDTH 15.7 % (12.0-15.0); WHITE BLOOD COUNT 4.1 x10^3/uL (4.8-10.8)
[2019-12-15 20:47] LABS: ALBUMIN 3.8 g/dL (3.2-5.5); ALBUMIN/GLOBULIN RATIO 1.4 (1.0-2.2); BILIRUBIN,TOTAL 0.8 mg/dL (0.2-1.0); CALCIUM 8.8 mg/dL (8.5-10.3); CREATININE 0.7 mg/dL (0.4-1.0); TOTAL PROTEIN 6.5 g/dL (6.7-8.2)
--- NOTE | 2019-12-15 20:56 | XRAY Report ---
PROCEDURE: Chest 1 View X-Ray INDICATIONS: DYSPNEA TECHNIQUE: One view of the chest was acquired. COMPARISON: Prior plain film and CT scanning from 08/01/2019 and 08/02/2019 reviewed. Also, chest plai n film from 11/14/2019 reviewed. FINDINGS: Surgical changes and devices: None. Lungs and pleura: No pleural effusions or pneumothorax. Lungs are mildly edematous. Mediastinum: Mediastinal contours appear normal. Heart size is just above the upper limits of honorio l considering relatively large lung volumes. Bones and chest wall: No suspicious bony lesions. Overlying soft tissues appear unremarkable. IMPRESSION: Mild pulmonary edema pattern, mild cardiomegaly, suspect cardiogenic etiology of current shortness of breath possibly superimposed upon by COPD. Reviewed by: Ishan Boles MD on 12/15/2019 8:55 PM PDT Approved by: Ishan Boles MD on 12/15/2019 8:55 PM PDT Station ID: [id number]
[2019-12-15] MEDS ORDERED: FUROSEMIDE 20 MG TABLET PO STA (21:12)
[2019-12-15 23:08] VITALS: BP 185/88
== END 2019-12-15 23:08 | disposition home or self-care (01) ==
LOC: EDUNIT# → ED 20:07
DX: J44.1 Chronic obstructive pulmonary disease with (acute) exacerbation (principal); I49.3 Ventricular premature depolarization; I44.0 Atrioventricular block, first degree; I10 Essential (primary) hypertension; F03.90 Unspecified dementia, unspecified severity, without behavioral disturbance, psychotic disturbance, mood disturbance, and anxiety; F41.9 Anxiety disorder, unspecified; Z66 Do not resuscitate
CPT/HCPCS: 36415; 71045; 80053; 82803; 83690; 83880; 84484; 85025; 93005; 94640; 96374; 99284; 99285; A9270

== ENCOUNTER 2019-12-17 10:30 | Outpatient (CLI) | payer MEDICARE, OTHER ==
--- NOTE | 2019-12-17 12:31 | CONSULTATION NOTE ---
Palliative Care Follow Up - Referral Referring Provider: Dr. Kirk Blakely Time of Visit: [id number] Referral setting: Home Referral Reason: COPD excerbation/Pain Management/Anxiety - Information Sources Records reviewed: Previous records reviewed History/Review of Systems obtained from: Patient, Family (DAVID, More present), Caregiver (Meera from [facility] present) Exam limitations: Clinical condition (cognitive impairment) - History of Present Illness Update Brief HPI Update: This is a frail 84-year-old female who is seen in follow-up today within her home due to continued cervical neck pain, hypertension, anxiety, and COPD exacerbation. The patient has a longstanding history of COPD and asthma. She was hospitalized April 2019 for COPD exacerbation. She was discharged with trilogy but did not tolerate its use and was subsequently discontinued. The patient developed increased shortness of breath and anxiety and dialed 9111 12/14 and due to her elevated blood pressure was taken to the emergency department where she was evaluated. She had a chest x-ray performed that demonstrated COPD T and mild pulmonary edema in the setting of a history of CHF. She was discharged on a prednisone taper as well as a 5-day course of furosemide 20 mg with potassium chloride 10 mEq for 5 days. Due to the patient's longstanding history of prednisone use in the past for COPD exacerbations she typically does not do well with high doses of prednisone and thus this was changed to 20 mg daily for 5 days. The patient reports that her breathing has improved since discharge from the hospital where she also received a dose of Solu-Medrol. The patient's fpfwgyju-pu-wne, More also reports that her breathing is significantly improved with a reduction in wheezing. The patient denies fever or chills.She does not wear oxygen supplementation for her COPD. The patient continues to report cervical neck pain despite undergoing a hohakoa-nihv-eoo procedure for pain with Dr. SERAFIN CAI approximately 2 weeks ago. She is presently on Celebrex as well as morphine immediate release 7.5 mg twice daily and a quarter of a tablet 15 mg morphine tablets every 4 hours as needed for breakthrough pain.She is also on scheduled acetaminophen 1 g 3 times daily. She is receiving her Quarter tablet of 50 mg of morphine twice daily on average.The patient continues to report persistent pain. She reports intermittent nausea but there is been no change in her appetite. Caregivers are trying to monitor the patient's behavioral response in regards to her pain due to her underlying cognitive impairment. The patient has been having an increase in new caregivers within the home with a lack of consistency for her [facility] care as she is receiving 01 01 care from [facility]. The patient's family is trying to coordinate consistency with her caregivers. She typically will act out and have increased anxiety when she does not know the individual. She has been taking BuSpar 5 mg nightly with some noted benefit. Her hjxyquey-ft-pau also notes that when observing the patient is constantly brushing her hair indicative of some underlying anxiety. Her toctfsen-rm-mbr at the present time is looking to come out on a more weekly basis to provide oversight has the the time the family does not wish to transition to a higher level of care. The patient was hospitalized in November/2019 for orthostatic hypotension, syncope, and her losartan 100 mg was discontinued and she was initiated on Middaugh drone twice daily. Due to the patient's elevation in her blood pressure the Midrin was discontinued entirely. The patient continues to have elevated blood pressures sitting and standing. Systolic blood pressures upon review appear to be consistently above 160. She does often not allow the caregiving staff to obtain her blood pressure standing and she also becomes agitated. She denies any dizziness with positional changes. Patient is seen today out of bed in her chair in the living room that does not offer adequate cervical support. She demonstrates no acute distress. She received all of her morning medications. She is dressed in her pajamas. Patient has a past medical history of hypertension, asthma, COPD, dementia, hypothyroidism, GERD, diverticulitis, depression, anxiety, osteopenia, frequent falls, chronic neck pain, hyponatremia. Social History - Living Situation Living arrangement: At home Living Situation: With caregiver(s) (01/01 custoidal care) Support System: Patient presently resides in her home of approximately 22 years. Her on [facility] hospice on 07/17/2019. Her children visit on a rotating schedule and unremitting her medications with cueing from caregivers with reminding. The patient's daughter/D POA is Michelle [id number] one 11/12 422 and her son, Ishan is oh D POA [phone]. [place] [facility] [place]'s daughter Michelle resides in [place]., The patient enjoys a small amount of whiskey and 7up nightly and this has been a routine for years that she and her shared. Medications/Allergies - Medications Home Medications: Ambulatory Orders Medication Instructions Recorded Confirmed Levothyroxine [Synthroid] 125 mcg PO QDAC 07/10/14 11/14/19 Ipratropium/Albuterol Sulfate 3 ml INH QID 12/25/17 11/14/19 [Iprat-Albut 0.5-3(2.5) mg/3 ml] Escitalopram Oxalate 5 mg PO DAILY 07/28/19 11/14/19 Fluticasone Propion/Salmeterol 1 puffs INH BID 08/25/19 11/14/19 [Wixela 250-50 Inhub] Albuterol Sulfate [Albuterol 2 puffs INH Q4H PRN 11/14/19 11/14/19 Sulfate Hfa] Celecoxib 200 mg PO DAILY 11/14/19 11/14/19 Montelukast Sodium 10 mg PO QPM 11/14/19 11/14/19 Trazodone HCl 50 mg PO QPM PRN 11/14/19 11/14/19 Triamcinolone 0.1% Cream [Kenalog 1 applic TOP PRN PRN 11/14/19 11/14/19 0.1% Cream] Acetaminophen 1,000 mg PO TID 12/02/19 12/02/19 Docusate Sodium 100 mg PO DAILY 12/02/19 12/02/19 Morphine Ir [Ms Ir] 0.25 tab PO Q4H PRN 12/02/19 Morphine Ir [Ms Ir] 7.5 mg PO TID 12/02/19 12/02/19 Ondansetron Odt [Zofran Odt] 4 mg PO Q8H PRN 12/02/19 12/02/19 Buspirone HCl 5 mg PO QPM 12/10/19 12/10/19 Senna [Senokot] 8.6 mg PO DAILY PRN 12/10/19 12/10/19 polyethylene glycoL 3350 [Miralax] 17 g PO DAILY 12/10/19 12/10/19 Furosemide [Lasix] 20 mg PO DAILY #5 tablet MDD x5days 12/15/19 Potassium Chloride 10 meq PO DAILY #5 tablet.er MDD 12/15/19 x5 days Losartan Potassium 25 mg PO DAILY 12/17/19 12/17/19 busPIRone [Buspar] 5 mg PO DAILY PRN 12/17/19 12/17/19 predniSONE [Deltasone] 20 mg PO DAILY MDD x5 days 12/17/19 - Allergies Allergies/Adverse Reactions: Allergies Allergy/AdvReac Type Severity Reaction Status Date / Time moxifloxacin Allergy Severe Rash Verified 11/14/19 05:54 losartan [From Cozaar] Allergy Unknown Verified 11/17/19 07:50 oxycodone Allergy Unknown Verified 11/14/19 05:54 codeine AdvReac Severe Nausea Verified 11/14/19 15:46 hydrocodone AdvReac Severe Vomiting Verified 11/14/19 05:54 tramadol AdvReac Severe Vomiting Verified 11/14/19 05:54 Review of Systems - Constitutional Constitutional: reports: Fatigue, Weight loss. denies: Fever - Eyes Eyes: denies: Vision loss - Ears, Nose & Throat Ears, Nose & Throat: reports: Hearing loss - Cardiovascular Cardiovascular: denies: Chest pain - Respiratory Respiratory: reports: Wheezing (improved), SOB with exertion - Gastrointestinal Gastrointestinal: reports: Nausea (intermittent). denies: Abdominal pain, Constipation, Diarrhea - Genitourinary Genitourinary: denies: Dysuria, Incontinence - Musculoskeletal Musculoskeletal: reports: Stiffness, Joint pain (neck pain), Assistive devices - Integumentary Integumentary: denies: Pruritis - Neurological Neurological: reports: General weakness, Memory problems - Psychiatric Psychiatric: reports: Depression, Anxiety - Endocrine Endocrine: reports: Hypothyroidism - All Other Systems All Other Systems: reports: Reviewed and negative Physical Exam - Vital Signs Temperature: 36.6 C Pulse Rate: 78 Respiratory Rate: 16 O2 Saturation: 96 (on RA at rest) Blood Pressure: 156/81 (left wrist cuff sitting) - Physical Exam General Appearance: positive: No acute distress, Alert, Other (thin, temporal wasting noted bilaterally) Eyes Bilateral: positive: Normal inspection Neck: positive: Trachea midline, Other (thin) Cardiovascular: positive: Regular rate & rhythm, No murmur Respiratory: positive: No respiratory distress, Other (no accessory uscle use with pursed lip breathing at times and pausing to take a breath when speaking; good air movement throughout though slightly diminished without wheezing or rhonchi). negative: Wheezes Abdomen: positive: Non-tender, Soft, Nml bowel sounds, Other (bladder nondistended) Skin: positive: Dryness Extremities: positive: Pedal edema (trace pedeal edema b/l), Other (tenderness to palpation at appx C3 of cervical spine without visible abnormalities) Neurologic/Psychiatric: positive: Oriented x3, Other (disgruntled due to not being able to hear the conversation adequately) Comments/Other: standing 162/85 Palliative Care - POLST Patient has POLST: Yes POLST Status: DNR, Selective Treatment Pain: Pain unchanged (see HPI for full details) Anxiety: Moderate (4-6) (based on caregivers, see HPI) Sleep: Variable sleep pattern Constipation: No, Opoid induced, Managed - Palliative Care Discussion: The patient continues to report cervical neck pain despite being 2 weeks out from her cervical procedure to assist with her neck pain. Her family and the patient herself remains hopeful that the procedure will eventually kick in but they are beginning to have doubts. The patient continues to have visible cues with her behavior due to underlying pain despite her recent increase of her morphine immediate release tablets scheduled 7.5 mg twice daily with breakthrough every 4 hours as needed. The patient continues to refuse having her chair changed despite its lack of support for her neck. The patient will benefit from additional pain regimen adjusted and rrcxvxhl-xc-qfj and patient are in agreement to have morphine immediate release sulfate 7.5 mg 3 times daily and then will see where we land. Given the patient's underlying anxiety we will continue to give BuSpar 5 mg nightly and 5 mg as needed during the day to have on hand for caregivers. The patient is requiring increased medication management and her family recognizes this and are looking into more consistent caregiving figures within the home as well as the patient's dwiuxhfv-jy-ohj coming up on a weekly basis for oversight. The family also plans to have a family member present when a new caregiver is in the home which is coming up again this weekend. The family was optimistic that the patient can potentially qualify for hospice services, but after discussion with [facility] hospice medical collections specialist the patient does not quite fit medical criteria for her dementia, protein calorie malnutrition, or her COPD at the present time this was reviewed with the itbdxzup-sq-mun. Results - Lab Results Lab results reviewed: Yes Lab and Imaging Results: 12/15/2019 Sodium 129, potassium 4.0, BUN 24, creatinine 0.7, estimated GFR 80, glucose 101, albumin 3.8, BNP 668, WBC 4.1, hemoglobin 10.8, hematocrit 33.4, platelet 188 Impression and Recommendations - Palliative Care Impression: This is a frail 84-year-old female with a longstanding history of COPD with recent exacerbation and chronic neck pain with hypertension. She is status post cervical procedure for her cervical neck pain that was performed on 12/04/[address] Bennett and continues to report consistent neck pain. She also continues to have evidence of anxiety specifically when there is a change in disruption in her routine and schedule with her private duty caregivers. Palliative care to continue provide symptom management, anticipatory guidance, advance care planning and a transition to hospice when a appropriate. Recommendations/Counseling Done: 1. Cervical neck pain. Chronic. Status post cervical procedure with Dr. Bennett on 12/04/2019. Continue to monitor behaviors of patient to gauge her pain level due to her underlying dementia. Continue acetaminophen 1 g 3 times daily and this is the maximum dose of acetaminophen in a day. Increase morphine sulfate immediate release to 7.5 mg 3 times daily. For breakthrough pain take a quarter of morphine immediate release 15 mg every 4 hours as needed for pain. Given the patient's intermittent reports of nausea consider a transition to fentanyl patch in the future for reduction of side effects. Would need to potentially coordinate with the family for administration of the fentanyl patch every 72 hours. She has as needed Zofran within the home for nausea. Strongly encouraged to continue to have food when taking morphine sulfate immediate release. No other adverse effects of the morphine sulfate reported. Continue to monitor and adjust pain regiment as needed. Rx for 45 tablets of morphine sulfate immediate release 50 mg tablets provided to ihrbevnm-qe-syc by hand prescription today. 2. Hypertension. Denies cardiac complaints. Recently with orthostatic hypotension in the setting of antihypertensive medication and dehydration. Patient's Middaugh drain was discontinued. Patient remains with elevated blood pressure multifactorial due to underlying hypertension as well as episodes of escalating anxiety. Patient was previously on losartan 100 mg and tolerated well. Initiate losartan 25 mg once daily in the morning with goal blood pressure less than 140/80. Wish to remain on higher and of blood pressure management to reduce risk of orthostatic hypotension and falls. We will continue to monitor closely and adjust dose regiment as needed based on patient's response. 3. Anxiety. Patient continues with underlying anxiety specifically when her routine is altered with her caregiving staff and she does not know the individual which results in her calling EMS and then refusing to go. Continue Lexapro 5 mg daily. Continue BuSpar 5 mg nightly with BuSpar 5 mg once daily as needed. Expect to initiate BuSpar 5 mg routinely in the morning at next follow- up and there is room to titrate further with BuSpar as well as Lexapro. If continue to monitor response. 4. Protein calorie malnutrition. History of weight loss. Patient with advanced COPD. Continue to monitor and encourage foods that the patient enjoys. 5. COPD exacerbation. Patient with a longstanding history of COPD. She does n ot require oxygen supplementation. COPD exacerbation with ER visit on 12/15/2019. Followed by application consultant. Has not tolerated trilogy machine and this was discontinued. Continue prednisone 520 mg daily as ordered for a total of 5 days to take in the morning to limit disruption to sleep. 6. Congestive heart failure. Recent mild pulmonary edema noted on chest x-ray performed 12/15/2019 and emergency department. Patient has had improvement of her overall breathing. Mild edema noted pedal Rashel bilaterally. Complete furosemide 20 mg with potassium chloride 10 mEq daily for a total of 5 days. 7. Dementia. Chronic. Progressive. Fall precautions. Continue 24-hour support within the home. Family is looking at additional caregiving options with the patient's tpthabyx-um-cou coming into the home on a weekly basis as well he is looking into in the future facility placement. Provided contact for private caregiver belkys [place] for family to contact. His gradual decline is expected. 6. Advance care planning. POLST within the home as DNR with selective treatment. As patient's olopkvxq-bp-oyv and daughter will be present at next evaluation and goals are focused on quality of life and comfort management would like to readdress comfort focused care on POLST at next appointment. Goal at the present time is to work on pain management at the cervical spine as well as anxiety to optimize comfort and improvement of function. Patient at the present time does not qualify for hospice services. We will continue to follow and make recommendation for hospice when patient is medically appropriate. F/u in 1 week or sooner if new/worsening symptoms. Time Spent: Total time spent 60 minutes with greater than 50% of this spent in counseling and coordination of care with patient, DAVID Aguero, caregiver Meera and Dr. Blakely updated; reviewed purpose and side effects of medications with understanding verbalized, review of pain and symptom management and anticipatory guidance. Disclaimer: The chart note was formulated using voice recognition technology and unfortunately sound alike errors may occur.
== END 2019-12-17 10:31 | disposition home or self-care (01) ==
LOC: PC 10:30
PROVIDERS: ATTEND Nurse Practitioner Family
DX: Z51.5 Encounter for palliative care (principal); J44.1 Chronic obstructive pulmonary disease with (acute) exacerbation; M54.2 Cervicalgia; G89.29 Other chronic pain; I11.0 Hypertensive heart disease with heart failure; I50.9 Heart failure, unspecified; F41.9 Anxiety disorder, unspecified; F03.90 Unspecified dementia, unspecified severity, without behavioral disturbance, psychotic disturbance, mood disturbance, and anxiety; E03.9 Hypothyroidism, unspecified; E46 Unspecified protein-calorie malnutrition; H91.90 Unspecified hearing loss, unspecified ear; Z66 Do not resuscitate; Z91.81 History of falling; Z79.51 Long term (current) use of inhaled steroids; Z79.891 Long term (current) use of opiate analgesic; Z79.52 Long term (current) use of systemic steroids; Z79.899 Other long term (current) drug therapy
CPT/HCPCS: 99350

== ENCOUNTER 2019-12-23 11:35 | Outpatient (CLI) | payer MEDICARE, OTHER ==
--- NOTE | 2019-12-23 13:20 | CONSULTATION NOTE ---
Palliative Care Follow Up - Referral Referring Provider: Dr. Kirk Blakely Time of Visit: [id number] Referral setting: Home Referral Reason: Pain Management/Anxiety/HTN - Information Sources Records reviewed: Previous records reviewed History/Review of Systems obtained from: Patient, Family (daughter/DIDIER Varma present), Caregiver (private caregiver, Mary Ann with [facility]) Exam limitations: Clinical condition (cognitive impairment) - History of Present Illness Update Brief HPI Update: This is a frail 84-year-old female who was seen in follow-up today with in her home due to continued cervical neck pain, hypertension, anxiety with her private duty caregiver and daughter/D ALYSSA Martinez present. The patient was last seen in the emergency department on 12/15/2019 due to exacerbation of COPD and pulmonary edema noted on chest x-ray. She was initiated on a 5-day course of furosemide 20 mg with potassium chloride 10 mEq for 5 days as well as prednisone 20 mg daily for 5 days. The patient reports that her breathing has improved and this is also noted by the patient's daughter/D ALYSSA and private duty caregiver. The patient and denies any wheezing at the present time as well as cough. She has no fever or chills. She does not wear oxygen supplementation for her chronic COPD. Her daughter reports that the patient was on 3 to 5 mg prednisone daily for "a long time" In the past and she developed side effects with a Nayla appearance prior to being tapered off the prednisone. The patient is status post a cervical procedure for neck pain with Dr. SERAFIN CAI that is approximately 3 weeks ago. She is presently on Celebrex as well as morphine immediate release 7.5 mg twice daily and a quarter of a tablet 15 mg morphine tablets every 4 hours as needed for breakthrough pain. She also continues on scheduled acetaminophen 1 g 3 times daily. Since her morphine immediate release 7.5 mg was increased to 3 times daily on last evaluation she has had improvement of her overall pain. The patient reports last night she slept better. She is no longer yelling out at the caregivers or attempting to call 911 due to her distress. The patient is scheduled to follow-up with Dr. SERAFIN Gallo. She denies reports of nausea and there is been no change in her appetite. Due to the patient's underlying cognitive impairment her family and caregivers are trying to monitor her behavioral response in regards to her pain. The patient has had elevated blood pressures after her losartan was discontinued in November 2019 for orthostatic hypotension, syncope and she was initiated on Middaugh drone twice daily. Due to her blood pressure elevations her Middaugh drain was discontinued entirely. On last evaluation she was started on losartan 25 mg daily. She continues to have her blood pressure checked daily sitting by a private caregiving staff. Typically her systolic blood pressure has been around 160. The patient today denies headache or dizziness on assessment. The patient has a longstanding history of anxiety. Since initiation of BuSpar 5 mg nightly there has been overall noted benefit of the patient's behaviors. She is brushing her hair less and less and having less outbursts. She has had intermittent administration of BuSpar 5 mg daily as needed by caregiving staff. She is beginning to relax around other caregivers as she now has 6 caregivers that are consistent. Previously there were fluctuations in some of her caregivers that has resulted in increased anxiety. Patient is seen out of bed today dressed in the living room. She is making jokes and is without any distress. She was seen at the bakery machine mechanic supervisor earlier today to have her hearing aids checked and cleaned. Patient has a past medical history of hypertension, asthma, COPD, dementia, hypothyroidism, GERD, diverticulitis, depression, anxiety, osteopenia, frequent falls, chronic neck pain, hyponatremia. Social History - Living Situation Living arrangement: At home Living Situation: With caregiver(s) (01/01 [facility] care) Support System: Patient presently resides in her home of 22 years. Her on [facility] hospice on 07/17/2019. Her children visit on a rotating schedule and manage her medications with cueing from caregivers. The patient's daughter/D POA is Michelle [phone] and her son, Ishan is secondary D POA [phone]. Michelle resides in [place], [place]. Michelle is now coming up every 2 weeks. The family has now established that the patient's [id number], More is to come every Sunday for management. Medications/Allergies - Medications Home Medications: Ambulatory Orders Medication Instructions Recorded Confirmed Levothyroxine [Synthroid] 125 mcg PO QDAC 07/10/14 11/14/19 Ipratropium/Albuterol Sulfate 3 ml INH QID 12/25/17 11/14/19 [Iprat-Albut 0.5-3(2.5) mg/3 ml] Escitalopram Oxalate 5 mg PO DAILY 07/28/19 11/14/19 Fluticasone Propion/Salmeterol 1 puffs INH BID 08/25/19 11/14/19 [Wixela 250-50 Inhub] Albuterol Sulfate [Albuterol 2 puffs INH Q4H PRN 11/14/19 11/14/19 Sulfate Hfa] Celecoxib 200 mg PO DAILY 11/14/19 11/14/19 Montelukast Sodium 10 mg PO QPM 11/14/19 11/14/19 Trazodone HCl 50 mg PO QPM PRN 11/14/19 11/14/19 Triamcinolone 0.1% Cream [Kenalog 1 applic TOP PRN PRN 11/14/19 11/14/19 0.1% Cream] Acetaminophen 1,000 mg PO TID 12/02/19 12/02/19 Docusate Sodium 100 mg PO DAILY 12/02/19 12/02/19 Morphine Ir [Ms Ir] 0.25 tab PO Q4H PRN 12/02/19 Morphine Ir [Ms Ir] 7.5 mg PO TID 12/02/19 12/02/19 Ondansetron Odt [Zofran Odt] 4 mg PO Q8H PRN 12/02/19 12/02/19 Buspirone HCl 5 mg PO BID 12/10/19 12/10/19 Senna [Senokot] 8.6 mg PO DAILY PRN 12/10/19 12/10/19 polyethylene glycoL 3350 [Miralax] 17 g PO DAILY 12/10/19 12/10/19 Losartan Potassium 12.5 mg PO DAILY 12/17/19 12/17/19 busPIRone [Buspar] 5 mg PO DAILY PRN 12/17/19 12/17/19 - Allergies Allergies/Adverse Reactions: Allergies Allergy/AdvReac Type Severity Reaction Status Date / Time moxifloxacin Allergy Severe Rash Verified 11/14/19 05:54 losartan [From Cozaar] Allergy Unknown Verified 11/17/19 07:50 oxycodone Allergy Unknown Verified 11/14/19 05:54 codeine AdvReac Severe Nausea Verified 11/14/19 15:46 hydrocodone AdvReac Severe Vomiting Verified 11/14/19 05:54 tramadol AdvReac Severe Vomiting Verified 11/14/19 05:54 Review of Systems - Constitutional Constitutional: reports: Fatigue, Weight loss. denies: Fever - Eyes Eyes: denies: Irritation - Ears, Nose & Throat Ears, Nose & Throat: reports: Hearing loss, Hearing aids - Cardiovascular Cardiovascular: denies: Chest pain - Respiratory Respiratory: denies: Cough, Wheezing, SOB at rest - Gastrointestinal Gastrointestinal: denies: Abdominal pain, Constipation, Diarrhea, Nausea - Genitourinary Genitourinary: reports: Dysuria - Musculoskeletal Musculoskeletal: reports: Stiffness, Joint pain (neck pain, improved), Assistive devices - Neurological Neurological: reports: General weakness, Memory problems - Psychiatric Psychiatric: reports: Depression, Anxiety - Endocrine Endocrine: reports: Hypothyroidism - All Other Systems All Other Systems: reports: Reviewed and negative Physical Exam - Vital Signs Temperature: 36.5 C Pulse Rate: 73 O2 Saturation: 98 (on RA at rest) Blood Pressure: 112/54 (left wrist sitting) - Physical Exam General Appearance: positive: No acute distress, Alert, Other (thin, temporal wasting noted bilaterally) Eyes Bilateral: positive: Normal inspection Neck: positive: Trachea midline, Other (thin) Cardiovascular: positive: Regular rate & rhythm, No murmur Respiratory: positive: No respiratory distress, Other (no accessory muscle use with pursed lip breathing at times and pausing to take a breath when speaking; good air movement throughout without wheezing or rhonchi). negative: Wheezes Abdomen: positive: Non-tender, Soft, Nml bowel sounds Skin: positive: Dryness Extremities: positive: No pedal edema, Other (No tenderenss to palpation of cervical spine with improved ROM with lateral rotation.) Neurologic/Psychiatric: positive: Oriented x3, Other (making jokes and in good spirits today) Comments/Other: standing 132/77 Palliative Care - POLST Patient has POLST: Yes POLST Status: DNR, Selective Treatment Pain: Pain improved (see HPI for full details) Constipation: No, Opoid induced, Managed - Palliative Care Discussion: The patient is approximately 3 weeks out from her cervical procedure to assist with her chronic cervical neck pain. No evidence at the present time that this has provided relief. Since dose adjustment of her morphine immediate release to 7.5 mg 3 times daily noted improvement in patient's overall demeanor as well as less need for as needed breakthrough medication. The patient has also not attempted to call 911. The patient's underlying anxiety is longstanding and she has responded well to BuSpar 5 mg nightly and as needed 5 mg during the day. She is brushing her hair less and making more jokes. The patient's daughter and caregivers report that the patient seems to be more herself in recent days. Also assisting in the patient's underlying anxiety is she now has 6 consistent caregivers. In the past if there has been a new caregiver despite a family member being present within the home the patient has had disruptive behavior due to underlying anxiety that a stranger was in her home. The patient herself notes overall improvement in her wellbeing. The patient's family has enacted a plan moving forward that the patient's [id number], More will be present 1 day a week for oversight. Her daughter/D ALYSSA Martinez will be present every 2 weeks and the patient's son, Ishan will be available to fill in in between. Impression and Recommendations - Palliative Care Impression: This is a frail 84-year-old female with a longstanding history of COPD, chronic neck pain with hypertension. She is status post cervical procedure for her cervical neck pain performed on 12/04/[address] BETANCOURT L0. Since recent dose adjustment she has had improvement in her overall neck pain as well as her underlying anxiety. She reports some dizziness with position changes from sitting to standing or when newly initiated losartan. No recent falls. Palliative care to continue to provide symptom management, anticipatory guidance, advance care planning and a transition to hospice when appropriate. Recommendations/Counseling Done: 1. Cervical neck pain. Chronic. Status post cervical procedure with Dr. SERAFIN Bocanegra0112/04/2019 with follow-up on 01/05/2020. Continue to monitor behaviors of the patient to gauge her pain level due to her underlying cognitive impairment. Continue acetaminophen 1 g 3 times daily and this is the maximum dose of acetaminophen in a day. Continue morphine sulfate immediate release 7.5 mg 3 times daily. For breakthrough pain take a quarter of morphine immediate release 50 mg tablet every 4 hours as needed for pain. No longer with reports of nausea. She has as needed Zofran within the home for nausea. Today patient has had improvement in her overall functional status and was able to dress independently. Continue to monitor and adjust pain regiment as needed. 2. Hypertension. Denies cardiac complaints. Recent orthostatic hypotension in the setting of antihypertensive medication and dehydration. Patient was recen tly restarted on losartan at 25 mg in the morning. Obtainment of blood pressure today demonstrated blood pressure less than 140/80 with some reports of dizziness changing from sitting to standing. Reduce losartan to 12.5 mg daily in the morning with goal blood pressure less than 150/90. At this time wish to have the patient's blood pressure on the higher end for management to reduce the risk of orthostatic hypotension and falls. Continue to monitor closely and adjust regimen as needed based on the patient's response. Continue to request that the private caregivers obtain the patient's blood pressure daily. 3. Anxiety. Patient has a longstanding history of underlying anxiety specifically when her routine is altered. Noted improvement. Continue Lexapro 5 mg daily. Increase BuSpar to 5 mg twice daily with 5 mg p.o. to be administered once daily as needed for anxiety. There is room to titrate BuSpar further as the patient has had a positive response. Continue to monitor. 4. Dementia. Chronic. Progressive. Fall precautions. Continue 24-hour support within the home. Recently family has implemented a new plan in regards to caregiving to have more oversight. On no behavioral disease medications. No recent falls. A gradual decline as expected. Time Spent: Total time spent 50 minutes with greater than 50% of this spent in counseling and coordination of care with patient, daughter/DIDIER Varma and private caregiver Mary Ann, review of pain and symptom management and anticipatory guidance. disclaimer: The chart note was formulated using voice recognition technology and unfortunately sound alike errors may occur.
== END 2019-12-23 11:36 | disposition home or self-care (01) ==
LOC: PC 11:35
PROVIDERS: ATTEND Nurse Practitioner Family
DX: Z51.5 Encounter for palliative care (principal); G89.29 Other chronic pain; M54.2 Cervicalgia; F41.9 Anxiety disorder, unspecified; J44.9 Chronic obstructive pulmonary disease, unspecified; I11.0 Hypertensive heart disease with heart failure; I50.9 Heart failure, unspecified; F03.90 Unspecified dementia, unspecified severity, without behavioral disturbance, psychotic disturbance, mood disturbance, and anxiety; E03.9 Hypothyroidism, unspecified; R41.3 Other amnesia; H91.90 Unspecified hearing loss, unspecified ear; Z91.81 History of falling; Z66 Do not resuscitate; Z79.891 Long term (current) use of opiate analgesic; Z79.52 Long term (current) use of systemic steroids; Z79.899 Other long term (current) drug therapy
CPT/HCPCS: 99349

== ENCOUNTER 2019-12-31 13:59 | Emergency (ER) | payer MEDICARE, OTHER ==
[2019-12-31 14:12] VITALS: BP 132/60
[2019-12-31] MEDS ORDERED: MAGNESIUM CITRATE 296 ML BOTTLE PO STA (14:30)
[2019-12-31] MEDS ORDERED: MINERAL OIL ENEMA 133 ML BOTTLE RC STA (14:30)
--- NOTE | 2019-12-31 14:50 | ED Physician Documentation ---
History of Present Illness - Stated complaint Stated Complaint: Constipation - Chief complaint Chief Complaint: Abd Pain - History obtained from History obtained from: Patient, Caregiver - History of Present Illness Timing: How many days ago (6) Pain level max: 5 Pain level now: 0 - Additonal information Additional information: 84-year-old female with a history of COPD, dementia, chronic bronchitis. She is on palliative care. She is on chronic morphine at home. Her caregiver states that the patient did not receive her usual MiraLAX for 3 days. Now has been constipated for 6 days. No fevers. No vomiting. Nothing makes it better or worse. They called her palliative care team as well as her doctor and they recommended that she come to the emergency department as neither had time to evaluate her. Review of Systems Unable to obtain: Dementia Constitutional: denies: Fever, Chills Cardiac: denies: Chest pain / pressure Respiratory: denies: Cough GI: denies: Vomiting, Diarrhea, Hematemesis, Bloody / black stool Neurologic: denies: Headache PD PAST MEDICAL HISTORY - Past Medical History Past Medical History: Yes Cardiovascular: Hypertension Respiratory: Asthma, COPD Neuro: Dementia, Headaches Endocrine/Autoimmune: HyPOthyroidism GI: GERD, Diverticulitis BURLAP SPREADER: None : Nocturia HEENT: Chronic vision loss, Chronic hearing loss, Other Psych: Depression, Anxiety Musculoskeletal: Osteoarthritis, Other Derm: None - Past Surgical History Past Surgical History: Yes General: Appendectomy Ortho: Spine surgery, Other /BURLAP SPREADER: Hysterectomy HEENT: Cataracts - Present Medications Home Medications: Ambulatory Orders Medication Instructions Recorded Confirmed Levothyroxine [Synthroid] 125 mcg PO QDAC 07/10/14 11/14/19 Ipratropium/Albuterol Sulfate 3 ml INH QID 12/25/17 11/14/19 [Iprat-Albut 0.5-3(2.5) mg/3 ml] Escitalopram Oxalate 5 mg PO DAILY 07/28/19 11/14/19 Fluticasone Propion/Salmeterol 1 puffs INH BID 08/25/19 11/14/19 [Wixela 250-50 Inhub] Albuterol Sulfate [Albuterol 2 puffs INH Q4H PRN 11/14/19 11/14/19 Sulfate Hfa] Celecoxib 200 mg PO DAILY 11/14/19 11/14/19 Montelukast Sodium 10 mg PO QPM 11/14/19 11/14/19 Trazodone HCl 50 mg PO QPM PRN 11/14/19 11/14/19 Triamcinolone 0.1% Cream [Kenalog 1 applic TOP PRN PRN 11/14/19 11/14/19 0.1% Cream] Acetaminophen 1,000 mg PO TID 12/02/19 12/02/19 Docusate Sodium 100 mg PO DAILY 12/02/19 12/02/19 Morphine Ir [Ms Ir] 0.25 tab PO Q4H PRN 12/02/19 Morphine Ir [Ms Ir] 7.5 mg PO TID 12/02/19 12/02/19 Ondansetron Odt [Zofran Odt] 4 mg PO Q8H PRN 12/02/19 12/02/19 Buspirone HCl 5 mg PO BID 12/10/19 12/10/19 Senna [Senokot] 8.6 mg PO DAILY PRN 12/10/19 12/10/19 polyethylene glycoL 3350 [Miralax] 17 g PO DAILY 12/10/19 12/10/19 Losartan Potassium 12.5 mg PO DAILY 12/17/19 12/17/19 busPIRone [Buspar] 5 mg PO DAILY PRN 12/17/19 12/17/19 - Allergies Allergies/Adverse Reactions: Allergies Allergy/AdvReac Type Severity Reaction Status Date / Time moxifloxacin Allergy Severe Rash Verified 12/31/19 14:10 losartan [From Cozaar] Allergy Unknown Verified 12/31/19 14:10 oxycodone Allergy Unknown Verified 12/31/19 14:10 codeine AdvReac Severe Nausea Verified 12/31/19 14:10 hydrocodone AdvReac Severe Vomiting Verified 12/31/19 14:10 tramadol AdvReac Severe Vomiting Verified 12/31/19 14:10 - Social History Does the pt smoke?: No Smoking Status: Never smoker Does the pt drink ETOH?: Yes Does the pt have substance abuse?: No - Immunizations Immunizations are current?: Yes - POLST Patient has POLST: Yes POLST Status: DNR (limited interventions) PD ED PE NORMAL - Vitals Vital signs reviewed: Yes - General General: Alert and oriented X 3, No acute distress, Well developed/nourished - HEENT HEENT: Moist mucous membranes - Neck Neck: Supple, no meningeal sign - Cardiac Cardiac: RRR - Respiratory Respiratory: No respiratory distress - Abdomen Abdomen: Normal bowel sounds, Soft, Non tender, Non distended - Rectal Rectal: Other (Manual disimpaction performed. Tolerated well. No bleeding) - Derm Derm: Warm and dry - Extremities Extremities: No edema - Neuro Neuro: Alert and oriented X 3 - Psych Psych: Normal mood, Normal affect Results - Vitals Vitals: Vital Signs - 24 hr 12/31/19 12/31/19 14:10 17:10 Temperature 36.8 C Heart Rate 89 93 Respiratory 16 Rate Blood Pressure 132/60 H O2 Saturation 98 97 Oxygen O2 Source [Without Activity] Room air O2 Source Room air PD MEDICAL DECISION MAKING - ED course Complexity details: re-evaluated patient, considered differential, d/w patient, d/w family ED course: Patient with constipation. She was given an enema and did have a small bowel movement, disimpaction performed and had a large bowel movement. No vomiting. No evidence of obstruction. Recommend that she restart her MiraLAX as she is on morphine at home. This is likely the cause of her constipation. Patient counseled regarding signs and symptoms for which I believe and urgent re- evaluation would be necessary. Patient with good understanding of and agreement to plan and is comfortable going home at this time This document was made in part using voice recognition software. While efforts are made to proofread this document, sound alike and grammatical errors may occur. No evidence of obstruction, perforation. Departure - Departure Disposition: 01 Home, Self Care Clinical Impression: Constipation Qualifiers: Constipation type: unspecified constipation type Qualified Code(s): K59.00 - Constipation, unspecified Condition: Good Instructions: ED Constipation Follow-Up: Kirk Blakely DO [Primary Care Provider] - Within 3 Days Comments: Resume her normal medications at home. Be sure she is drinking plenty of water. Return if she worsens Discharge Date/Time: 12/31/19 17:30
[2019-12-31] MEDS ORDERED: SALINE ENEMA 133 ML BOTTLE RC STA (15:53)
== END 2019-12-31 17:30 | disposition home or self-care (01) ==
LOC: ED 13:59
DX: K59.00 Constipation, unspecified (principal); I10 Essential (primary) hypertension; F03.90 Unspecified dementia, unspecified severity, without behavioral disturbance, psychotic disturbance, mood disturbance, and anxiety; Z79.891 Long term (current) use of opiate analgesic; Z66 Do not resuscitate
CPT/HCPCS: 99282; 99284; A9270

== ENCOUNTER 2020-01-06 11:30 | Outpatient (CLI) | payer MEDICARE, OTHER ==
--- NOTE | 2020-01-06 17:15 | CONSULTATION NOTE ---
Palliative Care Follow Up - Referral Referring Provider: Dr. Kirk Blakely Time of Visit: [id number] Referral setting: Home Referral Reason: Cervical pain management/Anxiety/HTN/COnstipation - Information Sources Records reviewed: Previous records reviewed History/Review of Systems obtained from: Patient, Family (daughter/DIDIER Martinez present), Caregiver (private caregiver Mary Ann with visiting geno) Exam limitations: Clinical condition (Cognitive impairment) - History of Present Illness Update Brief HPI Update: This is a frail 84-year-old female who is seen in follow-up today in her home due to cervical neck pain, hypertension, anxiety, and recent constipation due to opioid use with her private duty caregiver and daughter/D ALYSSA Martinez present. The patient is status post cervical procedure for neck pain with Dr. SERAFIN YOUNGBLOOD approximately 4 weeks ago. She is status post a follow-up appointment with Dr. SERAFIN Gallo on 01/05/2020. Per the daughter's report the injection is starting to take effect and provide relief for the pain. The patient has had improvement in her range of motion with her neck. She is requiring less breakthrough morphine. Typically she is requiring a quarter of morphine 15 mg tablet typically once a day. She remains on morphine immediate release 7.5 mg 3 times daily for pain. She is no longer taking routine acetaminophen. The patient's daughter is optimistic that the morphine immediate release will be able to be tapered down in the future. The patient was seen in the emergency department on 12/30 due to constipation and impaction. There were 3 days that the patient was not administered her routine MiraLAX for her bowel regimen on morphine and she had not had a bowel movement since 12/25/2019 and additional measures were not effective within the home which is limited given she is under senior care care and family is not in the immediate area. While in the ER she was administered an enema, and disimpacted. Last bowel movement was on 01/04. The patient denies abdominal pain or straining with defecation. She has had "a blowout" since returning home from the ER. The patient has a history of hypertension and her losartan 100 mg was discontinued in November 2019 for orthostatic hypotension, syncope and was initiated on Middaugh drain twice daily. As her blood pressures became elevated Middaugh drain was discontinued. She presently on is on losartan 12.5 mg daily. upon review her blood pressures have ranged 122-177/66-88 obtain by caregiving staff. Patient denies headaches or dizziness. The patient has a longstanding history of anxiety. She is on BuSpar 5 mg twice daily as well as Lexapro 5 mg daily. She has had improvement in her overall anxiety. The patient's daughter/D POA Michelle as well as her brother have reported the patient recently has displayed less anxiety, less irritability and an improvement in her cognition which they have not seen since May 2019. The patient is seen today in the dining room. She is in her [facility]. She appears slightly fatigued due to her long office visit out of the home yesterday. Her daughter is requesting to have her ears checked in clean as this was recommended by the activity therapy teacher. Patient has a history of hypertension, asthma, COPD, dementia, hypothyroidism, GERD, diverticulitis, depression, anxiety, osteopenia, frequent falls, chronic neck pain, hyponatremia. Social History - Living Situation Living arrangement: At home Living Situation: With caregiver[facility] Support System: Patient presently resides in her home of 22 years. and will be home hospice on 07/17/2019. Her children are visiting on a rotating schedule and manage her medications with cueing from caregivers. The patient's daughter/D POA is Michelle [phone] and her son, Ishan is secondary D POA at [phone]. Michelle resides in [facility]. Michelle is coming up approximately every 2 weeks. The patient's [id number], More is coming to the home every Sunday for medication management. Medications/Allergies - Medications Home Medications: Ambulatory Orders Medication Instructions Recorded Confirmed Levothyroxine [Synthroid] 125 mcg PO QDAC 07/10/14 11/14/19 Ipratropium/Albuterol Sulfate 3 ml INH QID 12/25/17 11/14/19 [Iprat-Albut 0.5-3(2.5) mg/3 ml] Escitalopram Oxalate 5 mg PO DAILY 07/28/19 11/14/19 Fluticasone Propion/Salmeterol 1 puffs INH BID 08/25/19 11/14/19 [Wixela 250-50 Inhub] Albuterol Sulfate [Albuterol 2 puffs INH Q4H PRN 11/14/19 11/14/19 Sulfate Hfa] Celecoxib 200 mg PO DAILY 11/14/19 11/14/19 Montelukast Sodium 10 mg PO QPM 11/14/19 11/14/19 Trazodone HCl 50 mg PO QPM PRN 11/14/19 11/14/19 Triamcinolone 0.1% Cream [Kenalog 1 applic TOP PRN PRN 11/14/19 11/14/19 0.1% Cream] Morphine Ir [Ms Ir] 0.25 tab PO Q4H PRN 12/02/19 Morphine Ir [Ms Ir] 7.5 mg PO TID 12/02/19 12/02/19 Ondansetron Odt [Zofran Odt] 4 mg PO Q8H PRN 12/02/19 12/02/19 Buspirone HCl 5 mg PO BID 12/10/19 12/10/19 Senna [Senokot] 8.6 mg PO DAILY PRN 12/10/19 12/10/19 polyethylene glycoL 3350 [Miralax] 17 g PO DAILY 12/10/19 12/10/19 Losartan Potassium 12.5 mg PO DAILY 12/17/19 12/17/19 busPIRone [Buspar] 5 mg PO DAILY PRN 12/17/19 12/17/19 Senna [Senokot] 8.6 mg PO QPM 01/06/20 01/06/20 - Allergies Allergies/Adverse Reactions: Allergies Allergy/AdvReac Type Severity Reaction Status Date / Time moxifloxacin Allergy Severe Rash Verified 12/31/19 14:10 losartan [From Cozaar] Allergy Unknown Verified 12/31/19 14:10 oxycodone Allergy Unknown Verified 12/31/19 14:10 codeine AdvReac Severe Nausea Verified 12/31/19 14:10 hydrocodone AdvReac Severe Vomiting Verified 12/31/19 14:10 tramadol AdvReac Severe Vomiting Verified 12/31/19 14:10 Review of Systems - Constitutional Constitutional: reports: Fatigue, Weight loss. denies: Fever - Eyes Eyes: denies: Irritation - Ears, Nose & Throat Ears, Nose & Throat: reports: Hearing loss, Hearing aids - Cardiovascular Cardiovascular: denies: Palpitations, Chest pain - Respiratory Respiratory: denies: Cough, Wheezing - Gastrointestinal Gastrointestinal: reports: Constipation (see HPI for full details), Other (Fair appetite). denies: Abdominal pain, Abdominal distention, Rectal bleeding, Vomiting - Genitourinary Genitourinary: denies: Dysuria - Musculoskeletal Musculoskeletal: reports: Joint pain (neck pain improved), Assistive devices - Integumentary Integumentary: denies: Rash - Neurological Neurological: reports: General weakness, Memory problems. denies: Headache, Dizziness - Psychiatric Psychiatric: reports: Depression, Anxiety - Endocrine Endocrine: reports: Hypothyroidism - All Other Systems All Other Systems: reports: Reviewed and negative Physical Exam - Vital Signs Temperature: 36.4 C Pulse Rate: 83 O2 Saturation: 96 (on RA at rest) Blood Pressure: 114/72 (left wrist cuff sitting) - Physical Exam General Appearance: positive: No acute distress, Alert, Other (thin, temporal wasting noted bilaterally) Eyes Bilateral: positive: Normal inspection ENT: positive: Hearing loss, Hearing aids, Other (dry cerumen noted to b/l ear canals with lighted curette and otoscope cerumen removed with b/l TMs clear and intact) Neck: positive: Trachea midline, Other (thin) Cardiovascular: positive: Regular rate & rhythm, No murmur Respiratory: positive: No respiratory distress, Other (no accessory muscle use with pursed lip breathing at times and pausing to take a breath when speaking; good air movement throughout without wheezing or rhonchi). negative: Wheezes Abdomen: positive: Non-tender, Soft, Nml bowel sounds. negative: Distended Skin: positive: Dryness Extremities: positive: No pedal edema, Other (No tenderenss to palpation of cervical spine with improved ROM with lateral rotation.) Neurologic/Psychiatric: positive: Oriented x3 (short term memory impairment), Mood/affect nml Comments/Other: standing 135/71 Palliative Care - POLST Patient has POLST: Yes POLST Status: DNR, Selective Treatment Pain: Pain improved (see HPI for additonal details) Constipation: Yes, Opoid induced, Managed Performance Status: PPS 60% - Palliative Care Discussion: Patient is approximately 4 weeks out from her cervical procedure to assist with her chronic cervical neck pain with noted improvement beginning. Presently her pain is controlled and she is able to perform activities within the house with morphine immediate release 7.5 mg 3 times daily with intermittent need for breakthrough medication. The patient has a longstanding history of underlying anxiety and she has been responding well to BuSpar 5 mg twice daily in addition to her 5 mg of Lexapro. The patient appears to be less anxious and a reduction in her focus on her hair that was indicative of her underlying anxiety. The patient's family is quite pleased with her overall improvement with her pain and underlying anxiety. They recognize that she is declining but wish to have the patient remain in her home for as long as possible with 247 caregiving and family oversight for medical management. The patient has had resolution of her underlying opioid-induced constipation handed has been made clear to the caregivers that missing her bowel regiment medication is not a option. Impression and Recommendations - Palliative Care Impression: This is a frail 84-year-old female with a longstanding history of COPD, chronic neck pain with hypertension and anxiety. She is status post cervical procedure for her cervical neck pain performed 12/04/[address] Bennett. She has had improvement in her overall cervical neck pain as well as her underlying anxiety. She had a recent exacerbation of constipation needing an enema and disimpaction due to her bowel regimen medication being not administered. No recent falls. Palliative care to continue provide symptom management, anticipatory guidance, advance care planning and transition to hospice when appropriate. Recommendations/Counseling Done: 1. Cervical neck pain. Chronic. Status post cervical procedure with Dr. Bennett perform 12/04/2019 with status post follow-up 01/05/2020. Noted improvement overall of the patient's range of motion with her cervical spine and need for breakthrough medication. As she has not been taking her routine acetaminophen may discontinue. Continue morphine sulfate immediate release 7.5 mg 3 times daily as patient's pain is practically controlled and on next follow-up will continue sitter based on patient's overall response if it would be appropriate to begin a slow taper weighing benefits versus burdens to optimize the patient's comfort. For breakthrough pain continue to take 1/4 of morphine immediate release 15 mg tablet every 4 hours as needed for pain. She has as needed Zofran for nausea. Again strongly emphasized the need for routine bowel medication to avoid constipation due to opioids. Continue to monitor and adjust pain regimen as needed. Rx for morphine sulfate IR 15mg 45 tablets written and provided to daughter to fill. 2. Constipation. Opioid induced. Status post ER visit 12/31/2019. Emphasis has been made to private duty caregiver that bowel medication is not to be missed. Continue MiraLAX 17 g daily. Discontinue Dukas states. Initiate senna 8.6 mg nightly. If no bowel movement after 48 hours caregivers to give an extra senna 8.6 mg x 1 had notify palliative care provider during office hours or primary care office on weekends or evenings for additional recommendations. Continue to monitor and adjust bowel regimen as needed. 3. Hypertension. Denies cardiac complaints. Review of blood pressure documentation blood pressure appears to overall be adequately controlled with losartan 12.5 mg daily with a goal blood pressure less than 150/90. Wish to avoid tight blood pressure control to avoid hypotension and risk for falls. Continue to obtain blood pressures daily and record. Continue to monitor. 4. Anxiety. Patient has a longstanding history of underlying anxiety. Noted improvement by family and caregivers. Continue Lexapro 5 mg daily. Continue BuSpar 5 mg twice daily with 5 mg to be administered once daily as needed for anxiety. Continue to monitor. 5. Dementia. Chronic. Progressive. Fall precautions. Continue 24-hour support within the home. Family has made recent changes to come up more regularly due to oversee caregiving support and medication management. On no disease modifying agents. No recent falls. A gradual decline is expected. 6. COPD. Courtesy prescription provided on Wixela inhaler as patient has no more refills and will run out of the medication in a day. Rx sent to [facility] per g[facility]mez banda request and aware to f/u with PCP in future for prescription. Time Spent: Total time spent 50 minutes with greater than 50% of this spent in counseling and coordination of care with patient, daughter/DPPARESH Varma and private caregiver Mary Ann; review of pain and symptom management and anticipatory guidance. disclaimer: The chart note was formulated using voice recognition technology and unfortunately sound alike errors may occur.
== END 2020-01-06 11:31 | disposition home or self-care (01) ==
LOC: PC 11:30
PROVIDERS: ATTEND Nurse Practitioner Family
DX: Z51.5 Encounter for palliative care (principal); G89.29 Other chronic pain; K59.03 Drug induced constipation; T40.2X5A Adverse effect of other opioids, initial encounter; I10 Essential (primary) hypertension; F41.9 Anxiety disorder, unspecified; J44.9 Chronic obstructive pulmonary disease, unspecified; F03.90 Unspecified dementia, unspecified severity, without behavioral disturbance, psychotic disturbance, mood disturbance, and anxiety; H61.23 Impacted cerumen, bilateral; R53.83 Other fatigue; R63.4 Abnormal weight loss; R53.1 Weakness; Z79.899 Other long term (current) drug therapy; Z79.891 Long term (current) use of opiate analgesic; Z66 Do not resuscitate
CPT/HCPCS: 99349

== ENCOUNTER 2020-01-14 11:45 | Outpatient (CLI) | payer MEDICARE, OTHER ==
--- NOTE | 2020-01-14 13:15 | CONSULTATION NOTE ---
Palliative Care Follow Up - Referral Referring Provider: Dr. Kirk Blakely Time of Visit: [id number] Referral setting: Home Referral Reason: Difficulty with breathing/COPD and Asthma - Information Sources Records reviewed: Previous records reviewed History/Review of Systems obtained from: Patient, Family (daughter/Michelle VELÁSQUEZ via phone), Caregiver (Meera present) Exam limitations: Clinical condition (Poor historian due to dementia) - History of Present Illness Update Brief HPI Update: This is a frail 84-year-old female who is seen for an acute evaluation today due to difficulty breathing in the setting of COPD and asthma at the request of her private duty caregiver within her home. The patient began reporting chest tightness and discomfort approximately 8/2. It has been present most days per her private duty caregiver, Meera. Today, the patient wanted to call 911 due to her symptoms. Her private duty caregiver, Meera checked the patient's vital signs and that she has been afebrile and at the time was 166/82 with respirations of 13. The patient received her DuoNeb this morning as well as all her other medications without improvement. On initial call with Meera asked to give an additional DuoNeb and called back in 15 minutes with minimal response and improvement. Thus, this [employer] made a home visit for further evaluation and assessment. Upon presentation the patient was reporting that she was "feeling better." She has a history of increased COPD exacerbations when there is a change in temperature such as being too cold as well as during the summer months. She reports that she has had multiple allergy testing done in the past which did not demonstrate that she had any allergies to "pollen." Her daughter, Michelle reports that the patient loves to go outside and have all the windows open despite requesting their private duty caregivers to have the windows remain closed with the air conditioning on and the air filter on as this increase of airflow from the outside typically leads to a COPD exacerbation. The patient was last seen in the emergency department on 12/15/2019 due to exacerbation of COPD with pulmonary edema noted on her chest x-ray. She completed a 5-day course of prednisone 20 mg daily. She has a longstanding history of COPD and asthma. In the past she has been on daily prednisone for a number of years which was subsequently discontinued. After her last COPD exacerbation her breathing improved and she subsequently returned to her baseline. Patient has a past medical history of hypertension, asthma, COPD, dementia, hypothyroidism, GERD, diverticulitis, depression, anxiety, osteopenia, frequent falls, chronic neck pain, hyponatremia. Social History - Living Situation Living arrangement: At home Living Situation: With caregiver(s) (01/01 caregiver from [facility]) Support System: Patient presently resides in her home of 22 years. Her on home hospice on 07/17/2019. Her children are on a rotating schedule to manage her medications with cueing from caregivers. The patient's daughter/D POA is Michelle [phone] and her son, Ishan is secondary D POA at [phone]. Michelle resides in [place], [place]. Michelle is coming up approximately every 2 weeks for oversight. The patient presently has caregivers for residential care within her home from [facility]. Michelle, her daughter reports that starting next week she is to have a private duty caregiver staying with her Sunday through 01/01 that can provide oversight and medical management. Then on the weekends the family is going to use caregivers from [facility]. This is a plan to have in place with that the patient will be able to remain within her home with more oversight and not have to transition to a facility level of care. Medications/Allergies - Medications Home Medications: Ambulatory Orders Medication Instructions Recorded Confirmed Levothyroxine [Synthroid] 125 mcg PO QDAC 07/10/14 11/14/19 Ipratropium/Albuterol Sulfate 3 ml INH QID 12/25/17 11/14/19 [Iprat-Albut 0.5-3(2.5) mg/3 ml] Escitalopram Oxalate 5 mg PO DAILY 07/28/19 11/14/19 Fluticasone Propion/Salmeterol 1 puffs INH BID 08/25/19 11/14/19 [Wixela 250-50 Inhub] Albuterol Sulfate [Albuterol 2 puffs INH Q4H PRN 11/14/19 11/14/19 Sulfate Hfa] Celecoxib 200 mg PO DAILY 11/14/19 11/14/19 Montelukast Sodium 10 mg PO QPM 11/14/19 11/14/19 Trazodone HCl 50 mg PO QPM PRN 11/14/19 11/14/19 Triamcinolone 0.1% Cream [Kenalog 1 applic TOP PRN PRN 11/14/19 11/14/19 0.1% Cream] Morphine Ir [Ms Ir] 0.25 tab PO Q4H PRN 12/02/19 Morphine Ir [Ms Ir] 7.5 mg PO TID 12/02/19 12/02/19 Ondansetron Odt [Zofran Odt] 4 mg PO Q8H PRN 12/02/19 12/02/19 Buspirone HCl 5 mg PO BID 12/10/19 12/10/19 Senna [Senokot] 8.6 mg PO DAILY PRN 12/10/19 12/10/19 polyethylene glycoL 3350 [Miralax] 17 g PO DAILY 12/10/19 12/10/19 Losartan Potassium 12.5 mg PO DAILY 12/17/19 12/17/19 busPIRone [Buspar] 5 mg PO DAILY PRN 12/17/19 12/17/19 Senna [Senokot] 8.6 mg PO QPM 01/06/20 01/06/20 Sodium Chloride [Saline Nasal 1 spray INH .EACH NOSTRIL PRN PRN 01/14/20 01/14/20 [facility]] MDD To reduce pollen exposure predniSONE [Prednisone] 20 mg PO DAILY MDD for 5 days 01/14/20 01/14/20 - Allergies Allergies/Adverse Reactions: Allergies Allergy/AdvReac Type Severity Reaction Status Date / Time moxifloxacin Allergy Severe Rash Verified 12/31/19 14:10 losartan [From Cozaar] Allergy Unknown Verified 12/31/19 14:10 oxycodone Allergy Unknown Verified 12/31/19 14:10 codeine AdvReac Severe Nausea Verified 12/31/19 14:10 hydrocodone AdvReac Severe Vomiting Verified 12/31/19 14:10 tramadol AdvReac Severe Vomiting Verified 12/31/19 14:10 Review of Systems - Constitutional Constitutional: reports: Fatigue, Weight loss. denies: Fever - Eyes Eyes: denies: Irritation - Ears, Nose & Throat Ears, Nose & Throat: reports: Hearing loss, Hearing aids - Cardiovascular Cardiovascular: denies: Chest pain - Respiratory Respiratory: reports: Wheezing, SOB with exertion, Other ("chest tightness") - Gastrointestinal Gastrointestinal: reports: Constipation (controlled). denies: Diarrhea - Genitourinary Genitourinary: denies: Dysuria - Integumentary Integumentary: denies: Rash - Neurological Neurological: reports: General weakness, Memory problems - Psychiatric Psychiatric: reports: Depression, Anxiety - Endocrine Endocrine: reports: Hypothyroidism - All Other Systems All Other Systems: reports: Reviewed and negative Physical Exam - Vital Signs Temperature: 36.6 C Pulse Rate: 71 Respiratory Rate: 14 O2 Saturation: 95 (on RA at rest) Blood Pressure: 153/63 (left wrist cuff) - Physical Exam General Appearance: positive: No acute distress, Alert, Other (thin, temporal wasting noted bilaterally) Eyes Bilateral: positive: Normal inspection ENT: positive: No signs of dehydration Neck: positive: Trachea midline, Other (thin) Cardiovascular: positive: Regular rate & rhythm, No murmur Respiratory: positive: No respiratory distress, Diminished in bases, Wheezes (expiratory), Other (no accessory muscle use with pursed lip breathing; respiratons shallow) Abdomen: positive: Non-tender, Soft, Nml bowel sounds. negative: Distended Skin: positive: Dryness, Other (intially lips lightly cyanotic after ambulation but coloring returned to baseline after rest) Extremities: positive: No pedal edema Neurologic/Psychiatric: positive: Oriented x3 (short term memory impairment), Other (Does not recall meeting this [employer], irritable when instructed on preventions for future COPD excerbations) Palliative Care - POLST Patient has POLST: Yes POLST Status: DNR, Selective Treatment Dyspnea: Moderate (4-6) - Palliative Care Discussion: The patient has a longstanding history of COPD and asthma with previous long history of daily prednisone use. She is presently presenting in a mild COPD exacerbation likely exacerbated by environmental changes with exposure to pollen into the home from outside. The patient is not in any acute respiratory distress and would benefit from a prednisone burst of 20 mg daily for 5 days. Strongly encouraged that the first dose be administered today with a little bit of food to reduce GI upset. The goal is to have the patient be comfortable at home and avoid an ED visit And related to patient's private duty caregiver that she did the right thing in contacting palliative care for management. The patient herself ultimately wishes to feel improvement of her breathing and resolution of her "chest tightness." However, she reports that she has been told "a long time ago I had weak lungs." She is worried that she will need to be on prednisone long-term and reassurance provided this is a temporary course. Impression and Recommendations - Palliative Care Impression: This is a frail 84-year-old female with a longstanding history of COPD not requiring oxygen supplementation as well as underlying asthma and mild exacerbation. She will benefit from a short prednisone burst for management as well as behavioral modifications to reduce future exacerbations. Palliative care to continue to provide symptom management support, anticipatory guidance and advance care planning with a transition to hospice when medically appropriate. Recommendations/Counseling Done: 1. COPD exacerbation. Patient has a longstanding history of COPD. She does not require oxygen supplementation. She has not tolerated trilogy machine in the past and has been discontinued. Last COPD exacerbation 12/15/2019.Recommend routine use of DuoNeb at least 3 times daily Before meals for 7 days. Initiate prednisone 20 mg 1 tab daily x5 days with Rx sent to [facility] with a quantity of 30 tabs to have available for future exacerbations management within the home to avoid an ED visit. Recommend that she take prednisone with food. Made caregiver and daughter/D Michelle SHAH aware to take first dose of prednisone today as soon as it is available. Then to begin prednisone dosing in the morning with food. Recommend use of a personal fan for shortness of breath. Given the patient has a trigger when she is outside or when the windows open would recommend that she use a saline nasal spray to rinse each nare out upon returning in as well as washing her face to reduce pollen exposure.He advised if we were sending shortness of breath and then would recommend a ED evaluation with caregivers with understanding verbalized. Request that private caregiver Meera provide Palliative care with a status update on the patient's on 01/15/2020. 2. Dementia. Chronic. Progressive. Fall precautions. Continue 24-hour support within the home. Patient is to transition to a live in private caregiver 5 days a week and visiting [place] on the weekends to avoid facility placement for management of the patient's progression of dementia. Requiring increased need with dressing. A gradual decline is expected. 6. Advance care planning. POLST within the home as DNR with selective treatment. Goals of family remain to keep the patient in place within her private home with avoidance of facility placements and ED visits. Supportive listening provided. Continue to follow within the home. F/u 01/20/2020 as previously scheduled or sooner if new/worsening symptoms. Time Spent: Total time spent 40 minutes with greater than 50% of this spent in counseling and coordination of care with the patient, private caregiver Meera and daughter/DPPARESH Martinez via phone in presence of patient; examination of patient; review of symptom management and anticipatory guidance. Disclaimer: The chart note was formulated using voice recognition technology and unfortunately sound alike errors may occur.
== END 2020-01-14 11:46 | disposition home or self-care (01) ==
LOC: PC 11:45
PROVIDERS: ATTEND Nurse Practitioner Family
DX: Z51.5 Encounter for palliative care (principal); J44.1 Chronic obstructive pulmonary disease with (acute) exacerbation; F03.90 Unspecified dementia, unspecified severity, without behavioral disturbance, psychotic disturbance, mood disturbance, and anxiety; Z79.899 Other long term (current) drug therapy; Z79.891 Long term (current) use of opiate analgesic; Z66 Do not resuscitate
CPT/HCPCS: 99349

== ENCOUNTER 2020-01-20 12:00 | Outpatient (CLI) | payer MEDICARE, OTHER ==
--- NOTE | 2020-01-20 17:46 | CONSULTATION NOTE ---
Palliative Care Follow Up - Referral Referring Provider: Dr. Kirk Blakely Time of Visit: [id number] Referral setting: Home Referral Reason: COPD excerbation/Cervical neck pain/Dementia - Information Sources Records reviewed: Previous records reviewed History/Review of Systems obtained from: Patient, Family, Caregiver (private caregiver Masood) Exam limitations: Clinical condition (Cognitive impairment) - History of Present Illness Update Brief HPI Update: This is a frail 84-year-old female who was seen in follow-up today within her home with her son and daughter/D ALYSSA is Leah present for follow-up for COPD exacerbation, status post ER visit, and cervical pain management. Patient had been developing increased chest tightness over several days that resulted in a visit by this MANAGER [employer]NAG[employer] on 01/14/2024 COPD exacerbation. Likely trigger was due to her going continuingly outside and having all the windows open within the home despite request to the private duty caregivers for the windows remain home with air conditioning on. She was initiated on prednisone as well as requesting routine duo nebs. Upon follow-up the patient did not have improvement of her overall condition and was advised to report to the emergency room on 01/15/2020 where she was evaluated. She had a Chest x-ray performed at at demonstrated mild bronchial wall thickening with no acute disease. She was discharged on a prednisone taper over 10 days and doxycycline 100 mg twice daily For 10 days. Her son and daughter reports that the patient has had great improvement in her breathing. The patient has now returned to her baseline with her underlying COPD. She continues to administer her DuoNeb's routinely. The patient's daughter has obtained a personal fan for the patient to use for an acute event. This is her second COPD exacerbation for this summer. The patient is status post cervical procedure to her neck with Dr. Celeste that was preformed in November 2019. She has had improvement to her neck pain and has improved range of motion. She is not requiring breakthrough immediate relief morphine. She is presently taking morphine immediate release scheduled 7.5 mg 3 times daily for pain. As she has had overall improvement in her overall pain her family wishes to do a trial dose reduction with her pain regiment. Patient is seen out of bed in [facility] and her favorite chair in her living room. No visible distress. Improved coloring to her lips from last evaluation with no audible wheezing. Patient has a history of hypertension, asthma, COPD, dementia, hypothyroidism, GERD, diverticulitis, depression, anxiety, osteopenia, frequent falls, chronic neck pain, hyponatremia. Social History - Living Situation Living arrangement: At home Living Situation: With caregiver(s) (Patient has a new caregiver to remain for 01/01 through Sunday, DEV I a who is able to administer medications and provide oversight of care. She started this Sunday. During the weekends the patient will continue to have long term care with visiting Paula.) Support System: Patient presently resides in her home of 22 years. Her on home hospice on 07/17/2019. Her children, Michelle and Ishan, continue to visit on a rotating schedule and manage her medications with cueing from caregivers. The patient's daughter/D POA is Michelle [phone] and her son Ishan is secondary D POA at [phone]. Michelle resides in [facility] and works through Sunday. The patient's [id number], More is coming to the home on the weekly basis on Wednesdays for medication management. Medications/Allergies - Medications Home Medications: Ambulatory Orders Medication Instructions Recorded Confirmed Levothyroxine [Synthroid] 125 mcg PO QDAC 07/10/14 11/14/19 Ipratropium/Albuterol Sulfate 3 ml INH QID 12/25/17 11/14/19 [Iprat-Albut 0.5-3(2.5) mg/3 ml] Escitalopram Oxalate 5 mg PO DAILY 07/28/19 11/14/19 Fluticasone Propion/Salmeterol 1 puffs INH BID 08/25/19 11/14/19 [Wixela 250-50 Inhub] Albuterol Sulfate [Albuterol 2 puffs INH Q4H PRN 11/14/19 11/14/19 Sulfate Hfa] Celecoxib 200 mg PO DAILY 11/14/19 11/14/19 Montelukast Sodium 10 mg PO QPM 11/14/19 11/14/19 Trazodone HCl 50 mg PO QPM PRN 11/14/19 11/14/19 Triamcinolone 0.1% Cream [Kenalog 1 applic TOP PRN PRN 11/14/19 11/14/19 0.1% Cream] Morphine Ir [Ms Ir] 0.25 tab PO Q4H PRN 12/02/19 Morphine Ir [Ms Ir] 7.5 mg PO BID 12/02/19 12/02/19 Ondansetron Odt [Zofran Odt] 4 mg PO Q8H PRN 12/02/19 12/02/19 Buspirone HCl 5 mg PO BID 12/10/19 12/10/19 Senna [Senokot] 8.6 mg PO DAILY PRN 12/10/19 12/10/19 polyethylene glycoL 3350 [Miralax] 17 g PO DAILY 12/10/19 12/10/19 Losartan Potassium 12.5 mg PO DAILY 12/17/19 12/17/19 busPIRone [Buspar] 5 mg PO DAILY PRN 12/17/19 12/17/19 Senna [Senokot] 8.6 mg PO QPM 01/06/20 01/06/20 Sodium Chloride [Saline Nasal 1 spray INH .EACH NOSTRIL PRN PRN 01/14/20 01/14/20 [place]] MDD To reduce pollen exposure Doxycycline Hyclate 100 mg PO BID #20 capsule 01/15/20 LORazepam [Ativan] 0.5 mg PO BID PRN #10 tablet 01/15/20 predniSONE [Deltasone] 10 mg PO [id number] #42 tab 01/15/20 Morphine Ir [Ms Ir] 0.25 tab PO .MIDDAY MDD x5 days 01/20/20 01/20/20 and no pain d/c - Allergies Allergies/Adverse Reactions: Allergies Allergy/AdvReac Type Severity Reaction Status Date / Time moxifloxacin Allergy Severe Rash Verified 01/15/20 13:27 losartan [From Cozaar] Allergy Unknown Verified 01/15/20 13:27 oxycodone Allergy Unknown Verified 01/15/20 13:27 codeine AdvReac Severe Nausea Verified 01/15/20 13:27 hydrocodone AdvReac Severe Vomiting Verified 01/15/20 13:27 tramadol AdvReac Severe Vomiting Verified 01/15/20 13:27 Review of Systems - Constitutional Constitutional: reports: Fatigue, Weight loss. denies: Fever - Eyes Eyes: denies: Irritation - Ears, Nose & Throat Ears, Nose & Throat: reports: Hearing loss, Hearing aids - Cardiovascular Cardiovascular: denies: Chest pain - Respiratory Respiratory: reports: Other (improved breathing). denies: Cough, Sputum production, Wheezing - Gastrointestinal Gastrointestinal: reports: Constipation (controlled). denies: Abdominal pain, Diarrhea, Nausea, Vomiting - Genitourinary Genitourinary: denies: Dysuria - Musculoskeletal Musculoskeletal: reports: Assistive devices, Other (improved neck pain denied today). denies: Joint swelling - Integumentary Integumentary: denies: Pruritis - Neurological Neurological: reports: General weakness, Memory problems. denies: Headache, Dizziness - Psychiatric Psychiatric: reports: Depression, Anxiety - Endocrine Endocrine: reports: Hypothyroidism - All Other Systems All Other Systems: reports: Reviewed and negative Physical Exam - Vital Signs Temperature: 36.6 C Pulse Rate: 78 Respiratory Rate: 16 O2 Saturation: 98 (on RA) Blood Pressure: 153/75 (left wrist cuff sitting) - Physical Exam General Appearance: positive: No acute distress, Alert, Other (thin, temporal wasting noted bilaterally) Eyes Bilateral: positive: Normal inspection ENT: positive: No signs of dehydration Neck: positive: Trachea midline, Other (thin) Cardiovascular: positive: Regular rate & rhythm, No murmur Respiratory: positive: No respiratory distress, Breath sounds nml, Other (no accessory muscle use; pursed lip breathing at times and pausing to take a breath when speaking which is her baseline). negative: Wheezes Abdomen: positive: Non-tender, Soft, Nml bowel sounds. negative: Distended Skin: positive: Dryness. negative: Cyanosis Extremities: positive: No pedal edema Neurologic/Psychiatric: positive: Oriented x3 (short term memory impairment), Other (irritable today as she cannot hear the conversation and is frustrated that this MANAGER [employer]NAGEMENT has to wear a mask that further impairs her ability to participate without speaking directly in her ear) Palliative Care - POLST Patient has POLST: Yes POLST Status: DNR, Selective Treatment Pain: Pain improved (see HPI) Anxiety: Mild (1-3) Constipation: Yes, Opoid induced, Managed Performance Status: PPS 60% - Palliative Care Discussion: The patient has had a second COPD exacerbation this summer. She is presently on doxycycline and a 10-day prednisone taper with noted improvement. No visible distress on evaluation today. As the patient's children reside out of the area and with her frequent need for symptom management and medication adjustment the family has obtained a live-in private caregiver 5 days/week who has started this Sunday. The family is optimistic that to having this private caregiver, Masood will provide additional care and oversight with medication administration in order to keep the patient out of the hospital and remain within her home which is the ultimate goal. The family will continue to have frequent visits for oversight with the patient's health and medical management but the private caregiver 5 days/week will provide most of the caregiving supplemented with visiting [place] for long term care on the weekends. The family is aware that the patient continues to have a slow and steady decline and their goal is for the patient to remain within her home and transition to hospice services when medically appropriate. At the present time, the patient does not meet hospice criteria on multiple levels. This was also reviewed with the [facility] hospice medical oncology physician, Dr. Page. ERLIN reviewed with the patient's son and daughter who are D POA's. Continue DN AR with limited interventions weighing benefits versus burdens of treatment with the goal to remain out of the hospital setting, antibiotic treatment for comfort, no artificial nutrition by tube. Ultimately family wishes for the patient to have a comfortable and dignified within her home. Patient's cervical neck pain is presently controlled. Presently on morphine immediate release 7.5 mg 3 times daily with out a need for breakthrough immediate release morphine. Family wishes to do a trial dose reduction of intermediate release morphine. Relayed to the family that the patient would likely benefit from continued overall routine morphine given her underlying COPD and open for twice daily dosing remaining and simplifying medication regimen. Impression and Recommendations - Palliative Care Impression: This is a frail 84-year-old female with a longstanding history of COPD, chronic neck pain and dementia. Status post ER evaluation on 01/15/2020 presently on doxycycline and prednisone taper with improvement and return to baseline in regards to her breathing. She has had improvement of her overall cervical neck pain status post cervical surgical procedure performed 12/04/[address] Bennett. Is beginning to adjust to her new private caregiver. Palliative care to continue provide symptom management, anticipatory guidance, advance care planning and transition to hospice when appropriate. Recommendations/Counseling Done: 1. COPD exacerbation. Status post ER evaluation on 01/15/2020 ruled out acute infectious process. Complete prednisone taper and doxycycline as ordered. Continue routine DuoNeb. Use of personal fan for acute shortness of breath. Continue to encourage patient to have the windows closed with air conditioning circulating to limit future risk of COPD exacerbation. Strongly encouraged use of saline nasal spray to nasal passageways after being outside and washing her face to reduce pollen exposure. Relayed this to patient's new private caregiver with support from patient's son and daughter. Continue to monitor. 2. Cervical neck pain. Chronic. Status post cervical procedure with Dr. Bennett perform 12/04/2019. Noted improvement of range of motion with neck and without a need for breakthrough medication. Reduce morphine sulfate immediate release to 7.5 mg twice daily and a quarter tab of morphine sulfate immediate release 15 mg tablet midday. If patient is able to tolerate reduce midday dose for 5 days without an increase in pain then may discontinue and continue morphine immediate release 7.5 mg twice daily moving forward. Continue to have goal of comfort and function with movement of the neck. Continue weigh benefits versus burdens. Adjust pain regiment as needed. 3. Anxiety. Patient has a longstanding history of anxiety. Overall improvement in recent weeks. Continue Lexapro 5 mg daily. Continue BuSpar 5 mg twice daily with 5 mg BuSpar to be administered once daily as needed for anxiety. Patient has new Rx from emergency room for lorazepam 0.5 mg advised family to use sparingly for acute anxiety and reviewed side effects with understanding verbalized. Continue to monitor. 4. Dementia. Chronic. Progressive. Fall precautions. Continue 24-hour support within the home. Family to continue to provide oversight for caregiving support and medication management. On no disease modifying agents. No recent falls. Gradual decline as expected. 5. Advanced care planning. ERLIN reviewed and updated with patient's son and daughter, Leah who are D POA's. ERLIN as DN AR with selective treatment. Goal is to keep the patient within her home setting with long term care and support with transition to hospice services when medically appropriate. Family wishes to weigh benefits versus burdens with avoidance of hospitalizations if at all possible moving forward. At the present time the patient does not qualify for hospice services within the home and will continue to monitor for appropriate transition to hospice as the goal of the family is for the patient to have a comfortable and dignified within the home. Time Spent: Total time spent 40 minutes with greater than 50% of this spent in counseling and coordination of care with patient, son and daughter Radha and caregiver, Masood; escalation vs de-escalation of care reviewed; POLST reviewed; examination of patient; review of pain and symptom management and anticipatory guidance. Disclaimer: The chart note was formulated using voice recognition technology and unfortunately sound alike errors may occur.
== END 2020-01-20 12:01 | disposition home or self-care (01) ==
LOC: PC 12:00
PROVIDERS: ATTEND Nurse Practitioner Family
DX: Z51.5 Encounter for palliative care (principal); J44.1 Chronic obstructive pulmonary disease with (acute) exacerbation; G89.29 Other chronic pain; F41.9 Anxiety disorder, unspecified; F03.90 Unspecified dementia, unspecified severity, without behavioral disturbance, psychotic disturbance, mood disturbance, and anxiety; R53.1 Weakness; K59.03 Drug induced constipation; T40.2X5D Adverse effect of other opioids, subsequent encounter; R53.83 Other fatigue; Z79.891 Long term (current) use of opiate analgesic; Z79.899 Other long term (current) drug therapy; Z66 Do not resuscitate
CPT/HCPCS: 99349

== ENCOUNTER 2020-02-09 10:05 | Outpatient (CLI) | payer MEDICARE, OTHER ==
--- NOTE | 2020-02-09 12:12 | CONSULTATION NOTE ---
Palliative Care Follow Up - Referral Referring Provider: Dr. Kirk Blakely Time of Visit: [id number] Referral setting: Home Referral Reason: Depression/Anxiety/Dementia/COPD/Cervical neck pain - Information Sources Records reviewed: Previous records reviewed History/Review of Systems obtained from: Patient, Family (DAVID Aguero and son/DIDIER Olmstead present and daughter/DIDIER Saavedra via phone), Caregiver (Lucasmahendra) Exam limitations: Clinical condition (Cognitive impairment due to dementia, KOBUK) - History of Present Illness Update Brief HPI Update: This is a frail 84-year-old female who was seen in follow-up today within her home with her [id number], More, adal/Jan Olmstead and caregiver, Keri present for follow-up regarding depression, anxiety dementia with behavioral disturbances and pain management. The patient has recently been treated for 2 bouts of COPD exacerbation over the summer 2019. She had increased agitation with episodes of sundowning due to her prednisone taper which required dose adjustment. Despite dose adjustments of her BuSpar for anxiety and reduction of her prednisone taper the patient continued to have escalating periods of sundowning symptoms. Therefore, she was initiated on quetiapine 12.5 mg midday with positive benefit. The patient has been adjusting well to her new private caregiver, Masood. [facility] 5 days/week during the workdays. Lucasmahendra has not needed to administer any as needed medication as she has been able to develop a rapport with the patient and can read her cues if she becomes distressed she is able to diffuse the situation. The caregiver has noticed that the patient has become increasingly tearful typically in the evenings reporting sadness over the loss of her . The patient's on hospice services in July 2019. The patient is reporting that she misses her spouse. She is presently on Lexapro 5 mg daily. Palliative care is certified indoor environmentalist was offered but was declined by the patient's daughter/Jan NANCYKeri Car to speak to the patient what was found to be beneficial to the patient's daughter. Masood reports that the patient's mood overall has improved since initiating Seroquel and BuSpar 5 mg 3 times daily. She is smiling more during the day. She also is demonstrating more spirituality to her private caregiver. She is also reading and actually finishing the tasks that she has begun. She and her caregiver are doing activities that the patient enjoys such as last week they went to her neighbor's house for a visit. Per her [id number], the patient does continue to report that she does not wish to take her medications as she does not see "what is it doing for me." The patient's appetite has also improved in recent weeks. She is eating more and enjoying her meals. She is consuming 2-3 servings of fruits. She is enjoying vegetables in the evenings. She is also enjoying smoothies with berrie s. She continues to receive Meals on Wheels but also is having home-cooked meals from her private caregiver, Masood. Masood has also noticed that the patient has had increase in incontinence both urine as well as fecal. The patient herself reviews that she has good days and bad days. Lucasmahendra will hold her bowel regimen if her loose her stools are loose. On last assessment, the patient had her mid-day 7.5mg morphine sulfate tapered off and has been doing well with 7.5mg Morphine sulfate IR BID for pain management. She continues to report discomfort at her cervical neck to palpation but has improved ROM. See HPI from 01/20/2020 for additional details. Today, the patient is late arising from bed and is seen in her pajawys in her favorite chair in the living room. She is frustrated that she cannot hear this provider through the mask due to coronavirus. Patient has a past medical history of hypertension, asthma, COPD, dementia, hypothyroidism, GERD, diverticulitis, depression, anxiety, osteopenia, frequent falls, chronic neck pain, hyponatremia. Social History - Living Situation Living arrangement: At home Living Situation: With caregiver(s) (has Masood 5 days per week 01/01 and Yoselin Mitchell on weekends) Support System: Patient resides in her home of 22 years. Her children, Keri and Ishan continue on a rotating schedule to manage her medications and provide oversight. Keri resides in [place], [place] and works through Sunday. The patient's [id number], More is also providing assistance and has recently retired. The desire is to keep the patient within her own home as long as possible. Medications/Allergies - Medications Home Medications: Ambulatory Orders Medication Instructions Recorded Confirmed Levothyroxine [Synthroid] 125 mcg PO QDAC 07/10/14 11/14/19 Ipratropium/Albuterol Sulfate 3 ml INH QID 12/25/17 11/14/19 [Iprat-Albut 0.5-3(2.5) mg/3 ml] Escitalopram Oxalate 10 mg PO DAILY 07/28/19 11/14/19 Fluticasone Propion/Salmeterol 1 puffs INH BID 08/25/19 11/14/19 [Wixela 250-50 Inhub] Albuterol Sulfate [Albuterol 2 puffs INH Q4H PRN 11/14/19 11/14/19 Sulfate Hfa] Celecoxib 200 mg PO DAILY 11/14/19 11/14/19 Montelukast Sodium 10 mg PO QPM 11/14/19 11/14/19 Trazodone HCl 50 mg PO QPM PRN 11/14/19 11/14/19 Triamcinolone 0.1% Cream [Kenalog 1 applic TOP PRN PRN 11/14/19 11/14/19 0.1% Cream] Morphine Ir [Ms Ir] 0.25 tab PO Q4H PRN 12/02/19 Morphine Ir [Ms Ir] 7.5 mg PO BID 12/02/19 12/02/19 Ondansetron Odt [Zofran Odt] 4 mg PO Q8H PRN 12/02/19 12/02/19 Buspirone HCl 5 mg PO TID 12/10/19 12/10/19 Senna [Senokot] 8.6 mg PO DAILY PRN 12/10/19 12/10/19 polyethylene glycoL 3350 [Miralax] 17 g PO DAILY 12/10/19 12/10/19 Losartan Potassium 12.5 mg PO DAILY 12/17/19 12/17/19 busPIRone [Buspar] 5 mg PO DAILY PRN 12/17/19 12/17/19 Senna [Senokot] 8.6 mg PO QPM 01/06/20 01/06/20 Sodium Chloride [Saline Nasal 1 spray INH .EACH NOSTRIL PRN PRN 01/14/20 01/14/20 [facility]] MDD To reduce pollen exposure LORazepam [Ativan] 0.5 mg PO DAILY PRN MDD Use 02/09/20 sparingly QUEtiapine [SEROquel] 12.5 mg PO .MIDDAY 1400 02/09/20 02/09/20 - Allergies Allergies/Adverse Reactions: Allergies Allergy/AdvReac Type Severity Reaction Status Date / Time moxifloxacin Allergy Severe Rash Verified 01/15/20 13:27 losartan [From Cozaar] Allergy Unknown Verified 01/15/20 13:27 oxycodone Allergy Unknown Verified 01/15/20 13:27 codeine AdvReac Severe Nausea Verified 01/15/20 13:27 hydrocodone AdvReac Severe Vomiting Verified 01/15/20 13:27 tramadol AdvReac Severe Vomiting Verified 01/15/20 13:27 Review of Systems - Constitutional Constitutional: reports: Fatigue. denies: Fever, Weight loss - Eyes Eyes: denies: Vision loss - Ears, Nose & Throat Ears, Nose & Throat: reports: Hearing loss, Hearing aids - Cardiovascular Cardiovascular: reports: Edema (noted to ankles to improves with elevation of LE during the day). denies: Chest pain - Respiratory Respiratory: reports: Wheezing. denies: Cough - Gastrointestinal Gastrointestinal: reports: Good appetite, Other (sharp LUQ pain reported today that "felt like a spasm" that improved with rest and passing of gas). denies: Constipation, Diarrhea, Vomiting - Genitourinary Genitourinary: reports: Incontinence. denies: Dysuria - Musculoskeletal Musculoskeletal: reports: Stiffness, Assistive devices - Integumentary Integumentary: denies: Pruritis - Neurological Neurological: reports: General weakness, Memory problems - Psychiatric Psychiatric: reports: Depression, Anxiety, Other (--improved) - Endocrine Endocrine: reports: Hypothyroidism - All Other Systems All Other Systems: reports: Reviewed and negative Physical Exam - Vital Signs Temperature: 36.6 C Pulse Rate: 75 Respiratory Rate: 20 O2 Saturation: 95 (on RA) Blood Pressure: 168/73 (just taking AM medications) - Physical Exam General Appearance: positive: No acute distress, Alert, Other (thin, temporal wasting noted bilaterally) Eyes Bilateral: positive: Normal inspection ENT: positive: No signs of dehydration Neck: positive: Trachea midline, Other (thin) Cardiovascular: positive: Regular rate & rhythm, No murmur Respiratory: positive: No respiratory distress, Breath sounds nml, Other (no accessory muscle use; pursed lip breathing at times and pausing to take a breath when speaking which is her baseline). negative: Wheezes Abdomen: positive: Non-tender, Soft, Nml bowel sounds, Other (reported tenderness LUQ along 11-12th rib on left side with no visible bruising, no history of recent fall that improved with +flatus). negative: Distended Skin: positive: Dryness. negative: Cyanosis Extremities: positive: No pedal edema, Other (reports "soreness" to palpation cervical spine with improved active ROM) Neurologic/Psychiatric: positive: Oriented x3 (short term memory impairment), Depressed mood/affect (became tearful during the assessment), Other (irritable as she cannot hear the conversation due to mask over BLOW TORCH BURNER's mask) Palliative Care - POLST Patient has POLST: Yes POLST Status: DNR, Selective Treatment Pain: Comment (s) Tiredness/Fatigue: Mild (1-3) Depression: Moderate (4-6) Feelings of wellbeing/Perceived Quality of Life: Comment ("Good days and bad days") Constipation: Yes, Opoid induced, Managed Performance Status: Patient is able to ambulate with Rollator. No recent falls. Improvement of sundowning behavior. Intermittent incontinence of bowel and with more consistent loss of bladder continence. Able to self feed. FAST 6D - Palliative Care Discussion: The patient had multiple acute changes that resulted in an acute behavioral disturbances including COPD exacerbation with high prednisone taper, antibiotic therapy, new caregiver within her home, increased awareness of loss of her . Once the prednisone has been tapered off and she has begun to adjust to her private caregiver, Royal as well as introduction of quetiapine in the afternoon prior to her sundowning behaviors the patient's overall demeanor and outlook have improved per her daughter, Keri as well as private caregivers report. She has been engaged more with a chief of anesthesiology mood. DVM also reports that the patient is quite spiritual in regards to her reflection. The patient herself has reported to her caregiver that she continues to pray that she will and does not understand why she is still here. She has increased episodes of tearfulness typically in the evenings when she misses her . Definitive is able to provide supportive listening as well as a comforting presence. The patient would benefit from further adjustment of her Lexapro for her underlying depressive symptoms for her comfort. Her anxiety at the present time appears to be well controlled with her BuSpar 5 mg 3 times daily. No further reports of disruptive behaviors since initiation of her Seroquel 12.5 mg in the afternoons. The patient continues to report pain upon palpation of her cervical neck but has improved range of motion. She has tolerated her dose reduction of her morphine immediate release to 7.5 mg twice daily with as needed immediate release morphine for breakthrough pain. At the present time, as the patient appears to be comfortable from a pain management perspective we will continue with the present dose and weigh benefits versus burdens for trial reduction in the future as morphine has the benefit of improvement in regards to the patient's COPD symptomatology as well as her chronic pain. Impression and Recommendations - Palliative Care Impression: This is a frail 84-year-old female with a longstanding history of COPD, chronic neck pain, dementia with behavioral disturbances with depression and anxiety. Her cervical neck pain appears to be well controlled at the present time. She is displaying evidence of depressive symptoms within a acute feeling of loss in regards to her who passed on hospice services with visible display of tearfulness. The patient has also begun to adjust to her 5-day week private caregiver and they are continue to build the rapport. Palliative care to continue to provide symptom management, anticipatory guidance, advance care planning and transition to hospice when appropriate. Recommendations/Counseling Done: 1. LUQ pain without radiation. Muscle spasm vs trapped gas that improved with flatus. Routine bowel movements daily. Continue to monitor. 2. Depression. Patient displaying evidence of more acute depressive symptoms and reflection with the loss of her coming to the surface more specifically in the evenings. Increase Lexapro to 10 mg daily. Continue to pro vide supportive listening and support. 3. Anxiety. Patient is a longstanding history of anxiety. Continue BuSpar 5 mg 3 times daily with 5 mg BuSpar to be administered once daily as needed. Lorazepam 0.5 mg administered once daily for acute anxiety to be used sparingly. Continue to monitor. 4. Hypertension. No cardiac complaints. Review of blood pressure log as 132- 162/70 over 80. Continue losartan 12.5 mg daily. Continue to monitor blood pressure trends and adjust medication regimen as needed with goal blood pressure less than 50/90. Wish to avoid tight blood pressure control to avoid hypotension and risk for falls. 5. Cervical neck pain. Chronic. Status post cervical procedure with Dr. Bennett perform 12/04/2019. Noted improvement of the patient's range of motion with her cervical spine despite complaints of tenderness to cervical spine upon palpation. Has tolerated dose reduction of morphine sulfate immediate release. As the patient is comfortable continue morphine sulfate immediate release 7.5 mg twice daily and continue to weigh benefits versus burdens for a continued slow taper in the future with the goal to optimize the patient's comfort.Rx provided for morphine sulfate 15 mg immediate release with quantity of 30 tablets provided to be filled. 6. Dementia with behavioral disturbances. Chronic. Progressive. Fall precautions. Recent increase in sundowning behaviors and agitation that improved with initiation of Seroquel 12.5 mg in the afternoon and will contnine at this time. Continue 24-hour support within the home with caregiving. Family plans to increase private caregiver Royal hours to full-time in March 2020. On no disease modifying agents. Given the patient's advanced age and chronic comorbidities a gradual decline as expected. Time Spent: F/u in 4-6 weeks or as needed if new/worsening symptoms. Total time spent 75 minutes with greater than 50% of this spent in counseling and coordination of care with patient, patient's son, daughter and DIL as well as private caregiver; supportive listening provided; review of pain and symptom management and anticipatory guidance. Disclaimer: The chart note was formulated using voice recognition technology and unfortunately sound alike errors may occur.
== END 2020-02-09 10:06 | disposition home or self-care (01) ==
LOC: PC 10:05
PROVIDERS: ATTEND Nurse Practitioner Family
DX: Z51.5 Encounter for palliative care (principal); R10.12 Left upper quadrant pain; F41.9 Anxiety disorder, unspecified; F32.9 Major depressive disorder, single episode, unspecified; G89.29 Other chronic pain; K59.03 Drug induced constipation; T40.2X5A Adverse effect of other opioids, initial encounter; F03.91 Unspecified dementia, unspecified severity, with behavioral disturbance; F05 Delirium due to known physiological condition; R32 Unspecified urinary incontinence; R15.9 Full incontinence of feces; R53.1 Weakness; R60.0 Localized edema; J44.9 Chronic obstructive pulmonary disease, unspecified; I10 Essential (primary) hypertension; Z79.899 Other long term (current) drug therapy; Z79.891 Long term (current) use of opiate analgesic; Z63.4 Disappearance and death of family member; Z66 Do not resuscitate
CPT/HCPCS: 99350

== ENCOUNTER 2020-03-08 10:00 | Outpatient (CLI) | payer MEDICARE, OTHER ==
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
== END 2020-03-08 10:01 | disposition home or self-care (01) ==
LOC: PC 10:00
PROVIDERS: ATTEND Nurse Practitioner Family
DX: Z51.5 Encounter for palliative care (principal); J44.9 Chronic obstructive pulmonary disease, unspecified; F32.9 Major depressive disorder, single episode, unspecified; F41.9 Anxiety disorder, unspecified; I10 Essential (primary) hypertension; M54.2 Cervicalgia; G89.29 Other chronic pain; F03.91 Unspecified dementia, unspecified severity, with behavioral disturbance; R32 Unspecified urinary incontinence; R15.9 Full incontinence of feces; Z66 Do not resuscitate
CPT/HCPCS: 99349

== ENCOUNTER 2020-04-05 10:30 | Outpatient (CLI) | payer MEDICARE, OTHER ==
--- NOTE | 2020-04-05 18:49 | CONSULTATION NOTE ---
Palliative Care Follow Up - Referral Referring Provider: Dr. Kirk Olivas Time of Visit: 5158-1158 Referral setting: Home Referral Reason: COPD/Depression/Chronic Neck Pain - Information Sources Records reviewed: Previous records reviewed History/Review of Systems obtained from: Patient, Family (DAVID Aguero), Caregiver (sharda Correia caregiver) Exam limitations: Clinical condition (ROBINSON,STM deficits) - History of Present Illness Update Brief HPI Update: This is a frail 84-year-old female who was seen in follow-up today within her home with her [id number], More present and her private caregiver, Royal for follow-up regarding depression, anxiety, depression, pain management and COPD. The patient has a longstanding history of COPD. She is not on oxygen supplementation. She has not tolerated trilogy machine in the past. She has had 3 COPD exacerbation since the summer 2019. She uses her DuoNeb routinely throughout the day. The patient's private caregiver reports that on Sunday the patient could not sleep due to her breathing. When offered to contact 911 the patient declined reporting to the caregiver "what would they do?" The past the patient has always been 1 to be quick to contact 911 if she was feeling anxious or short of breath. This is a change in her thought process. Her caregiver reports that the patient does not like to have the fan directly in front of her and typically will be "grouchy" if she is having difficulty breathing. The patient's private caregiver reports that the patient is "overall much better." The patient will have shortness of breath first thing that will subsequently resolved. The patient will also take to making laps within her home and then lying down. The patient herself today reports that her breathing is "fine." The patient's [id number] who last saw the patient a month ago reports that her breathing is at baseline. She does not demonstrate any increased work of breathing from her baseline without pallor. Her caregiver notes that when the patient does have A COPD exacerbation her lower extremities begin to develop swelling. In the last few days the patient has been reporting marked. As well as headache. She denies any numbness or tingling down her arms. She does have a history of chronic neck pain and had a cervical injection performed in the early summer [address] Celeste. She continues on morphine sulfate 7.5 mg immediate release twice daily for pain management. Her caregiver has been giving 500 to 1000 mg of acetaminophen if she needs it in the evenings. Patient denies visual changes. She continues to opt for sitting in her favorite chair that does not offer neck support. The patient is not displaying signs of depressive symptoms. She is no longer having bouts of crying. She is tolerating dose adjustment of Lexapro 10 mg daily well. She continues on BuSpar 5 mg 3 times daily. Certain activities have been picked up including her enjoyment of reading. The patient is seen in her favorite chair in the living room dressed in her pajamas. Her breathing is at baseline with no evidence of acute distress. She continues to be repetitively frustrated that she is unable to read lips due to mask coverage or hear due to her hearing impairment. Past Medical History: Patient has a past medical history of hypertension, asthma, COPD, dementia, hypothyroidism, GERD, diverticulitis, depression, anxiety, osteopenia, frequent falls, chronic neck pain, hyponatremia. Social History - Living Situation Living arrangement: At home Living Situation: With caregiver(s) Support System: Patient resides in her home of 22 years. She has 01/01 longterm care within her home with Royal present 5 days per work and caregiver from [facility] supplementing on the weekends. Her children, Keri and Ishan continue on a rotating schedule to manage her medications and provide oversight. Keri's contact number is [phone]. The patient's private caregiver, Masood's contact number is [phone]. Medications/Allergies - Medications Home Medications: Ambulatory Orders Medication Instructions Recorded Confirmed Levothyroxine [Synthroid] 125 mcg PO QDAC 07/10/14 03/08/20 Ipratropium/Albuterol Sulfate 3 ml INH QID 12/25/17 03/08/20 [Iprat-Albut 0.5-3(2.5) mg/3 ml] Escitalopram Oxalate 10 mg PO DAILY 07/28/19 03/08/20 Fluticasone Propion/Salmeterol 1 puffs INH BID 08/25/19 03/08/20 [Wixela 250-50 Inhub] Albuterol Sulfate [Albuterol 2 puffs INH Q4H PRN 11/14/19 03/08/20 Sulfate Hfa] Celecoxib 200 mg PO DAILY 11/14/19 03/08/20 Montelukast Sodium 10 mg PO QPM 11/14/19 11/14/19 Trazodone HCl 50 mg PO QPM PRN 11/14/19 03/08/20 Triamcinolone 0.1% Cream [Kenalog 1 applic TOP PRN PRN 11/14/19 03/08/20 0.1% Cream] Morphine Ir [Ms Ir] 0.25 tab PO Q4H PRN 12/02/19 Morphine Ir [Ms Ir] 7.5 mg PO BID 12/02/19 12/02/19 Ondansetron Odt [Zofran Odt] 4 mg PO Q8H PRN 12/02/19 12/02/19 Buspirone HCl 5 mg PO TID 12/10/19 03/08/20 Senna [Senokot] 8.6 mg PO DAILY PRN 12/10/19 03/08/20 polyethylene glycoL 3350 [Miralax] 17 g PO DAILY 12/10/19 03/08/20 Losartan Potassium 12.5 mg PO DAILY 12/17/19 03/08/20 busPIRone [Buspar] 5 mg PO DAILY PRN 12/17/19 03/08/20 Senna [Senokot] 8.6 mg PO QPM 01/06/20 03/08/20 Sodium Chloride [Saline Nasal 1 spray INH .EACH NOSTRIL PRN PRN 01/14/20 03/08/20 [place]] MDD To reduce pollen exposure LORazepam [Ativan] 0.5 mg PO DAILY PRN MDD Use 02/09/20 03/08/20 sparingly QUEtiapine [SEROquel] 12.5 mg PO .MIDDAY 1400 02/09/20 03/08/20 predniSONE [Prednisone] MDD take as directed 03/08/20 Acetaminophen [Tactinal] 1,000 mg PO DAILY PRN 04/05/20 04/05/20 Carboxymethylcellulose Sodium 1 drops EACHEYE Q2H PRN 04/05/20 04/05/20 [Artificial Tears] - Allergies Allergies/Adverse Reactions: Allergies Allergy/AdvReac Type Severity Reaction Status Date / Time moxifloxacin Allergy Severe Rash Verified 01/15/20 13:27 losartan [From Cozaar] Allergy Unknown Verified 01/15/20 13:27 oxycodone Allergy Unknown Verified 01/15/20 13:27 codeine AdvReac Severe Nausea Verified 01/15/20 13:27 hydrocodone AdvReac Severe Vomiting Verified 01/15/20 13:27 tramadol AdvReac Severe Vomiting Verified 01/15/20 13:27 Review of Systems - Constitutional Constitutional: reports: Fatigue, Weight stable. denies: Fever - Eyes Eyes: reports: Irritation. denies: Blurred vision, Dipolpia - Ears, Nose & Throat Ears, Nose & Throat: reports: Hearing loss, Hearing aids - Cardiovascular Cardiovascular: denies: Chest pain, Edema - Respiratory Respiratory: reports: SOB with exertion. denies: Cough, Sputum production, Wheezing - Gastrointestinal Gastrointestinal: reports: Good appetite, Other (Intermittent fecal incontience). denies: Constipation, Diarrhea, Vomiting - Genitourinary Genitourinary: reports: Incontinence. denies: Dysuria - Musculoskeletal Musculoskeletal: reports: Joint pain (neck pain), Assistive devices - Integumentary Integumentary: reports: Dryness - Neurological Neurological: reports: General weakness, Headache, Memory problems - Psychiatric Psychiatric: reports: Depression, Anxiety - Endocrine Endocrine: reports: Hypothyroidism - All Other Systems All Other Systems: reports: Reviewed and negative (ROS supplemented by caregiver, Devai and DIL as patient is a poor historian due to dementia) Physical Exam - Vital Signs Temperature: 37.1 C Pulse Rate: 86 Respiratory Rate: 20 O2 Saturation: 98 (on RA at rest) Blood Pressure: 148/72 (left UA) - Physical Exam General Appearance: positive: No acute distress, Alert, Other (thin, temporal wasting noted bilaterally) Eyes Bilateral: positive: Conjunctivae nml, Other (mild erythema noted to B/l upper eyelids without discharge or tearing) ENT: positive: No signs of dehydration Neck: positive: Trachea midline, Other (thin) Cardiovascular: positive: Regular rate & rhythm, No murmur Respiratory: positive: No respiratory distress, Breath sounds nml, Other (no accessory muscle use; pausing to take a breath when speaking which is her baseline). negative: Wheezes, Rales Abdomen: positive: Non-tender, Soft, Nml bowel sounds Skin: positive: Dryness (BLE) Extremities: positive: No pedal edema Neurologic/Psychiatric: positive: Oriented x3 (short term memory impairment), Mood/affect nml Palliative Care - POLST Patient has POLST: Yes POLST Status: DNR, Selective Treatment Pain: Comment (Reported pain to neck with headaches, denied today. Has responded to PRN tylenol 500-1,000mg daily if needed.) Depression: None Anxiety: Mild (1-3) Constipation: No, Opoid induced, Managed - Palliative Care Discussion: The patient's private caregiver reports that last week that she had increased shortness of breath that eventually resolved with techniques such as breathing, band, and nebulization. The patient in the past would frequently dial 911 for EMS services but when offered by the private caregiver, she declined. This is a change from her former behavior. The family wishes to opt to manage symptoms if at all possible within the home. The family is looking for tools to use with management of symptoms within the home. The patient has prednisone 10 mg tablets within the home for use immediately if there are signs and symptoms of a COPD exacerbation. The patient in the past was on chronic prednisone administration. She is on too high a dose of prednisone she finds that she is not able to sleep, has increased appetite, and can be more irritable. The patient herself would prefer to avoid taking prednisone if at all possible. Therefore, having guidelines in place for the private caregiver, specifically did leave, would be appropriate for symptom management and contacting providers for further guidance and management of symptoms within the home. Her anxiety and depressive symptoms appear to be well controlled. She continues to be enjoying reading. Despite having caregivers within her home, the patient still delineates the role as they are "working for me." Having direction written down for reference in regards to guidance is an assistive tool for the caregivers to defer the patient to for reference. Impression and Recommendations - Palliative Care Impression: This is a frail 84-year-old female with a longstanding history of COPD, chronic neck pain, dementia, with anxiety and depression.Recent development of reported headaches that have responded to acetaminophen dosing. Palliative care to continue provide symptom management, expiratory guidance, advance care planning and transition to hospice when medically appropriate. Recommendations/Counseling Done: 1. 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 Continue to in encourage swapping out her favorite chair in the common area for 1 that has support for her neck and aerodynamic. Continue as needed acetaminophen 500 to 1000 mg daily. Reviewed with private caregiver and [id number] that Max dosage of acetaminophen in a day is 3000 mg daily from all sources with understanding verbalized. Continue to monitor and adjust pain regiment based on patient's clinical response. If she continues to have reported headaches in conjunction with chronic cervical neck pain she may benefit from increase of her morphine sulfate immediate release from 7.5 mg twice daily to 7.5 mg in the morning and 50 mg in the evening, based on her symptomatology. Rx provided for morphine sulfate 15 mg immediate release with a quantity of 30 tablets. 2.COPD. Longstanding history. Has had 3 COPD exacerbations since the beginning of summer 2019. Continue duo nebs 4 times daily and refill provided. Continue Singulair 10 mg nightly. Reviewed signs and symptoms of COPD exacerbation that would warrant initiation of prednisone such as increased shortness of breath is not resolve after exertion with use of breathing techniques and fan, coloring change to mouth and extremitites, increased breathing pattern, wheezing not resolved with nebulization with continued increased work of breathing. If noted symptoms during office hours asked to contact Palliative Care for guidance or after hours or weekends may administer prednisone 20mg x 1 dose and f/u with PCP or Palliative Care for further management with goal to avoid transfer to Emergency Department with return verbalization from both private caregiver, Masood and More HERNANDEZ. Discussed role of hospice and criteria with More HERNANDEZ and patient is not at that point at this time but family is open to transition when the time is appropriate. 3. Depression and anxiety. Improved. Longstanding history of anxiety. Continue lexapro 10mg daily. Continue Buspar 5mg TID with 5mg Buspar to be administered once daily if needed. She has lorazepam 0.5mg to be used once daily for any acute anxiety. Denies depressive symptoms. Continue to monitor and adjust medication as needed for management of symptoms. 4. Dementia with behavioral disturbances. Chronic. Progressive. Fall pr ecautions. No longer with behavioral concerns reported in the evening indicative of ing behaviors. Continu2 quetaipine 12.5mg in the afternoon. Has 24/7 longterm care with a private caregiver 5 days per week and additional caregivers on the weekends. On no disease modifying agents. Family is very involved in management and oversight. Time Spent: F/u 4-6 weeks or PRN. Total time spent 60 minutes with greater than 50 spent of this spent in counseling and coordination of care with the patient, [id number], and caregiver Devai; review of prednisone for COPD exacerbation and signs and symptoms of COPD exacerbation; review of hospice criteria; examination of patient; review of pain and symptom management and anticipatory guidance. Disclaimer: The chart note was formulated using voice recognition technology and unfortunately sound alike errors may occur.
== END 2020-04-05 10:31 | disposition home or self-care (01) ==
LOC: PC 10:30
PROVIDERS: ATTEND Nurse Practitioner Family
DX: Z51.5 Encounter for palliative care (principal); R51.9 Headache, unspecified; J44.9 Chronic obstructive pulmonary disease, unspecified; F41.8 Other specified anxiety disorders; M54.2 Cervicalgia; G89.29 Other chronic pain; F03.91 Unspecified dementia, unspecified severity, with behavioral disturbance; Z79.899 Other long term (current) drug therapy; Z79.891 Long term (current) use of opiate analgesic; Z66 Do not resuscitate
CPT/HCPCS: 99350

== ENCOUNTER 2020-04-14 12:00 | Outpatient (CLI) | payer MEDICARE, OTHER ==
--- NOTE | 2020-04-14 16:39 | CONSULTATION NOTE ---
Palliative Care Follow Up - Referral Referring Provider: Dr. Kirk Blakely Time of Visit: [id number] Referral setting: Home Referral Reason: Headache/Diarrhea/Dementia/Weakness - Information Sources Records reviewed: Previous records reviewed History/Review of Systems obtained from: Patient, Caregiver Exam limitations: Clinical condition (LA JOLLA and dementia) - History of Present Illness Update Brief HPI Update: This is an 84-year-old female who was seen and evaluated today within her home with her private caregiver present due to acute diarrhea and weakness and for follow-up regarding headache and pain management. The patient began developing signs and symptoms of diarrhea last week. Her caregiver reports that it has progressed to the point that she is having 6-7 episodes of diarrhea in a day. The patient's is no longer taking her routine MiraLAX and her private caregiver has provided Imodium which has not resolved the diarrhea. The patient is also having fecal incontinence routinely. She will also pass stool when she is having flatus. Since the onset of the diarrhea the patient has become increasingly weaker as she is opting to consume less fluids as well as meals.Yesterday the caregiver reports that she ate 2 bites of lunch and about 1 bite at dinner. She did take the offered Gatorade as well as half a glass of water yesterday. Presently today, the patient has not taken her medications nor has she had breakfast or lunch. The patient is increasingly weak and is afraid of falling. She is demonstrating shaking when she is sitting upright. The patient has been requesting going to the emergency department for further evaluation. The patient denies any abdominal pain, had her caregiver reports that she has not had any blood in her stool or nausea and vomiting. She denies any dysuria with voiding. The patient is opting to stay in her room and sleeping more. Last week, the patient's morphine sulfate immediate release was increased to 15 mg twice daily due to her having reports of headache that were likely cervicogenic in nature due to her chronic cervical neck pain. With the addition of morphine sulfate in conjunction with routine acetaminophen her reports of pain have resolved. The caregiver also reports that her underlying issues with breathing due to her COPD have also subsequently improved since the increase of the morphine sulfate and the patient visibly appears more comfortable. The patient is seen today resting in bed, arousable, no signs of acute distress but does appear pale and not her usual feisty demeanor. Past Medical History: Patient has a past medical history of hypertension, asthma, COPD, CAD dementia, hypothyroidism, GERD, diverticulitis, depression, anxiety, osteopenia, frequent falls, chronic neck pain, hyponatremia. Social History - Living Situation Living arrangement: At home Living Situation: With caregiver(s) Support System: Patient resides in her home of 22 years. She has 24/7 fpc care within her home with her private caregiver for, Masood present 5 days/week with contact number [phone]. She has a supplemental caregiver through visiting Paula on the weekends. Her children, Ishan and Keri are DPOA's. Ishan's contact number is [phone] Medications/Allergies - Medications Home Medications: Ambulatory Orders Medication Instructions Recorded Confirmed Levothyroxine [Synthroid] 125 mcg PO QDAC 07/10/14 03/08/20 Ipratropium/Albuterol Sulfate 3 ml INH QID 12/25/17 03/08/20 [Iprat-Albut 0.5-3(2.5) mg/3 ml] Escitalopram Oxalate 10 mg PO DAILY 07/28/19 03/08/20 Fluticasone Propion/Salmeterol 1 puffs INH BID 08/25/19 03/08/20 [Wixela 250-50 Inhub] Albuterol Sulfate [Albuterol 2 puffs INH Q4H PRN 11/14/19 03/08/20 Sulfate Hfa] Celecoxib 200 mg PO DAILY 11/14/19 03/08/20 Montelukast Sodium 10 mg PO QPM 11/14/19 11/14/19 Trazodone HCl 50 mg PO QPM PRN 11/14/19 03/08/20 Triamcinolone 0.1% Cream [Kenalog 1 applic TOP PRN PRN 11/14/19 03/08/20 0.1% Cream] Morphine Ir [Ms Ir] 0.25 tab PO Q4H PRN 12/02/19 Morphine Ir [Ms Ir] 15 mg PO BID 12/02/19 12/02/19 Ondansetron Odt [Zofran Odt] 4 mg PO Q8H PRN 12/02/19 12/02/19 Buspirone HCl 5 mg PO TID 12/10/19 03/08/20 Senna [Senokot] 8.6 mg PO DAILY PRN 12/10/19 03/08/20 polyethylene glycoL 3350 [Miralax] 17 g PO DAILY 12/10/19 03/08/20 busPIRone [Buspar] 5 mg PO DAILY PRN 12/17/19 03/08/20 Senna [Senokot] 8.6 mg PO QPM 01/06/20 03/08/20 Sodium Chloride [Saline Nasal 1 spray INH .EACH NOSTRIL PRN PRN 01/14/20 03/08/20 Jackson] MDD To reduce pollen exposure LORazepam [Ativan] 0.5 mg PO DAILY PRN MDD Use 02/09/20 03/08/20 sparingly QUEtiapine [SEROquel] 12.5 mg PO .MIDDAY 1400 02/09/20 03/08/20 predniSONE [Prednisone] MDD take as directed 03/08/20 Acetaminophen [Tactinal] 1,000 mg PO TID 04/05/20 04/05/20 Carboxymethylcellulose Sodium 1 drops EACHEYE Q2H PRN 04/05/20 04/05/20 [Artificial Tears] - Allergies Allergies/Adverse Reactions: Allergies Allergy/AdvReac Type Severity Reaction Status Date / Time moxifloxacin Allergy Severe Rash Verified 04/14/20 15:52 losartan [From Cozaar] Allergy Unknown Verified 04/14/20 15:52 oxycodone Allergy Unknown Verified 04/14/20 15:52 codeine AdvReac Severe Nausea Verified 04/14/20 15:52 hydrocodone AdvReac Severe Vomiting Verified 04/14/20 15:52 tramadol AdvReac Severe Vomiting Verified 04/14/20 15:52 Review of Systems - Constitutional Constitutional: reports: Fatigue, Poor appetite, Weight loss (weight 98lb today). denies: Fever - Eyes Eyes: denies: Blurred vision - Ears, Nose & Throat Ears, Nose & Throat: reports: Hearing loss, Hearing aids - Cardiovascular Cardiovascular: denies: Chest pain - Respiratory Respiratory: reports: SOB with exertion. denies: Cough, Wheezing - Gastrointestinal Gastrointestinal: reports: Diarrhea, Poor appetite, Other (+ fecal incontience). denies: Abdominal pain, Constipation, Nausea, Vomiting - Genitourinary Genitourinary: reports: Incontinence. denies: Dysuria - Musculoskeletal Musculoskeletal: reports: Assistive devices. denies: Joint pain (controlled neck pain) - Integumentary Integumentary: reports: Dryness - Neurological Neurological: reports: General weakness, Memory problems. denies: Headache, Dizziness - Psychiatric Psychiatric: reports: Depression, Anxiety - Endocrine Endocrine: reports: Hypothyroidism - All Other Systems All Other Systems: reports: Reviewed and negative (ROS supplemented by caregiver, Devai and DIL as patient is a poor historian due to dementia) Physical Exam - Vital Signs Temperature: 36.7 C Pulse Rate: 53 (apical at rest) Respiratory Rate: 18 O2 Saturation: 96 (on RA ) Blood Pressure: 162/90 (left wrist cuff lying down) - Physical Exam General Appearance: positive: No acute distress, Alert, Other (thin, temporal wasting noted bilaterally, laying in bed) Eyes Bilateral: positive: Normal inspection ENT: positive: Other (slightly dry mucous membranes) Neck: positive: Trachea midline, Other (thin) Cardiovascular: positive: No murmur, Bradycardia Respiratory: positive: No respiratory distress, Breath sounds nml, Other (no accessory muscle use with decreased air movement as she has not used her neb yet this AM; pausing to take a breath when speaking which is her baseline). negative: Wheezes Abdomen: positive: Non-tender, Soft, Other (hyperactive bowel sounds; rectal exam preformed without stool in rectal vault with caregiver as pr specialist; bladder nondistended). negative: Distended Skin: positive: Pallor, Dryness (BLE) Extremities: positive: No pedal edema Neurologic/Psychiatric: positive: Oriented x3 (short term memory impairment), Mood/affect nml Palliative Care - POLST Patient has POLST: Yes POLST Status: DNR, Selective Treatment Pain: No pain - Palliative Care Discussion: The patient has developed diarrhea over the last week and increasing weakness over the last 2 to 3 days with limited oral intake. The patient is dem onstrating fear of consuming meals and liquids as then it starts a vicious cycle of having to go to the restroom and as she is demonstrating generalized weakness she has a fear of falling. On examination today, she demonstrated orthostasis with a drop in her blood pressure from 162/90 lying down to 130/75 sitting up. Sitting up, she is also slightly tachycardic and has slightly dry mucous membra vernell. The patient's caregiver has been attempting to encourage oral hydration but given the patient's past history of hyponatremia this is a concern for her underlying weakness as well as dehydration. Reviewed present physical findings with the patient's son/DPOA, Ishan as well as her [id number], More and discussed evaluation and management within the home versus further evaluation in the emergency department. The patient's family wishes to proceed with intervening and optimizing the patient as much as possible and have elected to have her evaluated in the emergency department and to receive needed IV fluids. Given the patient's evidence of orthostasis it would be appropriate to discontinue her losartan 12.5 mg given her present drop in blood pressure. The patient has developed a another event that will likely lead to further functional decline and the patient's family is aware regarding this. Ultimately, the patient's family wishes to have the patient comfortable and optimize to her new baseline recognizing that the patient is frail and is at risk of sequential sequelae and if a significant event were to occur the family would wish to transition to hospice services. Impression and Recommendations - Palliative Care Impression: This is a frail 84-year-old female with a longstanding history of chronic neck pain, dementia, now with acute diarrhea,Generalized weakness and anorexia. The patient was last treated with antibiotic therapy in January 2020. She is not displaying any signs or symptoms of abdominal discomfort. She has responded well to dosage and adjustment of her morphine sulfate immediate release 50 mg twice daily with resolution of her headaches and reports of neck pain. At the present time, concern regarding the patient's volume status lending towards dehydration and potential hyponatremia given her prior history. Family/DPOA in agreement to transfer to the emergency department for further evaluation and treatment by private vehicle with the patient's caregiver. Palliative care will continue to provide support for the patient and her family regarding symptom management, advanced care planning and a transition to hospice when medically appropriate. Recommendations/Counseling Done: 1. Diarrhea. Rectal exam performed today without evidence of stool in the rectal vault indicative of impaction. The patient is having loose, large quantity of frequent stools. She is becoming more volume depleted and this is evidenced in her generalized weakness. Concern for dehydration as well as hyponatremia given the patient's past history. Patient was last treated with antibiotic therapy in January 2020, does not appear to be an infectious etiology however, this may need to be ruled out. Encourage the patient's private caregiver to offer fiber rich foods and to also offer grilled cheese as well as green bananas as these are constipating foods and to encourage oral hydration with broth, Gatorade, etc. Given the patient's generalized weakness due to volume depletion to be evaluated in the emergency department and verbal report provided to Dr. Eddy Abdi regarding the patient's status. 2. Generalized weakness. Due to poor oral intake and multiple comorbidities including COPD. See diagnosis diarrhea above for further details. 3. Headaches due to chronic cervical neck pain likely cervicogenic in nature. Improvement with initiation of dose increase of morphine sulfate from 7.5 mg twice daily to 15 mg twice daily. Continue morphine sulfate 50 mg twice daily as well as quarter tablet of 15 mg morphine sulfate every 4 hours as needed for pain. Continue acetaminophen 1000 mg 3 times daily and this is the max amount of acetaminophen to be obtained from all sources. Consider dose reduction of acetaminophen at next follow-up. 4. Orthostatic hypotension. No reports of symptoms however, patient demonstrated significant drop in her systolic blood pressure as well as an appropriate rise in her heart rate from 53-100. Recommend discontinuation of losartan 12.5 mg. Will reevaluate if needed to restart in the future. At the present time, the patient is volume depleted with orthostasis and will discontinue at the present time. 5. Advanced care planning. Patient has a POLST as DN AR with selective interventions. The patient's family wishes to weigh benefits versus burdens of interventions and at the present time wishes to have the patient optimized and evaluated in the emergency department for volume depletion and diarrhea with subsequent treatment including if necessary, IV hydration. We will continue to monitor the patient's overall functional ability as well as decline and continue to assess when appropriate to transition to hospice services. Time Spent: Total time spent 70 minutes with greater than 50% of this spent in counseling and coordination of care with patient, son/DPOA, DIL, emergency department physician and caregiver; risk vs benefit of treatment within the home vs ED evaluation; review of hospice criteria; examination of patient; and anticipatory guidance. Disclaimer: The chart note was formulated using voice recognition technology and unfortunately sound alike errors may occur.
== END 2020-04-14 12:01 | disposition home or self-care (01) ==
LOC: PC 12:00
PROVIDERS: ATTEND Nurse Practitioner Family
DX: Z51.5 Encounter for palliative care (principal); R19.7 Diarrhea, unspecified; R53.1 Weakness; R63.0 Anorexia; E86.9 Volume depletion, unspecified; I95.1 Orthostatic hypotension; R51.9 Headache, unspecified; M54.2 Cervicalgia; G89.29 Other chronic pain; Z79.899 Other long term (current) drug therapy; Z79.891 Long term (current) use of opiate analgesic; Z66 Do not resuscitate
CPT/HCPCS: 99350

== ENCOUNTER 2020-04-14 15:18 | Outpatient (CLI) | payer MEDICARE, OTHER | END 2020-04-14 15:19 | disposition critical access hospital (66) | LOC: EMS 15:18 | PROVIDERS: ATTEND Surgery | DX: R19.7 Diarrhea, unspecified (principal); R06.00 Dyspnea, unspecified; R07.89 Other chest pain | CPT/HCPCS: A0425; A0429 ==

== ENCOUNTER 2020-04-14 15:34 | Emergency (ER) | payer MEDICARE, OTHER ==
[2020-04-14] MEDS ORDERED: SODIUM CHLORIDE 0.9% 1,000 ML IV STA ×2 (15:42→16:42)
[2020-04-14 16:01] LABS: BASOPHILS % (AUTO) 0.5 %; EOSINOPHILS % (AUTO) 0.7 %; HGB - HEMOGLOBIN 11.8 g/dL (12.0-16.0); LYMPHOCYTES # (AUTO) 0.9 10^3/uL (1.5-3.5); LYMPHOCYTES % (AUTO) 22.4 %; MEAN CORPUSCULAR HEMOGLOBIN 26.2 pg (27.0-31.0); MEAN CORPUSCULAR HGB CONC 32.5 g/dL (32.0-36.0); MEAN CORPUSCULAR VOLUME 80.5 fL (81.0-99.0); MEAN PLATELET VOLUME 11.8 fL (7.9-10.8); MONOCYTES # (AUTO) 0.6 10^3/uL (0.0-1.0); MONOCYTES % (AUTO) 14.9 %; NEUTROPHILS # (AUTO) 2.6 10^3/uL (1.5-6.6); NEUTROPHILS % (AUTO) 61.3 %; PLT - PLATELET COUNT 154 10^3/uL (130-450); RED BLOOD COUNT 4.51 10^6/uL (4.20-5.40); RED CELL DISTRIBUTION WIDTH 16.1 % (12.0-15.0); WHITE BLOOD COUNT 4.2 x10^3/uL (4.8-10.8)
--- NOTE | 2020-04-14 16:07 | ED Physician Documentation ---
History of Present Illness - Stated complaint Stated Complaint: DIARRHEA - Chief complaint Chief Complaint: Abd Pain - History obtained from History obtained from: Patient, Caregiver - Additonal information Additional information: 84-year-old female was brought into the emergency department for evaluation of diarrhea. Per her provider as well as the caregiver she has been having loose stools for about a 1 week however over the last 3 to 4 days she has had approximately 6-7 watery stools a day. This is also been accompanied by increasing weakness and reduced p.o. intake. She does have a history of COPD malnutrition and hyponatremia. She does have a history of dementia and is a DNR. At the primary care office she was noted to be orthostatic. Her blood pressure went from 162/90 with a heart rate of 53 down to 130/75 and a heart rate increased to 100. No recent antibiotics. No history of infectious diarrhea or C. difficile. Review of Systems Constitutional: reports: Fatigue, Weight Loss. denies: Fever Eyes: reports: Reviewed and negative Nose: reports: Reviewed and negative Throat: reports: Reviewed and negative Cardiac: reports: Reviewed and negative Respiratory: reports: Reviewed and negative GI: reports: Diarrhea. denies: Abdominal Pain : denies: Dysuria Skin: denies: Rash, Lesions Neurologic: reports: Generalized weakness, Other (dementia at baseline). 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: None : Nocturia HEENT: Chronic vision loss, Chronic hearing loss, Other Psych: Depression, Anxiety Musculoskeletal: Osteoarthritis, Other Derm: None - Past Surgical History Past Surgical History: Yes General: Appendectomy Ortho: Spine surgery, Other /[employer]IDING MECH[employer]IC: Hysterectomy HEENT: Cataracts - Present Medications Home Medications: Ambulatory Orders Medication Instructions Recorded Confirmed Levothyroxine [Synthroid] 125 mcg PO QDAC 07/10/14 03/08/20 Ipratropium/Albuterol Sulfate 3 ml INH QID 12/25/17 03/08/20 [Iprat-Albut 0.5-3(2.5) mg/3 ml] Escitalopram Oxalate 10 mg PO DAILY 07/28/19 03/08/20 Fluticasone Propion/Salmeterol 1 puffs INH BID 08/25/19 03/08/20 [Wixela 250-50 Inhub] Albuterol Sulfate [Albuterol 2 puffs INH Q4H PRN 11/14/19 03/08/20 Sulfate Hfa] Celecoxib 200 mg PO DAILY 11/14/19 03/08/20 Montelukast Sodium 10 mg PO QPM 11/14/19 11/14/19 Trazodone HCl 50 mg PO QPM PRN 11/14/19 03/08/20 Triamcinolone 0.1% Cream [Kenalog 1 applic TOP PRN PRN 11/14/19 03/08/20 0.1% Cream] Morphine Ir [Ms Ir] 0.25 tab PO Q4H PRN 12/02/19 Morphine Ir [Ms Ir] 15 mg PO BID 12/02/19 12/02/19 Ondansetron Odt [Zofran Odt] 4 mg PO Q8H PRN 12/02/19 12/02/19 Buspirone HCl 5 mg PO TID 12/10/19 03/08/20 Senna [Senokot] 8.6 mg PO DAILY PRN 12/10/19 03/08/20 polyethylene glycoL 3350 [Miralax] 17 g PO DAILY 12/10/19 03/08/20 busPIRone [Buspar] 5 mg PO DAILY PRN 12/17/19 03/08/20 Senna [Senokot] 8.6 mg PO QPM 01/06/20 03/08/20 Sodium Chloride [Saline Nasal 1 spray INH .EACH NOSTRIL PRN PRN 01/14/20 03/08/20 [place]] MDD To reduce pollen exposure LORazepam [Ativan] 0.5 mg PO DAILY PRN MDD Use 02/09/20 03/08/20 sparingly QUEtiapine [SEROquel] 12.5 mg PO .MIDDAY 1400 02/09/20 03/08/20 predniSONE [Prednisone] MDD take as directed 03/08/20 Acetaminophen [Tactinal] 1,000 mg PO TID 04/05/20 04/05/20 Carboxymethylcellulose Sodium 1 drops EACHEYE Q2H PRN 04/05/20 04/05/20 [Artificial Tears] - Allergies Allergies/Adverse Reactions: Allergies Allergy/AdvReac Type Severity Reaction Status Date / Time moxifloxacin Allergy Severe Rash Verified 04/14/20 15:52 losartan [From Cozaar] Allergy Unknown Verified 04/14/20 15:52 oxycodone Allergy Unknown Verified 04/14/20 15:52 codeine AdvReac Severe Nausea Verified 04/14/20 15:52 hydrocodone AdvReac Severe Vomiting Verified 04/14/20 15:52 tramadol AdvReac Severe Vomiting Verified 04/14/20 15:52 - Social History Does the pt smoke?: No Smoking Status: Never smoker Does the pt drink ETOH?: Yes Does the pt have substance abuse?: No - Immunizations Immunizations are current?: Yes - POLST Patient has POLST: Yes POLST Status: DNR (limited interventions) PD ED PE EXPANDED - General General: Alert, No acute distress - Neck Neck: Supple w/out meningeal sx, No tenderness. No: Adenopathy - Cardiac Cardiac: Regular Rate, Regular Rhythm, Radial strong equal, Pedal strong equal, Cap refill < 2 sec - Respiratory Respiratory: Clear to ausultation halina. No: Distress, Labored - Abdomen Abdomen: Normal Bowel sounds. No: Tender to palpation - Derm Derm: Normal color. No: Rash - Neuro Neuro: Alert and Oriented X 3, Confused, CNII-XII intact, Normal speech - GCS Eye Opening: Spontaneous Motor: Obeys Commands Verbal: Confused Total: 14 Results - Vitals Vitals: Vital Signs - 24 hr 04/14/20 15:44 Temperature 37.1 C Heart Rate 96 Respiratory 20 Rate Blood Pressure 128/77 O2 Saturation 95 Oxygen O2 Source [Without Activity] Room air O2 Source Room air - Labs Labs: Laboratory Tests 04/14/20 04/14/20 04/14/20 15:49 15:49 15:54 WBC 4.2 L RBC 4.51 Hgb 11.8 L Hct 36.3 L MCV 80.5 L MCH 26.2 L MCHC 32.5 RDW 16.1 H Plt Count 154 MPV 11.8 H Neut # (Auto) 2.6 Lymph # (Auto) 0.9 L [place] # (Auto) 0.6 Eos # (Auto) 0.0 Baso # (Auto) 0.0 Absolute Nucleated RBC 0.00 Nucleated RBC % 0.0 Sodium 140 Potassium 3.5 Chloride 107 Carbon Dioxide 21 Anion Gap 12.0 BUN 38 H Creatinine 0.9 Estimated GFR (MDRD) 60 L Glucose 105 H Lactic Acid 1.5 Calcium 9.6 Magnesium 1.7 Total Bilirubin 0.8 AST 22 ALT 14 Alkaline Phosphatase 43 Total Protein 6.7 Albumin 3.4 Globulin 3.3 Albumin/Globulin Ratio 1.0 PD MEDICAL DECISION MAKING - ED course Complexity details: reviewed old records, reviewed results, re-evaluated patient, considered differential, d/w patient ED course: 84-year-old female presents to the emergency department for evaluation of progressive diarrhea and weakness. Seen by her primary care provider where she is noted to have orthostatic blood pressures.Here in the emergency department she appears rather well and has unremarkable vitals. Her labs reveal that she is likely dehydrated with an elevated BUN. However her creatinine and renal function is preserved. We do have pending stool studies. She was given 2 L of IV fluid and during the course of her stay in the emergency department remained well-appearing and alert. Her caregiver has been giving her Imodium at home. I recommended that she continue to hydrate well with frequent sips of fluid and broth. We will defer any antibiotics unless the stool cultures including C. difficile are positive. Patient was told to return to the emergency department for bloody diarrhea, fevers, suddenly severe pain or failure of her diarrhea to improve Departure - Departure Disposition: 01 Home, Self Care Clinical Impression: Dehydration Diarrhea Qualifiers: Diarrhea type: unspecified type Qualified Code(s): R19.7 - Diarrhea, unspecified Condition: Stable Record reviewed to determine appropriate education?: Yes Instructions: ED Dehydration Prevent Ch Follow-Up: Kirk Blakely DO [Primary Care Provider] - Comments: Today there is labs showed a normal blood count. She does appear dehydrated. She was given 2 L of IV fluids here in the emergency department. The cause of her diarrhea is not yet known but we are stent sending stool studies to check. At home she must take frequent sips of water broth, Jell-O to maintain her hydration. She should try and drink at least 1.5 or 2 L of fluid a day. Please return to the emergency department if the diarrhea does not improve, you have fevers, suddenly severe abdominal pain, or excessively sleepy or lethargic or any of your diarrhea becomes bloody
[2020-04-14 16:15] LABS: ALBUMIN 3.4 g/dL (3.2-5.5); BILIRUBIN,TOTAL 0.8 mg/dL (0.2-1.0); CALCIUM 9.6 mg/dL (8.5-10.3); CREATININE 0.9 mg/dL (0.4-1.0); MAGNESIUM 1.7 mg/dL (1.7-2.8); TOTAL PROTEIN 6.7 g/dL (6.7-8.2)
[2020-04-14 18:57] VITALS: BP 130/75
== END 2020-04-14 18:22 | disposition home or self-care (01) ==
LOC: EDUNIT# → ED 15:34
DX: E86.0 Dehydration (principal); R19.7 Diarrhea, unspecified; F03.90 Unspecified dementia, unspecified severity, without behavioral disturbance, psychotic disturbance, mood disturbance, and anxiety; I10 Essential (primary) hypertension; J44.9 Chronic obstructive pulmonary disease, unspecified; Z66 Do not resuscitate
CPT/HCPCS: 36415; 80053; 83605; 83735; 85025; 96360; 99284

== ENCOUNTER 2020-05-10 10:40 | Outpatient (CLI) | payer MEDICARE, OTHER ==
--- NOTE | 2020-05-10 12:35 | CONSULTATION NOTE ---
Palliative Care Follow Up - Referral Referring Provider: Dr. Kirk Blakely Time of Visit: 7770-8395 Referral setting: Home Referral Reason: Anxiety/COPD/Chronic Pain/Dementia - Information Sources Records reviewed: Previous records reviewed History/Review of Systems obtained from: Patient, Family (DILMore present and son, Ishan), Caregiver (private caregiver Abigail) Exam limitations: Clinical condition ([place] and dementia) - History of Present Illness Update Brief HPI Update: He waited today within her home with her private caregiver, [id number], and son/DPOA presents for follow-up due to chronic pain, anxiety Earlier this month by this PRODUCTION ADMINISTRATIVE ASSISTANT for acute diarrhea hydration in the emergency department and was administered IV for family her losartan was subsequently discontinued due to orthostatic hypotension. Since discontinuation of the losartan her blood pressure has ranged systolically 116-160 and Diastolically 60-83. She does have a history of hyponatremia. Since the patient was seen in the urgency department 04/14/2020 her appetite has returned to overall her baseline with munching on fruits and knots throughout the day. She also will consume protein shakes and has 3 to 4 cups of coffee. She is very little water intake but will take a power aid. She is having a bowel movement typically 2-3 times per day. If it is too loose her private caregiver will hold her dose of senna that day and then resume the next. She continues to have a bowel movement on a daily basis and her private caregiver recognize routine defecation daily due to her chronic opioid use. The patient continues to have reports of due to a headache temporarily intermittently. She has a longstanding history of cervical epiddural injections at the site in the past last done in November 2019.She denies visual changes. He has tolerated morphine immediate release 15 mg twice daily standing he has morphine sulfate immediate release 7.5 mg to be administered twice daily if needed for breakthrough pain. Upon review caregiver documentation the patient then received twice daily as needed doses. She is also on [id number] mg total daily for additional pain meds.The patient herself gets fairly quick to be upset to work. She that the medication should "have Magic." Her private caregiver reports that she will have a "panic headache" typically first thing in the morning. Dose adjustments of BuSpar on 05/03 to 5 mg in the morning, 5 mg midday and 10 mg in the evening the patient's overall anxiety level has improved. She also 10 mg daily. Her private caregiver recognizes That the patient continues go back and forth in regards to her readiness regarding . At times expresses that she is ready and at other times she has a deep overriding fear level of increased anxiety. The patient herself is seen bed in her new recliner. Her family opted to not argue with her any further in regards to her previous chair that she would not part with and did not provide neck support and are Rensi recliner.She appears comfortable, dressed in her pajamas. She has just completed a nebulization. Her breathing is at baseline with no evidence of acute distress. Past Medical History: Patient has a past medical history of hypertension, asthma, COPD, dementia, hypothyroidism, GERD, diverticulitis, depression, anxiety, osteopenia, frequent falls, chronic neck pain, hyponatremia. Social History - Living Situation Living arrangement: At home Living Situation: With caregiver(s) Support System: Patient resides in a home of 22 years. She has 01/01 intermediate care with her in her home with Osbaldo her private caregiver present 5 days/week and caregivers from [facility] supplementing on the weekends. Her children, Keri and Ishan continue on a rotating schedule to manage her medications and provide oversight. Keri's contact number is [phone]. The patient's private caregiver Osbaldo contact number is [phone] Medications/Allergies - Medications Home Medications: Ambulatory Orders Medication Instructions Recorded Confirmed Levothyroxine [Synthroid] 125 mcg PO QDAC 07/10/14 03/08/20 Ipratropium/Albuterol Sulfate 3 ml INH QID 12/25/17 03/08/20 [Iprat-Albut 0.5-3(2.5) mg/3 ml] Escitalopram Oxalate 10 mg PO DAILY 07/28/19 03/08/20 Fluticasone Propion/Salmeterol 1 puffs INH BID 08/25/19 03/08/20 [Wixela 250-50 Inhub] Albuterol Sulfate [Albuterol 2 puffs INH Q4H PRN 11/14/19 03/08/20 Sulfate Hfa] Celecoxib 200 mg PO DAILY 11/14/19 03/08/20 Montelukast Sodium 10 mg PO QPM 11/14/19 11/14/19 Trazodone HCl 50 mg PO QPM PRN 11/14/19 03/08/20 Triamcinolone 0.1% Cream [Kenalog 1 applic TOP PRN PRN 11/14/19 03/08/20 0.1% Cream] Morphine Ir [Ms Ir] 0.5 tab PO Q4H PRN 12/02/19 Ondansetron Odt [Zofran Odt] 4 mg PO Q8H PRN 12/02/19 12/02/19 Buspirone HCl 5 mg PO .QAM AND AFTERNOON 12/10/19 03/08/20 Senna [Senokot] 8.6 mg PO DAILY PRN 12/10/19 03/08/20 polyethylene glycoL 3350 [Miralax] 17 g PO DAILY 12/10/19 03/08/20 busPIRone [Buspar] 5 mg PO DAILY PRN 12/17/19 03/08/20 Senna [Senokot] 8.6 mg PO QPM 01/06/20 03/08/20 Sodium Chloride [Saline Nasal 1 spray INH .EACH NOSTRIL PRN PRN 01/14/20 03/08/20 [place]] MDD To reduce pollen exposure LORazepam [Ativan] 0.5 mg PO DAILY PRN MDD Use 02/09/20 03/08/20 sparingly QUEtiapine [SEROquel] 12.5 mg PO .MIDDAY 1400 02/09/20 03/08/20 predniSONE [Prednisone] MDD take as directed 03/08/20 Acetaminophen [Tactinal] 1,000 mg PO TID 04/05/20 04/05/20 Carboxymethylcellulose Sodium 1 drops EACHEYE Q2H PRN 04/05/20 04/05/20 [Artificial Tears] Buspirone HCl 10 mg PO QPM 05/10/20 05/10/20 - Allergies Allergies/Adverse Reactions: Allergies Allergy/AdvReac Type Severity Reaction Status Date / Time moxifloxacin Allergy Severe Rash Verified 04/14/20 15:52 losartan [From Cozaar] Allergy Unknown Verified 04/14/20 15:52 oxycodone Allergy Unknown Verified 04/14/20 15:52 codeine AdvReac Severe Nausea Verified 04/14/20 15:52 hydrocodone AdvReac Severe Vomiting Verified 04/14/20 15:52 tramadol AdvReac Severe Vomiting Verified 04/14/20 15:52 Review of Systems - Constitutional Constitutional: reports: Fatigue, Poor appetite, Weight stable. denies: Fever - Eyes Eyes: denies: Irritation (using artficial tears routinely) - Ears, Nose & Throat Ears, Nose & Throat: reports: Hearing loss, Hearing aids - Cardiovascular Cardiovascular: denies: Edema - Respiratory Respiratory: reports: SOB with exertion. denies: Cough, Wheezing - Gastrointestinal Gastrointestinal: reports: Diarrhea (intermittent and private caregiver will hold dose of senna. DAVID reports that patient has long standing history of diarrhea if increased fiber in diet for many years and patient's diet is presently higher in fiber with fruit and nuts.), Other (Increase in fecal incontience). denies: Constipation, Vomiting - Genitourinary Genitourinary: reports: Incontinence. denies: Dysuria - Musculoskeletal Musculoskeletal: reports: Joint pain, Assistive devices - Integumentary Integumentary: reports: Dryness - Neurological Neurological: reports: General weakness, Headache (see HPI), Memory problems - Psychiatric Psychiatric: reports: Depression, Anxiety - Endocrine Endocrine: reports: Hypothyroidism - All Other Systems All Other Systems: reports: Reviewed and negative (ROS supplemented by caregiver, Osbaldo and DIL as patient is a poor historian due to dementia) Physical Exam - Vital Signs Temperature: 36.7 C Pulse Rate: 66 Respiratory Rate: 20 O2 Saturation: 95 (on RA at rest) Blood Pressure: 148/64 (left wrist cuff sitting) - Physical Exam General Appearance: positive: No acute distress, Alert, Other (thin, b/l temporal wasting) Eyes Bilateral: positive: Conjunctivae nml, Other (mild entropion noted left lower eyelid; no discharge to b/l eyelids) ENT: positive: No signs of dehydration Neck: positive: Trachea midline, Other (thin) Cardiovascular: positive: Regular rate & rhythm, No murmur Respiratory: positive: Other (No accessory muscle use. Pausing to take a breath when speaking which is her baseline). negative: Wheezes, Rales Abdomen: positive: Non-tender, Soft, Nml bowel sounds. 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 When she sleeps more, she has a reduction in GERONIMO report.) Anorexia: Mild (1-3) Dyspnea: Moderate (4-6) Anxiety: Mild (1-3) Sleep: Sleeps well Constipation: Yes, Opoid induced, Managed Performance Status: Has some generalized weakness but is still able to ambulate with her Rollator within the home. She is able to self feed. Overall she has urinary and fecal incontinence. - Palliative Care Discussion: The patient's floor care technician and family all recognize the patient is frail sequelae fall. They recognize this appropriate and. Ultimately, the patient came for her having ultimate comfort within her home setting. The sulfate immediate release 15 mg recommend switching over to morphine 50 for better pain management that she is reporting neck headache. Noted pictures from the caregiver with the patient and her new list chair for by cervical neck support she appears much more comfortable than on examinations when she is out of bed. Would expect her to have this new setting. Dying waxes and wanes with her readiness. Today, stress upon his hoping that her breathing was better. She was disappointed that this will have a magic pill to make her breathing better. Impression and Recommendations - Palliative Care Impression: This is a frail 84-year-old female with a longstanding history of COPD, chronic neck pain, dementia with anxiety depression. She continues to have reports of headaches likely due to her chronic cervical neck pain which has improved with a new chair.Recommend transitioning to long-acting morphine sulfate for optimizing pain management and family in agreement. Patient had a precarious situation her earlier this month with decreased oral intake dehydration resulting in an emergency department visit for eye dehydration. Family recognizes that the patient is at high risk for sequelae and wish to focus on comfort. Palliative care to continue to provide support for symptom management, anticipatory guidance, advance care planning and a transition to hospice when medically appropriate. 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 Continue use of lift chair that is being privately rented. Recommend discontinuation of morphine sulfate 15 mg immediate release twice daily and transition to morphine sulfate extended release 15 mg twice daily starting . Discussed with family that this is a 1-1 swi tch. Increase morphine sulfate immediate release 7.5 mg every 4 hours as needed for pain management. Advised private caregiver to documents when as needed medication is administered for future dosing. Introduced the idea to the patient's private caregiver and family would expect to potentially have 3 times daily dosing in the future to optimize the patient's due to likelihood of dose failure. Continue acetaminophen 3000 mg daily divided. Advised that it acetaminophen 3000 mg daily from all sources with understanding verbalized. Once better controlled with morphine sulfate wish to taper down 1 acetaminophen to 500 mg 3 times daily for synergistic pain. Palliative care to follow up in the afternoon tomorrow to check on patient's status. 2.Depression and anxiety. Noted improvements. Patient has an underlying fear of dying that the not want to explore on today's visit. Longstanding history of anxiety. Continue Lexapro 10 g daily. Continue BuSpar 5 mg in the morning, 5 mg in a.m. evening. To further adjust BuSpar dosing as needed she has lorazepam 0.5 mg to be used once daily for acute anxiety. Continue to monitor and adjust medication as needed for management of symptoms. 3. Hypertension. Patient's decrease in oral intake overall and recent hypotension in the setting of dehydration will continue losartan moving forward. Patient blood pressure trends were reviewed and typically range has been below goal of 150/90. Patient is without cardiac complaints. Continue to monitor. 4. COPD. Longstanding history. Has had 3 COPD exacerbations since beginning of summer 2019. Continue routine duo nebs. Use Singulair 10 mg nightly. Patient has to use as directed if COPD exacerbation occurs family aware to administer 20 mg x 1 dose and follow-up with your palliative care for further management with the goal to avoid transfer to the emergency department. 5. Dementia with behavioral disturbances. Chronic. Progressive. Fall precautions. Sundowning behaviors has not been controlled. Continue with 5 mg at noon. 24/7 intermediate care with private caregiver 5 days/week and additional caregivers [place]. No disease modifying agents. Family is very involved in management of oversight. 6. Advanced care planning. Patient continues to functional decline due to her multiple comorbidities wish to function only wish to patient's care with at all possible due to her underlying dementia late and during stressful setting. She is not quite meeting hospice criteria but is at high risk for acute decline and this was reviewed again with the patient's family. Palliative care to continue to provide supportive care and listening for both the patient's, private caregiver moving forward. Time Spent: F/u in 3-4 weeks or PRN. Total time spent 60 minutes with greater than 50% of this spent in counseling and coordination of care with DIL, son, patient and private caregiver, review of pain and symptom management and anticipatory guidance. Disclaimer: The chart note was formulated using voice recognition technology and unfortunately sound alike errors may occur.
== END 2020-05-10 10:41 | disposition home or self-care (01) ==
LOC: PC 10:40
PROVIDERS: ATTEND Nurse Practitioner Family
DX: Z51.5 Encounter for palliative care (principal); R51.9 Headache, unspecified; M54.2 Cervicalgia; G89.29 Other chronic pain; F32.9 Major depressive disorder, single episode, unspecified; F41.9 Anxiety disorder, unspecified; I10 Essential (primary) hypertension; J44.9 Chronic obstructive pulmonary disease, unspecified; F03.91 Unspecified dementia, unspecified severity, with behavioral disturbance; Z66 Do not resuscitate
CPT/HCPCS: 99350

== ENCOUNTER 2020-06-09 10:30 | Outpatient (CLI) | payer MEDICARE, OTHER ==
--- NOTE | 2020-06-09 18:47 | CONSULTATION NOTE ---
Palliative Care Follow Up - Referral Referring Provider: Dr. Kirk Blakely Time of Visit: 7747-3761 Referral setting: Home Referral Reason: COPD/Chronic Pain/Dementia - Information Sources Records reviewed: Previous records reviewed History/Review of Systems obtained from: Patient, Family (DILMore and son, Ishan), Caregiver (private Caregiver Abigail) Exam limitations: Clinical condition (WAMPANOAG and dementia) - History of Present Illness Update Brief HPI Update: This is an 84-year-old female who was seen and evaluated today within her home for follow-up regarding chronic pain, anxiety, dementia and COPD with her [id number], son/DPOA and private caregiver present. On last evaluation the patient was transition to long acting morphine to 15 mg twice daily with positive benefit with her overall bleed breathing due to her CP OD as well as her chronic longstanding cervical neck pain resulting in headaches . She has a longstanding history of cervical neck pain and has had injections at the site in the past last done November 2019. She is only requiring immediate release morphine 7.5 mg approximately 1-2 times per week since transitioning to long-acting morphine. If needed, and she develops a headache or minor complaints of pain acetaminophen is administered and typically provides relief. She is also tolerating her new lift chair and is complaining last regarding this and per her private caregiver appears to be more comfortable during the day. No reported episodes of crying in the evening. She continues on Lexapro 10 mg daily and BuSpar 5 mg in the morning, 5 mg midday, and 10 mg in the evening. Overall her breathing is stable. There have been no episodes of acute exacerbation recently she continues to use her DuoNeb routinely. She continues to be eating well typically having 1-2 protein drinks per day. She snacks on nuts and fruits between meals. She remains off of losartan for her hypertension after noted orthostatic hypotension kitchen in the setting of dehydration. Upon review of caregivers daily blood pressure log it has ranged systolically 10 8-1 59 and diastolically 64-92. The patient denies chest pain or lower extremity edema. The patient seen initially in the living room in her new lift chair dressed in pajamas she received for Bhavesh. She then transition to her bed as she was reporting fatigue from not sleeping well the night before. She appears comfortable and in no evidence of acute distress. Her breathing appears to be more at ease than on prior evaluations. Past Medical History: Patient is a past medical history of hypertension, asthma, COPD, dementia, hypothyroidism, GERD, diverticulitis, depression, anxiety, osteopenia, frequent falls, chronic neck pain, hyponatremia. Social History - Living Situation Living arrangement: At home Living Situation: With caregiver(s) Support System: Patient resides in her home of 22 years. She has 24 7 fdc care with her the [facility], her private caregivers present 5 days/week Sunday through Sunday and has caregivers from [facility] on the weekends. Her children, Keri and Ishan continue on a rotating schedule to manage her medication and provide oversight. At the present time, in approximately October Keri plans to move into the basement of the patient's home as she and her move forward with building plans near the patient's property. The patient's son and [id number] plan to spend 6 months in [place] from September to approximately February 2021. Medications/Allergies - Medications Home Medications: Ambulatory Orders Medication Instructions Recorded Confirmed Levothyroxine [Synthroid] 125 mcg PO QDAC 07/10/14 03/08/20 Ipratropium/Albuterol Sulfate 3 ml INH QID 12/25/17 03/08/20 [Iprat-Albut 0.5-3(2.5) mg/3 ml] Escitalopram Oxalate 10 mg PO DAILY 07/28/19 03/08/20 Fluticasone Propion/Salmeterol 1 puffs INH BID 08/25/19 03/08/20 [Wixela 250-50 Inhub] Albuterol Sulfate [Albuterol 2 puffs INH Q4H PRN 11/14/19 03/08/20 Sulfate Hfa] Celecoxib 200 mg PO DAILY 11/14/19 03/08/20 Montelukast Sodium 10 mg PO QPM 11/14/19 11/14/19 Trazodone HCl 50 mg PO QPM PRN 11/14/19 03/08/20 Triamcinolone 0.1% Cream [Kenalog 1 applic TOP PRN PRN 11/14/19 03/08/20 0.1% Cream] Morphine Ir [Ms Ir] 0.5 tab PO Q4H PRN 12/02/19 Ondansetron Odt [Zofran Odt] 4 mg PO Q8H PRN 12/02/19 12/02/19 Buspirone HCl 5 mg PO .QAM AND AFTERNOON 12/10/19 03/08/20 Senna [Senokot] 8.6 mg PO DAILY PRN 12/10/19 03/08/20 polyethylene glycoL 3350 [Miralax] 17 g PO DAILY 12/10/19 03/08/20 busPIRone [Buspar] 5 mg PO DAILY PRN 12/17/19 03/08/20 Senna [Senokot] 8.6 mg PO QPM 01/06/20 03/08/20 Sodium Chloride [Saline Nasal 1 spray INH .EACH NOSTRIL PRN PRN 01/14/20 03/08/20 [place]] MDD To reduce pollen exposure LORazepam [Ativan] 0.5 mg PO DAILY PRN MDD Use 02/09/20 03/08/20 sparingly QUEtiapine [SEROquel] 12.5 mg PO .MIDDAY 1400 02/09/20 03/08/20 predniSONE [Prednisone] MDD take as directed 03/08/20 Acetaminophen [Tactinal] 1,000 mg PO TID PRN 04/05/20 04/05/20 Carboxymethylcellulose Sodium 1 drops EACHEYE Q2H PRN 04/05/20 04/05/20 [Artificial Tears] Buspirone HCl 10 mg PO QPM 05/10/20 05/10/20 Morphine Sulfate [Ms Contin] 15 mg PO BID 06/09/20 06/09/20 - Allergies Allergies/Adverse Reactions: Allergies Allergy/AdvReac Type Severity Reaction Status Date / Time moxifloxacin Allergy Severe Rash Verified 06/09/20 18:59 losartan [From Cozaar] Allergy Unknown Verified 06/09/20 18:59 oxycodone Allergy Unknown Verified 06/09/20 18:59 codeine AdvReac Severe Nausea Verified 06/09/20 18:59 hydrocodone AdvReac Severe Vomiting Verified 06/09/20 18:59 tramadol AdvReac Severe Vomiting Verified 06/09/20 18:59 Review of Systems - Constitutional Constitutional: reports: Fatigue (sleeping more during the day), Weight stable (weight 102.8lb today on personal scale). denies: Fever - Eyes Eyes: denies: Irritation (using artficial tears routinely) - Ears, Nose & Throat Ears, Nose & Throat: reports: Hearing loss, Hearing aids - Cardiovascular Cardiovascular: denies: Chest pain, Edema - Respiratory Respiratory: reports: SOB with exertion. denies: Cough - Gastrointestinal Gastrointestinal: reports: Diarrhea (intermittent and private caregiver will hold dose of senna.), Good appetite. denies: Constipation, Nausea - Genitourinary Genitourinary: reports: Incontinence. denies: Dysuria - Musculoskeletal Musculoskeletal: reports: Joint pain, Assistive devices - Integumentary Integumentary: reports: Dryness - Neurological Neurological: reports: General weakness, Headache (controlled presently), Memory problems - Psychiatric Psychiatric: reports: Depression, Anxiety - Endocrine Endocrine: reports: Hypothyroidism - All Other Systems All Other Systems: reports: Reviewed and negative (ROS supplemented by caregiver, Abigail and DIL as patient is a poor historian due to dementia) Physical Exam - Vital Signs Temperature: 36.9 C Pulse Rate: 52 Respiratory Rate: 17 O2 Saturation: 97 (on RA) Blood Pressure: 105/78 (left wrist cuff lying down) - Physical Exam General Appearance: positive: No acute distress, Alert, Other (thin, b/l temporal wasting) Eyes Bilateral: positive: Normal inspection ENT: positive: No signs of dehydration Neck: positive: Trachea midline Cardiovascular: positive: No murmur, Bradycardia Respiratory: positive: No respiratory distress, Other (No accessory muscle use. Able to speak in more fluid sentances when speaking then on previous occasions). 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) Neurologic/Psychiatric: positive: Oriented x3 (STM impiarment), Mood/affect nml, Weakness Palliative Care - POLST Patient has POLST: Yes POLST Status: DNR, Selective Treatment Pain: Pain improved (headaches) Tiredness/Fatigue: Moderate (4-6) Drowsiness/Sedation: None Nausea: None Anorexia: Mild (1-3) Dyspnea: Moderate (4-6) (she still ambulates with her rollator several times a day making laps in the home) Depression: None Anxiety: None (controlled) Sleep: Variable sleep pattern Constipation: Yes, Managed - Palliative Care Discussion: The patient has had overall improvement with her underlying dyspnea due to COPD and her cervicogenic headaches with introduction of MS Contin 50 mg twice daily. She has required very little of immediate release morphine administration upon review. She has also benefited from introduction of her new recliner chair that her family is presently renting to provide cervical neck support that her prior chair did not give her. This was a feet to act upon as the patient's is not one for change and is resistant to it. Her family continues to recognize that she is frail and is at risk for a potential sequelae such as a fall. Ultimately, her family wishes her to remain in her home setting and to be comfortable. Impression and Recommendations - Palliative Care Impression: This is a frail, 84-year-old female with a longstanding history of COPD, chronic neck pain, dementia, with anxiety and depression. She had developed headaches due to her chronic cervical neck pain resulting in cervicogenic headaches that has responded to her new recliner chair with neck support and transitioning to MS Contin. Her breathing has ultimately improved as well with a transition to MS Contin with no recent COPD exacerbations or evidence of thus. Palliative care to continue to provide support for symptom management, anticipatory guidance, advance care planning and transition to hospice when medically appropriate. Recommendations/Counseling Done: 1. Cervicogenic headache in the setting of chronic cervical neck pain. Improved. Continue MS Contin 15 mg twice daily. Continue morphine sulfate immediate release 7.5 mg every 4 hours as needed for pain. May continue to administer acetaminophen 1000 mg 3 times daily as needed not to exceed 3000 mg daily of acetaminophen from all sources. If headache occurs may apply cool compress or massage to neck. 2. Depression anxiety. Stable. She is a longstanding history of anxiety. Continue Lexapro 10 mg daily. Continue BuSpar 5 mg in the morning, 5 mg in the afternoon and 10 mg in the evening. She also has lorazepam 0.5 mg to be used once daily as needed for acute anxiety. Continue to monitor and adjust m edication regimen as needed for management of symptoms. 3. COPD. Longstanding history. Has had 3 is to COPD exacerbations since beginning of summer 2019. Continue routine duo nebs. Continue Singulair 10 mg nightly. Has had noted benefit in her overall breathing status with introduction of MS Contin 15 mg twice daily for her dyspnea. Patient has available in the home prednisone 25 mg tablets to utilize as directed if COPD exacerbation occurs with the goal to avoid transfer to the emergency department and manage symptoms within the home. 4. Dementia with behavioral disturbances. Chronic. Progressive. Fall precautions. own behaviors are presently controlled. Continue Seroquel 12.5 mg in the afternoon. 01/01 fdc care with private caregivers 5 days/week and additional caregivers on the weekends. Noted subtle progression of disease advancement with increased fatigue during the day however, weight has improved and stabilized at 102.8 pounds. Family is very involved in management and oversight. Time Spent: Follow-up 4 to 6 weeks or as needed. Total time spent 50 minutes with greater than 50% of this spent in counseling and coordination of care with [id number], son, patient and private caregivers; examination of patient; review of pain and symptom management and anticipatory guidance. Disclaimer: The chart note was formulated using voice recognition technology and unfortunately sound alike errors may occur.
== END 2020-06-09 10:31 | disposition home or self-care (01) ==
LOC: PC 10:30
PROVIDERS: ATTEND Nurse Practitioner Family
DX: Z51.5 Encounter for palliative care (principal); G89.29 Other chronic pain; J44.9 Chronic obstructive pulmonary disease, unspecified; F03.91 Unspecified dementia, unspecified severity, with behavioral disturbance; F41.8 Other specified anxiety disorders; R53.83 Other fatigue; R06.09 Other forms of dyspnea; Z79.899 Other long term (current) drug therapy; Z79.891 Long term (current) use of opiate analgesic; Z66 Do not resuscitate
CPT/HCPCS: 99349

== ENCOUNTER 2020-07-07 11:30 | Outpatient (CLI) | payer MEDICARE, OTHER ==
--- NOTE | 2020-07-07 13:43 | CONSULTATION NOTE ---
Palliative Care Follow Up - Referral Referring Provider: Dr. Kirk Monahan Time of Visit: [id number] Referral setting: Home Referral Reason: COPD/chronic pain/dementia - Information Sources Records reviewed: Previous records reviewed History/Review of Systems obtained from: Patient, Family (DAVID Aguero, daughter/DPPARESH Saavedra), Caregiver (Abigail) Exam limitations: Clinical condition (Hard of hearing and dementia) - History of Present Illness Update Brief HPI Update: This is an 84-year-old female who was seen and evaluated today within her home for follow-up regarding chronic pain, anxiety, dementia and COPD with her [id number], daughter/DPOA and private caregiver present. Since last evaluation the patient did have a day that she had increased wheezing and shortness of breath. Her private caregiver initiated her DuoNeb and when that was not effective a short acting dose of 7.5 of morphine and that she was not effective and therefore she administered 20 mg of prednisone. After administering 20 mg of prednisone the patient had improvement of her breathing and appeared more comfortable. The patient does have a history of COPD exacerbations more specifically revolving around changes in the season. It will be important to note monitoring her as spring appears if she will need any short course of prednisone if she develops a COPD exacerbation. Since transitioning to long-acting morphine 50 mg twice daily the patient has had improvement in her overall pain. She is not reporting headaches that were due to cervicogenic headaches. She is also sitting in her new lift recliner that is giving her neck support. She is not using much of immediate release morphine since transitioning to long-acting morphine. Her caregiver reports to having to use acetaminophen for pain 1-3 times per week. Typically she will require a dose of acetaminophen if she has had visitors and she is up and sitting for too long. Both her family and her private caregiver noted that she is eating a little less. She continues to have protein shakes twice a day. She is drinking whole milk. She continues to monitor and snack on fruits and knots throughout the day. She is sleeping more. Weight obtained today was 98.8 pounds which is a decrease from her previous weight of 102.8 in May. The patient's family and private caregiver also report that she is sleeping more during the day and appears to be more tired. She is also not as active walking around the first floor as she has been in the past. The patient has a more cheerful outlook and disposition and is no longer displaying signs and symptoms of anxiety. The strong odor noted to the patient's urine on Sunday has subsequently resolved with increased oral hydration per the daughter and private caregivers report. The patient is seen in the living room in her new lift chair dressed in [facility]. Her breathing appears to be at baseline and no evidence of acute distress. Past Medical History: Has a past medical history hypertension, asthma, COPD, dementia, hypothyroidism, GERD, diverticulitis, depression, anxiety, osteopenia, frequent falls, chronic neck pain, hyponatremia. Social History - Living Situation Living arrangement: At home Living Situation: With caregiver(s) Support System: Patient resides in a home of 22 years. She has 01/01 long term care with her private caregiver, DVT present 5 days/week Sunday through Sunday at contact number [phone] and has caregivers from [facility] on the weekends. The patient's son/DPOA and utitmqhx-vo-orp, Elizabeth, are going to be spending 6 months in [place] from September to February 2021 but are available if there are any changes in condition. Medications/Allergies - Medications Home Medications: Ambulatory Orders Medication Instructions Recorded Confirmed Levothyroxine [Synthroid] 125 mcg PO QDAC 07/10/14 03/08/20 Ipratropium/Albuterol Sulfate 3 ml INH QID 12/25/17 03/08/20 [Iprat-Albut 0.5-3(2.5) mg/3 ml] Escitalopram Oxalate 10 mg PO DAILY 07/28/19 03/08/20 Fluticasone Propion/Salmeterol 1 puffs INH BID 08/25/19 03/08/20 [Wixela 250-50 Inhub] Albuterol Sulfate [Albuterol 2 puffs INH Q4H PRN 11/14/19 03/08/20 Sulfate Hfa] Celecoxib 200 mg PO DAILY 11/14/19 03/08/20 Montelukast Sodium 10 mg PO QPM 11/14/19 11/14/19 Trazodone HCl 50 mg PO QPM PRN 11/14/19 03/08/20 Triamcinolone 0.1% Cream [Kenalog 1 applic TOP PRN PRN 11/14/19 03/08/20 0.1% Cream] Morphine Ir [Ms Ir] 0.5 tab PO Q4H PRN 12/02/19 Ondansetron Odt [Zofran Odt] 4 mg PO Q8H PRN 12/02/19 12/02/19 Buspirone HCl 5 mg PO BID 12/10/19 03/08/20 Senna [Senokot] 8.6 mg PO DAILY PRN 12/10/19 03/08/20 polyethylene glycoL 3350 [Miralax] 17 g PO DAILY 12/10/19 03/08/20 busPIRone [Buspar] 5 mg PO DAILY PRN 12/17/19 03/08/20 Senna [Senokot] 8.6 mg PO QPM 01/06/20 03/08/20 Sodium Chloride [Saline Nasal 1 spray INH .EACH NOSTRIL PRN PRN 01/14/20 03/08/20 [place]] MDD To reduce pollen exposure LORazepam [Ativan] 0.5 mg PO DAILY PRN MDD Use 02/09/20 03/08/20 sparingly QUEtiapine [SEROquel] 12.5 mg PO .MIDDAY 1400 02/09/20 03/08/20 predniSONE [Prednisone] MDD take as directed 03/08/20 Acetaminophen [Tactinal] 1,000 mg PO TID PRN 04/05/20 04/05/20 Carboxymethylcellulose Sodium 1 drops EACHEYE Q2H PRN 04/05/20 04/05/20 [Artificial Tears] Morphine Sulfate [Ms Contin] 15 mg PO BID 06/09/20 06/09/20 - Allergies Allergies/Adverse Reactions: Allergies Allergy/AdvReac Type Severity Reaction Status Date / Time moxifloxacin Allergy Severe Rash Verified 06/09/20 18:59 losartan [From Cozaar] Allergy Unknown Verified 06/09/20 18:59 oxycodone Allergy Unknown Verified 06/09/20 18:59 codeine AdvReac Severe Nausea Verified 06/09/20 18:59 hydrocodone AdvReac Severe Vomiting Verified 06/09/20 18:59 tramadol AdvReac Severe Vomiting Verified 06/09/20 18:59 Review of Systems - Constitutional Constitutional: reports: Fatigue (sleeping more during the day, see HPI), Weight loss (weight 98.8lb on personal scale; weight 102.8lb 06/09/2020). denies: Fever - Eyes Eyes: denies: Irritation - Ears, Nose & Throat Ears, Nose & Throat: reports: Hearing loss, Hearing aids - Cardiovascular Cardiovascular: denies: Chest pain, Edema - Respiratory Respiratory: reports: SOB with exertion. denies: Cough, Wheezing - Gastrointestinal Gastrointestinal: reports: Other (still consuming meals regularly but quantity is diminished). denies: Constipation, Nausea - Genitourinary Genitourinary: reports: Incontinence. denies: Dysuria, Hematuria, Flank pain - Musculoskeletal Musculoskeletal: reports: Joint pain, Assistive devices - Integumentary Integumentary: reports: Dryness - Neurological Neurological: reports: General weakness, Memory problems. denies: Headache - Psychiatric Psychiatric: reports: Depression, Anxiety - Endocrine Endocrine: reports: Hypothyroidism - Hematologic/Lymphatic Hematologic/Lymph: Bruising - All Other Systems All Other Systems: reports: Reviewed and negative (ROS supplemented by caregiver, Abigail, daughter and DIL as patient is a poor historian due to dementia) Physical Exam - Vital Signs Temperature: 37.1 C Pulse Rate: 70 Respiratory Rate: 19 O2 Saturation: 96 (on RA at rest) Blood Pressure: 158/62 (left wrist cuff) - Physical Exam General Appearance: positive: No acute distress, Alert, Cachetic, Other (thin, b/l temporal wasting) Eyes Bilateral: positive: Normal inspection ENT: positive: No signs of dehydration Neck: positive: Trachea midline Cardiovascular: positive: Regular rate & rhythm, No murmur Respiratory: positive: No respiratory distress, Other (No accessory muscle use.). 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 No recent falls. Meals are prepared for her. Able to self feed. Remains mainly continent of bladder. Continent of bowels, mainly. - Palliative Care Discussion: The patient is demonstrating a slow, functional decline due to advancement of her COPD and dementia. She feels that she is "going to be dying soon." Discussing is no longer bringing her anxiety has it was before. The patient appears to overall be slowing down and is more accepting of change. In the past any type of change made her anxious and upset but now she is more accepting. Her family is also noticing that she is more upbeat and her pain is well controlled at the present time. The patient's family continues to wish to focus on comfort within her home environment. Reviewed hospice criteria again with parties present and still not quite at the tipping point to sway her towards hospice beds all parties involved recognize the gradual decline that the patient is taking. Impression and Recommendations - Palliative Care Impression: This is a frail 84-year-old female with a longstanding history of COPD, chronic neck pain, dementia with anxiety and depression some noted weight loss. Her pain is presently well controlled with MS Contin 15 mg twice daily. She is at risk for COPD exacerbations especially when the season changes. Palliative care to continue provide support for symptom management, anticipatory guidance, advance care planning and transition to hospice when medically appropriate. Recommendations/Counseling Done: 1. COPD exacerbation. Status post ER evaluation on 01/15/2020 ruled out acute infectious process. Complete prednisone taper and doxycycline as ordered. Continue routine DuoNeb. Use of personal fan for acute shortness of breath. Continue to encourage patient to have the windows closed with air conditioning circulating to limit future risk of COPD exacerbation. Strongly encouraged use of saline nasal spray to nasal passageways after being outside and washing her face to reduce pollen exposure. Relayed this to patient's new private caregiver with support from patient's son and daughter. Continue to monitor. 1. Cervical neck pain. Chronic and controleld. No longer reporting cervicogenic headaches. Status post cervical procedure with Dr. Bennett perform 12/04/2019. Continue MS Contin 15mg BID for pain and Rx for 60 tablets sent to [facility]. Continue morphine sulfate immediate release to 7.5 mg every 4 hours as needed for pain. Continue acetaminophen 1,000mg TID if needed for pain not to exceed 3gram daily from all sources. Continue weigh benefits versus burdens. Adjust pain regiment as needed. 2. Depression and Anxiety. Patient has a longstanding history of anxiety. Improvement. Continue lexapro 10mg daily. Decrease Buspar to 5mg in the AM and 5mg in the afternoon and discontinue in the evening. May use lorazepam 0.5 mg once daily as needed for acute anxiety. Monitor for s/s of anxiety with decrease of buspar dose. Patient appears to be more accepting of the changes that are occuring around her and is no longer fearful. Supportive listening provided to family. Continue to monitor. 3. COPD. Long standing history. Continue routine Nebs. Continue singulair 10mg nightly. Improvement of breathing with MS Contin 15mg BID for her dyspnea. She is prone to COPD exacerbations with seasonal changes and Spring can be difficult for her. Reviewed with caregiver and family that when the time approaches to change the air filter, use a fan in the home and keep all windows closed to avoid exposure. The patient has pednisone 20mg tablets in the home to use as directed if COPD exacerbation develops to avoid transfer to the emergency department as the goal is to avoid leaving the home. 4. Protein calorie malnutrition with weight loss. She has lost 4lbs in 4 weeks and is presently 98.8lb on her home scale. This is expected due to advancement of her dementia and COPD. The patient continues to graze and consume foods that she enjoys. Continue to monitor weight loss trend. 5. Dementia. Chronic. Progressive. Fall precautions. Continue 24-hour support within the home. Family to continue to provide oversight for caregiving support and medication management. On no disease modifying agents. No recent falls. Gradual decline as expected. 6. Advanced care planning. Has POLST as DNAR with selective treatment. The goal is to keep the patient in her home setting and transition to hospice services when appropriate. Palliative care to continue to provide support as it is not feasible the patient to leave her present setting. Time Spent: f/u in 4-6 weeks or as needed if new/worsening symptoms. Total time spent 50 minutes with greater than 50% of this spent in counseling and coordination of care with patient, caregiver, daughter and DIL; examination of patient; review of medications; review of pain and symptom management and anticipatory guidance. Disclaimer: The chart note was formulated using voice recognition technology and unfortunately sound alike errors may occur.
== END 2020-07-07 11:31 | disposition home or self-care (01) ==
LOC: PC 11:30
PROVIDERS: ATTEND Nurse Practitioner Family
DX: Z51.5 Encounter for palliative care (principal); J44.9 Chronic obstructive pulmonary disease, unspecified; M54.2 Cervicalgia; G89.29 Other chronic pain; F32.9 Major depressive disorder, single episode, unspecified; F41.9 Anxiety disorder, unspecified; E46 Unspecified protein-calorie malnutrition; F03.90 Unspecified dementia, unspecified severity, without behavioral disturbance, psychotic disturbance, mood disturbance, and anxiety; Z66 Do not resuscitate
CPT/HCPCS: 99349

== ENCOUNTER 2020-08-04 11:35 | Outpatient (CLI) | payer MEDICARE, OTHER ==
--- NOTE | 2020-08-04 16:46 | CONSULTATION NOTE ---
Palliative Care Follow Up - Referral Referring Provider: Dr. Kirk Blakely Time of Visit: 1025-4511 Referral setting: Home Referral Reason: COPD/Chronic Pain/Anxiety/Dementia - Information Sources Records reviewed: Previous records reviewed History/Review of Systems obtained from: Patient, Family (daughter, Keri) Exam limitations: Clinical condition ([place] and Memory impairment due to dementia) - History of Present Illness Update Brief HPI Update: This is an 84-year-old female who was seen and evaluated today in follow-up within her home regarding chronic pain, anxiety, dementia and COPD with her daughter, Keri present. The patient has a longstanding history of COPD and is sensitive to environmental changes revolving around seasonal changes. She typically has potential for a COPD exacerbation in the spring and fall. She has as needed prednisone to utilize within the home if she has increased difficulty with breathing. Since initiation of extended release morphine she has had improvement of her overall breathing. However, she continues to be short of breath breath with the long- winded conversations. She does not require oxygen therapy. The patient's appetite has picked back up in recent weeks. She continues with her protein shakes. She is enjoying her coffee regularly. She also continues to graze on snacks throughout the day more specifically various nuts and fruits. Since transitioning to long-acting morphine 15 mg twice daily she has had improvement of her overall pain. Her daughter notes that she will have intermittent neck pain but it is longer intervals in between her complaints and caregivers will utilize acetaminophen first before attempting to use short acting morphine. Last weight obtained was 98.8 pounds. The patient is not displaying any evidence of anxiety and this appears to be well controlled. She has been enjoying her routine visits with her daughter, Jan malik and is less resistant to help and has been sharing more regarding her feelings with her daughter. Keri reports that the patient has had some tremors with her upper extremities for approximately the last 3 to 4 months. This is resulted in transitioning to a cup with the lid so she does not spill her coffee. Keri reports that during the last few days of her visit she has not noticed symptoms regarding these hand tremors. The patient does have a history of restless leg syndrome for many years. The patient is seen in the living room in her lift chair dressed in Immediately. Her breathing appears to be at baseline and she is conversant and in good spirits today. However, she continues to remain frustrated by the lack of ability to read lips due to mask use. Past Medical History: Past medical history of hypertension, asthma, COPD, dementia, hypothyroidism, GERD, diverticulitis, depression, anxiety, osteopenia, frequent falls, chronic neck pain, hyponatremia. Social History - Living Situation Living arrangement: At home Living Situation: With caregiver(s) Support System: Patient resides in her home of 22 years. She has 01/01 prison care with her private caregiver, to be present 5 days/week Sunday through Sunday at contact dae ferrara [phone] and has caregivers from [facility] on the weekends. The patient's daughter, Keri contact number [phone] plans to move into the patient's home in October as she and her 's home is being built on [address] on her property right next to the patient's. The patient's son/DIDIER and ultmbkca-ny-tcx, Elizabeth, are going to be spending 6 months in [place] from September to February 2021. Medications/Allergies - Medications Home Medications: Ambulatory Orders Medication Instructions Recorded Confirmed Levothyroxine [Synthroid] 125 mcg PO QDAC 07/10/14 03/08/20 Ipratropium/Albuterol Sulfate 3 ml INH QID 12/25/17 03/08/20 [Iprat-Albut 0.5-3(2.5) mg/3 ml] Escitalopram Oxalate 10 mg PO DAILY 07/28/19 03/08/20 Fluticasone Propion/Salmeterol 1 puffs INH BID 08/25/19 03/08/20 [Wixela 250-50 Inhub] Albuterol Sulfate [Albuterol 2 puffs INH Q4H PRN 11/14/19 03/08/20 Sulfate Hfa] Celecoxib 200 mg PO DAILY 11/14/19 03/08/20 Montelukast Sodium 10 mg PO QPM 11/14/19 11/14/19 Trazodone HCl 50 mg PO QPM PRN 11/14/19 03/08/20 Triamcinolone 0.1% Cream [Kenalog 1 applic TOP PRN PRN 11/14/19 03/08/20 0.1% Cream] Morphine Ir [Ms Ir] 0.5 tab PO Q4H PRN 12/02/19 Ondansetron Odt [Zofran Odt] 4 mg PO Q8H PRN 12/02/19 12/02/19 Buspirone HCl 5 mg PO DAILY 12/10/19 03/08/20 Senna [Senokot] 8.6 mg PO DAILY PRN 12/10/19 03/08/20 polyethylene glycoL 3350 [Miralax] 17 g PO DAILY 12/10/19 03/08/20 busPIRone [Buspar] 5 mg PO DAILY PRN 12/17/19 03/08/20 Senna [Senokot] 8.6 mg PO QPM 01/06/20 03/08/20 Sodium Chloride [Saline Nasal 1 spray INH .EACH NOSTRIL PRN PRN 01/14/20 03/08/20 Helen] MDD To reduce pollen exposure LORazepam [Ativan] 0.5 mg PO DAILY PRN MDD Use 02/09/20 03/08/20 sparingly QUEtiapine [SEROquel] 12.5 mg PO .MIDDAY 1400 02/09/20 03/08/20 predniSONE [Prednisone] MDD take as directed 03/08/20 Acetaminophen [Tactinal] 1,000 mg PO TID PRN 04/05/20 04/05/20 Carboxymethylcellulose Sodium 1 drops EACHEYE Q2H PRN 04/05/20 04/05/20 [Artificial Tears] Morphine Sulfate [Ms Contin] 15 mg PO BID 06/09/20 06/09/20 - Allergies Allergies/Adverse Reactions: Allergies Allergy/AdvReac Type Severity Reaction Status Date / Time moxifloxacin Allergy Severe Rash Verified 06/09/20 18:59 losartan [From Cozaar] Allergy Unknown Verified 06/09/20 18:59 oxycodone Allergy Unknown Verified 06/09/20 18:59 codeine AdvReac Severe Nausea Verified 06/09/20 18:59 hydrocodone AdvReac Severe Vomiting Verified 06/09/20 18:59 tramadol AdvReac Severe Vomiting Verified 06/09/20 18:59 Review of Systems - Constitutional Constitutional: reports: Other (weight 98.8lb on personal scale on last visit; weight 102.8lb 12/30/202). denies: Fatigue (taking less naps during the day), Fever - Eyes Eyes: denies: Irritation - Ears, Nose & Throat Ears, Nose & Throat: reports: Hearing loss, Hearing aids - Cardiovascular Cardiovascular: reports: Edema (last evening she had some ankle edema that resolved with elevation of her lower extremities.). denies: Chest pain - Respiratory Respiratory: reports: SOB with exertion. denies: Cough, Wheezing - Gastrointestinal Gastrointestinal: reports: Other (increased in appetite (depends on who is preparing the meals per Keri) and is grazing throughout the day, see HPI). denies: Constipation (denies straining with defecation), Diarrhea, Nausea - Genitourinary Genitourinary: reports: Incontinence. denies: Dysuria - Musculoskeletal Musculoskeletal: reports: Assistive devices. denies: Joint pain, Other (No reports of neck pain today, her lift chair with neck support has been effective) - Integumentary Integumentary: reports: Dryness (daughter applied vaseline based lotion today) - Neurological Neurological: reports: General weakness, Memory problems. denies: Headache - Psychiatric Psychiatric: reports: Depression, Anxiety (controlled) - Endocrine Endocrine: reports: Hypothyroidism - Hematologic/Lymphatic Hematologic/Lymph: reports: Bruising (bruises easily) - All Other Systems All Other Systems: reports: Reviewed and negative (ROS supplemented by daughter Keri as patient is a poor historian due to dementia) Physical Exam - Vital Signs Temperature: 36.7 C Pulse Rate: 70 Respiratory Rate: 20 O2 Saturation: 96 (on RA at rest) Blood Pressure: 154/58 (left arm) - Physical Exam General Appearance: positive: No acute distress, Alert, Cachetic, Other (thin, b/l temporal wasting) Eyes Bilateral: positive: Normal inspection ENT: positive: No signs of dehydration Neck: positive: Trachea midline Cardiovascular: positive: Regular rate & rhythm Respiratory: positive: No respiratory distress, Other (No accessory muscle use. Pauses at times during speaking to catch her breath as she becomes winded.). negative: Wheezes Abdomen: positive: Non-tender, Soft, Nml bowel sounds Skin: positive: Pallor, Other (generalized dryness) Extremities: positive: No pedal edema, Other (+DJD changes to b/l hands; cervical spine nontender to palpation) Neurologic/Psychiatric: positive: Oriented x3 (STM impiarment), Mood/affect nml, Weakness, Other (Engaged and interactive today; No evidence of resting tremor to UE or with movement.) Palliative Care - POLST Patient has POLST: Yes POLST Status: DNR, Selective Treatment Pain: Pain improved (controlled with MS Contin 15mg BID) Dyspnea: Moderate (4-6) Depression: None (controlled) Anxiety: None (controlled) Performance Status: She remains ambulatory with her Rollator. No falls in over a year. Meals are prepared for her. Able to self feed. Intermittent incontinence of bladder. Mainly continent of bowels. - Palliative Care Discussion: The patient in recent weeks has reengaged with her daughter Keri and the wall that she has presented for the last year after the of her spouse she is g radually letting her daughter back in. She is offering up less resistance to the help from her children that are being offered. This is demonstrated by the fact that last night, the patient welcomes affection from her daughter and reach for her hand. The patient is expressing to her daughter to have a similar report in relationship with her son and her daughter, Keri plans to speak to her brother at about having a shift in this relationship prior to his several months gait stay in [place]. Her daughter also reports that she is no longer focusing on her fear regarding dying. The patient recognizes her decline is and more accepting of this gradual, progressive course and with the support of her family this appears not to be as scary as it once was. The patient's anxiety is no longer over writing her thoughts and fears. She would benefit from further dose reduction of her BuSpar and daughter in agreement. Since initiation of quetiapine 12.5 mg in the afternoon there has also been a balance with her mood. Impression and Recommendations - Palliative Care Impression: This is a frail, 84-year-old female with a longstanding history of COPD, chronic neck pain, dementia with anxiety and depression, who presently appears to be more comfortable than she has in several months. Her pain is presently well controlled with MS Contin 15 mg twice daily. She continues to be at risk for COPD exacerbations especially when the season changes. Her family continues to be a source of support. Palliative care to continue right support for symptom management, anticipatory guidance, care coordination, advance care planning and transition to hospice when medically appropriate. Recommendations/Counseling Done: 1. Tremors. No evidence of resting or acting tremor on event evaluation today. Patient has a history of restless leg syndrome for a number of years per her daughter's report. Potentially could be evidence of extraparametal symptoms due to quetiapine however, when extremely low dose of 12.5 mg. Reviewed with the patient's daughter/DPOA, Keri that EPS symptoms may or may not be reversible if discontinued. Keri verbalizes understanding and wishes to continue with treatment with low-dose quetiapine as it has been beneficial overall for the patient's mood and outlook. We will continue to monitor. Patient has adapted and she is not bothered by the symptoms and family has now provided her with nonspill cups. 2. Depression and anxiety. Patient has a longstanding history of anxiety. Improved. Continue Lexapro 10 mg daily. Decrease BuSpar to 5 mg in the morning and discontinue 5 mg in the afternoon dose. Continues to have BuSpar 5 mg once daily if needed for acute anxiety. May use lorazepam 0.5 mg once daily as needed for acute anxiety. Continue to monitor for signs and symptoms of anxiety with goal to discontinue BuSpar. The patient no longer appears to be fearful regarding her progressive, chronic disease states and appears to be excepting. Supportive listening provided to the patient's daughter. Continue to monitor. 3. Hypertension. No cardiac awareness. No longer on losartan due to orthostatic hypotension and history of syncope. Goal blood pressure continues to be less than 150/90. Higher blood pressure goal to reduce the risk of ortho static hypotension and falls that were induced of due to antihypertensive therapy. Continue to monitor patient's blood pressure trends. 4. . Chronic and controlled. Status post cervical procedure with Dr. Bennett performed 12/04/2019. Continue MS Contin 15 mg twice daily for pain and Rx for 60 tablets sent to [facility]. Continue morphine sulfate immediate release 7.5 mg every 4 hours as needed for pain. Continue acetaminophen 1000 mg 3 times daily if needed for pain not to exceed 3 g daily from all sources. Adjust pain regimen as needed for patient's comfort and ability to preform functional tasks. 5. Dementia. Chronic. Progressive. Fall precautions. Continue 24-hour support within the home. Family to continue to provide oversight for caregiving support and medication management. On no disease modifying agents. No history of recent falls. A gradual decline is expected given the patient's age and chronic comorbidities.. Total time spent 50 minutes with greater than 50% of the spent in counseling and coordination of care with the patient and daughter Keri; review of medications; review of anxiety treatment and potential side effects of quetiapine; questions answered and addressed; examination of patient; review of pain and symptom management and anticipatory guidance. Disclaimer: The chart note was formulated using voice recognition technology and unfortunately sound alike errors may occur.
== END 2020-08-04 11:36 | disposition home or self-care (01) ==
LOC: PC 11:35
PROVIDERS: ATTEND Nurse Practitioner Family
DX: Z51.5 Encounter for palliative care (principal); J44.9 Chronic obstructive pulmonary disease, unspecified; G89.29 Other chronic pain; M54.2 Cervicalgia; F03.90 Unspecified dementia, unspecified severity, without behavioral disturbance, psychotic disturbance, mood disturbance, and anxiety; F41.9 Anxiety disorder, unspecified; F32.9 Major depressive disorder, single episode, unspecified; R25.1 Tremor, unspecified; I10 Essential (primary) hypertension; R32 Unspecified urinary incontinence; H91.90 Unspecified hearing loss, unspecified ear; Z66 Do not resuscitate; Z79.891 Long term (current) use of opiate analgesic; Z79.899 Other long term (current) drug therapy; Z91.81 History of falling; Z79.51 Long term (current) use of inhaled steroids; Z79.52 Long term (current) use of systemic steroids
CPT/HCPCS: 99349

== ENCOUNTER 2020-09-01 11:45 | Outpatient (CLI) | payer MEDICARE, OTHER ==
--- NOTE | 2020-09-01 17:17 | CONSULTATION NOTE ---
Palliative Care Follow Up - Referral Referring Provider: Dr. Kirk Blakely Time of Visit: Initiated 1145 Referral setting: Home Referral Reason: Anxiety/COPD/Dementia/Chronic Pain - Information Sources Records reviewed: Previous records reviewed History/Review of Systems obtained from: Patient, Family (daughter/DIDIER, Keri), Caregiver Exam limitations: Clinical condition (SOLOMON and STM impairment due to dementia) - History of Present Illness Update Brief HPI Update: This is an 84-year-old female who was seen and evaluated today in follow-up up in her home regarding chronic pain management, anxiety, dementia and COPD with her daughter, Keri present. The patient has a longstanding history of COPD and is sensitive to environmental changes revolving around seasonal changes. She weakly has the potential for COPD exacerbation in the spring and fall. She has as needed prednisone to utilize within the home if she has increased difficulty with breathing. She has not needed to use any as needed prednisone upon review of the in-home MAR. Since initiation of extended release morphine she has had improvement of her overall breathing. She does not require oxygen therapy and did not tolerate trilogy settings. The patient when out of the house for the first time in many weeks for an extended period of time to obtain her COVID-19 vaccination and did not have any problems or concerns with rhinitis or her breathing upon return to the home. The patient's appetite remains stable. She continues to typically eat 3 meals daily and grazes in between. Weight obtained today was 101.8 pounds. Her daughter recently got her new clothing to better fit her and not fall off. Since transitioning to long-acting morphine 50 mg twice daily she has had improvement of her overall pain. The patient today denies any reports of neck pain. She does have as needed morphine sulfate immediate release 7.5 mg to be administered every 4 hours. Her last dose of immediate release was administered at approximately 10 days ago. However, yesterday evening the patient was reporting increased achiness to her bilateral knees as she had increased physical activity leaving the home with ambulation as well as going up and down stairs. Advised the patient and her daughter would expect her to be fatigued approximately 24 to 48 hours after a lengthy event such as that given her poor exercise tolerance and physical deconditioning with understanding verbalized. The patient has been venturing more outside of the home. She has been exploring the trailer that her daughter and son-in-law have next door to her property in preparation for their house bill. On last evaluation her BuSpar dosage was decreased there has been no evidence of increased anxiety. She is sleeping well through the night. Would benefit from further reduction of medications. The patient continues to have some tremors with her upper extremities for approximately the last 4 months that come and go. This morning, she did well and was able to drink her coffee without any spells. Typically the tremors depends on what activity the patient is doing. The patient does have a history of restless leg syndrome for many years. The patient herself is not troubled by these tremors. The patient is seen in the living room in her lift chair dressed in new [employer]. She is conversant and in good spirits. She continues to remain frustrated by the lack of ability to read lips due to mask use and is hard of hearing. Past Medical History: Past medical history of hypertension, asthma, COPD, dementia, hypothyroidism, GERD, diverticulitis, depression, anxiety, osteopenia, frequent falls, chronic neck pain, hyponatremia. Social History - Living Situation Living arrangement: At home Living Situation: With caregiver(s) Support System: Patient resides in her home of 22 years. She has / skilled nursing care with her private caregiver, Masood is present 5 days/week Sunday through Sunday at contact number [phone] and has caregivers from [facility] on the weekends. The patient's daughter, Keri contact number [phone] plans to move into the patient's home in October as she and her 's home is being built on [address] on her property right next to the patient's. Keri has been spending increased time at the house. The patient's son/DIDIER and [id number], Elizabeth, are going to be spending 6 months in [place] from September to February 2021. Medications/Allergies - Medications Home Medications: Ambulatory Orders Medication Instructions Recorded Confirmed Levothyroxine [Synthroid] 125 mcg PO QDAC 07/10/14 09/02/20 Ipratropium/Albuterol Sulfate 3 ml INH QID 12/25/17 09/02/20 [Iprat-Albut 0.5-3(2.5) mg/3 ml] Escitalopram Oxalate 10 mg PO DAILY 07/28/19 09/02/20 Fluticasone Propion/Salmeterol 1 puffs INH BID 08/25/19 09/02/20 [Wixela 250-50 Inhub] Albuterol Sulfate [Albuterol 2 puffs INH Q4H PRN 11/14/19 09/02/20 Sulfate Hfa] Celecoxib 200 mg PO DAILY 11/14/19 09/02/20 Montelukast Sodium 10 mg PO QPM 11/14/19 09/02/20 Trazodone HCl 50 mg PO QPM PRN 11/14/19 09/02/20 Triamcinolone 0.1% Cream [Kenalog 1 applic TOP PRN PRN 11/14/19 09/02/20 0.1% Cream] Morphine Ir [Ms Ir] 0.5 tab PO Q4H PRN 12/02/19 09/02/20 Ondansetron Odt [Zofran Odt] 4 mg PO Q8H PRN 12/02/19 09/02/20 Senna [Senokot] 8.6 mg PO DAILY PRN 12/10/19 09/02/20 polyethylene glycoL 3350 [Miralax] 17 g PO DAILY 12/10/19 09/02/20 busPIRone [Buspar] 5 mg PO DAILY PRN 12/17/19 09/02/20 Senna [Senokot] 8.6 mg PO QPM 01/06/20 09/02/20 Sodium Chloride [Saline Nasal 1 spray INH .EACH NOSTRIL PRN PRN 01/14/20 03/08/20 [place]] MDD To reduce pollen exposure LORazepam [Ativan] 0.5 mg PO DAILY PRN MDD Use 02/09/20 09/02/20 sparingly QUEtiapine [SEROquel] 12.5 mg PO .MIDDAY 1400 02/09/20 09/02/20 predniSONE [Prednisone] MDD take as directed 03/08/20 Acetaminophen [Tactinal] 1,000 mg PO TID PRN 04/05/20 09/02/20 Carboxymethylcellulose Sodium 1 drops EACHEYE Q2H PRN 04/05/20 09/02/20 [Artificial Tears] Morphine Sulfate [Ms Contin] 15 mg PO BID 06/09/20 09/02/20 - Allergies Allergies/Adverse Reactions: Allergies Allergy/AdvReac Type Severity Reaction Status Date / Time moxifloxacin Allergy Severe Rash Verified 06/09/20 18:59 losartan [From Cozaar] Allergy Unknown Verified 06/09/20 18:59 oxycodone Allergy Unknown Verified 06/09/20 18:59 codeine AdvReac Severe Nausea Verified 06/09/20 18:59 hydrocodone AdvReac Severe Vomiting Verified 06/09/20 18:59 tramadol AdvReac Severe Vomiting Verified 06/09/20 18:59 Review of Systems - Constitutional Constitutional: reports: Other (weight 101.8lb today, last time weight 98.8lb on personal scale on last visit; weight 102.8lb 06/09/2020). denies: Fever - Eyes Eyes: denies: Irritation - Ears, Nose & Throat Ears, Nose & Throat: reports: Hearing loss, Hearing aids. denies: Nasal congestion - Cardiovascular Cardiovascular: reports: Decr. exercise tolerance. denies: Chest pain, Edema - Respiratory Respiratory: reports: SOB with exertion. denies: Cough, Wheezing - Gastrointestinal Gastrointestinal: reports: Other (increased in appetite, see HPI). denies: Constipation (denies straining with defecation), Diarrhea, Nausea - Genitourinary Genitourinary: reports: Incontinence. denies: Dysuria - Musculoskeletal Musculoskeletal: reports: Stiffness, Assistive devices, Other (No recent falls). denies: Joint pain - Integumentary Integumentary: reports: Rash (right elbow) - Neurological Neurological: reports: General weakness, Memory problems. denies: Headache, Dizziness - Psychiatric Psychiatric: reports: Depression, Anxiety (controlled) - Endocrine Endocrine: reports: Hypothyroidism - Hematologic/Lymphatic Hematologic/Lymph: reports: Bruising (bruises easily) - All Other Systems All Other Systems: reports: Reviewed and negative (ROS supplemented by daughter Keri as patient is a poor historian due to dementia) Physical Exam - Vital Signs Temperature: 36.6 C Pulse Rate: 71 O2 Saturation: 94 (on RA at rest) Blood Pressure: 138/56 (left arm) - Physical Exam General Appearance: positive: No acute distress, Alert, Cachetic, Other (thin, b/l temporal wasting) Eyes Bilateral: positive: Normal inspection ENT: positive: No signs of dehydration Neck: positive: Trachea midline Cardiovascular: positive: Regular rate & rhythm, Systolic murmur Respiratory: positive: No respiratory distress, Rhonchi (BLL on exhalation), Other (No accessory muscle use. Pauses at times during speaking to catch her breath as she becomes winded.). negative: Wheezes Abdomen: positive: Non-tender, Soft, Nml bowel sounds Skin: positive: Pallor, Rash (pruitic, erythematous patch to right elbow c/w ecz krystal) Extremities: positive: No pedal edema, Other (+DJD changes to b/l hands; cervical spine nontender to palpation) Neurologic/Psychiatric: positive: Oriented x3 (STM impiarment), Mood/affect nml, Weakness, Other (Engaged and interactive today; No evidence of resting tremor to UE or with movement.) Palliative Care - POLST Patient has POLST: Yes POLST Status: DNR, Selective Treatment Pain: Comment (controlled with MS Contin 15mg BID) Performance Status: She remains ambulatory with her rollator and is ambulatory more outside of the home. No recent falls. Able to self feed. Incontinent of bladder. - Palliative Care Discussion: The patient and her daughter/DPOA Keri have formed a closer cannon in recent weeks as Keri is coming to the home on a more regular basis as she is prepping for her home to be built right next to the patient's property. It has been shahnaz per the patient's report have a stronger foundation between mother and daughter. This has led to the patient having a renewed sense of purpose and wellbeing and this is demonstrated by the reduction in her anxiety and more upbeat display of banter when this VINYL DIPPER is present. The patient would very much like to have a reduction in her medications and given her anxiety is presently well controlled we will discontinue BuSpar recognizing that it is available if needed 5 mg once daily. The patient's daughter and private caregivers will monitor for any signs or symptoms of increased anxiety and that this VINYL DIPPER note. The patient is very much open to having this medication discontinued. She remain on Lexapro 10 mg daily for overall management. Impression and Recommendations - Palliative Care Impression: This is a frail, 84-year-old female with a longstanding history of COPD, chronic neck pain, dementia with anxiety and depression, who appears to be more comfortable and reengaging in life. Her pain is presently well controlled with MS Contin 15 mg twice daily. Her anxiety is stable and therefore will discontinue her scheduled BuSpar altogether. She is at high risk for COPD exacerbation especially as the seasons change and presently this remains well controlled. Palliative care to continue to provide support for symptom management, anticipatory guidance, care coordination, advance care planning and transition to hospice when medically appropriate. Recommendations/Counseling Done: 1. Depression anxiety. Patient has a longstanding history of anxiety. Presently improved and controlled. Discontinue BuSpar 5 mg in the morning. Continue BuSpar 5 mg once daily if needed for acute anxiety. Continue Lexapro 10 mg daily for overall management of her depression and anxiety symptoms. Patient does have available lorazepam 0.5 mg once daily as needed for acute anxiety and this has not been needed to be used. Continue to monitor for signs and symptoms of anxiety with discontinuation of BuSpar. Supportive listening provided to both the patient and her daughter. Continue to monitor. 2. Tremors. No evidence of resting or action tremor noted on evaluation today.Patient does not appear to be troubled when the action tremors occur. Possible EPS symptoms due to quetiapine however, given it is extremely low dose it is less likely. Patient's daughter/DPOA, has previously stated that as the patient appears unbothered by the symptoms and comfort that she wishes to continue with quetiapine for management. Will continue to weigh benefits vs burdens of medication management in the future. To continue adapation techniques. 3. Chronic neck pain. Status post cervical procedure with Dr. Bennett performed 12/04/2019. Continue MS Contin 15 mg twice daily for pain and Rx for 60 tablets sent to [facility] today. Continue morphine sulfate immediate release 7.5 mg every 4 hours as needed for pain. Continue acetaminophen 1000 mg 3 times daily if needed for pain not to exceed 3 g daily from all sources. Patient appears to be comfortable and minimal use of morphine sulfate immediate release upon review of in-home MAR. Continue to adjust pain regimen as needed for patient's comfort and ability to perform functional tasks within the home environment. 4. COPD. Longstanding history. No recent COPD exacerbations. Continue routine duo nebs. Continue Singulair 10 mg nightly. Continue Wixela inhalation as ordered. Breathing status has improved with MS Contin 15 mg twice daily not only for her chronic pain but also for her underlying dyspnea. Patient has predn isone 20 mg tablets in the home to be utilized as directed if COPD exacerbation occurs with the goal to avoid transfer to the emergency department and manage the patient's symptoms within the home. She has not required any recent use of prednisone tablets. 5. Dementia. Chronic. Progressive. Fall precautions. Continue 24-hour support within the home. Family to continue to provide oversight for caregiving support and medication management. On no disease modifying agents. Sundowning behavior presently controlled with quetiapine 12.5 mg in the afternoon. No recent history of falls. A gradual decline is expected given the patient's age and chronic comorbidities. CPT 97285 CPT 61550 Plan of care reviewed with the patient, daughter/DPOA Keri and caregiver Masood with questions answered and addressed. Reviewed discontinuation of BuSpar and to monitor anxiety symptoms and notify palliative care if any increase in anxiety reported. Disclaimer: The chart note was formulated using voice recognition technology and unfortunately sound alike errors may occur.
== END 2020-09-01 11:46 | disposition home or self-care (01) ==
LOC: PC 11:45
PROVIDERS: ATTEND Nurse Practitioner Family
DX: Z51.5 Encounter for palliative care (principal); F41.9 Anxiety disorder, unspecified; M54.2 Cervicalgia; G89.29 Other chronic pain; J44.9 Chronic obstructive pulmonary disease, unspecified; F03.90 Unspecified dementia, unspecified severity, without behavioral disturbance, psychotic disturbance, mood disturbance, and anxiety; Z66 Do not resuscitate
CPT/HCPCS: 99349

== ENCOUNTER 2020-09-29 11:45 | Outpatient (CLI) | payer MEDICARE, OTHER ==
--- NOTE | 2020-09-29 16:37 | CONSULTATION NOTE ---
Palliative Care Follow Up - Referral Referring Provider: Dr. Kirk Blakely Time of Visit: [id number] Referral setting: Home Referral Reason: Anxiety/COPD/Chronic Pain/Dementia - Information Sources Records reviewed: Previous records reviewed History/Review of Systems obtained from: Patient, Family (daughter/Keri VELÁSQUEZ), Caregiver (Letitia) Exam limitations: Clinical condition (NIKOLSKI and STM impairment due to dementia) - History of Present Illness Update Brief HPI Update: This is an 84-year-old female who was seen and evaluated today in follow-up within her home regarding chronic pain management, anxiety, dementia and COPD with her daughter/DIDIER, Keri present and her new caregiver, Tabby. The patient's primary private caregiver is no longer with the patient as of the last 3 weeks And she has transition to a new primary caregiver, Tabby. With all these changes this brought on increased anxiety for the patient and the daughter bumped up her BuSpar to 5 mg twice daily. The patient does continue to report that she is having underlying anxiety intermittently that she "does not know why." She continues on Lexapro 10 mg daily. She would benefit from further dose adjustment of her BuSpar for management of her symptoms. The patient's new caregiver, Tabby is a retired RN and reports that she re cently took the patient's pulse and noted that it was irregular. The patient is without cardiac complaints today including lower extremity edema and chest pain. She has no prior history of atrial fibrillation. The patient's pain overall appears to be well controlled with her MS Contin 15 mg twice daily. She has intermittently required 1 dose of acetaminophen several times a week. The patient has a longstanding history of COPD and is sensitive to environmental changes revolving around seasonal changes. She has the most potential for COPD exacerbation in the spring and fall. She has as needed prednisone to utilize within the home if she has increased difficulty with breathing. No recent prednisone use. She does report that she loves to talk and this becomes a problem has she become short of breath for talking for long periods of time. She was trialed on trilogy but did not tolerate the settings. She completed her Covid19 vaccination yesterday and reports some localized arm soreness. This is responded to as needed acetaminophen. The patient continues to consume less in her overall portions but will consume approximately 75 to 1/2% of what is set in front of her. Her daughter has recently purchased new close for her that fit more appropriately as her previous closed were fitting loosely. The patient is seen sitting in the living room in her lift chair dressed in [place] where. She is conversant and in good spirits. Past Medical History: Patient has a past medical history of hypertension, asthma, COPD, dementia, hypothyroidism, GERD, diverticulitis, depression, anxiety, osteopenia, frequent falls, chronic neck pain, hyponatremia. Social History - Living Situation Living arrangement: At home Living Situation: With caregiver(s) Support System: Patient resides in her home of 22 years. She has 01/01 residential care with her caregivers. She has a new caregiver, Tabby who is now the new primary caregiver during the week. Tabby has a dog, Yasmany who comes with her that the patient enjoys contact with. The caregivers are through visiting [place]. The patient's daughter, Keri with contact number [phone] he is moving to the area next month where she is having a home built on the [place]. She is planning on leaving [place]. The patient's son and [id number], Elizabeth are presently in [place] and will return to [facility] in February 2021. The patient's previous primary private caregiver on fortunately left and it has been a difficult adjustment for the patient as with any change she has increased anxiety. Medications/Allergies - Medications Home Medications: Ambulatory Orders Medication Instructions Recorded Confirmed Levothyroxine [Synthroid] 125 mcg PO QDAC 07/10/14 09/02/20 Ipratropium/Albuterol Sulfate 3 ml INH QID 12/25/17 09/02/20 [Iprat-Albut 0.5-3(2.5) mg/3 ml] Escitalopram Oxalate 10 mg PO DAILY 07/28/19 09/02/20 Fluticasone Propion/Salmeterol 1 puffs INH BID 08/25/19 09/02/20 [Wixela 250-50 Inhub] Albuterol Sulfate [Albuterol 2 puffs INH Q4H PRN 11/14/19 09/02/20 Sulfate Hfa] Celecoxib 200 mg PO DAILY 11/14/19 09/02/20 Montelukast Sodium 10 mg PO QPM 11/14/19 09/02/20 Trazodone HCl 50 mg PO QPM PRN 11/14/19 09/02/20 Triamcinolone 0.1% Cream [Kenalog 1 applic TOP PRN PRN 11/14/19 09/02/20 0.1% Cream] Morphine Ir [Ms Ir] 0.5 tab PO Q4H PRN 12/02/19 09/02/20 Ondansetron Odt [Zofran Odt] 4 mg PO Q8H PRN 12/02/19 09/02/20 Senna [Senokot] 8.6 mg PO DAILY PRN 12/10/19 09/02/20 polyethylene glycoL 3350 [Miralax] 17 g PO DAILY 12/10/19 09/02/20 busPIRone [Buspar] 5 mg PO DAILY PRN 12/17/19 09/02/20 Senna [Senokot] 8.6 mg PO QPM 01/06/20 09/02/20 Sodium Chloride [Saline Nasal 1 spray INH .EACH NOSTRIL PRN PRN 01/14/20 03/08/20 [place]] MDD To reduce pollen exposure LORazepam [Ativan] 0.5 mg PO DAILY PRN MDD Use 02/09/20 09/02/20 sparingly QUEtiapine [SEROquel] 12.5 mg PO .MIDDAY 1400 02/09/20 09/02/20 predniSONE [Prednisone] MDD take as directed 03/08/20 Acetaminophen [Tactinal] 1,000 mg PO TID PRN 04/05/20 09/02/20 Carboxymethylcellulose Sodium 1 drops EACHEYE Q2H PRN 04/05/20 09/02/20 [Artificial Tears] Morphine Sulfate [Ms Contin] 15 mg PO BID 06/09/20 09/02/20 busPIRone [Buspar] 5 mg PO TID 09/29/20 09/29/20 - Allergies Allergies/Adverse Reactions: Allergies Allergy/AdvReac Type Severity Reaction Status Date / Time moxifloxacin Allergy Severe Rash Verified 06/09/20 18:59 losartan [From Cozaar] Allergy Unknown Verified 06/09/20 18:59 oxycodone Allergy Unknown Verified 06/09/20 18:59 codeine AdvReac Severe Nausea Verified 06/09/20 18:59 hydrocodone AdvReac Severe Vomiting Verified 06/09/20 18:59 tramadol AdvReac Severe Vomiting Verified 06/09/20 18:59 Review of Systems - Constitutional Constitutional: reports: Other (last weight 101.8lb August 2020; weight 102.8lb 06/09/2020). denies: Fever - Eyes Eyes: denies: Irritation - Ears, Nose & Throat Ears, Nose & Throat: reports: Hearing loss, Hearing aids - Cardiovascular Cardiovascular: reports: Decr. exercise tolerance. denies: Chest pain, Edema - Respiratory Respiratory: reports: SOB with exertion, Other (SOB with talking for long periods of time). denies: Cough, Wheezing - Gastrointestinal Gastrointestinal: reports: Other (, see HPI regarding appetite). denies: Constipation (denies straining with defecation), Nausea - Genitourinary Genitourinary: reports: Incontinence. denies: Dysuria - Musculoskeletal Musculoskeletal: reports: Stiffness, Assistive devices, Other (No recent falls). denies: Joint pain - Integumentary Integumentary: reports: Dryness - Neurological Neurological: reports: General weakness, Memory problems. denies: Headache, Dizziness - Psychiatric Psychiatric: reports: Depression, Anxiety (increased with recent changes in caregivers) - Endocrine Endocrine: reports: Hypothyroidism - Hematologic/Lymphatic Hematologic/Lymph: reports: Bruising (bruises easily) - All Other Systems All Other Systems: reports: Reviewed and negative (ROS supplemented by daughter/DPPARESH Vanne as patient is a poor historian due to dementia) Physical Exam - Vital Signs Temperature: 36.0 C Pulse Rate: 71 O2 Saturation: 98 (on RA) Blood Pressure: 153/59 (left arm) - Physical Exam General Appearance: positive: No acute distress, Alert, Cachetic, Other (thin, b/l temporal wasting) Eyes Bilateral: positive: Normal inspection ENT: positive: No signs of dehydration Neck: positive: Trachea midline Cardiovascular: positive: Regular rate & rhythm, Systolic murmur Respiratory: positive: No respiratory distress, Other (No accessory muscle use. Pauses at times during speaking to catch her breath as she becomes winded.). negative: Wheezes Abdomen: positive: Non-tender, Soft, Nml bowel sounds. negative: Guarding Skin: positive: Pallor Extremities: positive: No pedal edema, Other (+DJD changes to b/l hands) Neurologic/Psychiatric: positive: Oriented x3 (STM impiarment), Mood/affect nml, Weakness Palliative Care - POLST Patient has POLST: Yes POLST Status: DNR, Selective Treatment Pain: Pain improved (controlled with present MS Contin 15mg BID) - Palliative Care Discussion: The patient has had some increased anxiety due to recent changes in her caregivers. She is beginning to build a rapport with her new primary caregiver, Tabby however, anytime there is change within the patient's home environment her anxiety increases. She has tolerated adjustment of her BuSpar increased from once daily to twice daily would benefit from returning to a 3 times daily dosing as she continues to report underlying anxiety symptoms. She is continuing to explore her emotions and feelings with her daughter, Keri who is been more present recently as she is moving next-door with the home being built. The patient is more open to discussing her without becoming emotional or upset and appears to have entered a new phase of grieving. Impression and Recommendations - Palliative Care Impression: This is a frail 84-year-old female with a longstanding history of COPD, chronic neck pain, dementia with anxiety and depression. Her pain is presently well controlled with MS Contin 50 mg twice daily. She recently required reintroduction of BuSpar due to changes in her caregiving team and would benefit from further dose increase of her BuSpar for managing her underlying anxiety. Will attempt to titrate off again with the BuSpar in the future when things have calmed. No recent COPD exacerbations but is at high risk especially when seaso ns are changing. Health care will continue to provide support for symptom management, anticipatory guidance, care coordination advance care planning and a transition to hospice when medically appropriate. Recommendations/Counseling Done: 1. Depression and anxiety. Patient has a longstanding history of anxiety. With recent changes in her caregiving team and her son and [id number] out of state presently would benefit from further dose increase of her BuSpar to 5 mg 3 times daily which was her previous dosage prior to tapering and almost discontinuing the medication. We will attempt to taper off again in the future but wish to have the patient be stabilized without any acute changes before attempting this again in the future. Continues to have BuSpar 5 mg once daily if needed for acute anxiety. Continue Lexapro 10 mg daily for overall management of her depression and anxiety symptoms. She does also have lorazepam 0.5 mg to utilize once daily if needed for acute anxiety. Supportive listening provided to both the patient and daughter, Keri. Continue to monitor. 2. Irregular pulse. Reported by the patient's new caregiver who is a retired RN. Not appreciated on physical examination today. Questionable history paroxysmal A. fib versus PVCs. Patient is without cardiac complaints. As the goal is avoidance of hospitalizations, we will continue to monitor and re- address if noted on physical examination or patient is with cardiac complaints. 3. COPD. Longstanding history. No recent COPD exacerbations. Continue routine duo nebs. Continue Singulair 10 mg nightly. Continue Wixela inhalation as ordered. Breathing status has improved with MS Contin 15 mgFor her underlying dyspnea. Patient has present known 20 mg tablets in the home to be utilized as directed if COPD exacerbation occurs with a goal to avoid transfer to the emergency department and manage patient symptoms within the home. No recent prednisone use. 4.Chronic neck pain. Status post cervical procedure with Dr. Bennett performed 12/04/2019. Continue MS Contin 15 mg twice daily for pain and Rx for 60 tablets sent to [facility] today. Continue morphine sulfate immediate release 7.5 mg every 4 hours as needed for pain. Continue acetaminophen 1000 mg 3 times daily if needed for pain not to exceed 3 g daily from all sources. Patient appears to be comfortable. Continue to adjust pain regimen as needed for the patient's comfort and ability to perform tasks within her home environment such as ambulation with her Rollator. 5. Dementia. Chronic. Progressive. Fall precautions. Continue 24-hour support within the home. Family to continue to provide overall oversight for caregiving support and medication management. On no disease modifying agents. Sundowning behaviors presently controlled with quetiapine 12.5 mg in the afternoon. No recent history of falls. On no disease modifying agents. A gradual decline is expected given the patient's advanced age and chronic comorbidities. Total time spent 40 minutes with greater than 50% of the spent in counseling coordination of care with the patient, daughter/DIDIER Saavedra and caregiver Tabby; review of medications; review of anxiety treatment; examination of patient; review of pain and symptom management and anticipatory guidance. Disclaimer: The chart note was formulated using voice recognition technology and unfortunately sound alike errors may occur.
== END 2020-09-29 11:46 | disposition home or self-care (01) ==
LOC: PC 11:45
PROVIDERS: ATTEND Nurse Practitioner Family
DX: Z51.5 Encounter for palliative care (principal); F32.9 Major depressive disorder, single episode, unspecified; F41.9 Anxiety disorder, unspecified; J44.9 Chronic obstructive pulmonary disease, unspecified; M54.2 Cervicalgia; G89.29 Other chronic pain; F03.90 Unspecified dementia, unspecified severity, without behavioral disturbance, psychotic disturbance, mood disturbance, and anxiety; Z66 Do not resuscitate
CPT/HCPCS: 99349

== ENCOUNTER 2020-10-27 11:45 | Outpatient (CLI) | payer MEDICARE, OTHER ==
--- NOTE | 2020-10-27 12:48 | CONSULTATION NOTE ---
Palliative Care Follow Up - Referral Referring Provider: Dr. Kirk Blakely Time of Visit: 4066-1554 Referral setting: Home Referral Reason: COPD/Asthma/AnxietyChronic Pain - Information Sources Records reviewed: Previous records reviewed History/Review of Systems obtained from: Patient, Family (daughter/DIDIER Plaza), Caregiver (Letitia) Exam limitations: Clinical condition (PECHANGA and STM impairment) - History of Present Illness Update Brief HPI Update: This is an 84-year-old female who was seen in and evaluated today in follow-up within her home regarding chronic pain management, anxiety, asthma, and COPD with her daughter/DIDIER Saavedra present and her caregiver, Tabby. The patient has a longstanding history of COPD and asthma and is sensitive to environmental changes revolving around seasonal change. She has the most potential for a COPD exacerbation in the spring and fall. She has as needed prednisone to utilize within the home if she has increased difficulty with breathing. She is quite sensitive especially to this got room which is presently blooming throughout the [place]. Yesterday, the patient's daughter and caregiver reports that she was "whistling" with her breathing and was not as talkative as she was becoming easily winded when speaking do to her overall tightness. She was given 1 dose of prednisone yesterday and today is feeling much better and has increased talking. Caregivers as well as her daughter are trying to implement keeping the doors and windows closed and utilizing fan and the air conditioner to limit the patient's exposure to pollen. The patient herself sometimes will go against these recommendations as she likes to have the windows open but recognize this may be a potential for exacerbation for herself. The ultimate goal is to keep her out of the emergency department. She has received as needed immediate release morphine 7.5 mg intermittently due to incre ased shortness of breath which yesterday, did not appear to be fully effective. On last evaluation the patient had her BuSpar up to 5 mg 3 times daily due to increased underlying anxiety which has improved with dose adjustment. She continues on Lexapro 10 mg daily. The patient at times will have increased anxiety specifically revolving around increased shortness of breath. The patient's appetite has steadily improved in recent months and presently weighs 112 pounds today. She is having a lot of cherries in her diet as well as milkshakes. Her clothes are fitting better. The patient is seen in the living room in her lift chair dressed in lounge where. She is conversant and in good spirits. No evidence of visible distress. Past Medical History: Patient has a past medical history of hypertension, asthma, COPD, dementia, hypothyroidism, GERD, diverticulitis, depression, anxiety, osteopenia, frequent falls, chronic neck pain, hyponatremia.Patient has a past medical history of hypertension, asthma, COPD, dementia, hypothyroidism, GERD, diverticulitis, depression, anxiety, osteopenia, frequent falls, chronic neck pain, hyponatremia. Social History - Living Situation Living arrangement: At home Living Situation: With caregiver(s) Support System: Patient resides in her home of 22 years. She has 01/01 half-way care with her caregivers. Tabby is her new primary caregiver during the week and Tabby has a dog, Yasmany who the patient has enjoyed interacting with. The caregivers are through [employer]. The patient's daughter, Keri with contact number [phone] is moving to the [place] next to the patient and the home is presently being built. Keri and her plan to live in the patient's house while their home is being built and plan to transition the end of October early November living with the patient. The patient's son and [id number] Ishan and More are presently in [place] and plan to return to [facility] in February 2021. Medications/Allergies - Medications Home Medications: Ambulatory Orders Medication Instructions Recorded Confirmed Levothyroxine [Synthroid] 125 mcg PO QDAC 07/10/14 09/02/20 Ipratropium/Albuterol Sulfate 3 ml INH QID 12/25/17 09/02/20 [Iprat-Albut 0.5-3(2.5) mg/3 ml] Escitalopram Oxalate 10 mg PO DAILY 07/28/19 09/02/20 Fluticasone Propion/Salmeterol 1 puffs INH BID 08/25/19 09/02/20 [Wixela 250-50 Inhub] Albuterol Sulfate [Albuterol 2 puffs INH Q4H PRN 11/14/19 09/02/20 Sulfate Hfa] Celecoxib 200 mg PO DAILY 11/14/19 09/02/20 Montelukast Sodium 10 mg PO QPM 11/14/19 09/02/20 Trazodone HCl 50 mg PO QPM PRN 11/14/19 09/02/20 Triamcinolone 0.1% Cream [Kenalog 1 applic TOP PRN PRN 11/14/19 09/02/20 0.1% Cream] Morphine Ir [Ms Ir] 0.5 - 1 tab PO Q4H PRN 12/02/19 09/02/20 Ondansetron Odt [Zofran Odt] 4 mg PO Q8H PRN 12/02/19 09/02/20 Senna [Senokot] 8.6 mg PO DAILY PRN 12/10/19 09/02/20 polyethylene glycoL 3350 [Miralax] 17 g PO DAILY 12/10/19 09/02/20 busPIRone [Buspar] 5 mg PO DAILY PRN 12/17/19 09/02/20 Senna [Senokot] 8.6 mg PO QPM 01/06/20 09/02/20 Sodium Chloride [Saline Nasal 1 spray INH .EACH NOSTRIL PRN PRN 01/14/20 [place]] MDD To reduce pollen exposure LORazepam [Ativan] 0.5 mg PO DAILY PRN MDD Use 02/09/20 09/02/20 sparingly QUEtiapine [SEROquel] 12.5 mg PO .MIDDAY 1400 02/09/20 09/02/20 predniSONE [Prednisone] MDD take as directed 03/08/20 Acetaminophen [Tactinal] 1,000 mg PO TID PRN 04/05/20 09/02/20 Carboxymethylcellulose Sodium 1 drops EACHEYE Q2H PRN 04/05/20 09/02/20 [Artificial Tears] Morphine Sulfate [Ms Contin] 15 mg PO BID 06/09/20 09/02/20 busPIRone [Buspar] 5 mg PO TID 09/29/20 09/29/20 - Allergies Allergies/Adverse Reactions: Allergies Allergy/AdvReac Type Severity Reaction Status Date / Time moxifloxacin Allergy Severe Rash Verified 06/09/20 18:59 losartan [From Cozaar] Allergy Unknown Verified 06/09/20 18:59 oxycodone Allergy Unknown Verified 06/09/20 18:59 codeine AdvReac Severe Nausea Verified 06/09/20 18:59 hydrocodone AdvReac Severe Vomiting Verified 06/09/20 18:59 tramadol AdvReac Severe Vomiting Verified 06/09/20 18:59 Review of Systems - Constitutional Constitutional: reports: Weight gain (weight today 112lb on persoanl scale; last weight 101.8lb August 2020; weight 102.8lb 06/09/2020). denies: Fever - Eyes Eyes: denies: Irritation - Ears, Nose & Throat Ears, Nose & Throat: reports: Hearing loss, Hearing aids. denies: Nasal congestion - Cardiovascular Cardiovascular: reports: Decr. exercise tolerance. denies: Chest pain, Edema - Respiratory Respiratory: reports: Wheezing (see HPI), SOB with exertion. denies: Cough - Gastrointestinal Gastrointestinal: reports: Other (Appetite has improved). denies: Constipation (controlled with diet and medications), Nausea - Genitourinary Genitourinary: reports: Incontinence. denies: Dysuria - Musculoskeletal Musculoskeletal: reports: Stiffness (neck), Assistive devices, Other (No recent falls). denies: Joint pain - Integumentary Integumentary: reports: Dryness - Neurological Neurological: reports: General weakness, Memory problems. denies: Headache, Dizziness - Psychiatric Psychiatric: reports: Depression, Anxiety (improved with buspar 5mg TID in addition to lexapro) - Endocrine Endocrine: reports: Hypothyroidism - Hematologic/Lymphatic Hematologic/Lymph: reports: Bruising (bruises easily) - All Other Systems All Other Systems: reports: Reviewed and negative (ROS supplemented by daughter/DPPARESH Saavedra and caregiver Letitia as patient is a poor historian due to dementia) Physical Exam - Vital Signs Temperature: 36.6 C Pulse Rate: 64 Respiratory Rate: 19 O2 Saturation: 98 (on RA) Blood Pressure: 144/62 (left arm) - Physical Exam General Appearance: positive: No acute distress, Alert, Cachetic, Other (thin, b/l temporal wasting- less pronounced than prior visits) Eyes Bilateral: positive: Normal inspection ENT: positive: No signs of dehydration, Other (trace dry cerumen noted to b/l ear canals removed with lighted curette and otoscope with b/l TMs intact; hearing aids) Neck: positive: Trachea midline Cardiovascular: positive: Regular rate & rhythm, Systolic murmur Respiratory: positive: No respiratory distress, Wheezes (trace BLL, more decreased air movement to BLL but continues to have air flow), Other ( Pauses at times during speaking to catch her breath as she becomes winded.) Abdomen: positive: Non-tender, Soft, Nml bowel sounds. 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) Neurologic/Psychiatric: positive: Oriented x3 (STM impiarment), Mood/affect nml (Making jokes and in good spirits today), Weakness Palliative Care - POLST Patient has POLST: Yes POLST Status: DNR, Selective Treatment Pain: Comment (Pain controlled with MS Contin 15mg BID) Dyspnea: Comment (increased wheezing due to pollen/seasional changes) Sleep: Sleeps well Constipation: No, Opoid induced, Managed - Palliative Care Discussion: The patient had some recent increased anxiety with the changes of caregivers and with recent medication adjustment of BuSpar increased to 5 mg 3 times daily her anxiety has settled and is close to baseline. Allow the patient to normalize her feelings and reports that she has "nothing to worry about" because "why worry if you cannot change anything? "She also appears to be building a good rapport with her new primary caregiver, Tabby and is having more oversight with her daughter being present with move pending for her daughter to be on a plot of land with the home to be built right next to hers. This frequency of trips from [place] to the patient's home on [facility] has afforded the patient and her daughter to build a closer relationship and is evident by the patient in a more positive and upbeat mood with her joking and jovial attitude. Unfortunately, the patient has a longstanding history of COPD and asthma and is greatly susceptible to to seasonal changes and pollen exposure. The patient is reluctant to utilize saline nasal spray and often does not not wish to comply with having the doors and windows shut for potential exposure in exacerbation. She has prednisone in the home to be utilized if she is demonstrating signs and symptoms of an exacerbation with positive response. Given the patient's increase in weight and the 7.5 mg immediate release morphine is not fully effective may titrate to half a tablet (7.5 mg (immediate release morphine and if not effective in 1 hour may administer an additional half of morphine immediate release (7.5 mg (and all parties are amenable. Patient's pain appears to be well controlled we will continue to titrate her medication to optimize her breathing status and avoidance of emergency room visit or hospitalization. Impression and Recommendations - Palliative Care Impression: This is a frail, 84-year-old female with a longstanding history of COPD, asthma, chronic neck pain, dementia with anxiety and depression. Her pain is presently well controlled with MS Contin 15 mg twice daily. She has responded well to increase of BuSpar 5 mg 3 times daily for anxiety in addition to her Lexapro dosing. She is demonstrating signs and symptoms of increased respiratory symptoms of asthma and underlying COPD with pollen exposure and would benefit from increase of her Wixela inhaler for management of her symptoms in addition to her routine DuoNeb. She fortunately has not had a COPD exacerbation since the summer 2019. However, she remains at high risk for COPD exacerbation and wish to prevent this recurrence. Palliative care will continue to provide support for symptom management, anticipatory guidance, care coordination and advance care planning with transition to hospice when medically appropriate. Recommendations/Counseling Done: 1. COPD and asthma. Longstanding history. No recent COPD exacerbations however, is at increased risk with seasonal changes. Reiterated today to the patient, family and caregivers the importance of keeping the doors and windows closed to reduce pollen exposure and having air conditioning and fans on in the home. Continue routine duo nebs. Continue Singulair 10 mg nightly. As the patient has had a use of prednisone yesterday and noted decrease air movement slightly to the bilateral lower lobes request that [place] (250/50 (inhaler be increased to 2 puffs twice daily x7 days then resume 1 puff twice daily due to recent respiratory changes. Encourage rinsing mouth after use. Continue MS Contin 15 mg for her underlying pain and dyspnea. Has prednisone 10 mg tablets in the home to be utilized as directed if COPD exacerbation occurs taking 1 tablet by mouth x1 dose for signs and symptoms of exacerbation then contact palliative care for guidance during workday and PCP if after hours or weekends for further management with the goal to avoid transfer to the emergency department. Advised to contact palliative care if any new or worsening symptoms. 2. Anxiety and depression. Longstanding history of anxiety. Continue BuSpar 5 mg 3 times daily and will continue at the present time with the goal to slowly taper down and off as is stabilization of her home environment occurs. There are a lot of changes with the patient's daughter and son-in-law moving into the home and continuingly adjusting and building rapport with her new caregiver. Continue Lexapro 10 mg daily for overall management of her depression and anxiety. She does have lorazepam 0.5 mg to utilize once daily if needed for acute anxiety and to utilize sparingly. Continue to monitor. 3. Chronic neck pain. Status post cervical procedure with Dr. Bennett performed 12/04/2019. Intermediate neck stiffness but overall, reports that pain is well controlled and manage. Continue MS Contin 50 mg twice daily for pain and Rx for 60 tablets sent to [facility] today. Continue morphine sulfate immediate release 7.5 mg 2 every 4 hours as needed for pain. 7.5 mg MS morphine sulfate immediate release is not effective after 1 hour may repeat an additional 7.5 mg tablet. Continue acetaminophen 1000 mg 3 times daily if needed for pain not to exceed 3 g daily from all sources. Continue to adjust pain regimen as needed for the patient's comfort and ability to perform tasks within her home environment. 4. Hypertension. Blood pressure appears to be stable. Goal blood pressure less than 150/90. Patient is without cardiac complaints. Continue to monitor. Losartan was previously discontinued in fall 2019 due to orthostatic hypotension. 5. Dementia. Chronic progressive. Fall precautions. Continue 24-hour support within the home. Family to continue provide overall oversight for caregiving support medication management. On no disease modifying agents. Sundowning behaviors presently controlled with quetiapine 12.5 mg in the afternoon. No recent history of falls. A gradual decline is expected given the patient's advanced age and chronic comorbidities. Total time spent 55 minutes with greater than 50% of the spent in counseling coordination of care with patient, daughter/DIDIER Saavedra and caregiver, Tabby; review of medications; review of medication management and treatment of increased respiratory symptoms; review of pain and symptom management and anticipatory guidance. Disclaimer: The chart note was formulated using voice recognition technology and unfortunately sound alike errors may occur.
== END 2020-10-27 11:46 | disposition home or self-care (01) ==
LOC: PC 11:45
PROVIDERS: ATTEND Nurse Practitioner Family
DX: Z51.5 Encounter for palliative care (principal); J44.9 Chronic obstructive pulmonary disease, unspecified; F41.9 Anxiety disorder, unspecified; F32.9 Major depressive disorder, single episode, unspecified; G89.29 Other chronic pain; I10 Essential (primary) hypertension; F03.90 Unspecified dementia, unspecified severity, without behavioral disturbance, psychotic disturbance, mood disturbance, and anxiety; Z79.899 Other long term (current) drug therapy; Z79.891 Long term (current) use of opiate analgesic; Z79.51 Long term (current) use of inhaled steroids; Z66 Do not resuscitate
CPT/HCPCS: 99349

== ENCOUNTER 2020-12-02 12:15 | Outpatient (CLI) | payer MEDICARE, OTHER ==
--- NOTE | 2020-12-02 17:02 | CONSULTATION NOTE ---
Palliative Care Follow Up - Referral Referring Provider: Dr. Kirk Blakely Time of Visit: [id number] Referral setting: Home Referral Reason: COPD/Chronic Pain/Anxiety/Dementia - Information Sources Records reviewed: Previous records reviewed History/Review of Systems obtained from: Patient, Family (daughter/DIDIER, Keri), Caregiver (Letitia) Exam limitations: Clinical condition ([employer] and STM impairment) - History of Present Illness Update Brief HPI Update: This is an 85-year-old female who was seen and evaluated today in her home regarding chronic pain management, anxiety, asthma, and COPD with her daughter/DPPARESH Saavedra present and her caregiver, Tabby. The patient has a longstanding history of COPD and asthma and is sensitive to environmental changes revolving around seasonal change. She has the most potential for a COPD exacerbation in the spring and fall. She has as needed prednisone to utilize within the home as she has increased difficulty with breathing. On last evaluation in October 2020 the patient was having increased respiratory symptoms and her Rexall inhaler was increased for 2 puffs twice a day for 7 days and then been back to resumption of 1 puff twice a day with positive effect. She has not required any as needed prednisone 10 mg tablets. Her daughter, Keri has now officially relocated to the [place] and is living in the basement of the home temporarily and has brought her medical industrial grade air purifier which is now in the living room and this is provided positive benefit for the patient. Also the family and caregivers are very diligent about keeping the doors and windows shut to avoid potential pollen exposure. The patient appears calm today with her breathing relaxed. Last week the patient was experiencing increased generalized pain as well as specifically to her cervical neck. She does have a history of injection to her cervical spine that was done approximately 1 year ago at [facility]. It is likely, that this has begun to wear off. The patient is also at high risk for cervicogenic headaches due to her cervical neck pain. The patient is not open to having neck support or sleeping with specialized pillows to stabilize her neck. Her morphine immediate release was increased to 15 mg every 4 hours as needed to positive benefit for relief. Her caregiver reports that initially the pain 50 mg tablet every 4 hours approximately 1 day and since that time last week she is getting it approximately 3 times daily. No crying spells have been reported. The patient herself denies numbness or tingling to her upper extremities and she is not losing her floor winder or dropping any items. Initially, with her daughter and son-in-law moving into the home and an extra activity the patient had some increased anxiety but this has stabilized. She continues on BuSpar 5 mg 3 times daily. She also continues on Lexapro 10 mg daily. She is sleeping well through the night. She is reporting fatigue from chewing harder items. No reports of coughing during meals is evidence of dysphagia. Discussed referral to speech-language pathologist which would need to be outpatient and this was declined by the patient's daughter and DPOA. The patient had a shower today for the first time in many months with her hair dressed and wearing street close feeling very energized. She is seen in the living room in her lift assist chair. She is not conversant and in extremely high spirits today. No evidence of visible distress. Past Medical History: Patient has a past medical history of hypertension, asthma, COPD, dementia, hypothyroidism, GERD, diverticulitis, depression, anxiety, osteopenia, frequent falls, chronic neck pain, hyponatremia.Patient has a past medical history of hypertension, asthma, COPD, dementia, hypothyroidism, GERD, diverticulitis, depression, anxiety, osteopenia, frequent falls, chronic neck pain, hyponatr emia. +COVID-19 vaccine Social History - Living Situation Living arrangement: At home Living Situation: With family (daughter, Keri and AALIYAH Bautista have moved into the home temporarily as their home is being constructed on an adjacent property), With caregiver(s) Support System: Patient resides in her home of 22 years. She has / fdc care with her caregivers. Tabby is her new primary caregiver during the week and Tabby has a dog, Yasmany who the patient has enjoyed interacting with. The caregivers are through visiting [employer] service. The patient's daughter, Keri with contact number [phone]. Keri plans to assume caregiving duties on the weekends moving forward. The patient's son and [id number] Elizabeth are presently in [place] and plan to return to [facility] in February 2021. Medications/Allergies - Medications Home Medications: Ambulatory Orders Medication Instructions Recorded Confirmed Levothyroxine [Synthroid] 125 mcg PO QDAC 07/10/14 09/02/20 Ipratropium/Albuterol Sulfate 3 ml INH QID 12/25/17 09/02/20 [Iprat-Albut 0.5-3(2.5) mg/3 ml] Escitalopram Oxalate 10 mg PO DAILY 07/28/19 09/02/20 Fluticasone Propion/Salmeterol 1 puffs INH BID 08/25/19 09/02/20 [Wixela 250-50 Inhub] Albuterol Sulfate [Albuterol 2 puffs INH Q4H PRN 11/14/19 09/02/20 Sulfate Hfa] Celecoxib 200 mg PO DAILY 11/14/19 09/02/20 Montelukast Sodium 10 mg PO QPM 11/14/19 09/02/20 Trazodone HCl 50 mg PO QPM PRN 11/14/19 09/02/20 Triamcinolone 0.1% Cream [Kenalog 1 applic TOP PRN PRN 11/14/19 09/02/20 0.1% Cream] Morphine Ir [Ms Ir] 1 tab PO Q4H PRN 12/02/19 09/02/20 Ondansetron Odt [Zofran Odt] 4 mg PO Q8H PRN 12/02/19 09/02/20 Senna [Senokot] 8.6 mg PO DAILY PRN 12/10/19 09/02/20 polyethylene glycoL 3350 [Miralax] 17 g PO DAILY 12/10/19 09/02/20 busPIRone [Buspar] 5 mg PO DAILY PRN 12/17/19 09/02/20 Senna [Senokot] 8.6 mg PO QPM 01/06/20 09/02/20 Sodium Chloride [Saline Nasal 1 spray INH .EACH NOSTRIL PRN PRN 01/14/20 03/08/20 [place]] MDD To reduce pollen exposure LORazepam [Ativan] 0.5 mg PO DAILY PRN MDD Use 02/09/20 09/02/20 sparingly QUEtiapine [SEROquel] 12.5 mg PO .MIDDAY 1400 02/09/20 09/02/20 predniSONE [Prednisone] MDD take as directed 03/08/20 Acetaminophen [Tactinal] 1,000 mg PO TID PRN 04/05/20 09/02/20 Carboxymethylcellulose Sodium 1 drops EACHEYE Q2H PRN 04/05/20 09/02/20 [Artificial Tears] Morphine Sulfate [Ms Contin] 15 mg PO TID 06/09/20 09/02/20 busPIRone [Buspar] 5 mg PO TID 09/29/20 09/29/20 - Allergies Allergies/Adverse Reactions: Allergies Allergy/AdvReac Type Severity Reaction Status Date / Time moxifloxacin Allergy Severe Rash Verified 06/09/20 18:59 losartan [From Cozaar] Allergy Unknown Verified 06/09/20 18:59 oxycodone Allergy Unknown Verified 06/09/20 18:59 codeine AdvReac Severe Nausea Verified 06/09/20 18:59 hydrocodone AdvReac Severe Vomiting Verified 06/09/20 18:59 tramadol AdvReac Severe Vomiting Verified 06/09/20 18:59 Review of Systems - Constitutional Constitutional: reports: Weight stable (weight today 112lb on persoanl scale--stable; weight 112lb 10/2020; weight 101.8lb August 2020; weight 102.8lb 06/09/2020). denies: Fatigue, Fever - Eyes Eyes: denies: Irritation - Ears, Nose & Throat Ears, Nose & Throat: reports: Hearing loss, Hearing aids. denies: Nasal congestion - Cardiovascular Cardiovascular: reports: Decr. exercise tolerance. denies: Chest pain, Edema - Respiratory Respiratory: denies: Cough, Wheezing, SOB at rest - Gastrointestinal Gastrointestinal: reports: Other (waxes and wanes with appetite). denies: Constipation (controlled with diet and medications), Nausea - Genitourinary Genitourinary: reports: Incontinence. denies: Dysuria - Musculoskeletal Musculoskeletal: reports: Stiffness (neck), Joint pain (neck pain,presently improved), Assistive devices, Other (No recent falls) - Integumentary Integumentary: denies: Rash - Neurological Neurological: reports: General weakness, Memory problems. denies: Headache - Psychiatric Psychiatric: reports: Depression, Anxiety (controlled with medication regimen) - Endocrine Endocrine: reports: Hypothyroidism - Hematologic/Lymphatic Hematologic/Lymph: reports: Bruising (bruises easily) - All Other Systems All Other Systems: reports: Reviewed and negative (ROS supplemented by daughter/DPOA Keri and caregiver Letitia as patient is a poor historian due to dementia) Physical Exam - Vital Signs Temperature: 36.5 C Pulse Rate: 81 Respiratory Rate: 14 O2 Saturation: 95 (on RA at rest) Blood Pressure: 146/83 (left arm) - Physical Exam General Appearance: positive: No acute distress, Alert, Cachetic, Other (thin, b/l temporal wasting- less pronounced than prior visits, well groomed today with her hair dressed) Eyes Bilateral: positive: Normal inspection ENT: positive: No signs of dehydration, Other (trace dry cerumen noted to b/l ear canals removed with lighted curette and otoscope with b/l TMs intact; hearing aids) Neck: positive: Trachea midline Cardiovascular: positive: Regular rate & rhythm, Systolic murmur Respiratory: positive: No respiratory distress, Breath sounds nml, Other (able to speakmore fluidly without pausing for breath). negative: Wheezes Abdomen: positive: Non-tender, Soft, Nml bowel sounds. negative: Distended Skin: positive: Pallor. negative: Rash Extremities: positive: No pedal edema, Other (+DJD changes to b/l hands; +neck stiffness nontender to palpation) Neurologic/Psychiatric: positive: Oriented x3 (STM impiarment), Mood/affect nml (in good spirts), Weakness Palliative Care - POLST Patient has POLST: Yes POLST Status: DNR, Selective Treatment Pain: Comment (pain was worsening and improved with increase of Morphine IR to15mg every 4hours with use 3 times daily in addition to MS [id number] and would benefit from adjustment of MS Contin to 15mg TID for control of symptoms) Anorexia: Mild (1-3) Depression: None Anxiety: Mild (1-3) Feelings of wellbeing/Perceived Quality of Life: Good Constipation: Yes, Managed - Palliative Care Discussion: The patient has had recent increased of her generalized pain and cervical neck pain as her last cervical procedure was approximately [address] Orellana. She is required an adjustment of her morphine immediate release to 15 mg every 4 hours as needed and has been utilizing this approximately 3 times daily in addition to her MS Contin 15 mg twice daily. Would benefit from dose increase of her MS Contin to 15 mg 3 times daily and continue her morphine immediate release 15 mg every 4 hours as needed for breakthrough pain. Would expect given the patient's history of cervical neck pain and narrowing that she will likely require increased dosing of her MS Contin in the future but at the present time we will see where she lands. The daughter/DPOA reports that she is not eligible for an additional cervical procedure nor would this be something they would want to go through again. Therefore, medication management is the present option with encouragement of repositioning and support to the patient for which she is open to. Impression and Recommendations - Palliative Care Impression: This is a frail, 85-year-old female with a longstanding history of COPD, asthma, chronic neck pain, dementia with anxiety depression and atopic dermatitis. Due to her recent increased use of immediate release morphine and reports of generalized pain most specifically to her cervical spine will increase her MS Contin to 15 mg 3 times daily to have lab better control of her pain long-term. She is doing "well from a respiratory standpoint with reduction of pollen exposure. However, she remains at high risk for COPD exacerbation and wish to prevent this recurrence. Palliative care will continue to provide support for symptom management, anticipatory guidance, care coordination advance care planning with transition to hospice when medically appropriate. Recommendations/Counseling Done: 1. Chronic neck pain. Status post cervical procedure with Dr. Bennett performed 12/04/2019. Recent increase pain reported. Would recommend use of warm pack to neck for 15 minutes at a time for comfort. Recommended use of pillow at night for neck support and alignment but patient declines. Increase MS Contin to 15mg TID for control of pain. Continue Morphine IR 15mg every 4hours as needed for pain and to document use to determine need for adjustment of long acting morphine in the future. Continue to monitor and adust pain reigmen as needed. Daughter to contact palliative care in AM tomorrow regarding status update and Rx of MS Contin sent to [facility] at daughter's request. 2. Fatigue with mastication. Reports increased fatigue and loss of energy with prolonged chewing. Made suggestion of trying's mechanical soft foods that are easier to breakdown. Also made suggestion to contact [employer] to request for softer foods. Patient's daughter/DPOA declines CONSTRUCTION SAFETY MANAGER evaluation. No evidence of dysphagia. Possibly underlying COPD may be contributing to the patient's fatigue. Weight is holding steady at 112 pounds. We will continue to monitor. 3. Anxiety and depression. Longstanding history of anxiety. Continue BuSpar 5 mg 3 times daily. Continue Lexapro 10 mg daily for overall management of her depression and anxiety. She does have lorazepam 0.5 mg to utilize once daily if needed for acute anxiety and to utilize sparingly. Continue to monitor. 4. COPD and asthma. Longstanding history. Continue routine duo nebs. Continue Singulair 10 mg nightly. Continue Wiexela inhaler as prescribed. Cont inue MS Contin 15 mg 3 times daily for her underlying pain and dyspnea. The patient has prednisone 10 mg tablets in the home to be utilized as directed if a COPD exacerbation occurs taking 1 tablet by mouth x1 dose for signs and symptoms of exacerbation and then to contact palliative care for guidance during workday and PCP after hours or weekends for further management with the goal to avoid transfer to the emergency department. Continue to monitor. 5. Atopic dermatitis. No evidence of recent flare. Continue to encourage general moisturization to reduce risk of recurrence. Patient has triamcinolone to utilize within the home and advised to use sparingly no more than 2 weeks at a time to avoid adverse effects such as skin thinning, hypopigmentation, etc. with understanding verbalized by patient's daughter and caregiver. If needed would apply 2 weeks on and 2 weeks off and to continue to lotion or lubricant. Total time spent 50 minutes with greater than 50% of this spent in counseling and coordination of care with patient, daughter/DPPARESH Saavedra and caregiver Letitia; examination of patient; review of pain and symptom management and anticipatory guidance. Disclaimer: The chart note was formulated using voice recognition technology and unfortunately sound alike errors may occur.
== END 2020-12-02 12:16 | disposition home or self-care (01) ==
LOC: PC 12:15
PROVIDERS: ATTEND Nurse Practitioner Family
DX: Z51.5 Encounter for palliative care (principal); M54.2 Cervicalgia; G89.29 Other chronic pain; F41.9 Anxiety disorder, unspecified; F32.9 Major depressive disorder, single episode, unspecified; J44.9 Chronic obstructive pulmonary disease, unspecified; L20.9 Atopic dermatitis, unspecified; Z66 Do not resuscitate
CPT/HCPCS: 99349

== ENCOUNTER 2020-12-31 11:40 | Outpatient (CLI) | payer MEDICARE, OTHER ==
--- NOTE | 2020-12-31 17:03 | CONSULTATION NOTE ---
Palliative Care Follow Up - Referral Referring Provider: Dr. Kirk Blakely Time of Visit: [id number] Referral Reason: COPD/Chronic Pain/Anxiety/Dementia - Information Sources Records reviewed: Previous records reviewed History/Review of Systems obtained from: Patient, Family (daughter/DIDIER Rendon), Caregiver (Letitia) Exam limitations: Clinical condition ([place] and STM impairment) - History of Present Illness Update Brief HPI Update: This is an 85-year-old female who was seen in follow-up today in her home regarding chronic pain management, anxiety, and COPD and dementia with her daughter/DIDIER Saavedra present and her caregiver, Tabby. The patient has longstanding history of COPD and asthma and is sensitive to environmental changes revolving around seasonal change. She is the most potential for COPD exacerbation in the spring and fall. She unfortunately, ran out of her Wxivela which has now been refilled after 3 days without. The patient did have a coughing spell several days ago when she was consuming Jell-O that resulted in a low-grade temp the next day. However, per the caregivers report she "perked back up." Since last evaluation the patient during mastication. Turns out that she had a tooth that needed to be pulled which was done last week at the dentist. She is now consuming soft foods and is not on any antibiotic therapy. The patient has tolerated the transition to MS Contin 15 mg 3 times daily and has only required 2 breakthrough doses of morphine immediate release during the month of December. Overall with her pain she has been doing "fantastic." She continues to report pain specifically to her cervical neck. She does have a history of injection to her cervical spine that was done approximately 1 year ago at [facility]. She is sleeping well during the night. Her initial anxiety need to increase her BuSpar has tapered off since her daughter and son-in-law have settled back into her home and a routine has been established. She also continues on Lexapro 10 mg daily. Would benefit from trial dose reduction of BuSpar. The patient is seen out of bed in her recliner slightly fatigued in her pajamas. No evidence of visible distress. Past Medical History: Patient has a past medical history of hypertension, asthma, COPD, dementia, hypothyroidism, GERD, diverticulitis, depression, anxiety, osteopenia, frequent falls, chronic neck pain, hyponatremia.Patient has a past medical history of hypertension, asthma, COPD, dementia, hypothyroidism, GERD, diverticulitis, depression, anxiety, osteopenia, frequent falls, chronic neck pain, hyponatremia. +COVID-19 vaccine Social History - Living Situation Living arrangement: At home Living Situation: With family (daughter, Keri and AALIYAH Bautista have moved into the home temporarily as their home is being constructed on an adjacent property), With caregiver(s) Support System: Patient resides in her home of 22 years. She has 01/01 residential care with her caregivers. Tabby is her primary caregiver during the week. The caregivers are through [employer] service. The patient's daughter, Keri with contact number [phone] is DPOA. The patient's son and [id number] Ishan and More are presently in [place] and plan to return to [facility] in February 2021. Medications/Allergies - Medications Home Medications: Ambulatory Orders Medication Instructions Recorded Confirmed Levothyroxine [Synthroid] 125 mcg PO QDAC 07/10/14 09/02/20 Ipratropium/Albuterol Sulfate 3 ml INH QID 12/25/17 09/02/20 [Iprat-Albut 0.5-3(2.5) mg/3 ml] Escitalopram Oxalate 10 mg PO DAILY 07/28/19 09/02/20 Fluticasone Propion/Salmeterol 1 puffs INH BID 08/25/19 09/02/20 [Wixela 250-50 Inhub] Albuterol Sulfate [Albuterol 2 puffs INH Q4H PRN 11/14/19 09/02/20 Sulfate Hfa] Celecoxib 200 mg PO DAILY 11/14/19 09/02/20 Montelukast Sodium 10 mg PO QPM 11/14/19 09/02/20 Trazodone HCl 50 mg PO QPM PRN 11/14/19 09/02/20 Triamcinolone 0.1% Cream [Kenalog 1 applic TOP PRN PRN 11/14/19 09/02/20 0.1% Cream] Morphine Ir [Ms Ir] 1 tab PO Q4H PRN 12/02/19 09/02/20 Ondansetron Odt [Zofran Odt] 4 mg PO Q8H PRN 12/02/19 09/02/20 Senna [Senokot] 8.6 mg PO DAILY PRN 12/10/19 09/02/20 polyethylene glycoL 3350 [Miralax] 17 g PO DAILY 12/10/19 09/02/20 busPIRone [Buspar] 5 mg PO DAILY PRN 12/17/19 09/02/20 Senna [Senokot] 8.6 mg PO QPM 01/06/20 09/02/20 Sodium Chloride [Saline Nasal 1 spray INH .EACH NOSTRIL PRN PRN 01/14/20 03/08/20 [place]] MDD To reduce pollen exposure LORazepam [Ativan] 0.5 mg PO DAILY PRN MDD Use 02/09/20 09/02/20 sparingly QUEtiapine [SEROquel] 12.5 mg PO .MIDDAY 1400 02/09/20 09/02/20 predniSONE [Prednisone] MDD take as directed 03/08/20 Acetaminophen [Tactinal] 1,000 mg PO TID PRN 04/05/20 09/02/20 Carboxymethylcellulose Sodium 1 drops EACHEYE Q2H PRN 04/05/20 09/02/20 [Artificial Tears] Morphine Sulfate [Ms Contin] 15 mg PO TID 06/09/20 09/02/20 busPIRone [Buspar] 5 mg PO BID 09/29/20 09/29/20 - Allergies Allergies/Adverse Reactions: Allergies Allergy/AdvReac Type Severity Reaction Status Date / Time moxifloxacin Allergy Severe Rash Verified 06/09/20 18:59 losartan [From Cozaar] Allergy Unknown Verified 06/09/20 18:59 oxycodone Allergy Unknown Verified 06/09/20 18:59 codeine AdvReac Severe Nausea Verified 06/09/20 18:59 hydrocodone AdvReac Severe Vomiting Verified 06/09/20 18:59 tramadol AdvReac Severe Vomiting Verified 06/09/20 18:59 Review of Systems - Constitutional Constitutional: reports: Fatigue (in the last few days increased, last week was active with dentist appointment and a libertarian with 3 of her girlfriends at her home), Weight stable (weight 11/2020 112lb; weight 102.8lb 06/09/2020). denies: Fever - Eyes Eyes: denies: Irritation - Ears, Nose & Throat Ears, Nose & Throat: reports: Hearing loss, Hearing aids - Cardiovascular Cardiovascular: reports: Decr. exercise tolerance. denies: Chest pain, Edema - Respiratory Respiratory: denies: Cough, SOB at rest - Gastrointestinal Gastrointestinal: reports: Other (waxes and wanes with appetite). denies: Constipation (controlled with diet and medications), Nausea - Genitourinary Genitourinary: reports: Incontinence. denies: Dysuria - Musculoskeletal Musculoskeletal: reports: Stiffness (neck), Joint pain (neck pain--improved), Assistive devices, Other (No recent falls) - Integumentary Integumentary: denies: Rash - Neurological Neurological: reports: General weakness, Memory problems. denies: Headache - Psychiatric Psychiatric: reports: Depression, Anxiety (controlled with medication regimen and settling into a routine with her daughter and AALIYAH) - Endocrine Endocrine: reports: Hypothyroidism - Hematologic/Lymphatic Hematologic/Lymph: reports: Bruising (bruises easily) - All Other Systems All Other Systems: reports: Reviewed and negative (ROS supplemented by daughter/DPOA Keri and caregiver Letitia as patient is a poor historian due to dementia) Physical Exam - Vital Signs Temperature: 36.2 C Pulse Rate: 83 O2 Saturation: 97 (on RA) Blood Pressure: 146/81 (left wrist) - Physical Exam General Appearance: positive: No acute distress, Alert, Cachetic, Other (thin, b/l temporal wasting) Eyes Bilateral: positive: Normal inspection ENT: positive: No signs of dehydration, Other (+hearing aids) Neck: positive: Trachea midline Cardiovascular: positive: Regular rate & rhythm, Systolic murmur Respiratory: positive: No respiratory distress, Breath sounds nml. negative: Wheezes Abdomen: positive: Non-tender, Soft, Nml bowel sounds Skin: positive: Pallor. negative: Rash Extremities: positive: No pedal edema, Other (+DJD changes to b/l hands) Neurologic/Psychiatric: positive: Oriented x3 (STM impiarment), Mood/affect nml, Weakness Palliative Care - POLST Patient has POLST: Yes POLST Status: DNR, Selective Treatment Pain: Pain improved (significantly improved with increase of MS Contin to 15mg TID.) Tiredness/Fatigue: Mild (1-3) Nausea: None Anorexia: Mild (1-3) Dyspnea: Moderate (4-6) Depression: None Anxiety: None Feelings of wellbeing/Perceived Quality of Life: Good Sleep: Sleeps well Constipation: Managed - Palliative Care Discussion: The patient has positively responded to increase of her MS Contin 50 mg from twice daily to 3 times daily and has not required any routine administration of morphine sulfate immediate release for breakthrough pain. She has had increased activity in the last week that is likely contributed to her fatigue. She had to attend at the dentist to have a tooth removed as well as a recent gathering at her home with 3 of her friends. This is something that is not a common occurrence this is likely lead to increased fatigue for the patient and normalized these feelings for both the patient herself, caregiver and daughter. Impression and Recommendations - Palliative Care Impression: This is a frail, 85-year-old female with a longstanding history of COPD, chronic neck pain, dementia with anxiety and depression. She has tolerated increase of MS Contin to 15 mg 3 times daily. Her anxiety has stabilized and she is now back into a routine and therefore will reduce BuSpar from 5 mg 3 times daily to 5 mg twice daily and monitor response. Palliative care will continue to provide support for symptom management, anticipatory guidance, care coordination, and advance care planning with transition to hospice when medically appropriate. Recommendations/Counseling Done: 1. Anxiety and depression. Longstanding history of anxiety. Reduce BuSpar to 5 mg twice daily. Continue Lexapro 10 mg daily for overall management of her depression anxiety. She has previously tolerated only being on Lexapro for however, with acute changes in her caregivers and in her routine with her daughter and son-in-law moving into her home she benefited from reinstating BuSpar and now that things have settled it is appropriate to do a trial reduction. Continue to monitor her response. 2. Chronic pain syndrome specifically to her cervical line. Status post cervical procedure with Dr. Bennett performed 12/04/2019. Has tolerated increase to 15 mg 3 times daily for control of her pain. Continue morphine immediate release 15 mg every 4 hours as needed for pain and continue to document administration to make adjustments of long-acting morphine in the future. Presently pain is well controlled. Continue to monitor and adjust pain regimen as needed. Rx for MS Contin sent to [facility] pharmacy at that patient's daughter's request. 3.COPD and asthma. Longstanding history. Continue routine duo nebs. Continue Singulair 10 mg daily. Continue Advair inhaler as prescribed. Continue MS Contin 50 mg 3 times daily for her underlying pain and dyspnea. Patient has prednisone 10 mg tablets in the home to be utilized as directed if COPD exacerbation occurs taking 1 tablet by mouth x1 dose for signs and symptoms of exacerbation and then to contact palliative care for guidance during workday and PCP after hours or weekends for further management. Goal is to avoid transfer t o the emergency department. Continue to monitor. 4. Dementia. Chronic. Progressive. Fall precautions. Continue 24-hour support within the home. Family to continue to provide overall oversight for caregiving support and medication management. On no disease modifying agents. Sundowning behaviors presently controlled with quetiapine 12.5 mg in the afternoon with new Rx sent to [facility]. No history of recent falls. On no disease modifying agents. Given the patient's advanced age and chronic comorbidities a gradual decline is expected. Total time spent 40 minutes with greater than 50% of this spent in counseling and coordination of care with patient, daughter/DPOA and caregiver, Letitia; examination of patient; medication adjustment; review of pain and symptom management and anticipatory guidance. Disclaimer: The chart note was formulated using voice recognition technology and unfortunately sound alike errors may occur.
== END 2020-12-31 11:41 | disposition home or self-care (01) ==
LOC: PC 11:40
PROVIDERS: ATTEND Nurse Practitioner Family
DX: Z51.5 Encounter for palliative care (principal); G89.4 Chronic pain syndrome; J44.9 Chronic obstructive pulmonary disease, unspecified; F41.9 Anxiety disorder, unspecified; R53.83 Other fatigue; F32.9 Major depressive disorder, single episode, unspecified; F03.91 Unspecified dementia, unspecified severity, with behavioral disturbance; F05 Delirium due to known physiological condition; Z79.899 Other long term (current) drug therapy; Z79.51 Long term (current) use of inhaled steroids; Z79.891 Long term (current) use of opiate analgesic; Z66 Do not resuscitate
CPT/HCPCS: 99349

== ENCOUNTER 2021-02-09 11:50 | Outpatient (CLI) | payer MEDICARE, OTHER ==
--- NOTE | 2021-02-09 20:45 | CONSULTATION NOTE ---
Palliative Care Follow Up - Referral Referring Provider: Dr. Kirk Blakely Time of Visit: [id number] Referral setting: Home Referral Reason: COPD/Chronic Pain/Anxiety/Dementia - Information Sources Records reviewed: Previous records reviewed History/Review of Systems obtained from: Patient, Family (daughter/DPPARESH Loydbie), Caregiver (Letitia) Exam limitations: Clinical condition (+CHEMEHUEVI and STM impairment) - History of Present Illness Update Brief HPI Update: This is an 85-year-old female who was seen in follow-up today in her home regarding chronic pain management, anxiety, COPD, dementia with her daughter/DPPARESH Saavedra present and her caregiver, Tabby. Last week patient had several molars removed to her mouth. The patient was very active when she was having discomfort after 30 minutes of [id number] time was spent with the patient, almost all in explanation and discussion teeth were extracted due to severe gingivitis that caused tooth decay. The patient's daughter reports that after her initial tooth extraction she was requiring immediate release morphine intermittently and in the last day this has stopped as the patient has had improvement in her pain. However, the patient has demonstrated some signs of increased fatigue after this procedure which is not unexpected given her underlying dementia. Despite the tooth extraction her appetite remains good and her family and caregivers are providing protein in some form of almond had every meal. The patient on last evaluation had her BuSpar reduced to 5 mg twice daily in addition to Lexapro 10 mg daily. She has tolerated this dose reduction and has not demonstrated any increased signs or symptoms of anxiety per her caregiver and daughter's report. The patient has a longstanding history of COPD and asthma and is sensitive to environmental changes revolving around seasonal change. She has the most potential for COPD exacerbation in the spring and fall. They have as needed prednisone as a tool to utilize in the home and this was administered once on 01/16 and 01/21 keeping the patient out of any potential exacerbation and out of the emergency department. The patient was recently out on the deck for long periods of time with her daughter and this has not resulted in any COPD exacerbations breathing has remained at baseline. The patient's daughter and caregiver have noted over the last few days that the patient has had some increased lower extremity edema. They deny change in her diet. The patient denies any chest pain or dizziness. In review, the patient's daughter has been administering Pedialyte. The patient will elevate her legs at times and they are typically less swollen in the morning. Patient is seeing dressed in street clothes, well groomed, make-up on, sitting on her Rollator with it locked. No evidence of visible distress. Past Medical History: Patient has a past medical history of hypertension, asthma, COPD, dementia, hypothyroidism, GERD, diverticulitis, depression, anxiety, osteopenia, frequent falls, chronic neck pain, hyponatremia.Patient has a past medical history of hypertension, asthma, COPD, dementia, hypothyroidism, GERD, diverticulitis, depression, anxiety, osteopenia, frequent falls, chronic neck pain, hyponatremia. +COVID-19 vaccine Social History - Living Situation Living arrangement: At home Living Situation: With family (daughter, Keri and AALIYAH Bautista have moved into the home temporarily as their home is being constructed on an adjacent property), With caregiver(s) Support System: Patient resides in her home of 22 years. She has 24/7 mcfp care with her caregivers. Tabby is her primary caregiver during the week. The caregivers are through visiting [email or web address] service. The patient's daughter, Keri with contact number [phone] is DPOA. The patient's son and [id number] Ishan and More are presently in [place] and plan to return to [facility] in February 2021. Medications/Allergies - Medications Home Medications: Ambulatory Orders Medication Instructions Recorded Confirmed Levothyroxine [Synthroid] 125 mcg PO QDAC 07/10/14 09/02/20 Ipratropium/Albuterol Sulfate 3 ml INH QID 12/25/17 09/02/20 [Iprat-Albut 0.5-3(2.5) mg/3 ml] Escitalopram Oxalate 10 mg PO DAILY 07/28/19 09/02/20 Fluticasone Propion/Salmeterol 1 puffs INH BID 08/25/19 09/02/20 [Wixela 250-50 Inhub] Albuterol Sulfate [Albuterol 2 puffs INH Q4H PRN 11/14/19 09/02/20 Sulfate Hfa] Celecoxib 200 mg PO DAILY 11/14/19 09/02/20 Montelukast Sodium 10 mg PO QPM 11/14/19 09/02/20 Trazodone HCl 50 mg PO QPM PRN 11/14/19 09/02/20 Triamcinolone 0.1% Cream [Kenalog 1 applic TOP PRN PRN 11/14/19 09/02/20 0.1% Cream] Morphine Ir [Ms Ir] 1 tab PO Q4H PRN 12/02/19 09/02/20 Ondansetron Odt [Zofran Odt] 4 mg PO Q8H PRN 12/02/19 09/02/20 Senna [Senokot] 8.6 mg PO DAILY PRN 12/10/19 09/02/20 polyethylene glycoL 3350 [Miralax] 17 g PO DAILY 12/10/19 09/02/20 busPIRone [Buspar] 5 mg PO DAILY PRN 12/17/19 09/02/20 Senna [Senokot] 8.6 mg PO QPM 01/06/20 09/02/20 Sodium Chloride [Saline Nasal 1 spray INH .EACH NOSTRIL PRN PRN 01/14/20 03/08/20 [place]] MDD To reduce pollen exposure LORazepam [Ativan] 0.5 mg PO DAILY PRN MDD Use 02/09/20 09/02/20 sparingly QUEtiapine [SEROquel] 12.5 mg PO .MIDDAY 1400 02/09/20 09/02/20 predniSONE [Prednisone] MDD take as directed 03/08/20 Acetaminophen [Tactinal] 1,000 mg PO TID PRN 04/05/20 09/02/20 Carboxymethylcellulose Sodium 1 drops EACHEYE Q2H PRN 04/05/20 09/02/20 [Artificial Tears] Morphine Sulfate [Ms Contin] 15 mg PO TID 06/09/20 09/02/20 busPIRone [Buspar] 5 mg PO BID 09/29/20 09/29/20 - Allergies Allergies/Adverse Reactions: Allergies Allergy/AdvReac Type Severity Reaction Status Date / Time moxifloxacin Allergy Severe Rash Verified 06/09/20 18:59 losartan [From Cozaar] Allergy Unknown Verified 06/09/20 18:59 oxycodone Allergy Unknown Verified 06/09/20 18:59 codeine AdvReac Severe Nausea Verified 06/09/20 18:59 hydrocodone AdvReac Severe Vomiting Verified 06/09/20 18:59 tramadol AdvReac Severe Vomiting Verified 06/09/20 18:59 Review of Systems - Constitutional Constitutional: reports: Fatigue (after dental tooth extraction), Weight stable (weight 11/2020 112lb; weight 102.8lb 06/09/2020). denies: Fever, Poor appetite - Eyes Eyes: denies: Irritation - Ears, Nose & Throat Ears, Nose & Throat: reports: Hearing loss, Hearing aids, Dental decay (see HPI). denies: Dentures, Bleeding gums - Cardiovascular Cardiovascular: reports: Edema (BLE over last few days, see HPI), Decr. exercise tolerance. denies: Chest pain - Respiratory Respiratory: denies: Cough, SOB at rest - Gastrointestinal Gastrointestinal: reports: Good appetite. denies: Constipation (controlled with diet and medications), Nausea - Genitourinary Genitourinary: reports: Incontinence, Nocturia. denies: Dysuria - Musculoskeletal Musculoskeletal: reports: Stiffness (neck), Assistive devices, Other (No recent falls). denies: Joint pain (neck pain controlled with MS Contin) - Integumentary Integumentary: denies: Rash - Neurological Neurological: reports: General weakness, Memory problems. denies: Headache - Psychiatric Psychiatric: reports: Depression, Anxiety (controlled) - Endocrine Endocrine: reports: Hypothyroidism - Hematologic/Lymphatic Hematologic/Lymph: reports: Bruising (bruises easily) - All Other Systems All Other Systems: reports: Reviewed and negative (ROS supplemented by daughter/DPPARESH Saavedra and caregiver Letitia as patient is a poor historian due to dementia) Physical Exam - Vital Signs Temperature: 36.7 C Pulse Rate: 69 O2 Saturation: 96 (on RA) Blood Pressure: 155/85 (left wrist) - Physical Exam General Appearance: positive: No acute distress, Alert, Other (thin, b/l temporal wasting) Eyes Bilateral: positive: Normal inspection ENT: positive: No signs of dehydration, Other (+hearing aids; +missing teeth bottom left without gum erythema or discharge) Neck: positive: Trachea midline. negative: Lymphadenopathy (R), Lymphadenopathy (L) Cardiovascular: positive: Regular rate & rhythm, Systolic murmur Respiratory: positive: No respiratory distress, Breath sounds nml. negative: Wheezes Abdomen: positive: Non-tender, Soft, Nml bowel sounds Skin: positive: Pallor Extremities: positive: Pedal edema (Trace BLE edema), Other (+DJD changes to b/l hands) Neurologic/Psychiatric: positive: Oriented x3 (STM impiarment), Mood/affect nml, Weakness Palliative Care - POLST Patient has POLST: Yes POLST Status: DNR, Selective Treatment Pain: Comment (Controlled with MS Contin 15mg TID) Tiredness/Fatigue: Mild (1-3) Drowsiness/Sedation: None Nausea: None Anorexia: None Dyspnea: Moderate (4-6) Depression: None Anxiety: None Sleep: Sleeps well Constipation: Opoid induced, Managed - Palliative Care Discussion: Patient has recently had teeth extracted that resulted in an increase of acute pain and utilization of her morphine sulfate immediate release that has now resolved. She has had to make some modifications to her diet for softer texture foods. She has had an increase in fatigue after this procedure and normalized these feelings for the patient, caregiver and daughter. She has had an increase in lower extremity edema however, this is in the setting of utilization of Pedialyte. As Pedialyte has a concentration of sodium made recommendation of discontinuation of this supplement and monitor the patient's lower extremity edema. If it continues then may utilize diabetic compression socks to be placed in the morning and removed in the evening. The patient's daughter and caregivers utilized as needed prednisone twice this month that have decreased the patient's risk of a COPD exacerbation. It has been since 2020.the patient has had a COPD exacerbation. Impression and Recommendations - Palliative Care Impression: This is a frail, 85-year-old female with a longstanding history of COPD, chronic neck pain, dementia, anxiety and depression. She recently had several teeth extracted resulting in increased fatigue and acute pain that is resolving. Her anxiety is stable on dose reduction of BuSpar 5 mg twice daily. Palliative care will continue to provide support for symptom management, anticipatory guidance, care coordination and advance care planning with transition to hospice when medically appropriate. Recommendations/Counseling Done: 1.Bilateral lower extremity edema, trace. In this setting of Pedialyte consumption. Advised to discontinue Pedialyte and monitor the patient's response. Continue to encourage elevation of lower extremities when at rest. If discontinuation of Pedialyte does not resolve lower extremity edema then recommendation made to utilize diabetic compression socks to be placed in the morning and removed in the evening. Continue to monitor. 2. 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 Status post cervical procedure with Dr. Bennett performed 12/04/2019. Continue MS Contin 15 mg 3 times daily. Continue morphine immediate release 15 mg every 4 hours as needed for pain and to continue to document administration to make adjustments of long- acting morphine in the future. Pain is presently well controlled. Continue to monitor and adjust pain regimen as needed. Patient's daughter aware to contact palliative care 1 week prior to need of new prescription for opioid therapy to be sent to [facility] pharmacy. 3. COPD and asthma. Longstanding history. Continue routine duo nebs. Continue Singulair 10 mg daily. Continue Advil inhaler as prescribed. Continue MS Contin 15 mg 3 times daily for underlying pain and dyspnea. Patient has prednisone 10 mg tablets in the home to be utilized as directed if COPD exacerbation occurs taking 1 tablet by mouth x1 dose for signs and symptoms of exacerbation and then to contact palliative care for guidance during workday and PCP after hours or weekends for further management. Patient has utilize a prednisone 2 times since last evaluation. Goal is to avoid transfer to emergency department. Continue to monitor. 4.Anxiety and depression. Longstanding history of anxiety. Has tolerated reduction of BuSpar to 5 mg twice daily. Continue Lexapro 10 mg daily for overall management of her depression and anxiety. Continue to monitor. 5. Dementia. Chronic. Progressive. Fall precautions. Continue 24-hour support within the home. Family to continue to provide overall oversight for caregiving support and medication management. Unknown on no disease modifying agents. Sundowning behaviors presently controlled with quetiapine 12.5 mg in the afternoon. No recent falls. On no disease modifying agents. Given the patient's advanced age and chronic comorbidities a gradual decline is expected. Total time spent 40 minutes with greater than 50% of this spent in counseling and coordination of care with patient, caregiver Letitia and daughterKeri; examination of patient; review of pain and symptom management and anticipatory guidance. Disclaimer: The chart note was formulated using voice recognition technology and unfortunately sound alike errors may occur.
== END 2021-02-09 11:51 | disposition home or self-care (01) ==
LOC: PC 11:50
PROVIDERS: ATTEND Nurse Practitioner Family
DX: Z51.5 Encounter for palliative care (principal); F03.90 Unspecified dementia, unspecified severity, without behavioral disturbance, psychotic disturbance, mood disturbance, and anxiety; J44.9 Chronic obstructive pulmonary disease, unspecified; G89.4 Chronic pain syndrome; R60.9 Edema, unspecified; F41.9 Anxiety disorder, unspecified; F32.9 Major depressive disorder, single episode, unspecified; M54.2 Cervicalgia; H91.90 Unspecified hearing loss, unspecified ear; R32 Unspecified urinary incontinence; R35.1 Nocturia; E03.9 Hypothyroidism, unspecified; Z66 Do not resuscitate; Z91.81 History of falling; Z79.891 Long term (current) use of opiate analgesic; Z79.899 Other long term (current) drug therapy
CPT/HCPCS: 99349

== ENCOUNTER 2021-04-27 11:30 | Outpatient (CLI) | payer MEDICARE, OTHER ==
--- NOTE | 2021-04-27 16:39 | CONSULTATION NOTE ---
Palliative Care Follow Up - Referral Referring Provider: Dr. Kirk Blakely Time of Visit: 9934-5323 Referral setting: Home Referral Reason: COPD/Chronic Pain/Anxiety/Dementia - Information Sources Records reviewed: Previous records reviewed History/Review of Systems obtained from: Patient, Family (daughter/DPPARESH Vanne and Son in law, Ed) Exam limitations: Clinical condition (+SUN'AQ and STM impairment due to dementia) - History of Present Illness Update Brief HPI Update: This is an 85-year-old female who is seen in follow-up today in her home regarding chronic pain management, anxiety, COPD, and dementia with her daughter/DPPARESH Saavedra and her son-in-law, at present. Provider wore N95 mask. Patient had been having increased stiffness in the mornings and some increased reports of shortness of breath for seeing the morning and the patient's daughter has initiated morphine immediate release 7.5 mg in the morning. She continues on MS Contin 15 mg 3 times daily. With introduction of immediate release morphine 7.5 mg in the morning this has allowed for stabilization and increase comfort. They have not required utilizing the immediate release morphine 7.5 mg more frequently than once per day and therefore, would not benefit from dose adjustment of her MS Contin. Despite recently losing her regional sales associate, Tabby the patient has not had any increased exacerbations of her anxiety. Her daughter continues to build rapport and finding ways to approach the patient to mitigate her developing anxiety. She has done well with her BuSpar 5 mg twice daily in addition to her Lexapro 10 mg daily. No signs of increased anxiety reported. Daughter has noticed that over the last month getting up from bed the patient requires assistance for standing up that she is having decreased core strength. This is abdomen fluid in the past. There have been no falls. She continues to graze during the day and consuming her meals. She will have snacks that typically include fruits that have a high water content. She is typically eating something approximately every 2 hours. Patient is seen in the living room in her [facility] reading the paper. No evidence of acute distress. Hearing aids in place. Past Medical History: Patient has a past medical history of hypertension, asthma, COPD, dementia, hypothyroidism, GERD, diverticulitis, depression, anxiety, osteopenia, frequent falls, chronic neck pain, hyponatremia.Patient has a past medical history of hypertension, asthma, COPD, dementia, hypothyroidism, GERD, diverticulitis, depression, anxiety, osteopenia, frequent falls, chronic neck pain, hyponatremia. +COVID-19 vaccine Social History - Living Situation Living arrangement: At home Living Situation: With family (daughter, Keri and AALIYAH Ed have moved into the home temporarily as their home is being constructed on an adjacent property), With caregiver(s) Support System: Patient resides in her home of 22 years. She has an evening caregiver through visiting [employer] service as the regional sales associate gave her notice and will not be returning, which the patient expresses disappointment regarding given the relationship they had formed. The patient's daughter and AALIYAH are living in the home presently while their house is being built next door and the patient has 01/01 oversight. The patient's daughter, Keri with contact number [phone] is DPOA. The family is to be all present for Thanksgiving at the house. Medications/Allergies - Medications Home Medications: Ambulatory Orders Medication Instructions Recorded Confirmed Levothyroxine [Synthroid] 125 mcg PO QDAC 07/10/14 09/02/20 Ipratropium/Albuterol Sulfate 3 ml INH QID 12/25/17 09/02/20 [Iprat-Albut 0.5-3(2.5) mg/3 ml] Escitalopram Oxalate 10 mg PO DAILY 07/28/19 09/02/20 Fluticasone Propion/Salmeterol 1 puffs INH BID 08/25/19 09/02/20 [Wixela 250-50 Inhub] Albuterol Sulfate [Albuterol 2 puffs INH Q4H PRN 11/14/19 09/02/20 Sulfate Hfa] Celecoxib 200 mg PO DAILY 11/14/19 09/02/20 Montelukast Sodium 10 mg PO QPM 11/14/19 09/02/20 Trazodone HCl 50 mg PO QPM PRN 11/14/19 09/02/20 Triamcinolone 0.1% Cream [Kenalog 1 applic TOP PRN PRN 11/14/19 09/02/20 0.1% Cream] Morphine Ir [Ms Ir] 1 tab PO Q4H PRN 12/02/19 09/02/20 Ondansetron Odt [Zofran Odt] 4 mg PO Q8H PRN 12/02/19 09/02/20 Senna [Senokot] 8.6 mg PO DAILY PRN 12/10/19 09/02/20 polyethylene glycoL 3350 [Miralax] 17 g PO DAILY 12/10/19 09/02/20 busPIRone [Buspar] 5 mg PO DAILY PRN 12/17/19 09/02/20 Senna [Senokot] 8.6 mg PO QPM 01/06/20 09/02/20 Sodium Chloride [Saline Nasal 1 spray INH .EACH NOSTRIL PRN PRN 01/14/20 03/08/20 Thida] MDD To reduce pollen exposure LORazepam [Ativan] 0.5 mg PO DAILY PRN MDD Use 02/09/20 09/02/20 sparingly QUEtiapine [SEROquel] 12.5 mg PO .MIDDAY 1400 02/09/20 09/02/20 predniSONE [Prednisone] MDD take as directed 03/08/20 Acetaminophen [Tactinal] 1,000 mg PO TID PRN 04/05/20 09/02/20 Carboxymethylcellulose Sodium 1 drops EACHEYE Q2H PRN 04/05/20 09/02/20 [Artificial Tears] Morphine Sulfate [Ms Contin] 15 mg PO TID 06/09/20 09/02/20 busPIRone [Buspar] 5 mg PO BID 09/29/20 09/29/20 Morphine Ir [Ms Ir] 7.5 mg PO DAILY 04/27/21 04/27/21 - Allergies Allergies/Adverse Reactions: Allergies Allergy/AdvReac Type Severity Reaction Status Date / Time moxifloxacin Allergy Severe Rash Verified 06/09/20 18:59 losartan [From Cozaar] Allergy Unknown Verified 06/09/20 18:59 oxycodone Allergy Unknown Verified 06/09/20 18:59 codeine AdvReac Severe Nausea Verified 06/09/20 18:59 hydrocodone AdvReac Severe Vomiting Verified 06/09/20 18:59 tramadol AdvReac Severe Vomiting Verified 06/09/20 18:59 Review of Systems - Constitutional Constitutional: reports: Weight loss (weight 105.2lb 04/27/2021; weight 11/2020 1 12lb; weight 102.8lb 06/09/2020). denies: Fever, Poor appetite - Eyes Eyes: denies: Irritation - Ears, Nose & Throat Ears, Nose & Throat: reports: Hearing loss, Hearing aids. denies: Dentures, Dental pain - Cardiovascular Cardiovascular: reports: Decr. exercise tolerance. denies: Chest pain, Edema - Respiratory Respiratory: denies: Cough, SOB at rest - Gastrointestinal Gastrointestinal: reports: Good appetite. denies: Abdominal pain, Constipation (controlled), Nausea - Genitourinary Genitourinary: reports: Incontinence, Nocturia. denies: Dysuria - Musculoskeletal Musculoskeletal: reports: Stiffness (neck), Assistive devices, Other (No recent falls). denies: Joint pain (neck pain controlled with MS Contin) - Integumentary Integumentary: denies: Rash - Neurological Neurological: reports: General weakness, Memory problems. denies: Headache - Psychiatric Psychiatric: reports: Depression, Anxiety (controlled) - Endocrine Endocrine: reports: Hypothyroidism - Hematologic/Lymphatic Hematologic/Lymph: reports: Bruising (bruises easily) - All Other Systems All Other Systems: reports: Reviewed and negative (ROS supplemented by daughter/DPOA Keri and and AALIYAH Ed, as is a poor historian due to dementia) Physical Exam - Vital Signs Temperature: 36.8 C Pulse Rate: 82 O2 Saturation: 96 (on RA) Blood Pressure: 113/65 - Physical Exam General Appearance: positive: No acute distress, Alert, Other (thin, b/l temporal wasting) Eyes Bilateral: positive: Normal inspection ENT: positive: No signs of dehydration, Other (+hearing aids) Neck: positive: Trachea midline Cardiovascular: positive: Regular rate & rhythm, Systolic murmur Respiratory: positive: No respiratory distress, Breath sounds nml. 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 Her comfort has been optimized with utilization of morphine immediate release 7.5 mg tablet first in the morning in addition to her MS Contin 50 mg 3 times daily. This addition of immediate release morphine assist with her underlying osteoarthritic pain as well as her ease with breathing due to her underlying COPD. She has not had any exacerbations of her COPD and they continue to verbalize a high quality industrial air filter within the home. Impression and Recommendations - Palliative Care Impression: This is a frail, 85-year-old female with a longstanding history of COPD, nonoxygen dependent, chronic neck pain, dementia, anxiety, and depression now with noted weight loss. Her anxiety is stable on BuSpar 5 mg twice daily. Would benefit from additional caloric intake from protein and this was discussed today with the patient's daughter. Palliative care will continue to provide support for symptom management, anticipatory guidance, care coordination and advance care planning with transition to hospice when medically appropriate. Recommendations/Counseling Done: 1. 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 Status post cervical procedure with Dr. Celeste performed 12/04/2019.Addition of morphine immediate release 7.5 mg percent in the morning has been effective and would continue. Continue MS Contin 15 mg 3 times daily and new Rx for 1 month supply sent to [facility] pharmacy per daughter's request. Continue morphine immediate release 15 mg every 4 hours as needed for pain and continue to document administration in order to make adjustments of long-acting morphine in the future. 2. Weight loss. Weight down to 105.2 pounds. Not unexpected given the patient's underlying COPD resulting in energy expenditure. Encouraged to have an increase in caloric intake with protein during meals as as well as and snacks. We will continue to monitor. 3. COPD and asthma. Longstanding history. Continue routine duo nebs. Continue Singulair 10 mg daily. Continue add [place] inhaler as prescribed. Continue MS Contin 15 mg 3 times daily for underlying pain and dyspnea. Patient has prednisone 10 mg tablets in the home to be utilized as directed if COPD ask Rudolph patient occurs taking 1 tablet by mouth x1 dose for signs and symptoms of exacerbation and then to contact palliative care for guidance during workday and PCP after hours or weekends for further management. Goal is to avoid transfer to the emergency department. Continue to monitor. 4. Anxiety and depression. Longstanding history of anxiety. Doing well with BuSpar 5 mg twice daily and will not make a dose reduction at the present time but will reassess after the holidays. Continue Lexapro 10 mg daily for overall management of depression anxiety. Is doing well with the loss of her regional sales associate. 5. Hypertension. Remains off of antihypertensive medications. Blood pressure stable. No cardiac complaints. 6. Dementia. Chronic. Progressive. Fall precautions. Continued 24-hour support within the home. Family continues to provide oversight regarding caregiving support and medication management. On no disease modifying agents. Sundowning behaviors presently controlled with quetiapine 12.5 mg in the afternoon. No recent falls. On given the patient's advanced age and chronic comorbidities a gradual decline is expected. Total time spent 45 minutes with greater than 50% is spent in counseling and coordination of care with the patient, daughter/DPOA Keri and son-in-law at; examination of patient; review of pain and symptom management as well as anticipatory guidance. Disclaimer: The chart note was formulated using voice recognition technology and unfortunately sound alike errors may occur.
== END 2021-04-27 11:31 | disposition home or self-care (01) ==
LOC: PC 11:30
PROVIDERS: ATTEND Nurse Practitioner Family
DX: Z51.5 Encounter for palliative care (principal); G89.4 Chronic pain syndrome; M54.2 Cervicalgia; R63.4 Abnormal weight loss; J44.9 Chronic obstructive pulmonary disease, unspecified; F41.9 Anxiety disorder, unspecified; F32.A Depression, unspecified; I10 Essential (primary) hypertension; F03.90 Unspecified dementia, unspecified severity, without behavioral disturbance, psychotic disturbance, mood disturbance, and anxiety; Z66 Do not resuscitate
CPT/HCPCS: 99349

== ENCOUNTER 2021-06-15 13:30 | Outpatient (CLI) | payer MEDICARE, OTHER ==
--- NOTE | 2021-06-15 17:43 | CONSULTATION NOTE ---
Palliative Care Follow Up - Referral Referring Provider: Dr. Kirk Blakely Time of Visit: [id number] Referral setting: Home Referral Reason: CHange in condition/Dementia/COPD - Information Sources Records reviewed: Previous records reviewed History/Review of Systems obtained from: Patient, Family (daughter/DPPARESH Saavedra and AALIYAH Ed), Caregiver (Sydnee) Exam limitations: Clinical condition (+PENOBSCOT and dementia) - History of Present Illness Update Brief HPI Update: This is an 85-year-old female who was seen in follow-up today in her home due to change in condition in the setting of advanced COPD, pulmonary hypertension, dementia, anxiety, and chronic pain syndrome. The patient is seen with her daughter/DIDIER Saavedra, son-in-law, Ed and caregiver, Sydnee present. Provider wore N95 mask. The patient has had COPD for a number of years. She was previously prescribed trilogy but this was ineffective. In the last several days she has not been utilizing her inhaler but has been allowing intermittent use of her DuoNeb nebulizer. She has had a decrease in her overall activity level over several weeks. Daughter reports that she has been sleeping more throughout the day and remaining in bed versus participating in activities and sitting in her recliner She can become short of breath with increased activity. With this change in can edition most pacifically since the weekend, the patient has remained in bed and is only up to use the restroom. She has not had a meal since the weekend and yesterday only had 1-2 slices of mandrin orange. She is taking sips of fluid intermittently. She reports that she is not hungry. She denies any abdominal pain. She denies nausea. She is remained afebrile. The patient has a longstanding history of chronic pain most specifically to her cervical spine and previously had injections by Dr. Bennett to the site. She presently is on Celebrex as well as MS Contin 15 mg 3 times daily with utilization of morphine immediate release 7.5 mg as needed. This has assisted with her overall generalized pain as well as for shortness of breath since initiation. Patient is seen resting in bed, frail, pale. He had no evidence of acute distress or respiratory symptoms. Past Medical History: Patient has a past medical history of hypertension, asthma, COPD, dementia, hypothyroidism, GERD, diverticulitis, depression, anxiety, osteopenia, frequent falls, chronic neck pain, hyponatremia, pulmonary HTN RSVP 30mmHg 2018, Raynaud's syndrome, atopic dermatitis. +COVID-19 vaccine Social History - Living Situation Living arrangement: At home Living Situation: With family (daughter, Keri and AALIYAH Ed have moved into the home temporarily as their home is being constructed on an adjacent property), With caregiver(s) Support System: The patient presently resides in her home of approximately 24 years. She had been for 64 years to her Lauri, who on [facility] hospice on 07/17/2019. Her was her primary caregiver until his declining health. Presently, she is receiving 24-hour caregiving support from new caregiver Sydnee and form her daughter/DPOA Keri and AALIYAH, Ed. The patient and her spent a significant amount of time in [place]. Her served in the [employer] and was stationed in [place]. 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 Before , the patient went to [place] to visit a friend and was there for 2 hours. Her son-in-law reports that at times he felt they may have to turn back given the patient's discomfort but she was able to rally and enjoy her time with her friend. Medications/Allergies - Medications Home Medications: Ambulatory Orders Medication Instructions Recorded Confirmed Levothyroxine [Synthroid] 125 mcg PO QDAC 07/10/14 09/02/20 Ipratropium/Albuterol Sulfate 3 ml INH QID 12/25/17 09/02/20 [Iprat-Albut 0.5-3(2.5) mg/3 ml] Escitalopram Oxalate 10 mg PO DAILY 07/28/19 09/02/20 Fluticasone Propion/Salmeterol 1 puffs INH BID 08/25/19 09/02/20 [Wixela 250-50 Inhub] Albuterol Sulfate [Albuterol 2 puffs INH Q4H PRN 11/14/19 09/02/20 Sulfate Hfa] Montelukast Sodium 10 mg PO QPM 11/14/19 09/02/20 Triamcinolone 0.1% Cream [Kenalog 1 applic TOP PRN PRN 11/14/19 09/02/20 0.1% Cream] Morphine Ir [Ms Ir] 1 tab PO Q4H PRN 12/02/19 09/02/20 Ondansetron Odt [Zofran Odt] 4 mg PO Q8H PRN 12/02/19 09/02/20 Senna [Senokot] 8.6 mg PO DAILY PRN 12/10/19 09/02/20 polyethylene glycoL 3350 [Miralax] 17 g PO DAILY 12/10/19 09/02/20 busPIRone [Buspar] 5 mg PO DAILY PRN 12/17/19 09/02/20 Senna [Senokot] 8.6 mg PO QPM 01/06/20 09/02/20 Sodium Chloride [Saline Nasal 1 spray INH .EACH NOSTRIL PRN PRN 01/14/20 03/08/20 [place]] MDD To reduce pollen exposure LORazepam [Ativan] 0.5 mg PO DAILY PRN MDD Use 02/09/20 09/02/20 sparingly predniSONE [Prednisone] MDD take as directed 03/08/20 Acetaminophen [Tactinal] 1,000 mg PO TID PRN 04/05/20 09/02/20 Carboxymethylcellulose Sodium 1 drops EACHEYE Q2H PRN 04/05/20 09/02/20 [Artificial Tears] Morphine Sulfate [Ms Contin] 15 mg PO TID 06/09/20 09/02/20 busPIRone [Buspar] 5 mg PO BID 09/29/20 09/29/20 Morphine Ir [Ms Ir] 7.5 mg PO .QAM 06/16/21 06/16/21 - Allergies Allergies/Adverse Reactions: Allergies Allergy/AdvReac Type Severity Reaction Status Date / Time moxifloxacin Allergy Severe Rash Verified 06/09/20 18:59 losartan [From Cozaar] Allergy Unknown Verified 06/09/20 18:59 oxycodone Allergy Unknown Verified 06/09/20 18:59 codeine AdvReac Severe Nausea Verified 06/09/20 18:59 hydrocodone AdvReac Severe Vomiting Verified 06/09/20 18:59 tramadol AdvReac Severe Vomiting Verified 06/09/20 18:59 Review of Systems - Constitutional Constitutional: reports: Fatigue, Poor appetite (see HPI), Weight loss (weight 100.4lb 06/15/21; weight 105.2lb 04/27/2021; weight 11/2020 112lb; weight 102.8lb 06/09/2020). denies: Fever - Eyes Eyes: denies: Irritation - Ears, Nose & Throat Ears, Nose & Throat: reports: Hearing loss, Hearing aids, Dry mouth (due to lack of oral intake---provide mouth swabs to daughter for oral care). denies: Dentures, Dental pain - Cardiovascular Cardiovascular: reports: Exertional dyspnea, Decr. exercise tolerance. denies: Chest pain, Edema - Respiratory Respiratory: reports: SOB with exertion. denies: Cough, SOB at rest - Gastrointestinal Gastrointestinal: reports: Poor appetite, Other (No difficulty swallowing medication reported). denies: Abdominal pain, Constipation (controlled), Nausea, Vomiting - Genitourinary Genitourinary: reports: Incontinence, Nocturia. denies: Dysuria - Musculoskeletal Musculoskeletal: reports: Stiffness (neck), Assistive devices, Other (No recent falls). denies: Joint pain (neck pain controlled with MS Contin) - Integumentary Integumentary: denies: Rash - Neurological Neurological: reports: General weakness, Memory problems. denies: Headache, Dizziness - Psychiatric Psychiatric: reports: Depression, Anxiety (controlled) - Endocrine Endocrine: reports: Hypothyroidism - Hematologic/Lymphatic Hematologic/Lymph: reports: Bruising (bruises easily) - All Other Systems All Other Systems: reports: Reviewed and negative (ROS supplemented by lucius skinner/DIDIER Keri and Son in law Ed, as is a poor historian due to dementia) Physical Exam - Vital Signs Temperature: 37.1 C Pulse Rate: 64 O2 Saturation: 92 (on RA) Blood Pressure: 141/81 (left wrist) - Physical Exam General Appearance: positive: No acute distress, Alert, Other (thin, b/l temporal wasting) Eyes Bilateral: positive: Normal inspection ENT: positive: Dry mucous membranes (mild, provided oral swabs to daughter), Other (+hearing aids) Neck: positive: Trachea midline Cardiovascular: positive: Regular rate & rhythm, Systolic murmur Respiratory: positive: No respiratory distress, Breath sounds nml. negative: Wheezes Abdomen: positive: Non-tender, Soft, Nml bowel sounds. negative: Distended Skin: positive: Pallor Extremities: positive: No pedal edema, Other (+DJD changes to b/l hands) Neurologic/Psychiatric: positive: Oriented x3 (STM impiarment), Mood/affect nml, Weakness (generalized) Palliative Care - POLST Patient has POLST: Yes POLST Status: DNR, Selective Treatment Pain: Comment (controlled with MS Contin 15mg TID) Performance Status: History of frequent falls, none recently. Staying in bed versus her previous bed to chair existence. Increase shortness of breath with activity. Minimal solid foods and oral intake for approximately 4 to 5 days. Urinary incontinence. PPS 40% - Palliative Care Discussion: The patient has been frail and at risk for potential sequelae due to her comorbidities most pacifically COPD, pulmonary hypertension, asthma, and advancing dementia For several years. In the last 2 years she has had hospitalization for COPD exacerbation and hyponatremia. However, she continued to have a gradual, functional and cognitive decline until the last several days where her functional ability has significantly declined opting to remain in bed with significant weakness, decreased oral intake and increased shortness of breath with exertion. The patient herself has always had a strong will and an active individual on the move. Previously, when any change in condition presented itself the patient had an underlying fear of dying and would reach out via telephone to her children or 911 for fear of dying. The patient's daughter and son-in-law perceive that there has been a shift in the patient's mentality and she seems at peace with potential end-of-life. When addressed with the patient today regarding how she feels she reported "it feels like I am at end-of-life." She appeared excepting and at peace regarding this verbalization. Introduced the role of hospice services to both the patient and family and are open to this transition. They have familiarity with hospice as the patient spouse was on hospice services approximately 2 years ago prior to his . The patient and her family wish to focus on comfort measures within the home environment and avoid hospitalization in order for her to have a comfortable and dignified at home with her family. Results - Lab Results Lab results reviewed: Yes Lab and Imaging Results: 2018 Echo report Impression and Recommendations - Palliative Care Impression: This is a frail, 85-year-old female with longstanding history of severe COPD not oxygen dependent, Pulmonary hypertension, chronic neck pain, dementia, anxiety, depression, now presenting with significant functional decline and protein calorie malnutrition. She has had an approximate 12 pound weight loss since November 2020. Given her significant decline in the family and patient's desire to focus on comfort measures recommendation made to transition to hospice services for support within the home setting. Recommendations/Counseling Done: 1. Advanced COPD and asthma with pulmonary HTN. Longstanding history. Chronic. Progressive. Did not tolerate rate trilogy. Continue routine duo nebs. Discontinue Singulair. Patient does have prednisone available to administer 20 mg x 1 dose if COPD exacerbation occurs and to contact palliative care for further management with the goal to avoid transfer to the emergency department. Significant fatigue present With dyspnea on exertion and opting to stay in bed versus her previous functional status. 2. Protein calorie malnutrition. In the setting of advanced COPD, pulmonary hypertension, and dementia. Patient has had an approximate 12 pound weight loss since November 2020. Minimal oral intake. Discussed with patient, family and caregivers to offer food and liquids that the patient may find pleasurable and if declines only offer up to 3 times. Discussed need for routine oral care and provided oral swabs today. Would continue to expect a continued weight loss with minimal oral intake. 3.Chronic pain syndrome specifically to use cervical spine. Status post cervical procedure with Dr. Bennett performed 12/04/2019. Presently on MS Contin 15 mg 3 times daily. Has morphine immediate release to utilize 15 mg every 4 hours as needed for pain and to continue to document administration in order to make adjustments of long-acting morphine in the future. Discontinue Celebrex 200 mg daily due to lack of oral intake and concern for GI bleed-- family in agreement. Presently pain symptoms are controlled. 4. Hypertension with history of orthostatic hypotension. No cardiac symptoms reported. Remains off of antihypertensive medication and previously was on losartan. 5. Depression and anxiety. No evidence of anxiety today. Is no longer having an underlying fear regarding dying. Longstanding history of anxiety. Continue Lexapro 10 mg daily. Continue BuSpar 5 mg twice daily. She does have lorazepam 0.5 mg to be used once daily as needed for acute anxiety. Continue to monitor and adjust medication as needed for management of symptoms. 6. Dementia with behavioral disturbances. Chronic. Progressive. Fall precautions. History of sundowning behaviors. Given the patient's overall decline will discontinue quetiapine in the afternoon. Continue / caregiving support. On no disease modifying agents. Family is very involved in management of oversight. Given the patient's and advanced age and chronic comorbidities a gradual decline is expected. 7.Advance care planning. Patient has POLST in place as DN AR with selective interventions. The patient's family and patient herself recognize her declining health and patient perceives she is nearing end-of-life and no longer has fears surrounding this. The patient's family has experienced hospice services with the of the patient's spouse on the services approximately 2 years ago. The patient's family does not want heroics or interventions and to make the patient comfortable within her home setting and therefore, will make a transition to hospice services for additional support within the home setting. Total time spent 50 minutes with greater than 50% of the spent in counseling and coordination of care with the patient, daughter/DPOA Keri, son-in-law at, and caregiver Sydnee; review of hospice services and overall decline with the patient's functional status; examination of patient; review of pain and symptom management as well as anticipatory guidance.
== END 2021-06-15 13:31 | disposition home or self-care (01) ==
LOC: PC 13:30
PROVIDERS: ATTEND Nurse Practitioner Family
DX: Z51.5 Encounter for palliative care (principal); J44.9 Chronic obstructive pulmonary disease, unspecified; I27.20 Pulmonary hypertension, unspecified; E46 Unspecified protein-calorie malnutrition; G89.4 Chronic pain syndrome; I10 Essential (primary) hypertension; F32.A Depression, unspecified; F41.9 Anxiety disorder, unspecified; F03.91 Unspecified dementia, unspecified severity, with behavioral disturbance; Z91.81 History of falling; R32 Unspecified urinary incontinence
CPT/HCPCS: 99349